=== PATIENT | female | born 1965 | race Caucasian/White ===

== ENCOUNTER 2016-07-01 08:22 | Inpatient (IN) | payer BC ==
--- NOTE | 2016-06-19 11:24 | HPE ---
DATE OF ADMISSION: 07/01/2015 HISTORY OF PRESENT ILLNESS: Ms. Holly is a pleasant 50-year-old, right-handed female who has been seen by Dr. Moise and is going to undergo anterior cervical discectomy and fusion at C5-6. The patient states that she has had chronic headaches for years, and she will get chronic bilateral arm numbness and tingling and at times whole-body numbness and tingling. She had recent carpal tunnel surgery in November 2015 on the right side without any significant change or relief. The patient states that vacuuming aggravates her pain. She tries to stop or change positions for relief. She has not had any physical therapy or injections, she states. ALLERGIES: The patient is allergic to PENICILLIN, LIVE VACCINES, SEAFOOD. PAST MEDICAL HISTORY: Significant for iron deficiency anemia, chronic pain and a skin disorder, Netherton syndrome. CURRENT MEDICATIONS: - Flexeril 10 mg three times a day as needed - hydroxyzine 25 mg daily - Lyrica 75 mg twice a day - iron daily - vitamin D daily PAST SURGICAL HISTORY: She had right carpal tunnel release November 2015. She had a section and tubal ligation in January 1989. REVIEW OF SYSTEMS: She reports fatigue, photophobia, shortness of breath, leg swelling, back pain, headaches, numbness, weakness. PHYSICAL EXAMINATION GENERAL APPEARANCE: No acute distress. Well-developed, well-nourished female. HEENT: Head is normocephalic, atraumatic. Pupils equal, round react to light. EOMs full and conjugate. RESPIRATORY: Symmetrical rise and fall of her chest. Positive bronchovesicular breath sounds. No wheezes. No rales. No rhonchi. CARDIAC: Regular rate and rhythm. No murmurs. No rubs. No gallops. ABDOMEN: Positive bowel sounds. Soft, nontender. No masses. No guarding. MUSCULOSKELETAL/NEUROLOGIC EXAM: Speech is clear and fluent. Smile symmetrical. Tongue is midline. She has good shoulder shrug bilaterally. Hearing is grossly intact bilaterally to finger rub. No pronator drift. She has good strength in bilateral biceps, triceps, deltoid and pharmacist aide strength are 5/5. Bilateral quads, hamstring, gastrocs, anterior tibialis are strong at 5/5. Reflexes upper and lower extremities normoactive symmetrical. No pathologic reflexes. She has good and full range of motion of her head and neck. No Lhermitte's is reproduced. She is alert and oriented times three. Judgment and insight good. Mood and affect appropriate for setting. ASSESSMENT: Cervical spondylosis. PLAN: The patient is going to undergo a C5-6 anterior cervical discectomy and fusion as discussed and outlined with the patient by Dr. Moise.
[~2016-07-01] VITALS: Ht 162.6 cm; Wt 85.0 kg
[~2016-07-01 08:22] MED LIST: AQUA100OI TOP; BIOT10005 PO; CYCL10TA PO; HYDR25T PO; IRON28TA PO; LYRI75CA PO; TRAM50TA2 PO; VITA500046 PO
[2016-07-01] MEDS ORDERED: CLINDAMYCIN 900 MG in APPROPRIATE DILUENT 1 EA IV ONE (08:30)
[2016-07-01] MEDS ORDERED: dexameTHASONE 4 MG/ML 1ML VIAL (J1100) IV ONE (08:30)
[2016-07-01] MEDS ORDERED: THROMBIN SOLN 20,000 UNITS KIT As Ordered ONE ×2 (10:13→13:30)
[2016-07-01] MEDS ORDERED: methylPREDNISolone SUSP 40 MG/ML (DEPO-medrol) VIAL (J1030) As Ordered ONE (10:13)
[2016-07-01] MEDS ORDERED: BACITRACIN PWD 50,000 UNITS VIAL As Ordered ONE (10:14)
[2016-07-01] MEDS: LR 1,000 ML IV SCH ×4 (10:45→16:10)
[2016-07-01] MEDS ORDERED: dexameTHASONE 4 MG/ML 1ML VIAL (J1100) As Ordered ONE (11:46)
[2016-07-01] MEDS ORDERED: ROCURONIUM BROMIDE 50 MG/5 ML VIAL As Ordered ONE (11:46)
[2016-07-01] MEDS ORDERED: PROPOFOL 500 MG/50 ML VIAL As Ordered ONE (11:46)
[2016-07-01] MEDS ORDERED: MIDAZOLAM INJ 2 MG/2 ML VIAL (J2250) As Ordered ONE (11:46)
[2016-07-01] MEDS ORDERED: REMIFENTANIL 1MG 3ML VIAL As Ordered ONE (11:46)
[2016-07-01] MEDS ORDERED: fentaNYL 100 MCG/2 ML INJECTION (J3010) As Ordered ONE (11:46)
[2016-07-01] MEDS ORDERED: METOCLOPRAMIDE INJ 10MG/2ML VIAL (J2765) As Ordered ONE (12:00)
[2016-07-01] MEDS ORDERED: ePHEDrine SULFATE 25 MG/5 ML(5MG/ML) SYRINGE As Ordered ONE ×3 (12:06→13:13)
[2016-07-01] MEDS ORDERED: PHENYLephrine HCL 500 MCG/5 ML (100MCG/ML) SYRINGE (J2370) As Ordered ONE ×3 (12:06→13:13)
--- NOTE | 2016-07-01 12:20 | REP ---
CERVICAL SPINE EIGHT VIEWS: HISTORY: Spondylosis. The cervical spine is visualized from C1 to the C6-7 level in the lateral radiographs. There is no acute fracture. The C4-5 through C6-7 intervertebral discs are decreased in height consistent with disc degeneration. Osteophytes are present on C6. The neural foramina are patent. There are 2 mm of anterior subluxation of C3 on 4 and C4 on 5 with flexion. This is not seen in neutral or extension radiographs. IMPRESSION: Degenerative change as described above. Signed by Martin Wilkes MD 07/01/2016 12:43 P
[2016-07-01] MEDS ORDERED: ONDANSETRON 4MG/2ML VIAL (J2405) As Ordered ONE (12:52)
[2016-07-01] MEDS ORDERED: HYDROmorphone HCL 2 MG/ML 1ML VIAL (J1170) As Ordered ONE (13:48)
[2016-07-01] MEDS ORDERED: THROMBIN SOLN 20,000 UNITS KIT XX ONE (13:58)
[2016-07-01] MEDS ORDERED: methylPREDNISolone SUSP 40 MG/ML (DEPO-medrol) VIAL (J1030) XX ONE (13:58)
[2016-07-01] MEDS ORDERED: BACITRACIN PWD 50,000 UNITS VIAL XX ONE (13:58)
--- NOTE | 2016-07-01 14:10 | REP ---
Image 1, 12: 34 pm on 07/01/16, Intraoperative cross table lateral view of cervical spine, 07/01/16. Findings: Endotracheal and NG tubes are identified. Anterior surgical marker overlies the disc space at C4-5. Inferior aspect of C6, and C7 are omitted from view. Image 2, 1:42 pm on 07/01/16 There has been interval anterior cervical discectomy at C5-C6. There is an anterior fixation plate C5 and C6 with transverse interlocking screws at C5 and C6 as well as interbody bony construct at this level. Anterior superior endplate of C6 is minimally included in view. C6 and C7 otherwise obscured from view. Alignment is within normal limits. Endotracheal and NG tubes are again identified Impression: status post anterior cervical discectomy with anterior fusion at C5-6. Alignment is anatomic in the lateral view. Signed by Marivel Morales MD 07/01/2016 02:02 P
[2016-07-01] MEDS ORDERED: PERCOCET 5MG/325MG TAB As Ordered ONE (15:19)
[2016-07-01 15:30] VITALS: BP 134/87
[2016-07-01] MEDS ORDERED: ONDANSETRON 4MG/2ML VIAL (J2405) IV PRN ×2 (15:30→15:45)
[2016-07-01] MEDS ORDERED: fentaNYL 100 MCG/2 ML INJECTION (J3010) IV PRN (15:30)
[2016-07-01] MEDS ORDERED: MORPHINE 2 MG/ML 1ML SYRINGE IV PRN ×2 (15:30→15:45)
[2016-07-01] MEDS: PERCOCET 5MG/325MG TAB PO PRN ×2 (15:42→16:09)
[2016-07-01] MEDS ORDERED: NORCO, ANEXSIA 5/325MG TABLET (HYDROcodone/ACETAMINOPHEN) PO PRN (15:45)
[2016-07-01] MEDS ORDERED: D5W/0.45% SODIUM CHLORIDE 1,000 ML IV SCH (15:45)
[2016-07-01] MEDS ORDERED: ACETAMINOPHEN TAB 650MG DOSE (2X325MG) PO PRN (15:45)
[2016-07-01 16:00] VITALS: BP 111/59
[2016-07-01 17:00] VITALS: BP 136/77
[2016-07-01] MEDS: KCL 20MEQ IN D5/0.45NS 1000ML 1,000 ML IV SCH (17:39)
[2016-07-01] MEDS: CLINDAMYCIN 300 MG in APPROPRIATE DILUENT 1 EA IV SCH ×2 (17:55→23:45)
[2016-07-01 18:00] VITALS: BP 115/74
[2016-07-01 19:00] VITALS: BP 123/63
[2016-07-01] MEDS ORDERED: hydrOXYzine 25 MG TAB PO SCH (21:00)
[2016-07-01] MEDS: PREGABALIN 75 MG CAP(LYRICA) PO SCH (21:08)
--- NOTE | 2016-07-01 21:08 | RO ---
DATE OF PROCEDURE: 07/01/2016 PREOPERATIVE DIAGNOSES: Cervical spondylosis with myelopathy and radiculopathy. POSTPROCEDURE DIAGNOSES: Cervical spondylosis with myelopathy and radiculopathy. PROCEDURE: Partial corpectomies of C5-C6 with discectomy, arthrodesis using Allograft and internal stabilization using CoreLink plating system. SURGEON: Nickie Moise MD HAND THERMAL CUTTER: None. ANESTHESIA: General. s FINDINGS: Please see the my office notes for detailed preoperative evaluation and discussion in this patient with degenerative changes of the cervical spine. She was seen in the preoperative area with her . There was no change in her clinical examination and continues to have soft myelopathic findings with reversal of brachioradialis reflexes and has mild C6 deficits. Her workup showed pertinent changes, particularly at C5-6 there is a small herniated disc compressing the spinal cord. This along with osteophytic ridge is somewhat more eccentric towards the right. Her last EMG nerve conduction study also showed C5-C6 radiculopathy along with median neuropathy. Stress views showed early subluxation at C3-C4 and C4-C5 during flexion. Family consult was held in the preoperative area and with her and in the past the patient has been aware of all options, scope, expected outcome, sequela, and all risks of the proposed salvage surgery. They understand that no guarantees can be given of any kind and the risk of surgery would include, but not limited to , coma, spinal fluid leakage, meningitis, loss of voice or swallowing, Solitario syndrome, loss of vital bodily functions, failure of surgery, fusion and instrumentation, need for multiple surgeries, mediastinitis, pneumothorax, infection, bleeding, and/or any catastrophic sequela. The patient wished to proceed with surgery. She claimed once again that there is no way she can live with the nagging pain in her neck which would radiate to both shoulders, mostly the right and burning sensation in her arms, and is willing to take any or all risk for any possible benefit. The patient and her once again understood the risks and advantage of the surgery and had all followup instructions. After all matters pertaining to the surgery, anesthesia and followup care had been discussed with her again, she was taken to the operating room after informed consent at her request. DESCRIPTION OF PROCEDURE: Once in the operating room, general endotracheal anesthesia was given by the anesthesia service. The area of surgery was prepped and draped in the usual sterile fashion. Her shoulder was supported with a blanket roll and neck was slightly turned towards the left. A horizontal skin incision was given along one of the neck creases at the cricoid cartilage. Alveolar layer was reached and incised. Cut edges of blood vessels were coagulated with bipolar cautery and PlasmaBlade. Platysma was opened in the direction of fibers. A cleavage was created between the trachea and esophagus and omohyoid muscles medially and the medial border of the sternocleidomastoid are carotid sheath laterally. Prevertebral fascia was reached and opened. Longus colli muscles were from the exposed vertebral column and self-retaining retractors were applied to C5-C6. A marker was placed at C4-C5 for radiological confirmation. Attention was now paid to C4-C5. Annulus was incised with an #11 blade. After rongeuring the anterior osteophytes with high speed air drill, again for more visual access of the interspace. The patient had free fragment which was compressing the spinal cord near the midline and somewhat towards the right and this was removed along with degenerative disc and osteophytes were drilled and removed. Complete decompression of the spinal cord was achieved, with the annulus carried over the medial aspect of the nerve roots. Epidural space was inspected for further disc material and none was found. Limited partial corpectomy was performed to gain more vital decompression and during the process the vertebral bodies were generally distracted with the Randy pins. 6 mm wide tricortical allograft block was placed in the vertebral defect and internal stabilization was caused by using a 14 mm CoreLink plate which was approximated to the vertical columns using self-drilling 12 mm screws. Hemostasis was checked and secured throughout the procedure. Blood loss was negligible and there was nothing in the container per anesthesia service. The wound was closed in anatomical layers. The patient tolerated the procedure well and was transferred to the recovery room in stable condition. Operative findings were discussed with the patient and her in the waiting room. Carbon Copy To: Dr. Mago [place], [place]
[2016-07-01 22:00] VITALS: BP 123/66
[2016-07-02 02:00] VITALS: BP 120/60
[2016-07-02] MEDS: KCL 20MEQ IN D5/0.45NS 1000ML 1,000 ML IV SCH (02:34)
[2016-07-02] MEDS: CLINDAMYCIN 300 MG in APPROPRIATE DILUENT 1 EA IV SCH ×2 (05:16→11:20)
[2016-07-02 06:00] VITALS: BP 117/77
[2016-07-02] MEDS: PREGABALIN 75 MG CAP(LYRICA) PO SCH (09:07)
--- NOTE | 2016-07-02 09:45 | REP ---
CERVICAL SPINE, TWO VIEWS: HISTORY: Spinal fusion. COMPARISON: 07/01/2016. The patient is status post C5-6 anterior spinal fusion. A fixation plate and bone graft material are present. There is no acute fracture or subluxation. The C4-5 and C6-7 intervertebral discs are decreased in height consistent with disc degeneration. Prevertebral soft tissue swelling is present. IMPRESSION: The patient is status post C5-6 anterior spinal fusion. There is anatomic alignment of the cervical spine. Signed by Martin Wilkes MD 07/02/2016 09:51 A
[2016-07-02 10:00] VITALS: BP 122/65
[2016-07-02 14:00] VITALS: BP 146/74
[2016-07-02] MEDS ORDERED: NORC5TAB PO (15:22)
[2016-07-02] MEDS ORDERED: CIPR500T89 PO (15:29)
--- NOTE | 2016-07-02 21:23 | DSES ---
DATE OF ADMISSION: 07/01/2016 DATE OF DISCHARGE: 07/02/2016 FINAL DIAGNOSIS: Cervical spondylosis. PROCEDURE: C5-C6, partial corpectomies, discectomies, fusion, and internal stabilization using CoreLink plating. HOSPITAL COURSE: Please see my office note for a detailed preoperative evaluation and discussion. The patient had cervical spondylosis with evidence of myelopathy and radiculopathy. The patient underwent an uneventful above procedure and reported no preoperative symptoms. Examination shows no evidence of residual radiculopathy or myelopathy. She was discharged at her request on 07/02/2016. The patient had followup instructions.
== END 2016-07-02 16:30 | disposition home or self-care (01) | DRG 321 ==
LOC: M OR 08:22 → M MS5PR 15:30
PROVIDERS: ADMIT Neurological Surgery; ATTEND Neurological Surgery
PROC: 0RB30ZZ Excision of Cervical Vertebral Disc, Open Approach (ICD-10-PCS; 2016-07-01)
PROC: 01N10ZZ Release Cervical Nerve, Open Approach (ICD-10-PCS; 2016-07-01)
PROC: 0RG20A0 Fusion of 2 or more Cervical Vertebral Joints with Interbody Fusion Device, Anterior Approach, Anterior Column, Open Approach (ICD-10-PCS; principal; 2016-07-01 10:05)
DX: M47.12 Other spondylosis with myelopathy, cervical region (principal); M54.12 Radiculopathy, cervical region; Z88.0 Allergy status to penicillin; Z79.899 Other long term (current) drug therapy; Z91.013 Allergy to seafood; Z88.7 Allergy status to serum and vaccine

== ENCOUNTER → 2016-07-21 | Outpatient (CLI) | payer BC ==
[~2016-07-21] MED LIST changes: +CIPR500T89 PO; +NORC5TAB PO
[2016-07-21 11:18] LABS: BASO # 0.1 K/mm3 (0.0-0.2); BASO % 1.1 % (0.0-1.0); EOS # 0.8 K/mm3 (0.0-0.50); EOS % 9.9 % (0.0-3.0); LARGE UNSTAINED CELL # 0.2 K/mm3 (0.0-0.4); LARGE UNSTAINED CELL % 2.2 % (0.0-4.0); LYMPH # 1.8 K/mm3 (1.5-4.5); LYMPH % 19.3 % (24.0-44.0); MEAN CORPUSCULAR VOLUME 87.8 fl (80.0-96.0); MONO # 0.6 K/mm3 (0.0-0.8); MONO % 7.4 % (0.0-5.0); NEUTROPHILS # 4.9 K/mm3 (1.8-7.7); PLATELET COUNT, AUTOMATED 297 k/mm3 (150-450); RED CELL DISTRIBUTION WIDTH 12.9 % (11.5-14.5); WHITE BLOOD COUNT 8.2 K/mm3 (4.0-10.0)
[2016-07-21 11:40] LABS: ERYTHROCYTE SEDIMENTATION RATE 14 mm/hr (0-20)
== END ==
LOC: M LAB 10:44
PROVIDERS: ATTEND Neurological Surgery
DX: M47.22 Other spondylosis with radiculopathy, cervical region (principal)

== ENCOUNTER → 2016-08-09 | Outpatient (CLI) | payer BC, MEDICARE ==
--- NOTE | 2016-08-09 14:08 | REP ---
Clinical: Status post anterior fusion. Technique: AP, lateral, flexion/extension, and open-mouth views. Findings: Alignment is maintained. The patient is status post anterior fusion at the C5-6 level. Prevertebral soft tissues are normal and without subcutaneous emphysema. Impression: Normal alignment. Stable examination. Signed by Kelby Lagunas MD 08/09/2016 02:00 P
== END ==
LOC: M RAD 13:40
PROVIDERS: ATTEND Neurological Surgery
DX: M47.22 Other spondylosis with radiculopathy, cervical region (principal)

== ENCOUNTER → 2016-08-19 | Outpatient (CLI) | payer BC ==
--- NOTE | 2016-08-20 02:07 | ECWPNPC ---
PATIENT NAME: NAVID KIBRY : 1965 GENDER: FEMALE VISIT DATE: 08/19/2016 DISCHARGE DATE: 08/19/16 1200 VISIT LOCKED DATE TIME: PHYSICIAN: STACY THOMASON RESOURCE: STACY THOMASON REASON FOR APPOINTMENT 1. BACK HISTORY OF PRESENT ILLNESS HISTORY OF PRESENT ILLNESS: HERE FOR F/U AND MANAGEMENT OF CHRONIC LOW BACK AND BILATERAL LEG PAIN R>L.HX OF LOWER EXTREMITY NEUROPATHY AND ARTHRITIS.RATING PAIN VAS 1/10.HAD CERVICAL SURGERY ON Jun WITH DR RATLIFF.FOLLOWS WITH DR. GUICHO YOON FOR NEUROPATHY AND IS PRESCRIBED LYRICA.PATIENT STATES SHE HAS HAD 35# WEIGHT GAIN AND FLUID RETENTION IN LOWER EXTREMITIES.CURRENTLY TAKING LYRICA 75MG BID.SHE WILL DISCUSS W DR. YOON.REYNA ENCOURAGED HER TO DISCUSS WEIGHT GAIN WITH PRIMARY CARE TOO I DONT THINK ALL THE WEIGHT GAIN AND FLUID RETENTION IS FROM LYRICA.PATIENT IS ASKING FOR ANOTHER EPIDURAL.HAD ONE IN JANUARY AND WAS DOING WELL UNTIL PAST FEW WEEKS.PAIN IS LOCATED IN CENTRAL LOW BACK AND RADIATES INTO LEGS BILATERALLY.MRI L/S SPINE REVIEWED. PAIN THE PATIENT DESCRIBES THE PAIN... THE PATIENT DESCRIBES THE PAIN... THE PATIENT DESCRIBES THE PAIN... FALL RISK SCREENING: SCREENING :NO FALLS IN THE PAST YEAR CURRENT MEDICATIONS TAKING IRON 28 MG TABLET 1 TABLET ORALLY ONCE A DAY TAKING VITAMIN D-3 1000 UNIT CAPSULE 1 CAPSULE ORALLY ONCE A DAY TAKING HYDROXYZINE HCL 25 MG TABLET 1 TAB ORALLY AT BEDTIME TAKING FLEXERIL 10 MG TABLET 1 TABLET ORALLY THREE TIMES DAILY NEEDED TAKING LYRICA 75 MG CAPSULE 1 CAPSULE ORALLY TWO TIMES A DAY TAKING AQUAPHILIC/CARBAMIDE 10 % OINTMENT EXTERNALLY NEEDED. TAKING HYDROCORTISONE VALERATE 0.2 % CREAM 1 APPLICATION TO AFFECTED AREA EXTERNALLY ONCE A DAY TAKING TRAMADOL HCL 50 MG TABLET 1-2 ORALLY Q8H PRN PAIN MDD3 TAKING VITAMIN C 500 MG TABLET CHEWABLE 1 TABLET ORALLY ONCE A DAY NOT-TAKING BIOTIN MAXIMUM STRENGTH 5000 MCG CAPSULE 1 CAPSULE ORALLY ONCE A DAY, NOTES: 0800 MEDICATION LIST REVIEWED AND RECONCILED WITH THE PATIENT PAST MEDICAL HISTORY NETHERTONS SYNDROME-SKIN PROBLEM ARTHRITIS HEART VALVE LEAKS-ABNORMAL EKG CARPAL TUNNEL SYNDROME ALLERGIES PENICILLIN (FOR ALLERGIES USE ONLY): UNKNOWN SEAFOOD: HIVES LIVE VACCINE: UNKNOWN SURGICAL HISTORY C-SECTIONX1 TUBA RIGHT CARPEL TUNNEL 2016 ERVICAL DISC 2017 SOCIAL HISTORY GENERAL: TOBACCO USE ARE YOU A:NONSMOKER LEARNING BARRIERS / SPECIAL NEEDS ORIENTED TO PLAN OF CARE: PATIENT, PAIN MANAGEMENT PATIENT, ORIENTED TO PLAN OF CARE: PATIENT, PAIN MANAGEMENT PATIENT. NEW PATIENT PAIN DIARY TODAY'S VISITNOTES FROM 0-10, WHAT LEVEL IS YOUR PAIN TODAY?0 PAIN CLINIC PFS, CLERGY, PUBLIC HEALTH REFERRALS PFS REFERRAL NEEDED?NO CLERGY REFERRAL NEEDED?NO PUBLIC HEALTH REFERRAL NEEDED?NO WAS THE PROVIDER NOTIFIED OF ANY PERTINENT INFO?NO PFS REFERRAL NEEDED?NO CLERGY REFERRAL NEEDED?NO PUBLIC HEALTH REFERRAL NEEDED?NO WAS THE PROVIDER NOTIFIED OF ANY PERTINENT INFO?NO HOSPITALIZATION/MAJOR DIAGNOSTIC PROCEDURE [facility]IL[facility]IRTH REVIEW OF SYSTEMS CONSTITUTIONAL: ANY CHANGE IN YOUR MEDICAL CONDITION? YES CERVICAL DISC SURGERY IN JUNE . RECENT ILLNESS DENIES . CHILLS NO . FEVER NO . WEIGHT LOSS DENIES . INFECTION: DO YOU HAVE NEW INFECTIONS? NO . DO YOU HAVE HISTORY OF MRSA? NO . MUSCULOSKELETAL: ANY NEW PATTERNS OF PAIN OR NUMBNESS? YES HIGHER IN THE LEGS TODAY . GASTROENTEROLOGY: ANY NEW CHANGE IN BOWEL CONTROL? NO . GENITOURINARY: ANY NEW CHANGE IN BLADDER CONTROL? NO . IS THERE A CHANCE YOU COULD BE ? NO . HEMATOLOGY/LYMPH: DO YOU TAKE ANY BLOOD THINNERS? (FOR EXAMPLE- COUMADIN, PLAVIX, AGGRENOX, PLATEL, PRADAXA, OR XARELTO) NO . WHEN WAS YOUR LAST DOSE? DATE: TIME: . NEUROLOGY: HAVE YOU FALLEN IN THE PAST 6 MONTHS? NO . ANY NEW EXTREMITY NUMBNESS OR WEAKNESS? NO . CARDIOLOGY: DO YOU HAVE A PACEMAKER OR DEFIBRILLATOR? NO . CHEST PAIN DENIES . SHORTNESS OF BREATH DENIES . RESPIRATORY: HAVE YOU BEEN SICK IN THE PAST WEEK? NO . FEVER NO . FLU LIKE SYMPTOMS? NO . COUGH NO, DENIES . SHORTNESS OF BREATH DENIES . INTEGUMENTARY: DO YOU HAVE ANY RASHES OR OPEN SORES? NO . ALLERGIC/IMMUNO: ARE YOU ALLERGIC TO SHELLFISH OR IV DYE? NO . ANY NEW ALLERGIES? NO . PSYCHIATRIC: DO YOU HAVE THOUGHTS OF HURTING YOURSELF OR SOMEONE ELSE? NO . ARE YOU ABUSED, NEGLECTED, OR IN AN UNSAFE ENVIRONMENT? NO . ENDOCRINOLOGY: ARE YOU DIABETIC? NO . OTHER: DO YOU NEED ANY PRESCRIPTIONS? NO . IF YES, PLEASE LIST: ____ . ANY NEW PROBLEMS WITH YOUR MEDICATIONS? NO . WHEN DID YOU LAST EAT? ____ . WHEN DID YOU LAST DRINK? ____ . WHAT DID YOU LAST DRINK? ____ . NAME OF PERSON DRIVING YOU HOME? ____ . DO YOU HAVE ANY OTHER QUESTIONS OR CONCERNS NO . REVIEWED BY: PROVIDER: STACY COLBERT . VITAL SIGNS WT 197.6 LBS, HT 63 IN, BMI 35.00 INDEX, BP 152/74 MM HG, HR 86 /MIN, RR 16 /MIN, TEMP 95.4 F, OXYGEN SAT % 99%, NA INITIALS SC 11:36, REVIEWED BY: KG. EXAMINATION GENERAL EXAMINATION: LUNGS:LUNG SOUNDS ARE CLEAR. HEART:HEART RATE REGULAR. MUSCULOSKELETAL:*, MUSCLE STRENGTH TESTING 5/5 BILATERAL LOWER EXTREMITIES., PALPATION: POSITIVE FOR PAIN OVER L/S SPINE. POSITIVE FOR PAIN OVER L/S PARASPINALS.INSPECTION:2+ EDEMA BILAT. LOWER EXTREMITIES.. DIAGNOSTIC:MRI L/S SPINE 04-28-15-REVIEWED. ASSESSMENTS LUMBOSACRAL SPONDYLOLYSIS - M43.07 (PRIMARY) NEUROPATHY INVOLVING BOTH LOWER EXTREMITIES - G57.91 LUMBOSACRAL RADICULOPATHY - M54.17 TREATMENT LUMBOSACRAL SPONDYLOLYSIS CAUDAL/LUMBAR EPIDURAL NOTES: OPTION FOR EPIDURAL INJECTIONS WERE DISCUSSED WITH THE PATIENT. FDA CONCERNS AND WARNING WERE REVIEWED INCLUDING THE RISK OF BLEEDING, RISK OF INFECTION, RISK OF INCREASED PAIN OR NEURALGIA, AND RISK OF PARALYSIS. PATIENT'S QUESTIONS WERE ANSWERED AND HE/SHE WISHES TO MOVE FORWARD WITH EPIDURAL INJECTION. PROCEDURE CODES FA211 ESTABILISHED PATIENT FORMERLY [facility] CHARGE DISPOSITION & COMMUNICATION FOLLOW UP 2WK POST (REASON: L4/5-L5/S1 LESI) ELECTRONICALLY SIGNED BY FILEMON SINHA ON 08/19/2016 AT 02:44 PM EST DISCLAIMER : THIS IS A VISIT SUMMARY EXTRACTED FROM THE [employer] CHART. IT IS NOT A COPY OF THE [employer] PROGRESS NOTE. WIL
== END ==
LOC: M PAIN 11:00
PROVIDERS: ATTEND Nurse Practitioner Family
DX: Z09 Encounter for follow-up examination after completed treatment for conditions other than malignant neoplasm (principal); G89.29 Other chronic pain; M43.07 Spondylolysis, lumbosacral region; G57.91 Unspecified mononeuropathy of right lower limb; Q80.8 Other congenital ichthyosis; M19.90 Unspecified osteoarthritis, unspecified site; I35.9 Nonrheumatic aortic valve disorder, unspecified; Z88.0 Allergy status to penicillin; Z91.013 Allergy to seafood; Z88.7 Allergy status to serum and vaccine; Z79.891 Long term (current) use of opiate analgesic; Z79.899 Other long term (current) drug therapy

== ENCOUNTER → 2016-09-16 | Outpatient (CLI) | payer BC ==
[~2016-09-16] MED LIST changes: +ISOVUE-M 300 61% 15ML VIAL (Q9967) As Ordered ONE; +LIDOCAINE 1% SDV INJ 30 ML VIAL As Ordered ONE; +NORC1TAB4 PO; -NORC5TAB PO; +diazePAM 5 MG TAB As Ordered ONE; +methylPREDNISolone SUSP 40 MG/ML (DEPO-medrol) VIAL (J1030) As Ordered ONE; +oxyCODONE 5MG TAB As Ordered ONE
--- NOTE | 2016-09-16 13:04 | REP ---
FLUOROSCOPIC GUIDANCE FOR SPINE INJECTION: 09/16/2016. Clinical history: Low back pain. Single image from C-arm fluoroscopy for lumbar epidural steroid injection by Dr. Connors of the pain clinic is reviewed. That image shows a needle to the right of midline at the C4-5 level. Fluoroscopy time 6-seconds. Signed by Saul Montes De Oca MD 09/16/2016 05:07 P
--- NOTE | 2016-09-19 00:40 | ECWPNPC ---
PATIENT NAME: NAVID KIRBY : 1965 GENDER: FEMALE VISIT DATE: 09/16/2016 DISCHARGE DATE: 09/16/16 1207 VISIT LOCKED DATE TIME: PHYSICIAN: MAKENZIE MAXWELL RESOURCE: MAKENZIE MAXWELL REASON FOR APPOINTMENT 1. L4/5-L5/S1 LESI HISTORY OF PRESENT ILLNESS HISTORY OF PRESENT ILLNESS: PAIN THE PATIENT DESCRIBES THE PAIN... FALL RISK SCREENING: SCREENING :NO FALLS IN THE PAST YEAR CURRENT MEDICATIONS TAKING IRON 28 MG TABLET 1 TABLET ORALLY ONCE A DAY, NOTES: 09/15/16 1030 TAKING VITAMIN D-3 1000 UNIT CAPSULE 1 CAPSULE ORALLY ONCE A DAY, NOTES: 09/15/16 1030 TAKING HYDROXYZINE HCL 25 MG TABLET 1 TAB ORALLY AT BEDTIME, NOTES: 09/15/16 2100 TAKING FLEXERIL 10 MG TABLET 1 TABLET ORALLY THREE TIMES DAILY NEEDED, NOTES: 09/14/16 1400 TAKING AQUAPHILIC/CARBAMIDE 10 % OINTMENT EXTERNALLY NEEDED., NOTES: 09/15/16 12MIDNIGHT ON LEGS AND ARMS TAKING HYDROCORTISONE VALERATE 0.2 % CREAM 1 APPLICATION TO AFFECTED AREA EXTERNALLY ONCE A DAY, NOTES: 09/15/16 12 MIDNIGHT TO FACE TAKING TRAMADOL HCL 50 MG TABLET 1-2 ORALLY Q8H PRN PAIN MDD3, NOTES: 09/16/16 0200 TAKING VITAMIN C 500 MG TABLET CHEWABLE 1 TABLET ORALLY ONCE A DAY, NOTES: 09/15/16 1030 TAKING CYMBALTA 30 MG CAPSULE DELAYED RELEASE PARTICLES 1 CAPSULE ORALLY DAILY, NOTES: 08/2716 1800 NOT-TAKING BIOTIN MAXIMUM STRENGTH 5000 MCG CAPSULE 1 CAPSULE ORALLY ONCE A DAY, NOTES: 0800 DISCONTINUED LYRICA 75 MG CAPSULE 1 CAPSULE ORALLY TWO TIMES A DAY MEDICATION LIST REVIEWED AND RECONCILED WITH THE PATIENT PAST MEDICAL HISTORY NETHERTONS SYNDROME-SKIN PROBLEM ARTHRITIS HEART VALVE LEAKS-ABNORMAL EKG CARPAL TUNNEL SYNDROME ALLERGIES PENICILLIN (FOR ALLERGIES USE ONLY): UNKNOWN SEAFOOD: HIVES: ALLERGY LIVE VACCINE: UNKNOWN K Y JELLY: SKIN IRRITATION AND BURNING: ALLERGY REVIEW OF SYSTEMS CONSTITUTIONAL: ANY CHANGE IN YOUR MEDICAL CONDITION? NO . CHILLS NO . FEVER NO . INFECTION: DO YOU HAVE NEW INFECTIONS? NO . DO YOU HAVE HISTORY OF MRSA? NO . MUSCULOSKELETAL: ANY NEW PATTERNS OF PAIN OR NUMBNESS? NO . GASTROENTEROLOGY: ANY NEW CHANGE IN BOWEL CONTROL? NO . GENITOURINARY: ANY NEW CHANGE IN BLADDER CONTROL? NO . IS THERE A CHANCE YOU COULD BE ? NO . HEMATOLOGY/LYMPH: DO YOU TAKE ANY BLOOD THINNERS? (FOR EXAMPLE- COUMADIN, PLAVIX, AGGRENOX, PLATEL, PRADAXA, OR XARELTO) NO . WHEN WAS YOUR LAST DOSE? DATE: TIME: . NEUROLOGY: HAVE YOU FALLEN IN THE PAST 6 MONTHS? NO . ANY NEW EXTREMITY NUMBNESS OR WEAKNESS? NO . CARDIOLOGY: DO YOU HAVE A PACEMAKER OR DEFIBRILLATOR? NO . RESPIRATORY: HAVE YOU BEEN SICK IN THE PAST WEEK? NO . FEVER NO . FLU LIKE SYMPTOMS? NO . COUGH NO . INTEGUMENTARY: DO YOU HAVE ANY RASHES OR OPEN SORES? NO . ALLERGIC/IMMUNO: ARE YOU ALLERGIC TO SHELLFISH OR IV DYE? YES, SHELLFISH AND SEAFOOD . ANY NEW ALLERGIES? NO . PSYCHIATRIC: DO YOU HAVE THOUGHTS OF HURTING YOURSELF OR SOMEONE ELSE? NO . ARE YOU ABUSED, NEGLECTED, OR IN AN UNSAFE ENVIRONMENT? NO . ENDOCRINOLOGY: ARE YOU DIABETIC? NO . OTHER: DO YOU NEED ANY PRESCRIPTIONS? NO . IF YES, PLEASE LIST: ____ . ANY NEW PROBLEMS WITH YOUR MEDICATIONS? NO . WHEN DID YOU LAST EAT? ___09/15/16 2330 . WHEN DID YOU LAST DRINK? ____09/16/16 0800 . WHAT DID YOU LAST DRINK? ____GATORADE . NAME OF PERSON DRIVING YOU HOME? ____HUSBAND, MAXIMINO . DO YOU HAVE ANY OTHER QUESTIONS OR CONCERNS NO . REVIEWED BY: PROVIDER: . VITAL SIGNS WT 190.0 LBS, HT 63 IN, BMI 33.65 INDEX, BP 151/65 MM HG, HR 72 /MIN, RR 16 /MIN, TEMP 98.0 F, OXYGEN SAT % 100, NA INITIALS TL 1025. ASSESSMENTS INTERVERTEBRAL DISC DISORDERS WITH RADICULOPATHY, LUMBAR REGION - M51.16 (PRIMARY) PROCEDURES PRE PROCEDURE DIAGNOSIS LUMBAR DISC DISORDER WITH RADICULOPATHY POST PROCEDURE DIAGNOSIS LUMBAR DISC DISORDER WITH RADICULOPATHY PROCEDURE LUMBAR EPIDURAL STEROID INJECTION UNDER FLUOROSCOPIC GUIDANCE SURGEON DR. MAKENZIE MAXWELL BOOKY NONE ANESTHESIA LOCAL PRE PROCEDURE NOTE THE PATIENT HAS A HISTORY OF CHRONIC LOW BACK PAIN. I EVALUATE THE PATIENT AND REVIEWED THE CHART. I WENT OVER THE RISKS, ALTERNATIVES, AND BENEFITS ASSOCIATED WITH THIS PROCEDURE. THE PATIENT WOULD LIKE TO PROCEED AND GIVE CONSENT TO PERFORMED THE PROCEDURE. THE PATIENT DENIES UNEXPLAINABLE WEIGHT LOSS, FEVER, CHILLS, OR NEW CHANGES IN URINARY OR BOWEL CONTROL DESCRIPTION OF PROCEDURE THE PATIENT WAS BROUGHT TO THE PROCEDURE ROOM AND PLACED IN THE PRONE POSITION. THE LUMBOSACRAL AREA WAS CLEANED WITH BETADINE SOLUTION AND DRAPED ASEPTICALLY. THE PROCEDURE WAS DONE UNDER STERILE CONDITIONS. I CHECKED LATERALITY AND THE LEVEL WHERE THE PROCEDURE WAS GOING TO BE PERFORMED WITH THE PATIENT AND THE SUPPORTING STAFF AT THE MOMENT OF THE TIME OUT IN THE PROCEDURE ROOM. UNDER FLUOROSCOPIC GUIDANCE, THE TARGET POINT WAS SELECTED AT THE INTERLAMINAR LEVEL OF L4-L5. LIDOCAINE WAS USED TO NUMB THE SKIN AND THE SUBCUTANEOUS TISSUE BELOW IT. EPIDURAL TUOHY NEEDLE, 17-GAUGE, WAS ADVANCED UNDER FLUOROSCOPIC GUIDANCE AND FOLLOWING PATIENT FEEDBACK UNTIL THE EPIDURAL SPACE WAS REACHED, 7 CM DEEP INTO THE SKIN BY THE LOSS OF RESISTANCE TECHNIQUE. A SOLUTION OF 3 ML OF NORMAL SALINE WITH DEPO-MEDROL 60 MG WAS INJECTED SLOWLY FOLLOWING PATIENT FEEDBACK. THERE WAS NO EVIDENCE OF BLOOD, PARESTHESIA OR CEREBROSPINAL FLUID DURING THE PROCEDURE. THE PATIENT WAS SENT TO THE RECOVERY ROOM. THE PATIENT WAS MOVING THE EXTREMITIES AND DOING WELL. THERE WAS NO COMPLICATION DURING THE PROCEDURE. FLUOROSCOPY TIME WAS 6 SECONDS POST PROCEDURE NOTE THE PATIENT WILL BE SEEN IN A FOLLOW UP IN THE NEXT FEW WEEKS. INSTRUCTIONS WERE GIVEN, QUESTIONS WERE ANSWERED, AND THE PATIENT EXPRESSED UNDERSTANDING AND AGREES WITH THE PLAN. I, VANESSA JOLLY, DOCUMENTED THE ABOVE INFORMATION ACTING A SCRIBE FOR DR. MAXWELL. I, DR. MAXWELL, HAVE REVIEWED THE ABOVE DOCUMENT, SCRIBED BY VANESSA JOLLY, AND I VERIFY THAT IT IS ACCURATE DIAGNOSTIC IMAGING [facility] FLUORO GUIDE SPINE INJECTION (PAIN)[id number] PROCEDURE CODES 71224 LUMBAR/SACRAL W/ IMAGING 6045F RADXPS IN END [id number] PXD DISPOSITION & COMMUNICATION FOLLOW UP 3 WEEKS ELECTRONICALLY SIGNED BY MAKENZIE MAXWELL MD ON 09/18/2016 AT 01:45 PM EDT DISCLAIMER : THIS IS A VISIT SUMMARY EXTRACTED FROM THE [employer] CHART. IT IS NOT A COPY OF THE [employer] PROGRESS NOTE. MTDD
== END ==
LOC: M PAIN 10:20
PROVIDERS: ATTEND Anesthesiology
DX: G89.29 Other chronic pain (principal); M51.16 Intervertebral disc disorders with radiculopathy, lumbar region; M54.5 Low back pain; Z79.891 Long term (current) use of opiate analgesic; Z79.899 Other long term (current) drug therapy; Z88.0 Allergy status to penicillin; Z88.8 Allergy status to other drugs, medicaments and biological substances; Z91.013 Allergy to seafood; Z91.048 Other nonmedicinal substance allergy status
CPT/HCPCS: 62323; J1030; Q9967

== ENCOUNTER → 2016-10-13 | Outpatient (CLI) | payer BC ==
[~2016-10-13] MED LIST changes: -ISOVUE-M 300 61% 15ML VIAL (Q9967) As Ordered ONE; -LIDOCAINE 1% SDV INJ 30 ML VIAL As Ordered ONE; -diazePAM 5 MG TAB As Ordered ONE; -methylPREDNISolone SUSP 40 MG/ML (DEPO-medrol) VIAL (J1030) As Ordered ONE; -oxyCODONE 5MG TAB As Ordered ONE
--- NOTE | 2016-10-14 02:42 | ECWPNPC ---
PATIENT NAME: NAVID KIRBY : 1965 GENDER: FEMALE VISIT DATE: 10/13/2016 DISCHARGE DATE: 10/13/16 1133 VISIT LOCKED DATE TIME: PHYSICIAN: STACY THOMASON RESOURCE: STACY THOMASON REASON FOR APPOINTMENT 1. POST PROCEDURE HISTORY OF PRESENT ILLNESS HISTORY OF PRESENT ILLNESS: HERE FOR POST PROCEDURE F/U.HAD L4/5-L5/S1 LESI ON 09-16-16.REPORTS IMPROVEMENT IN LEG SYMPTOMS.REPORTING REOLUTON OF LOW BACK PAIN POST PROCEDURE THAT CONTINUES TODAY.RATING PAIN VAS 5/10.CURRENTLY FOLLOWING WITH AND DR. MACIAS.HAD RECENT MRI L/S SPINE 09-26-16 ORDERED BY .WILL BE HAVING NCS LOWER EXTREMITIES TODAY ORDERED BY REYNA.CURRENTLY USING TRAMADOL WE PRESCRIBE AND IS USING IT INFREQUENTLY MAINLY AT NIGHT FOR LEG PAIN.FINDS IT HELPFUL DENIES SIDE EFFECTS. FALL RISK SCREENING: SCREENING :NO FALLS IN THE PAST YEAR CURRENT MEDICATIONS TAKING IRON 28 MG TABLET 1 TABLET ORALLY ONCE A DAY TAKING VITAMIN D-3 1000 UNIT CAPSULE 1 CAPSULE ORALLY ONCE A DAY TAKING HYDROXYZINE HCL 25 MG TABLET 1 TAB ORALLY AT BEDTIME TAKING FLEXERIL 10 MG TABLET 1 TABLET ORALLY THREE TIMES DAILY NEEDED TAKING AQUAPHILIC/CARBAMIDE 10 % OINTMENT EXTERNALLY NEEDED. TAKING HYDROCORTISONE VALERATE 0.2 % CREAM 1 APPLICATION TO AFFECTED AREA EXTERNALLY EVERY OTHER DAY TAKING TRAMADOL HCL 50 MG TABLET 1-2 ORALLY Q8H PRN PAIN MDD3 TAKING VITAMIN C 500 MG TABLET CHEWABLE 1 TABLET ORALLY ONCE A DAY TAKING CYMBALTA 60 MG CAPSULE DELAYED RELEASE PARTICLES 1 CAPSULE ORALLY DAILY NOT-TAKING BIOTIN MAXIMUM STRENGTH 5000 MCG CAPSULE 1 CAPSULE ORALLY ONCE A DAY, NOTES: 0800 MEDICATION LIST REVIEWED AND RECONCILED WITH THE PATIENT PAST MEDICAL HISTORY NETHERTONS SYNDROME-SKIN PROBLEM ARTHRITIS HEART VALVE LEAKS-ABNORMAL EKG CARPAL TUNNEL SYNDROME ALLERGIES PENICILLIN (FOR ALLERGIES USE ONLY): UNKNOWN SEAFOOD: HIVES: ALLERGY LIVE VACCINE: UNKNOWN K Y JELLY: SKIN IRRITATION AND BURNING: ALLERGY SOCIAL HISTORY GENERAL: PAIN CLINIC PFS, CLERGY, PUBLIC HEALTH REFERRALS CLERGY REFERRAL NEEDED?NO WAS THE PROVIDER NOTIFIED OF ANY PERTINENT INFO?NO PFS REFERRAL NEEDED?NO PUBLIC HEALTH REFERRAL NEEDED?NO PATIENT: ____. REVIEW OF SYSTEMS CONSTITUTIONAL: ANY CHANGE IN YOUR MEDICAL CONDITION? NO . CHILLS NO . FEVER NO . INFECTION: DO YOU HAVE NEW INFECTIONS? NO . DO YOU HAVE HISTORY OF MRSA? NO . MUSCULOSKELETAL: ANY NEW PATTERNS OF PAIN OR NUMBNESS? NO . GASTROENTEROLOGY: ANY NEW CHANGE IN BOWEL CONTROL? NO . GENITOURINARY: ANY NEW CHANGE IN BLADDER CONTROL? NO . IS THERE A CHANCE YOU COULD BE ? NO . HEMATOLOGY/LYMPH: DO YOU TAKE ANY BLOOD THINNERS? (FOR EXAMPLE- COUMADIN, PLAVIX, AGGRENOX, PLATEL, PRADAXA, OR XARELTO) NO . WHEN WAS YOUR LAST DOSE? DATE: TIME: . NEUROLOGY: HAVE YOU FALLEN IN THE PAST 6 MONTHS? NO . ANY NEW EXTREMITY NUMBNESS OR WEAKNESS? NO . CARDIOLOGY: DO YOU HAVE A PACEMAKER OR DEFIBRILLATOR? NO . RESPIRATORY: HAVE YOU BEEN SICK IN THE PAST WEEK? NO . FEVER NO . FLU LIKE SYMPTOMS? NO . COUGH NO . INTEGUMENTARY: DO YOU HAVE ANY RASHES OR OPEN SORES? NO . ALLERGIC/IMMUNO: ARE YOU ALLERGIC TO SHELLFISH OR IV DYE? YES, SHELLFISH . ANY NEW ALLERGIES? NO . PSYCHIATRIC: DO YOU HAVE THOUGHTS OF HURTING YOURSELF OR SOMEONE ELSE? NO . ARE YOU ABUSED, NEGLECTED, OR IN AN UNSAFE ENVIRONMENT? NO . ENDOCRINOLOGY: ARE YOU DIABETIC? NO . OTHER: DO YOU NEED ANY PRESCRIPTIONS? NO . IF YES, PLEASE LIST: ____ . ANY NEW PROBLEMS WITH YOUR MEDICATIONS? NO . WHEN DID YOU LAST EAT? ____ . WHEN DID YOU LAST DRINK? ____ . WHAT DID YOU LAST DRINK? ____ . NAME OF PERSON DRIVING YOU HOME? ____ . DO YOU HAVE ANY OTHER QUESTIONS OR CONCERNS INJECTION DIDN'T HELP PAIN IN LEGS FOR VERY BUT BACK IS BETTER . REVIEWED BY: PROVIDER: STACY COLBERT . VITAL SIGNS WT 193.2 LBS, HT 63 IN, BMI 34.22 INDEX, BP 144/67 MM HG, HR 74 /MIN, RR 16 /MIN, TEMP 98.2 F, OXYGEN SAT % 99%, NA INITIALS SC 11:02, REVIEWED BY: NAT. EXAMINATION GENERAL EXAMINATION: LUNGS:LUNG SOUNDS ARE CLEAR. HEART:HEART RATE REGULAR. MUSCULOSKELETAL:*, MUSCLE STRENGTH TESTING 5/5 BILATERAL LOWER EXTREMITIES., PALPATION: POSITIVE FOR PAIN OVER L/S SPINE. POSITIVE FOR PAIN OVER L/S PARASPINALS.INSPECTION:2+ EDEMA BILAT. LOWER EXTREMITIES.. DIAGNOSTIC:MRI L/S SPINE 04-28-15-REVIEWED. ASSESSMENTS LUMBOSACRAL SPONDYLOLYSIS - M43.07 (PRIMARY) NEUROPATHY INVOLVING BOTH LOWER EXTREMITIES - G57.91 LUMBOSACRAL RADICULOPATHY - M54.17 TREATMENT LUMBOSACRAL SPONDYLOLYSIS CONTINUE TRAMADOL HCL TABLET, 50 MG, 1-2, ORALLY, Q8H PRN PAIN MDD3, 30 DAY(S), 45, REFILLS 2 NOTES: ISTOP REGISTRY REVIEWED AND DEMNOSTRATES COMPLLIANCE. PROCEDURE CODES FA211 ESTABILISHED PATIENT [facility] CHARGE DISPOSITION & COMMUNICATION FOLLOW UP 2 MONTHS ELECTRONICALLY SIGNED BY FILEMON SINHA ON 10/13/2016 AT 01:39 PM EDT DISCLAIMER : THIS IS A VISIT SUMMARY EXTRACTED FROM THE [employer] CHART. IT IS NOT A COPY OF THE [employer] PROGRESS NOTE. WIL
== END ==
LOC: M PAIN 10:40
PROVIDERS: ATTEND Nurse Practitioner Family
DX: M43.07 Spondylolysis, lumbosacral region (principal); M54.17 Radiculopathy, lumbosacral region; L98.9 Disorder of the skin and subcutaneous tissue, unspecified; M19.90 Unspecified osteoarthritis, unspecified site; Z88.0 Allergy status to penicillin; Z91.013 Allergy to seafood; Z88.7 Allergy status to serum and vaccine; Z91.09 Other allergy status, other than to drugs and biological substances; Z79.891 Long term (current) use of opiate analgesic; Z79.899 Other long term (current) drug therapy

== ENCOUNTER → 2016-12-15 | Outpatient (CLI) | payer BC ==
[~2016-12-15] MED LIST changes: -BIOT10005 PO; +BIOT10008 PO; +CIPR-249 PO; -CIPR500T89 PO; +HYDR-3363 PO; -HYDR25T PO
--- NOTE | 2016-12-17 02:26 | ECWPNPC ---
PATIENT NAME: NAVID KIRBY : 1965 GENDER: FEMALE VISIT DATE: 12/15/2016 DISCHARGE DATE: 12/15/16 1113 VISIT LOCKED DATE TIME: PHYSICIAN: STACY THOMASON RESOURCE: STACY THOMASON REASON FOR APPOINTMENT 1. FOLLOWUP HISTORY OF PRESENT ILLNESS HISTORY OF PRESENT ILLNESS: HERE FOR F/U AND MANAGEMENT OF CHRONIC LOW BACK PAIN AND BILATERAL LEG PAIN.CONSIDERING SURGERY WITH DR. RATLIFF ON LOW BACK.RATING PAIN VAS 5/10.DESCRIBES PAIN CONSTANT ACHING.PAIN IS AGGREVATED BY BENDING .RELIEVED SOMEWHAT AT REST.USING TRAMADOL 50MG PRN BUT FINDING IT INEFFECTIVE.DISCUSSED MEDICATION AND TREATMENT OPTIONS. PAIN THE PATIENT DESCRIBES THE PAIN... FALL RISK SCREENING: SCREENING :NO FALLS IN THE PAST YEAR CURRENT MEDICATIONS TAKING IRON 28 MG TABLET 1 TABLET ORALLY ONCE A DAY TAKING VITAMIN D-3 1000 UNIT CAPSULE 1 CAPSULE ORALLY ONCE A DAY TAKING HYDROXYZINE HCL 25 MG TABLET 1 TAB ORALLY AT BEDTIME TAKING FLEXERIL 10 MG TABLET 1 TABLET ORALLY THREE TIMES DAILY NEEDED TAKING AQUAPHILIC/CARBAMIDE 10 % OINTMENT EXTERNALLY NEEDED. TAKING HYDROCORTISONE VALERATE 0.2 % CREAM 1 APPLICATION TO AFFECTED AREA EXTERNALLY EVERY OTHER DAY TAKING TRAMADOL HCL 50 MG TABLET 1-2 ORALLY Q8H PRN PAIN MDD3 NOT-TAKING VITAMIN C 500 MG TABLET CHEWABLE 1 TABLET ORALLY ONCE A DAY NOT-TAKING CYMBALTA 60 MG CAPSULE DELAYED RELEASE PARTICLES 1 CAPSULE ORALLY DAILY NOT-TAKING BIOTIN MAXIMUM STRENGTH 5000 MCG CAPSULE 1 CAPSULE ORALLY ONCE A DAY, NOTES: 0800 MEDICATION LIST REVIEWED AND RECONCILED WITH THE PATIENT PAST MEDICAL HISTORY NETHERTONS SYNDROME-SKIN PROBLEM ARTHRITIS HEART VALVE LEAKS-ABNORMAL EKG CARPAL TUNNEL SYNDROME ALLERGIES PENICILLIN (FOR ALLERGIES USE ONLY): UNKNOWN SEAFOOD: HIVES: ALLERGY LIVE VACCINE: UNKNOWN K Y JELLY: SKIN IRRITATION AND BURNING: ALLERGY SURGICAL HISTORY R CARPAL TUNNEL RELEASE 2015 R CERVICAL DISKECTOMY 06/2016 C SECTION 1988 TUBALIGATION 1988 HOSPITALIZATION/MAJOR DIAGNOSTIC PROCEDURE CHILDBIRTH REVIEW OF SYSTEMS REVIEWED BY: PROVIDER: STACY COLBERT . CONSTITUTIONAL: ANY CHANGE IN YOUR MEDICAL CONDITION? NO . CHILLS NO . FEVER NO . INFECTION: DO YOU HAVE NEW INFECTIONS? NO . DO YOU HAVE HISTORY OF MRSA? NO . MUSCULOSKELETAL: ANY NEW PATTERNS OF PAIN OR NUMBNESS? YES, PT STATES PAIN PATTERN IS NOW FROM HIPS DOWN LEGS. PREVIOUSLY FROM KNEES DOWN LEGS. . GASTROENTEROLOGY: ANY NEW CHANGE IN BOWEL CONTROL? NO . GENITOURINARY: ANY NEW CHANGE IN BLADDER CONTROL? NO . IS THERE A CHANCE YOU COULD BE ? NO . HEMATOLOGY/LYMPH: DO YOU TAKE ANY BLOOD THINNERS? (FOR EXAMPLE- COUMADIN, PLAVIX, AGGRENOX, PLATEL, PRADAXA, OR XARELTO) NO . WHEN WAS YOUR LAST DOSE? DATE: TIME: . NEUROLOGY: HAVE YOU FALLEN IN THE PAST 6 MONTHS? NO . ANY NEW EXTREMITY NUMBNESS OR WEAKNESS? NO . CARDIOLOGY: DO YOU HAVE A PACEMAKER OR DEFIBRILLATOR? NO . RESPIRATORY: HAVE YOU BEEN SICK IN THE PAST WEEK? NO . FEVER NO . FLU LIKE SYMPTOMS? NO . COUGH NO . INTEGUMENTARY: DO YOU HAVE ANY RASHES OR OPEN SORES? NO . ALLERGIC/IMMUNO: ARE YOU ALLERGIC TO SHELLFISH OR IV DYE? YES, SHELLFISH . ANY NEW ALLERGIES? NO . PSYCHIATRIC: DO YOU HAVE THOUGHTS OF HURTING YOURSELF OR SOMEONE ELSE? NO . ARE YOU ABUSED, NEGLECTED, OR IN AN UNSAFE ENVIRONMENT? NO . ENDOCRINOLOGY: ARE YOU DIABETIC? NO . OTHER: DO YOU NEED ANY PRESCRIPTIONS? NO . IF YES, PLEASE LIST: ____ . ANY NEW PROBLEMS WITH YOUR MEDICATIONS? NO . WHEN DID YOU LAST EAT? ____ . WHEN DID YOU LAST DRINK? ____ . WHAT DID YOU LAST DRINK? ____ . NAME OF PERSON DRIVING YOU HOME? ____ . DO YOU HAVE ANY OTHER QUESTIONS OR CONCERNS NO . VITAL SIGNS WT 193.4 LBS, HT 63 IN, BMI 34.26 INDEX, BP 138/73 MM HG, HR 75 /MIN, RR 16 /MIN, TEMP 96.5 F, OXYGEN SAT % 99%, SAFE IN ENV? (Y/N) Y, NA INITIALS TL 1036, REVIEWED BY: EM. EXAMINATION GENERAL EXAMINATION: LUNGS:LUNG SOUNDS ARE CLEAR. HEART:HEART RATE REGULAR. MUSCULOSKELETAL:*, MUSCLE STRENGTH TESTING 5/5 BILATERAL LOWER EXTREMITIES., PALPATION: NEGATIVE FOR PAIN OVER L/S SPINE. NEGATIVE FOR PAIN OVER L/S PARASPINALS.INSPECTION:2+ EDEMA BILAT. LOWER EXTREMITIES.. DIAGNOSTIC:MRI L/S SPINE 04-28-15-REVIEWED. ASSESSMENTS LUMBOSACRAL SPONDYLOLYSIS - M43.07 (PRIMARY) NEUROPATHY INVOLVING BOTH LOWER EXTREMITIES - G57.91 LUMBOSACRAL RADICULOPATHY - M54.17 TREATMENT LUMBOSACRAL SPONDYLOLYSIS REFILL TRAMADOL HCL TABLET, 50 MG, 1, ORALLY, Q8H PRN PAIN MDD3, 30 DAY(S), 90, REFILLS 2 PROCEDURE CODES FA211 ESTABILISHED PATIENT [facility] CHARGE DISPOSITION & COMMUNICATION FOLLOW UP 6 WEEKS ELECTRONICALLY SIGNED BY FILEMON SINHA ON 12/15/2016 AT 05:07 PM EDT DISCLAIMER : THIS IS A VISIT SUMMARY EXTRACTED FROM THE [employer] CHART. IT IS NOT A COPY OF THE [employer] PROGRESS NOTE. YUDELKAD
== END ==
LOC: M PAIN 10:20
PROVIDERS: ATTEND Nurse Practitioner Family
DX: G89.29 Other chronic pain (principal); M47.26 Other spondylosis with radiculopathy, lumbar region; G57.91 Unspecified mononeuropathy of right lower limb; M19.90 Unspecified osteoarthritis, unspecified site; Z79.891 Long term (current) use of opiate analgesic; Z79.899 Other long term (current) drug therapy; Z88.0 Allergy status to penicillin; Z91.013 Allergy to seafood; Z88.8 Allergy status to other drugs, medicaments and biological substances; Z88.7 Allergy status to serum and vaccine

== ENCOUNTER → 2017-01-01 | Outpatient (CLI) | payer BC ==
--- NOTE | 2017-01-01 23:19 | ECWPNPC ---
PATIENT NAME: NAVID KIRBY : 1965 GENDER: FEMALE VISIT DATE: 01/01/2017 DISCHARGE DATE: 01/01/17 1031 VISIT LOCKED DATE TIME: PHYSICIAN: STACY THOMASON RESOURCE: STACY THOMASON REASON FOR APPOINTMENT 1. INCREASING PAIN HISTORY OF PRESENT ILLNESS HISTORY OF PRESENT ILLNESS: HERE ON AN URGENT BASIS FOR UNCONTROLLED LOW BACK PAIN AND BILATERAL LEG PAIN.TAKING TRAMADOL 50MG TID AND THIS ISNT HELPING.AWAKENING AT NIGHT DUE TO SEVERE LOW BACK PAIN AND BILAT. LEG PAIN.WAS SEEN BY RIOS POZO RECENTLY WHO WANTS HER TO TRY ANOTHER LESI.STATES SHE HAS A 6MOS F/U WITH THEM. RATING PAIN VAS 8/10.DESCRIBES PAIN CONSTANT ACHING.PAIN IS AGGREVATED BY BENDING .RELIEVED SOMEWHAT AT REST.STATES GABAPENTIN,LYRICA,AND CYMBALTA WERE INEFFECTIVE AND CAUSED WEIGHT GAIN. PAIN THE PATIENT DESCRIBES THE PAIN... THE PATIENT DESCRIBES THE PAIN... FALL RISK SCREENING: SCREENING :NO FALLS IN THE PAST YEAR CURRENT MEDICATIONS TAKING IRON 28 MG TABLET 1 TABLET ORALLY ONCE A DAY TAKING VITAMIN D-3 1000 UNIT CAPSULE 1 CAPSULE ORALLY ONCE A DAY TAKING HYDROXYZINE HCL 25 MG TABLET 1 TAB ORALLY AT BEDTIME TAKING FLEXERIL 10 MG TABLET 1 TABLET ORALLY THREE TIMES DAILY NEEDED TAKING AQUAPHILIC/CARBAMIDE 10 % OINTMENT EXTERNALLY NEEDED. TAKING HYDROCORTISONE VALERATE 0.2 % CREAM 1 APPLICATION TO AFFECTED AREA EXTERNALLY EVERY OTHER DAY TAKING TRAMADOL HCL 50 MG TABLET 1 ORALLY Q8H PAIN MDD3 TAKING REQUIP 0.5 MG TABLET 1 TABLET 1 TO 3 HOURS BEFORE BEDTIME ORALLY ONCE A DAY NOT-TAKING VITAMIN C 500 MG TABLET CHEWABLE 1 TABLET ORALLY ONCE A DAY NOT-TAKING CYMBALTA 60 MG CAPSULE DELAYED RELEASE PARTICLES 1 CAPSULE ORALLY DAILY NOT-TAKING BIOTIN MAXIMUM STRENGTH 5000 MCG CAPSULE 1 CAPSULE ORALLY ONCE A DAY, NOTES: 0800 MEDICATION LIST REVIEWED AND RECONCILED WITH THE PATIENT PAST MEDICAL HISTORY NETHERTONS SYNDROME-SKIN PROBLEM ARTHRITIS HEART VALVE LEAKS-ABNORMAL EKG CARPAL TUNNEL SYNDROME ALLERGIES PENICILLIN (FOR ALLERGIES USE ONLY): UNKNOWN SEAFOOD: HIVES: ALLERGY LIVE VACCINE: UNKNOWN K Y JELLY: SKIN IRRITATION AND BURNING: ALLERGY SURGICAL HISTORY R CARPAL TUNNEL RELEASE 2015 R CERVICAL DISKECTOMY 06/2016 C SECTION 1988 TUBALIGATION 1988 HOSPITALIZATION/MAJOR DIAGNOSTIC PROCEDURE CHILDBIRTH REVIEW OF SYSTEMS REVIEWED BY: PROVIDER: STACY COLBERT . CONSTITUTIONAL: ANY CHANGE IN YOUR MEDICAL CONDITION? NO . CHILLS NO . FEVER NO . INFECTION: DO YOU HAVE NEW INFECTIONS? NO . DO YOU HAVE HISTORY OF MRSA? NO . MUSCULOSKELETAL: ANY NEW PATTERNS OF PAIN OR NUMBNESS? YES, PAIN IS WORSE, LIMITING SLEEP . GASTROENTEROLOGY: ANY NEW CHANGE IN BOWEL CONTROL? NO . GENITOURINARY: ANY NEW CHANGE IN BLADDER CONTROL? NO . IS THERE A CHANCE YOU COULD BE ? NO . HEMATOLOGY/LYMPH: DO YOU TAKE ANY BLOOD THINNERS? (FOR EXAMPLE- COUMADIN, PLAVIX, AGGRENOX, PLATEL, PRADAXA, OR XARELTO) NO . WHEN WAS YOUR LAST DOSE? DATE: TIME: . NEUROLOGY: HAVE YOU FALLEN IN THE PAST 6 MONTHS? NO . ANY NEW EXTREMITY NUMBNESS OR WEAKNESS? NO . CARDIOLOGY: DO YOU HAVE A PACEMAKER OR DEFIBRILLATOR? NO . RESPIRATORY: HAVE YOU BEEN SICK IN THE PAST WEEK? NO . FEVER NO . FLU LIKE SYMPTOMS? NO . COUGH NO . INTEGUMENTARY: DO YOU HAVE ANY RASHES OR OPEN SORES? NO . ALLERGIC/IMMUNO: ARE YOU ALLERGIC TO SHELLFISH OR IV DYE? YES . ANY NEW ALLERGIES? NO . PSYCHIATRIC: DO YOU HAVE THOUGHTS OF HURTING YOURSELF OR SOMEONE ELSE? NO . ARE YOU ABUSED, NEGLECTED, OR IN AN UNSAFE ENVIRONMENT? NO . ENDOCRINOLOGY: ARE YOU DIABETIC? NO . OTHER: DO YOU NEED ANY PRESCRIPTIONS? NO . IF YES, PLEASE LIST: ____ . ANY NEW PROBLEMS WITH YOUR MEDICATIONS? NO . WHEN DID YOU LAST EAT? ____ . WHEN DID YOU LAST DRINK? ____ . WHAT DID YOU LAST DRINK? ____ . NAME OF PERSON DRIVING YOU HOME? ____ . DO YOU HAVE ANY OTHER QUESTIONS OR CONCERNS NO . VITAL SIGNS WT 193.8 LBS, HT 63 IN, BMI 34.33 INDEX, BP 139/77 MM HG, HR 68 /MIN, RR 16 /MIN, TEMP 97.7 F, OXYGEN SAT % 98%, SAFE IN ENV? (Y/N) Y, NA INITIALS [place] 09:49, REVIEWED BY: TERRY. EXAMINATION GENERAL EXAMINATION: LUNGS:LUNG SOUNDS ARE CLEAR. HEART:HEART RATE REGULAR. MUSCULOSKELETAL:*, MUSCLE STRENGTH TESTING 5/5 BILATERAL LOWER EXTREMITIES., PALPATION: POSITIVE FOR PAIN OVER L/S SPINE. POSITIVE FOR PAIN OVER L/S PARASPINALS.. DIAGNOSTIC:MRI L/S SPINE 04-28-15-REVIEWED. ASSESSMENTS LUMBOSACRAL SPONDYLOLYSIS - M43.07 (PRIMARY) NEUROPATHY INVOLVING BOTH LOWER EXTREMITIES - G57.91 LUMBOSACRAL RADICULOPATHY - M54.17 TREATMENT LUMBOSACRAL SPONDYLOLYSIS STOP TRAMADOL HCL TABLET, 50 MG, 1, ORALLY, Q8H PAIN MDD3 START PERCOCET TABLET, 5-325 MG, 1 TABLET NEEDED, ORALLY, Q8H PRN MDD3, 30 DAY(S), 30, REFILLS 0 NOTES: L4/5 INTRALAMINAL LESI. PROCEDURE CODES FA211 ESTABILISHED PATIENT [facility] CHARGE DISPOSITION & COMMUNICATION FOLLOW UP 2WK POST (REASON: L4/5 INTRALAMINAL LESI) ELECTRONICALLY SIGNED BY FILEOMN SINHA ON 01/01/2017 AT 11:04 AM EDT DISCLAIMER : THIS IS A VISIT SUMMARY EXTRACTED FROM THE [employer] CHART. IT IS NOT A COPY OF THE [employer] PROGRESS NOTE. YUDELKAD
== END ==
LOC: M PAIN 09:20
PROVIDERS: ATTEND Nurse Practitioner Family
DX: M43.07 Spondylolysis, lumbosacral region (principal); M54.17 Radiculopathy, lumbosacral region; Z79.891 Long term (current) use of opiate analgesic; Z79.899 Other long term (current) drug therapy; Z88.0 Allergy status to penicillin; Z88.8 Allergy status to other drugs, medicaments and biological substances; Z91.013 Allergy to seafood

== ENCOUNTER → 2017-01-27 | Outpatient (CLI) | payer BC ==
[~2017-01-27] MED LIST changes: +ISOVUE-M 300 61% 15ML VIAL (Q9967) As Ordered ONE; +LIDOCAINE 1% SDV INJ 30 ML VIAL As Ordered ONE; +diazePAM 5 MG TAB As Ordered ONE; +methylPREDNISolone SUSP 40 MG/ML (DEPO-medrol) VIAL (J1030) As Ordered ONE; +oxyCODONE 5MG TAB As Ordered ONE
--- NOTE | 2017-01-27 14:51 | REP ---
FLUOROSCOPIC GUIDANCE FOR SPINE INJECTION: 01/27/2017 COMPARISON: 09/16/2016 CLINICAL HISTORY: Back pain for lumbar epidural steroid injection. FINDINGS: Two images from C-arm fluoroscopy provided to Dr. Mata of the pain clinic show needle adjacent to the right side of the L5-S1 disc level with epidural contrast adjacent to it. The second image shows the needle removed. Appears to be umbilical jewelry projecting through the L5 level, which was not present on the previous study. FLUOROSCOPY TIME: 11 seconds. Signed by Saul Montes De Oca MD 01/27/2017 05:44 P
--- NOTE | 2017-02-10 01:21 | ECWPNPC ---
PATIENT NAME: NAVID KIRBY : 1965 GENDER: FEMALE VISIT DATE: 01/27/2017 DISCHARGE DATE: 01/27/17 1113 VISIT LOCKED DATE TIME: PHYSICIAN: MAKENZIE MAXWELL RESOURCE: MAKENZIE MAXWELL REASON FOR APPOINTMENT 1. INTERLAMINAL LE, L4-5 HISTORY OF PRESENT ILLNESS HISTORY OF PRESENT ILLNESS: PAIN THE PATIENT DESCRIBES THE PAIN... FALL RISK SCREENING: SCREENING :NO FALLS IN THE PAST YEAR CURRENT MEDICATIONS TAKING IRON 28 MG TABLET 1 TABLET ORALLY ONCE A DAY, NOTES: 01/25/17 TAKING HYDROXYZINE HCL 25 MG TABLET 1 TAB ORALLY AT BEDTIME, NOTES: 01/26/17 2200 TAKING FLEXERIL 10 MG TABLET 1 TABLET ORALLY THREE TIMES DAILY NEEDED, NOTES: 2-3 DAYS TAKING AQUAPHILIC/CARBAMIDE 10 % OINTMENT EXTERNALLY NEEDED., NOTES: 01/25/17 TAKING HYDROCORTISONE VALERATE 0.2 % CREAM 1 APPLICATION TO AFFECTED AREA EXTERNALLY EVERY OTHER DAY, NOTES: 01/25/17 TAKING REQUIP 0.5 MG TABLET 1 TABLET 1 TO 3 HOURS BEFORE BEDTIME ORALLY ONCE A DAY, NOTES: 01/26/17 2300 NOT-TAKING VITAMIN D-3 1000 UNIT CAPSULE 1 CAPSULE ORALLY ONCE A DAY NOT-TAKING PERCOCET 5-325 MG TABLET 1 TABLET NEEDED ORALLY Q8H PRN MDD3 NOT-TAKING VITAMIN C 500 MG TABLET CHEWABLE 1 TABLET ORALLY ONCE A DAY NOT-TAKING CYMBALTA 60 MG CAPSULE DELAYED RELEASE PARTICLES 1 CAPSULE ORALLY DAILY NOT-TAKING BIOTIN MAXIMUM STRENGTH 5000 MCG CAPSULE 1 CAPSULE ORALLY ONCE A DAY, NOTES: 0800 MEDICATION LIST REVIEWED AND RECONCILED WITH THE PATIENT PAST MEDICAL HISTORY NETHERTONS SYNDROME-SKIN PROBLEM ARTHRITIS HEART VALVE LEAKS-ABNORMAL EKG CARPAL TUNNEL SYNDROME ALLERGIES PENICILLIN (FOR ALLERGIES USE ONLY): UNKNOWN SEAFOOD: HIVES: ALLERGY LIVE VACCINE: UNKNOWN K Y JELLY: SKIN IRRITATION AND BURNING: ALLERGY SURGICAL HISTORY R CARPAL TUNNEL RELEASE 2015 R CERVICAL DISKECTOMY 06/2016 C SECTION 1988 TUBALIGATION 1988 SOCIAL HISTORY GENERAL: TOBACCO USE ARE YOU A:NONSMOKER PAIN CLINIC PFS, CLERGY, PUBLIC HEALTH REFERRALS PFS REFERRAL NEEDED?NO CLERGY REFERRAL NEEDED?NO PUBLIC HEALTH REFERRAL NEEDED?NO WAS THE PROVIDER NOTIFIED OF ANY PERTINENT INFO?NO HAS THE PATIENT BEEN EDUCATED REGARDING HIS/HER PLAN OF CARE?YES HAS THE PATIENT BEEN EDUCATED REGARDING PAIN, THE RISK FOR PAIN, THE IMPORTANCE OF EFFECTIVE PAIN MANAGEMENT, AND THE PAIN ASSESSMENT PROCESS?YES PATIENT: ____. HOSPITALIZATION/MAJOR DIAGNOSTIC PROCEDURE CHILDBIRTH REVIEW OF SYSTEMS REVIEWED BY: PROVIDER: . CONSTITUTIONAL: ANY CHANGE IN YOUR MEDICAL CONDITION? NO . CHILLS NO . FEVER NO . INFECTION: DO YOU HAVE NEW INFECTIONS? NO . DO YOU HAVE HISTORY OF MRSA? NO . MUSCULOSKELETAL: ANY NEW PATTERNS OF PAIN OR NUMBNESS? NO . GASTROENTEROLOGY: ANY NEW CHANGE IN BOWEL CONTROL? NO . GENITOURINARY: ANY NEW CHANGE IN BLADDER CONTROL? NO . IS THERE A CHANCE YOU COULD BE ? NO . HEMATOLOGY/LYMPH: DO YOU TAKE ANY BLOOD THINNERS? (FOR EXAMPLE- COUMADIN, PLAVIX, AGGRENOX, PLATEL, PRADAXA, OR XARELTO) NO . WHEN WAS YOUR LAST DOSE? DATE: TIME: . NEUROLOGY: HAVE YOU FALLEN IN THE PAST 6 MONTHS? NO . ANY NEW EXTREMITY NUMBNESS OR WEAKNESS? NO . CARDIOLOGY: DO YOU HAVE A PACEMAKER OR DEFIBRILLATOR? NO . RESPIRATORY: HAVE YOU BEEN SICK IN THE PAST WEEK? NO . FEVER NO . FLU LIKE SYMPTOMS? NO . COUGH NO . INTEGUMENTARY: DO YOU HAVE ANY RASHES OR OPEN SORES? NO . ALLERGIC/IMMUNO: ARE YOU ALLERGIC TO SHELLFISH OR IV DYE? YES . ANY NEW ALLERGIES? NO . PSYCHIATRIC: DO YOU HAVE THOUGHTS OF HURTING YOURSELF OR SOMEONE ELSE? NO . ARE YOU ABUSED, NEGLECTED, OR IN AN UNSAFE ENVIRONMENT? NO . ENDOCRINOLOGY: ARE YOU DIABETIC? NO . OTHER: DO YOU NEED ANY PRESCRIPTIONS? NO . IF YES, PLEASE LIST: ____ . ANY NEW PROBLEMS WITH YOUR MEDICATIONS? NO . WHEN DID YOU LAST EAT? 1999 . WHEN DID YOU LAST DRINK? 629 . WHAT DID YOU LAST DRINK? APPLE JUICE . NAME OF PERSON DRIVING YOU HOME? MAXIMINO . DO YOU HAVE ANY OTHER QUESTIONS OR CONCERNS NO . VITAL SIGNS WT 190 LBS, HT 63 IN, BMI 33.65 INDEX, BP 143/77 MM HG, HR 76 /MIN, RR 16 /MIN, TEMP 97.0 F, OXYGEN SAT % 99%, NA INITIALS SC 09:18, REVIEWED BY: LS. ASSESSMENTS INTERVERTEBRAL DISC DISORDERS WITH RADICULOPATHY, LUMBAR REGION - M51.16 (PRIMARY) PROCEDURES PRE PROCEDURE DIAGNOSIS LUMBAR DISC DISORDER WITH RADICULOPATHY POST PROCEDURE DIAGNOSIS LUMBAR DISC DISORDER WITH RADICULOPATHY PROCEDURE LUMBAR EPIDURAL STEROID INJECTION UNDER FLUOROSCOPIC GUIDANCE SURGEON DR. 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 I EVALUATE THE PATIENT AND REVIEWED THE CHART. I WENT OVER THE RISKS, ALTERNATIVES, AND BENEFITS ASSOCIATED WITH THIS PROCEDURE. THE PATIENT WOULD LIKE TO PROCEED AND GIVE CONSENT TO PERFORMED THE PROCEDURE. THE PATIENT DENIES UNEXPLAINABLE WEIGHT LOSS, FEVER, CHILLS, OR NEW CHANGES IN URINARY OR BOWEL CONTROL. DESCRIPTION OF PROCEDURE THE PATIENT WAS BROUGHT TO THE PROCEDURE ROOM AND PLACED IN THE PRONE POSITION. THE LUMBOSACRAL AREA WAS CLEANED WITH BETADINE SOLUTION AND DRAPED ASEPTICALLY. THE PROCEDURE WAS DONE UNDER STERILE CONDITIONS. I CHECKED LATERALITY AND THE LEVEL WHERE THE PROCEDURE WAS GOING TO BE PERFORMED WITH THE PATIENT AND THE SUPPORTING STAFF AT THE MOMENT OF THE TIME OUT IN THE PROCEDURE ROOM. UNDER FLUOROSCOPIC GUIDANCE, THE TARGET POINT WAS SELECTED AT THE INTERLAMINAR LEVEL OF L4-L5. LIDOCAINE WAS USED TO NUMB THE SKIN AND THE SUBCUTANEOUS TISSUE BELOW IT. EPIDURAL TUOHY NEEDLE, 17-GAUGE, WAS ADVANCED UNDER FLUOROSCOPIC GUIDANCE AND FOLLOWING PATIENT FEEDBACK UNTIL THE EPIDURAL SPACE WAS REACHED, 7 CM DEEP INTO THE SKIN BY THE LOSS OF RESISTANCE TECHNIQUE. ISOVUE M DYE 30%, 0.25 ML, WAS INJECTED SHOWING ADEQUATE SPREAD OF THE DYE. THEN, A SOLUTION OF 3 ML OF NORMAL SALINE WITH DEPO-MEDROL 60 MG WAS INJECTED SLOWLY FOLLOWING PATIENT FEEDBACK. THERE WAS NO EVIDENCE OF BLOOD, PARESTHESIA OR CEREBROSPINAL FLUID DURING THE PROCEDURE. THE PATIENT WAS SENT TO THE RECOVERY ROOM. THE PATIENT WAS MOVING THE EXTREMITIES AND DOING WELL. THERE WAS NO COMPLICATION DURING THE PROCEDURE. FLUOROSCOPY TIME WAS 11 SECONDS. POST PROCEDURE NOTE THE PATIENT WILL BE SEEN IN A FOLLOW UP IN THE NEXT FEW WEEKS. INSTRUCTIONS WERE GIVEN, QUESTIONS WERE ANSWERED, AND THE PATIENT EXPRESSED UNDERSTANDING AND AGREES WITH THE PLAN. I, VANESSA JOLLY, DOCUMENTED THE ABOVE INFORMATION ACTING A SCRIBE FOR DR. MAXWELL. I HAVE REVIEWED THE ABOVE DOCUMENT, WRITTEN BY VANESSA SYKESIBMireya AND I VERIFY THAT IT IS [facility]UR[facility] DIAGNOSTIC IMAGING [facility] FLUORO GUIDE SPINE INJECTION (PAIN)[id number] PROCEDURE CODES 62660 LUMBAR/SACRAL W/ IMAGING 6045F RADXPS IN END [id number] PXD DISPOSITION & COMMUNICATION FOLLOW UP 3 WEEKS ELECTRONICALLY SIGNED BY MAKENZIE MAXWELL MD ON 02/09/2017 AT 12:34 PM EDT DISCLAIMER : THIS IS A VISIT SUMMARY EXTRACTED FROM THE [employer] CHART. IT IS NOT A COPY OF THE [employer] PROGRESS NOTE. WIL
== END ==
LOC: M PAIN 09:00
PROVIDERS: ATTEND Anesthesiology
DX: G89.29 Other chronic pain (principal); M51.16 Intervertebral disc disorders with radiculopathy, lumbar region; M54.5 Low back pain; Z79.899 Other long term (current) drug therapy; Z88.0 Allergy status to penicillin; Z91.013 Allergy to seafood; Z88.7 Allergy status to serum and vaccine; Z88.8 Allergy status to other drugs, medicaments and biological substances
CPT/HCPCS: 62323; J1030; Q9967

== ENCOUNTER → 2017-03-16 | Outpatient (CLI) | payer BC ==
[~2017-03-16] MED LIST changes: -ISOVUE-M 300 61% 15ML VIAL (Q9967) As Ordered ONE; -LIDOCAINE 1% SDV INJ 30 ML VIAL As Ordered ONE; -diazePAM 5 MG TAB As Ordered ONE; -methylPREDNISolone SUSP 40 MG/ML (DEPO-medrol) VIAL (J1030) As Ordered ONE; -oxyCODONE 5MG TAB As Ordered ONE
--- NOTE | 2017-04-05 23:54 | ECWPNPC ---
PATIENT NAME: NAVID KIRBY : 1965 GENDER: FEMALE VISIT DATE: 03/16/2017 DISCHARGE DATE: 03/16/17 1527 VISIT LOCKED DATE TIME: PHYSICIAN: STACY THOMASON RESOURCE: STACY THOMASON REASON FOR APPOINTMENT 1. BACK HISTORY OF PRESENT ILLNESS HISTORY OF PRESENT ILLNESS: HERE FOR POST PROEDURE F/U.HAD COURTNEYI ON 01-27-17.REPORTING SIGNIFICANT DECREASE IN LOW BACK PAIN THAT CONTINUES TODAY.REPORTS SIGNIFICANT REDUCTION IN LEG PAIN AND NUMBNESS X 3 WEEKS POST PROCEDURE.REPORTS THAT PAIN IN LEGS HAS RETURNED.REPORTING POOR SLEEP DUE TO PAIN IN LEGS.RATING PAIN VAS 3/10.HAS TRIALED LYRICA AND GABAPENTIN SEVERAL YEARS AGO BUT THEY DIDNT WORK.DISCUSSED MEDICATION AND TREATMENT OPTIONS. PAIN THE PATIENT DESCRIBES THE PAIN... FALL RISK SCREENING: SCREENING :NO FALLS IN THE PAST YEAR CURRENT MEDICATIONS TAKING IRON 28 MG TABLET 1 TABLET ORALLY ONCE A DAY TAKING HYDROXYZINE HCL 25 MG TABLET 2 TAB ORALLY AT BEDTIME, NOTES: 01/26/17 2200 TAKING FLEXERIL 10 MG TABLET 1 TABLET ORALLY TID PRN, NOTES: 2-3 DAYS TAKING AQUAPHILIC/CARBAMIDE 10 % OINTMENT EXTERNALLY NEEDED. TAKING HYDROCORTISONE VALERATE 0.2 % CREAM 1 APPLICATION TO AFFECTED AREA EXTERNALLY EVERY OTHER DAY TAKING REQUIP 2 MG TABLET 1 TABLET 1 TO 3 HOURS BEFORE BEDTIME ORALLY ONCE A DAY, NOTES: 01/26/17 2300 TAKING BIOTIN MAXIMUM STRENGTH 5000 MCG CAPSULE 1 CAPSULE ORALLY ONCE A DAY, NOTES: 0800 NOT-TAKING VITAMIN D-3 1000 UNIT CAPSULE 1 CAPSULE ORALLY ONCE A DAY NOT-TAKING PERCOCET 5-325 MG TABLET 1 TABLET NEEDED ORALLY Q8H PRN MDD3 NOT-TAKING VITAMIN C 500 MG TABLET CHEWABLE 1 TABLET ORALLY ONCE A DAY NOT-TAKING CYMBALTA 60 MG CAPSULE DELAYED RELEASE PARTICLES 1 CAPSULE ORALLY DAILY MEDICATION LIST REVIEWED AND RECONCILED WITH THE PATIENT PAST MEDICAL HISTORY NETHERTONS SYNDROME-SKIN PROBLEM ARTHRITIS HEART VALVE LEAKS-ABNORMAL EKG CARPAL TUNNEL SYNDROME ALLERGIES PENICILLIN (FOR ALLERGIES USE ONLY): UNKNOWN SEAFOOD: HIVES: ALLERGY LIVE VACCINE: UNKNOWN K Y JELLY: SKIN IRRITATION AND BURNING: ALLERGY REVIEW OF SYSTEMS REVIEWED BY: 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 CONSTITUTIONAL: ANY CHANGE IN YOUR MEDICAL CONDITION? NO . CHILLS NO . FEVER NO . INFECTION: DO YOU HAVE NEW INFECTIONS? NO . DO YOU HAVE HISTORY OF MRSA? NO . MUSCULOSKELETAL: ANY NEW PATTERNS OF PAIN OR NUMBNESS? NO . GASTROENTEROLOGY: ANY NEW CHANGE IN BOWEL CONTROL? NO . GENITOURINARY: ANY NEW CHANGE IN BLADDER CONTROL? NO . IS THERE A CHANCE YOU COULD BE ? NO . HEMATOLOGY/LYMPH: DO YOU TAKE ANY BLOOD THINNERS? (FOR EXAMPLE- COUMADIN, PLAVIX, AGGRENOX, PLATEL, PRADAXA, OR XARELTO) NO . WHEN WAS YOUR LAST DOSE? DATE: TIME: . NEUROLOGY: HAVE YOU FALLEN IN THE PAST 6 MONTHS? NO . ANY NEW EXTREMITY NUMBNESS OR WEAKNESS? NO . CARDIOLOGY: DO YOU HAVE A PACEMAKER OR DEFIBRILLATOR? NO . RESPIRATORY: HAVE YOU BEEN SICK IN THE PAST WEEK? NO . FEVER NO . FLU LIKE SYMPTOMS? NO . COUGH NO . INTEGUMENTARY: DO YOU HAVE ANY RASHES OR OPEN SORES? NO . ALLERGIC/IMMUNO: ARE YOU ALLERGIC TO SHELLFISH OR IV DYE? YES SHELLFISH . ANY NEW ALLERGIES? NO . PSYCHIATRIC: DO YOU HAVE THOUGHTS OF HURTING YOURSELF OR SOMEONE ELSE? NO . ARE YOU ABUSED, NEGLECTED, OR IN AN UNSAFE ENVIRONMENT? NO . ENDOCRINOLOGY: ARE YOU DIABETIC? NO . OTHER: DO YOU NEED ANY PRESCRIPTIONS? NO . IF YES, PLEASE LIST: ____ . ANY NEW PROBLEMS WITH YOUR MEDICATIONS? NO . WHEN DID YOU LAST EAT? ____ . WHEN DID YOU LAST DRINK? ____ . WHAT DID YOU LAST DRINK? ____ . NAME OF PERSON DRIVING YOU HOME? ____ . DO YOU HAVE ANY OTHER QUESTIONS OR CONCERNS NO . VITAL SIGNS WT 194 LBS, HT 63 IN, BMI 34.36 INDEX, BP 171/77 MM HG, HR 67 /MIN, RR 18 /MIN, TEMP 97.6 F, OXYGEN SAT % 100%, NA INITIALS SC 14:40. EXAMINATION GENERAL EXAMINATION: LUNGS:LUNG SOUNDS ARE CLEAR. HEART:HEART RATE REGULAR. MUSCULOSKELETAL:*, MUSCLE STRENGTH TESTING 5/5 BILATERAL LOWER EXTREMITIES., PALPATION: NEGATIVE FOR PAIN OVER L/S SPINE. NEGATIVE FOR PAIN OVER L/S PARASPINALS.. DIAGNOSTIC:MRI L/S SPINE 04-28-15-REVIEWED. ASSESSMENTS LUMBOSACRAL SPONDYLOLYSIS - M43.07 (PRIMARY) NEUROPATHY INVOLVING BOTH LOWER EXTREMITIES - G57.91 LUMBOSACRAL RADICULOPATHY - M54.17 TREATMENT LUMBOSACRAL SPONDYLOLYSIS NOTES: CONTINUE MEDICATION TRIALS WITH NEUROLOGY. PROCEDURE CODES FA211 ESTABILISHED PATIENT [facility] CHARGE DISPOSITION & COMMUNICATION FOLLOW UP 2 MONTHS ELECTRONICALLY SIGNED BY FILEMON SINHA ON 04/05/2017 AT 08:41 PM EDT DISCLAIMER : THIS IS A VISIT SUMMARY EXTRACTED FROM THE [email or web address] CHART. IT IS NOT A COPY OF THE [email or web address] PROGRESS NOTE. WIL
== END ==
LOC: M PAIN 14:30
PROVIDERS: ATTEND Nurse Practitioner Family
DX: M43.07 Spondylolysis, lumbosacral region (principal); G57.91 Unspecified mononeuropathy of right lower limb; M54.17 Radiculopathy, lumbosacral region; Z79.899 Other long term (current) drug therapy; Z80.0 Family history of malignant neoplasm of digestive organs; Z88.7 Allergy status to serum and vaccine; Z91.013 Allergy to seafood; Z88.8 Allergy status to other drugs, medicaments and biological substances

== ENCOUNTER → 2017-05-18 | Outpatient (CLI) | payer BC ==
--- NOTE | 2017-05-22 01:21 | ECWPNPC ---
PATIENT NAME: NAVID KIRBY : 1965 GENDER: FEMALE VISIT DATE: 05/18/2017 DISCHARGE DATE: 05/18/17 1216 VISIT LOCKED DATE TIME: PHYSICIAN: STACY THOMASON RESOURCE: STACY THOMASON REASON FOR APPOINTMENT 1. BACK+ HISTORY OF PRESENT ILLNESS HISTORY OF PRESENT ILLNESS: HERE FOR POST PROEDURE F/U.HAD LESI ON 01-27-17.REPORTING SIGNIFICANT DECREASE IN LOW BACK PAIN THAT CONTINUES TODAY.REPORTING POOR SLEEP DUE TO PAIN IN LEGS.RATING PAIN VAS 5/10.HAS TRIALED LYRICA AND GABAPENTIN SEVERAL YEARS AGO BUT THEY DIDNT WORK.DISCUSSED MEDICATION AND TREATMENT OPTIONS. PAIN THE PATIENT DESCRIBES THE PAIN... THE PATIENT DESCRIBES THE PAIN... FALL RISK SCREENING: SCREENING :NO FALLS IN THE PAST YEAR CURRENT MEDICATIONS TAKING IRON 28 MG TABLET 1 TABLET ORALLY ONCE A DAY TAKING HYDROXYZINE HCL 25 MG TABLET 2 TAB ORALLY AT BEDTIME TAKING FLEXERIL 10 MG TABLET 1 TABLET ORALLY TID PRN TAKING AQUAPHILIC/CARBAMIDE 10 % OINTMENT EXTERNALLY NEEDED. TAKING HYDROCORTISONE VALERATE 0.2 % CREAM 1 APPLICATION TO AFFECTED AREA EXTERNALLY EVERY OTHER DAY TAKING REQUIP 2 MG TABLET 1 TABLET 1 TO 3 HOURS BEFORE BEDTIME ORALLY ONCE A DAY TAKING BIOTIN MAXIMUM STRENGTH 5000 MCG CAPSULE 1 CAPSULE ORALLY ONCE A DAY NOT-TAKING VITAMIN D-3 1000 UNIT CAPSULE 1 CAPSULE ORALLY ONCE A DAY NOT-TAKING PERCOCET 5-325 MG TABLET 1 TABLET NEEDED ORALLY Q8H PRN MDD3 NOT-TAKING VITAMIN C 500 MG TABLET CHEWABLE 1 TABLET ORALLY ONCE A DAY NOT-TAKING CYMBALTA 60 MG CAPSULE DELAYED RELEASE PARTICLES 1 CAPSULE ORALLY DAILY MEDICATION LIST REVIEWED AND RECONCILED WITH THE PATIENT PAST MEDICAL HISTORY NETHERTONS SYNDROME-SKIN PROBLEM ARTHRITIS HEART VALVE LEAKS-ABNORMAL EKG CARPAL TUNNEL SYNDROME ALLERGIES PENICILLIN (FOR ALLERGIES USE ONLY): UNKNOWN SEAFOOD: HIVES: ALLERGY LIVE VACCINE: UNKNOWN K Y JELLY: SKIN IRRITATION AND BURNING: ALLERGY REVIEW OF SYSTEMS REVIEWED BY: PROVIDER: STACY COLBERT . CONSTITUTIONAL: ANY CHANGE IN YOUR MEDICAL CONDITION? NO . CHILLS NO . FEVER NO . INFECTION: DO YOU HAVE NEW INFECTIONS? NO . DO YOU HAVE HISTORY OF MRSA? NO . MUSCULOSKELETAL: ANY NEW PATTERNS OF PAIN OR NUMBNESS? NO . GASTROENTEROLOGY: ANY NEW CHANGE IN BOWEL CONTROL? NO . GENITOURINARY: ANY NEW CHANGE IN BLADDER CONTROL? NO . IS THERE A CHANCE YOU COULD BE ? NO . HEMATOLOGY/LYMPH: DO YOU TAKE ANY BLOOD THINNERS? (FOR EXAMPLE- COUMADIN, PLAVIX, AGGRENOX, PLATEL, PRADAXA, OR XARELTO) NO . WHEN WAS YOUR LAST DOSE? DATE: TIME: . NEUROLOGY: HAVE YOU FALLEN IN THE PAST 6 MONTHS? NO . ANY NEW EXTREMITY NUMBNESS OR WEAKNESS? NO . CARDIOLOGY: DO YOU HAVE A PACEMAKER OR DEFIBRILLATOR? NO . RESPIRATORY: HAVE YOU BEEN SICK IN THE PAST WEEK? NO . FEVER NO . FLU LIKE SYMPTOMS? NO . COUGH NO . INTEGUMENTARY: DO YOU HAVE ANY RASHES OR OPEN SORES? NO . ALLERGIC/IMMUNO: ARE YOU ALLERGIC TO SHELLFISH OR IV DYE? YES SHELLFISH . ANY NEW ALLERGIES? NO . PSYCHIATRIC: DO YOU HAVE THOUGHTS OF HURTING YOURSELF OR SOMEONE ELSE? NO . ARE YOU ABUSED, NEGLECTED, OR IN AN UNSAFE ENVIRONMENT? NO . ENDOCRINOLOGY: ARE YOU DIABETIC? NO . OTHER: DO YOU NEED ANY PRESCRIPTIONS? YES . IF YES, PLEASE LIST: TRAMADOL . ANY NEW PROBLEMS WITH YOUR MEDICATIONS? NO . WHEN DID YOU LAST EAT? ____ . WHEN DID YOU LAST DRINK? ____ . WHAT DID YOU LAST DRINK? ____ . NAME OF PERSON DRIVING YOU HOME? ____ . DO YOU HAVE ANY OTHER QUESTIONS OR CONCERNS BACK IS FEELING GOOD BUT IS HAVING PAIN IN LEGS. SHE IS SCHEDULED FOR EMG TODAY AT DR. RODRIGUEZ . VITAL SIGNS WT 185.0 LBS, HT 63 IN, BMI 32.77 INDEX, BP 156/83 MM HG, HR 86 /MIN, RR 16 /MIN, TEMP 97.2 F, OXYGEN SAT % 100%, SAFE IN ENV? (Y/N) Y, NA INITIALS TL 1150, REVIEWED BY: AD. EXAMINATION GENERAL EXAMINATION: LUNGS:LUNG SOUNDS ARE CLEAR. HEART:HEART RATE REGULAR. MUSCULOSKELETAL:*, MUSCLE STRENGTH TESTING 5/5 BILATERAL LOWER EXTREMITIES., PALPATION: NEGATIVE FOR PAIN OVER L/S SPINE. NEGATIVE FOR PAIN OVER L/S PARASPINALS.. DIAGNOSTIC:MRI L/S SPINE 04-28-15-REVIEWED. 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 PROCEDURE CODES FA211 ESTABILISHED PATIENT [facility] CHARGE DISPOSITION & COMMUNICATION FOLLOW UP 2 MONTHS ELECTRONICALLY SIGNED BY FILEMON SINHA ON 05/18/2017 AT 01:43 PM EST DISCLAIMER : THIS IS A VISIT SUMMARY EXTRACTED FROM THE [employer] CHART. IT IS NOT A COPY OF THE [employer] PROGRESS NOTE. [id number]
== END ==
LOC: M PAIN 11:00
PROVIDERS: ATTEND Nurse Practitioner Family
DX: G89.29 Other chronic pain (principal); M43.07 Spondylolysis, lumbosacral region; M54.17 Radiculopathy, lumbosacral region; L98.9 Disorder of the skin and subcutaneous tissue, unspecified; M19.90 Unspecified osteoarthritis, unspecified site; Z88.0 Allergy status to penicillin; Z79.899 Other long term (current) drug therapy; Z91.013 Allergy to seafood; Z88.7 Allergy status to serum and vaccine; Z88.8 Allergy status to other drugs, medicaments and biological substances

== ENCOUNTER → 2017-07-17 | Outpatient (CLI) | payer BC | LOC: M PAIN 11:00 | DX: M43.07 Spondylolysis, lumbosacral region (principal); M54.17 Radiculopathy, lumbosacral region; Q80.9 Congenital ichthyosis, unspecified; M19.90 Unspecified osteoarthritis, unspecified site; Z88.0 Allergy status to penicillin; Z88.7 Allergy status to serum and vaccine; Z88.8 Allergy status to other drugs, medicaments and biological substances; Z91.09 Other allergy status, other than to drugs and biological substances; Z91.013 Allergy to seafood; Z79.899 Other long term (current) drug therapy; Z86.79 Personal history of other diseases of the circulatory system | CPT/HCPCS: G0463 ==

== ENCOUNTER → 2017-08-10 | Outpatient (CLI) | payer BC ==
[~2017-08-10] MED LIST changes: -AQUA100OI TOP; -BIOT10008 PO; -CIPR-249 PO; -CYCL10TA PO; -HYDR-3363 PO; -IRON28TA PO; +ISOVUE-M 300 61% 15ML VIAL (Q9967) As Ordered; +LIDOCAINE 1% SDV INJ 30 ML VIAL As Ordered; -LYRI75CA PO; -NORC1TAB4 PO; -TRAM50TA2 PO; -VITA500046 PO; +diazePAM 5 MG TAB As Ordered; +methylPREDNISolone SUSP 40 MG/ML (DEPO-medrol) VIAL (J1030) As Ordered; +oxyCODONE 5MG TAB As Ordered
== END ==
LOC: M PAIN 10:30
DX: G89.29 Other chronic pain (principal); M51.16 Intervertebral disc disorders with radiculopathy, lumbar region; Q80.9 Congenital ichthyosis, unspecified; M19.90 Unspecified osteoarthritis, unspecified site; Z79.891 Long term (current) use of opiate analgesic; Z79.899 Other long term (current) drug therapy; Z88.0 Allergy status to penicillin; Z88.7 Allergy status to serum and vaccine; Z88.8 Allergy status to other drugs, medicaments and biological substances; Z91.048 Other nonmedicinal substance allergy status; Z91.013 Allergy to seafood
CPT/HCPCS: J1030

== ENCOUNTER → 2017-08-22 | Outpatient (CLI) | payer BC ==
[2017-08-22 14:26] LABS: BASO % 0.3 % (0.0-1.0); EOS % 14.8 % (0.0-3.0); HEMATOCRIT 42.7 % (36.0-47.0); HEMOGLOBIN 14.2 g/dl (12.0-16.0); IMMATURE GRANULOCYTE % 0.3 % (0-3.0); LYMPH # 1.6 10^3/uL (1.5-4.5); LYMPH % 24.1 % (24.0-44.0); MEAN CORPUSCULAR HEMOGLOBIN 28.9 pg (27.0-33.0); MEAN CORPUSCULAR HGB CONC 33.3 g/dl (32.0-36.5); MEAN CORPUSCULAR VOLUME 86.8 fl (80.0-96.0); MONO # 0.7 10^3/uL (0.0-0.8); MONO % 10.6 % (0.0-5.0); NEUTROPHILS # 3.3 10^3/uL (1.8-7.7); NEUTROPHILS % 49.9 % (36.0-66.0); PLATELET COUNT, AUTOMATED 278 10^3/uL (150-450); RED BLOOD COUNT 4.92 10^6/uL (4.00-5.40); RED CELL DISTRIBUTION WIDTH 12.1 % (11.5-14.5); WHITE BLOOD COUNT 6.7 10^3/uL (4.0-10.0)
[2017-08-22 14:40] LABS: INR 0.97
[2017-08-22 14:41] LABS: PARTIAL THROMBOPLASTIN TIME 28.2 SECONDS (26.8-37.9)
[2017-08-22 14:51] LABS: ALBUMIN 4.3 GM/DL (3.2-5.2); ALBUMIN/GLOBULIN RATIO 1.16 (1.00-1.93); ALKALINE PHOSPHATASE < 10 U/L (45-117); ALT/SGPT 20 U/L (12-78); ANION GAP 4 MEQ/L (8-16); AST/SGOT 10 U/L (7-37); BILIRUBIN,TOTAL 0.4 MG/DL (0.2-1.0); BLOOD UREA NITROGEN 19 MG/DL (7-18); CALCIUM LEVEL 9.2 MG/DL (8.5-10.1); CARBON DIOXIDE LEVEL 31 MEQ/L (21-32); CHLORIDE LEVEL 104 MEQ/L (98-107); CREATININE FOR GFR 0.77 MG/DL (0.55-1.30); GLOMERULAR FILTRATION RATE > 60.0 (>51); GLUCOSE, FASTING 70 MG/DL (70-100); POTASSIUM SERUM 4.3 MEQ/L (3.5-5.1); SODIUM LEVEL 139 MEQ/L (136-145)
[2017-08-22 15:02] LABS: COLLAGEN EPINEPHRINE 161 SECONDS (74-162)
== END ==
LOC: M LAB 13:45
DX: Z01.818 Encounter for other preprocedural examination (principal)
CPT/HCPCS: 71046

== ENCOUNTER → 2017-08-24 | Outpatient (CLI) | payer BC | LOC: M PAIN 11:15 | DX: M43.07 Spondylolysis, lumbosacral region (principal); M54.17 Radiculopathy, lumbosacral region; Z86.69 Personal history of other diseases of the nervous system and sense organs; Z86.79 Personal history of other diseases of the circulatory system; Z79.891 Long term (current) use of opiate analgesic; Z79.899 Other long term (current) drug therapy; Z88.0 Allergy status to penicillin; Z91.013 Allergy to seafood; Z88.8 Allergy status to other drugs, medicaments and biological substances | CPT/HCPCS: G0463 ==

== ENCOUNTER 2017-09-02 05:45 | Inpatient (IN) | payer BC, MEDICARE ==
[2017-09-02] MEDS ORDERED: LIDOCAINE 1% MDV 20ML VIAL SQ (06:00)
[2017-09-02] MEDS: LR 1,000 ML IV ×2 (06:43→12:30)
[2017-09-02] MEDS ORDERED: PROPOFOL 200 MG/20 ML VIAL As Ordered (07:12)
[2017-09-02] MEDS ORDERED: MIDAZOLAM INJ 2 MG/2 ML VIAL (J2250) As Ordered (07:12)
[2017-09-02] MEDS ORDERED: fentaNYL 250 MCG/5 ML INJECTION (J3010) As Ordered (07:12)
[2017-09-02] MEDS ORDERED: ROCURONIUM BROMIDE 50 MG/5 ML VIAL As Ordered (07:12)
[2017-09-02] MEDS ORDERED: LIDOCAINE 2% INJ 100 MG/5 ML SDV (FOR ANES.) As Ordered (07:12)
[2017-09-02] MEDS: CLINDAMYCIN 900 MG in APPROPRIATE DILUENT 1 EA IV ×2 (07:42→20:55)
[2017-09-02] MEDS: THROMBIN SOLN 20,000 UNITS KIT As Ordered (09:03)
[2017-09-02] MEDS: BACITRACIN PWD 50,000 UNITS VIAL As Ordered ×2 (09:03→09:56)
[2017-09-02] MEDS ORDERED: GLYCOPYRROLATE INJ 0.2 MG/ML 2 ML VIAL As Ordered (09:53)
[2017-09-02] MEDS ORDERED: NEOSTIGMINE 10 MG/10 ML VIAL (J2710) As Ordered (09:53)
[2017-09-02] MEDS ORDERED: METOCLOPRAMIDE INJ 10MG/2ML VIAL (J2765) As Ordered (09:54)
[2017-09-02] MEDS ORDERED: ONDANSETRON 4MG/2ML VIAL (J2405) As Ordered (09:54)
[2017-09-02] MEDS ORDERED: KETOROLAC 60 MG/2 ML VIAL (J1885) As Ordered (09:54)
[2017-09-02] MEDS ORDERED: dexameTHASONE 4 MG/ML 1ML VIAL (J1100) As Ordered ×2 (09:54)
[2017-09-02] MEDS: methylPREDNISolone SUSP 40 MG/ML (DEPO-medrol) VIAL (J1030) As Ordered (09:57)
[2017-09-02] MEDS ORDERED: HYDROmorphone HCL 2 MG/ML 1ML VIAL (J1170) As Ordered (09:59)
[2017-09-02] MEDS ORDERED: fentaNYL 100 MCG/2 ML INJECTION (J3010) As Ordered (11:37)
[2017-09-02] MEDS ORDERED: ACETAMINOPHEN TAB 650MG DOSE (2X325MG) PO (12:30)
[2017-09-02] MEDS ORDERED: ONDANSETRON 4MG/2ML VIAL (J2405) IV (12:30)
[2017-09-02] MEDS ORDERED: MORPHINE 4 MG/ML 1ML VIAL (J2270) IV (12:30)
[2017-09-02] MEDS ORDERED: HYDROmorphone HCL 1 MG/ML SYRINGE (J1170) IV (12:30)
[2017-09-02] MEDS: PERCOCET 5MG/325MG TAB PO ×2 (12:56→13:22)
[2017-09-02] MEDS: ONDANSETRON 4MG/2ML VIAL (J2405) IV (12:56)
[2017-09-02] MEDS: fentaNYL 100 MCG/2 ML INJECTION (J3010) IV ×4 (12:57→13:27)
[2017-09-02] MEDS: NORCO, ANEXSIA 5/325MG TABLET (HYDROcodone/ACETAMINOPHEN) PO ×2 (14:20→20:56)
[2017-09-02] MEDS: KCL 20MEQ IN D5/0.45NS 1000ML 1,000 ML IV ×2 (14:24→20:50)
[2017-09-02] MEDS: hydrOXYzine 50 MG TAB PO (20:55)
[2017-09-02] MEDS: rOPINIRole 1MG TAB PO (20:56)
[2017-09-03] MEDS: KCL 20MEQ IN D5/0.45NS 1000ML 1,000 ML IV (04:48)
[2017-09-03] MEDS: rOPINIRole 1MG TAB PO (10:15)
[2017-09-03] MEDS: NORCO, ANEXSIA 5/325MG TABLET (HYDROcodone/ACETAMINOPHEN) PO ×2 (10:16→14:24)
[2017-09-03] MEDS: CLINDAMYCIN 900 MG in APPROPRIATE DILUENT 1 EA IV (10:47)
[2017-09-07 12:04] LABS: BEDSIDE GLUCOSE 167 MG/DL (70-105)
[2017-09-07 12:05] LABS: BEDSIDE GLUCOSE 107 MG/DL (70-105)
== END 2017-09-03 17:55 | disposition home or self-care (01) | DRG 304 ==
LOC: M OR 05:45 → M MS5PR 13:40
PROVIDERS: Neurological Surgery
PROC: 0SG10AJ Fusion of 2 or more Lumbar Vertebral Joints with Interbody Fusion Device, Posterior Approach, Anterior Column, Open Approach (ICD-10-PCS; principal; 2017-09-02 07:30)
PROC: 01NB0ZZ Release Lumbar Nerve, Open Approach (ICD-10-PCS; 2017-09-02 07:30)
PROC: 0SB20ZZ Excision of Lumbar Vertebral Disc, Open Approach (ICD-10-PCS; 2017-09-02 07:30)
PROC: 018B0ZZ Division of Lumbar Nerve, Open Approach (ICD-10-PCS; 2017-09-02 07:30)
DX: M47.26 Other spondylosis with radiculopathy, lumbar region (principal); M48.062 Spinal stenosis, lumbar region with neurogenic claudication; Q80.8 Other congenital ichthyosis

== ENCOUNTER → 2017-10-26 | Outpatient (CLI) | payer BC | LOC: M PAIN 11:15 | DX: M43.07 Spondylolysis, lumbosacral region (principal); G57.91 Unspecified mononeuropathy of right lower limb; G89.29 Other chronic pain; M19.90 Unspecified osteoarthritis, unspecified site; I34.9 Nonrheumatic mitral valve disorder, unspecified; Q80.9 Congenital ichthyosis, unspecified; Z88.0 Allergy status to penicillin; Z88.7 Allergy status to serum and vaccine; Z79.891 Long term (current) use of opiate analgesic; Z79.899 Other long term (current) drug therapy; Z91.013 Allergy to seafood; Z91.048 Other nonmedicinal substance allergy status | CPT/HCPCS: G0463 ==

== ENCOUNTER → 2017-11-07 | Outpatient (CLI) | payer BC, MEDICARE | LOC: M LAB 14:05 | DX: Z01.818 Encounter for other preprocedural examination (principal); M51.36 Other intervertebral disc degeneration, lumbar region; M43.16 Spondylolisthesis, lumbar region | CPT/HCPCS: 72100 ==

== ENCOUNTER → 2017-12-03 | Outpatient (CLI) | payer BC | LOC: M PAIN 11:30 | DX: M43.07 Spondylolysis, lumbosacral region (principal); G57.91 Unspecified mononeuropathy of right lower limb; G89.29 Other chronic pain; M19.90 Unspecified osteoarthritis, unspecified site; I34.9 Nonrheumatic mitral valve disorder, unspecified; Q80.9 Congenital ichthyosis, unspecified; Z79.899 Other long term (current) drug therapy; Z88.0 Allergy status to penicillin; Z88.7 Allergy status to serum and vaccine; Z88.8 Allergy status to other drugs, medicaments and biological substances; Z91.013 Allergy to seafood; Z91.048 Other nonmedicinal substance allergy status | CPT/HCPCS: G0463 ==

== ENCOUNTER → 2018-01-18 | Outpatient (CLI) | payer BC | LOC: M PAIN 11:15 | DX: M43.07 Spondylolysis, lumbosacral region (principal); G89.29 Other chronic pain; G57.91 Unspecified mononeuropathy of right lower limb; M19.90 Unspecified osteoarthritis, unspecified site; Q80.9 Congenital ichthyosis, unspecified; Z79.899 Other long term (current) drug therapy; Z88.0 Allergy status to penicillin; Z88.7 Allergy status to serum and vaccine; Z88.8 Allergy status to other drugs, medicaments and biological substances; Z91.013 Allergy to seafood; Z91.09 Other allergy status, other than to drugs and biological substances | CPT/HCPCS: G0463 ==

== ENCOUNTER → 2018-03-22 | Outpatient (CLI) | payer BC | LOC: M PAIN 10:15 | DX: M43.07 Spondylolysis, lumbosacral region (principal); G89.29 Other chronic pain; G57.91 Unspecified mononeuropathy of right lower limb; Q80.9 Congenital ichthyosis, unspecified; M19.90 Unspecified osteoarthritis, unspecified site; Z79.899 Other long term (current) drug therapy; Z88.0 Allergy status to penicillin; Z88.7 Allergy status to serum and vaccine; Z88.8 Allergy status to other drugs, medicaments and biological substances; Z91.013 Allergy to seafood | CPT/HCPCS: G0463 ==

== ENCOUNTER → 2018-06-28 | Outpatient (CLI) | payer BC ==
[~2018-06-28] MED LIST changes: +AQUA100OI TOP; +BIOT10008 PO; +CIPR-249 PO; +CIPR-250 PO; +CYCL10TA PO; +HYDR-3363 PO; +IRON28TA PO; -ISOVUE-M 300 61% 15ML VIAL (Q9967) As Ordered; -LIDOCAINE 1% SDV INJ 30 ML VIAL As Ordered; +LYRI75CA PO; +NORC1TAB4 PO; +REQU1TAB16 PO; +REQU2TAB3 PO; +TRAM50TA2 PO; +TYLE325T5 PO; +VITA500046 PO; -diazePAM 5 MG TAB As Ordered; -methylPREDNISolone SUSP 40 MG/ML (DEPO-medrol) VIAL (J1030) As Ordered; -oxyCODONE 5MG TAB As Ordered
--- NOTE | 2018-07-19 01:53 | ECWPNPC ---
PATIENT NAME: NAVID KIRBY : 1965 GENDER: FEMALE VISIT DATE: 06/28/2018 DISCHARGE DATE: 06/28/18 1152 VISIT LOCKED DATE TIME: PHYSICIAN: STACY THOMASON RESOURCE: STACY THOMASON REASON FOR APPOINTMENT 1. BACK HISTORY OF PRESENT ILLNESS HISTORY OF PRESENT ILLNESS: HERE FOR F/U OF CHRONIC LOW BACK PAIN AND BILATERAL LEG NEUROPATHY.CURRENTLY TAKING AMITRIPTYLINE 25MG 1/2 TAB AT BEDTIME THAT IS HELPFUL WITHOUT SIDE EFFECTS.RATING PAIN VAS 4/10. PAIN THE PATIENT DESCRIBES THE PAIN... FALL RISK SCREENING: SCREENING :NO FALLS IN THE PAST YEAR CURRENT MEDICATIONS TAKING HYDROXYZINE HCL 25 MG TABLET 2 TAB ORALLY AT BEDTIME TAKING AQUAPHILIC/CARBAMIDE 10 % OINTMENT EXTERNALLY NEEDED. TAKING HYDROCORTISONE VALERATE 0.2 % CREAM 1 APPLICATION TO AFFECTED AREA EXTERNALLY EVERY OTHER DAY TAKING REQUIP 2 MG TABLET 1 TABLET 1 TO 3 HOURS BEFORE BEDTIME ORALLY ONCE A DAY TAKING REQUIP 1 MG TABLET 1 TABLET Q AM ORALLY ONCE A DAY TAKING AMITRIPTYLINE HCL 25 MG TABLET 1/2 TABLET ORALLY ONCE A DAY TAKING CELEBREX 200 MG CAPSULE 1 TAB ORALLY DAILY TAKING PRILOSEC OTC 20 MG TABLET DELAYED RELEASE 1 CAP ORALLY DAILY TAKING MAY USE CBD OIL ORALLY QOD NOT-TAKING TRAMADOL HCL 50 MG TABLET 1 TABLET NEEDED ORALLY DAILY NEDDED MDD1 NOT-TAKING FLEXERIL 10 MG TABLET 1 TABLET ORALLY TID PRN NOT-TAKING VITAMIN D-3 1000 UNIT CAPSULE 1 CAPSULE ORALLY ONCE A DAY MEDICATION LIST REVIEWED AND RECONCILED WITH THE PATIENT PAST MEDICAL HISTORY NETHERTONS SYNDROME-SKIN PROBLEM ARTHRITIS HEART VALVE LEAKS-ABNORMAL EKG CARPAL TUNNEL SYNDROME LOW BACK PAIN LUMBAR VERTEBRAE FX NOTED ON XRAY 02/2018 ALLERGIES PENICILLIN (FOR ALLERGIES USE ONLY): UNKNOWN SEAFOOD: HIVES: ALLERGY LIVE VACCINE: UNKNOWN K Y JELLY: SKIN IRRITATION AND BURNING: ALLERGY LANOLIN: HIVES: ALLERGY SURGICAL HISTORY R CARPAL TUNNEL RELEASE 2016 R CERVICAL DISKECTOMY 06/2016 C SECTION 1988 TUBALIGATION 1988 L4-L5 FUSION 08/2017 SOCIAL HISTORY GENERAL: TOBACCO USE ARE YOU A:NONSMOKER ALCOHOL SCREENING DID YOU HAVE A DRINK CONTAINING ALCOHOL IN THE PAST YEAR?NO POINTS0 INTERPRETATIONNEGATIVE RECREATIONAL DRUG USE DRUG USE?NO CAFFEINE CAFFEINE USE?YES 6 CUPS COFFEE/DAY SYNAGOGUE [id number] LATTER DAY LANGUAGE LANGUAGES SPOKEN:MONTSERRATIAN EDUCATION LEVEL OF EDUCATION:HIGH SCHOOL DOMESTIC VIOLENCE DO YOU FEEL SAFE IN YOUR ENVIRONMENT?YES DIET: REGULAR. PAIN CLINIC PFS, CLERGY, PUBLIC HEALTH REFERRALS PFS REFERRAL NEEDED?NO CLERGY REFERRAL NEEDED?NO PUBLIC HEALTH REFERRAL NEEDED?NO WAS THE PROVIDER NOTIFIED OF ANY PERTINENT INFO?NO HAS THE PATIENT BEEN EDUCATED REGARDING HIS/HER PLAN OF CARE?YES HAS THE PATIENT BEEN EDUCATED REGARDING PAIN, THE RISK FOR PAIN, THE IMPORTANCE OF EFFECTIVE PAIN MANAGEMENT, AND THE PAIN ASSESSMENT PROCESS?YES ADVANCE DIRECTIVE ADVANCE DIRECTIVE DISCUSSED WITH PATIENT:YES DECLINED HOSPITALIZATION/MAJOR DIAGNOSTIC PROCEDURE CHILDBIRTH REVIEW OF SYSTEMS REVIEWED BY: PROVIDER: STACY COLBERT . CONSTITUTIONAL: ANY CHANGE IN YOUR MEDICAL CONDITION? NO . CHILLS NO . FEVER NO . INFECTION: DO YOU HAVE NEW INFECTIONS? NO . DO YOU HAVE HISTORY OF MRSA? NO . MUSCULOSKELETAL: ANY NEW PATTERNS OF PAIN OR NUMBNESS? NO . GASTROENTEROLOGY: ANY NEW CHANGE IN BOWEL CONTROL? NO . GENITOURINARY: ANY NEW CHANGE IN BLADDER CONTROL? NO . IS THERE A CHANCE YOU COULD BE ? NO . HEMATOLOGY/LYMPH: DO YOU TAKE ANY BLOOD THINNERS? (FOR EXAMPLE- COUMADIN, PLAVIX, AGGRENOX, PLATEL, PRADAXA, OR XARELTO) NO . WHEN WAS YOUR LAST DOSE? DATE: TIME: . NEUROLOGY: HAVE YOU FALLEN IN THE PAST 6 MONTHS? NO . ANY NEW EXTREMITY NUMBNESS OR WEAKNESS? NO . CARDIOLOGY: DO YOU HAVE A PACEMAKER OR DEFIBRILLATOR? NO . RESPIRATORY: HAVE YOU BEEN SICK IN THE PAST WEEK? NO . FEVER NO . FLU LIKE SYMPTOMS? NO . COUGH NO . INTEGUMENTARY: DO YOU HAVE ANY RASHES OR OPEN SORES? NO . ALLERGIC/IMMUNO: ARE YOU ALLERGIC TO SHELLFISH OR IV DYE? NO . ANY NEW ALLERGIES? NO . PSYCHIATRIC: DO YOU HAVE THOUGHTS OF HURTING YOURSELF OR SOMEONE ELSE? NO . ARE YOU ABUSED, NEGLECTED, OR IN AN UNSAFE ENVIRONMENT? NO . ENDOCRINOLOGY: ARE YOU DIABETIC? NO . OTHER: DO YOU NEED ANY PRESCRIPTIONS? NO . IF YES, PLEASE LIST: ____ . ANY NEW PROBLEMS WITH YOUR MEDICATIONS? NO . WHEN DID YOU LAST EAT? ____ . WHEN DID YOU LAST DRINK? ____ . WHAT DID YOU LAST DRINK? ____ . NAME OF PERSON DRIVING YOU HOME? ____ . DO YOU HAVE ANY OTHER QUESTIONS OR CONCERNS NO . VITAL SIGNS WT 187.0 LBS, HT 63 IN, BMI 33.12 INDEX, BP 148/78 MM HG, HR 78 /MIN, RR 16 /MIN, TEMP 97.7 F, OXYGEN SAT % 98%, NA INITIALS AW 1122, REVIEWED BY: EM. EXAMINATION GENERAL EXAMINATION: LUNGS:LUNG SOUNDS ARE CLEAR. HEART:HEART RATE REGULAR. MUSCULOSKELETAL:*, MUSCLE STRENGTH TESTING 5/5 BILATERAL LOWER EXTREMITIES.WELL HEALED INCISION L/S AXIS. DIAGNOSTIC:MRI L/S SPINE 04-28-15-REVIEWED. 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 IT IS NOT A COPY OF THE [employer] PROGRESS NOTE. WIL
== END ==
LOC: M PAIN 11:00
PROVIDERS: ATTEND Nurse Practitioner Family
DX: M43.07 Spondylolysis, lumbosacral region (principal); G89.29 Other chronic pain; G57.91 Unspecified mononeuropathy of right lower limb; Q80.9 Congenital ichthyosis, unspecified; M19.90 Unspecified osteoarthritis, unspecified site; Z79.899 Other long term (current) drug therapy; Z88.0 Allergy status to penicillin; Z88.7 Allergy status to serum and vaccine; Z88.8 Allergy status to other drugs, medicaments and biological substances; Z91.09 Other allergy status, other than to drugs and biological substances; Z91.013 Allergy to seafood; Z86.79 Personal history of other diseases of the circulatory system

== ENCOUNTER → 2018-09-27 | Outpatient (CLI) | payer BC ==
[~2018-09-27] MED LIST changes: -NORC1TAB4 PO; +NORC1TAB7 PO
== END ==
LOC: M PAIN 11:00
PROVIDERS: ATTEND Nurse Practitioner Family
DX: M43.07 Spondylolysis, lumbosacral region (principal); G89.29 Other chronic pain; G57.91 Unspecified mononeuropathy of right lower limb; M19.90 Unspecified osteoarthritis, unspecified site; Z88.0 Allergy status to penicillin; Z88.7 Allergy status to serum and vaccine; Z91.013 Allergy to seafood; Z91.09 Other allergy status, other than to drugs and biological substances; Z79.899 Other long term (current) drug therapy

== ENCOUNTER → 2018-12-27 | Outpatient (CLI) | payer BC ==
--- NOTE | 2019-01-08 00:53 | ECWPNPC ---
PATIENT NAME: NAVID KIRBY : 1965 GENDER: FEMALE VISIT DATE: 12/27/2018 DISCHARGE DATE: 12/27/18 1201 VISIT LOCKED DATE TIME: PHYSICIAN: STACY THOMASON RESOURCE: STACY THOMASON REASON FOR APPOINTMENT 1. 3 MONTHS HISTORY OF PRESENT ILLNESS HISTORY OF PRESENT ILLNESS: HERE FOR F/U OF CHRONIC LBP AND LOWER EXTREMITY NEUROPATHY.RATING PAIN VAS 6/10.DESCRIBES PAIN CONTINUOUS AND ACHING.PAIN HAS ESCALATED OVER THE PAST FEW MONTHS.REVIEWED MRI AND DISCUSSED TREATMENT OPTIONS.HAS RESPONDED WELL TO LESI IN PAST. PAIN THE PATIENT DESCRIBES THE PAIN... FALL RISK SCREENING: SCREENING :NO FALLS REPORTED IN THE LAST YEAR CURRENT MEDICATIONS TAKING HYDROXYZINE HCL 25 MG TABLET 2 TAB ORALLY AT BEDTIME TAKING AQUAPHILIC/CARBAMIDE 10 % OINTMENT EXTERNALLY NEEDED. TAKING HYDROCORTISONE VALERATE 0.2 % CREAM 1 APPLICATION TO AFFECTED AREA EXTERNALLY EVERY OTHER DAY TAKING REQUIP 2 MG TABLET 1 TABLET Q AM ORALLY TID TAKING AMITRIPTYLINE HCL 10 MG TABLET 1 TAB ORALLY ONCE A DAY TAKING LEVOTHYROXINE SODIUM 25 MCG TABLET 1 TABLET ON AN EMPTY STOMACH IN THE MORNING ORALLY ONCE A DAY NOT-TAKING MAY USE CBD OIL ORALLY NEEDED NOT-TAKING TRAMADOL HCL 50 MG TABLET 1 TABLET NEEDED ORALLY Q8H PRN FOR SEVERE PAIN MDD3 #45 TAB SHOULD LAST 30 DAYS NOT-TAKING REQUIP 2 MG TABLET 1 TABLET 1 TO 3 HOURS BEFORE BEDTIME ORALLY ONCE A DAY NOT-TAKING CELEBREX 200 MG CAPSULE 1 TAB ORALLY DAILY NOT-TAKING PRILOSEC OTC 20 MG TABLET DELAYED RELEASE 1 CAP ORALLY DAILY NOT-TAKING FLEXERIL 10 MG TABLET 1 TABLET ORALLY TID PRN NOT-TAKING VITAMIN D-3 1000 UNIT CAPSULE 1 CAPSULE ORALLY ONCE A DAY MEDICATION LIST REVIEWED AND RECONCILED WITH THE PATIENT PAST MEDICAL HISTORY NETHERTONS SYNDROME-SKIN PROBLEM ARTHRITIS HEART VALVE LEAKS-ABNORMAL EKG CARPAL TUNNEL SYNDROME LOW BACK PAIN LUMBAR VERTEBRAE FX NOTED ON XRAY 02/2018 ALLERGIES PENICILLIN (FOR ALLERGIES USE ONLY): UNKNOWN SEAFOOD: HIVES - ALLERGY LIVE VACCINE: UNKNOWN K Y JELLY: SKIN IRRITATION AND BURNING - ALLERGY LANOLIN: HIVES - ALLERGY SURGICAL HISTORY R CARPAL TUNNEL RELEASE 2015 R CERVICAL DISKECTOMY 06/2016 C SECTION 1988 TUBALIGATION 1988 L4-L5 FUSION 08/2017 FAMILY HISTORY FATHER: ALIVE MOTHER: 63 YRS 3 BROTHER(S) , 1 SISTER(S) - HEALTHY. 1 SON(S) , 1 DAUGHTER(S) - HEALTHY. SOCIAL HISTORY GENERAL: TOBACCO USE ARE YOU A:NONSMOKER PAIN CLINIC PFS, CLERGY, PUBLIC HEALTH REFERRALS PFS REFERRAL NEEDED?NO CLERGY REFERRAL NEEDED?NO PUBLIC HEALTH REFERRAL NEEDED?NO WAS THE PROVIDER NOTIFIED OF ANY PERTINENT INFO?NO HAS THE PATIENT BEEN EDUCATED REGARDING HIS/HER PLAN OF CARE?YES HAS THE PATIENT BEEN EDUCATED REGARDING PAIN, THE RISK FOR PAIN, THE IMPORTANCE OF EFFECTIVE PAIN MANAGEMENT, AND THE PAIN ASSESSMENT PROCESS?YES LATEX QUESTIONNAIRE LATEX ALLERGY : HAVE YOU EVER DEVELOPED ANY TYPE OF REACTION AFTER HANDLING LATEX PRODUCTS SUCH RUBBER GLOVES, CONDOMS, DIAPHRAGMS, BALLOONS, SOCKS, OR UNDERWEAR?NO LATEX ALLERGY : HAVE YOU EVER DEVELOPED ANY TYPE OF REACTION DURING OR AFTER DENTAL APPOINTMENT, VAGINAL/RECTAL EXAMINATION, SURGICAL PROCEDURE, OR ANY OTHER EXPOSURE?NO LATEX RISK : HAVE YOU EVER HAD ANY DIFFICULTY BREATHING OR HIVES AFTER EATING OR HANDLING ANY FRUITS, OR VEGETABLES; SUCH KIWI, BANANAS, STONE FRUITS, OR CHESTNUTSNO LATEX RISK : DO YOU HAVE A PREVIOUS PERSONAL HISTORY OF MORE THAN NINE SURGERIES, SPINA BIFIDA, OR REPEATED CATHERIZATIONS? NO LATEX RISK : ARE YOU FREQUENTLY EXPOSED TO LATEX PRODUCTS IN YOUR OCCUPATION?NO DATE ASKED : 09/27/2018 CAFFEINE CAFFEINE USE?YES 6 CUPS COFFEE/DAY ADVANCE DIRECTIVE ADVANCE DIRECTIVE DISCUSSED WITH PATIENT:YES DECLINED EDUCATION LEVEL OF EDUCATION:HIGH SCHOOL DIET: REGULAR. GNOSTICISM [id number] CONGREGATION LANGUAGE LANGUAGES SPOKEN:HEBREW DOMESTIC VIOLENCE DO YOU FEEL SAFE IN YOUR ENVIRONMENT?YES ALCOHOL SCREENING DID YOU HAVE A DRINK CONTAINING ALCOHOL IN THE PAST YEAR?NO POINTS0 INTERPRETATIONNEGATIVE RECREATIONAL DRUG USE DRUG USE?NO HOSPITALIZATION/MAJOR DIAGNOSTIC PROCEDURE CHILDBIRTH REVIEW OF SYSTEMS REVIEWED BY: PROVIDER: STACY COLBERT . CONSTITUTIONAL: ANY CHANGE IN YOUR MEDICAL CONDITION? NO . CHILLS NO . FEVER NO . INFECTION: DO YOU HAVE NEW INFECTIONS? NO . DO YOU HAVE HISTORY OF MRSA? NO . MUSCULOSKELETAL: ANY NEW PATTERNS OF PAIN OR NUMBNESS? YES, TINGLING BILAT LEGS WORSENING WITH SHOOTING PAIN, AND LBP W PROLONGED SITTING . GASTROENTEROLOGY: ANY NEW CHANGE IN BOWEL CONTROL? NO . GENITOURINARY: ANY NEW CHANGE IN BLADDER CONTROL? NO . IS THERE A CHANCE YOU COULD BE ? NO . HEMATOLOGY/LYMPH: DO YOU TAKE ANY BLOOD THINNERS? (FOR EXAMPLE- COUMADIN, PLAVIX, AGGRENOX, PLATEL, PRADAXA, OR XARELTO) NO . WHEN WAS YOUR LAST DOSE? DATE: TIME: . NEUROLOGY: HAVE YOU FALLEN IN THE PAST 12 MONTHS? NO . ANY NEW EXTREMITY NUMBNESS OR WEAKNESS? YES, BILAT LEG TINGLING AND SHOOTING PAIN . CARDIOLOGY: DO YOU HAVE A PACEMAKER OR DEFIBRILLATOR? NO . RESPIRATORY: HAVE YOU BEEN SICK IN THE PAST WEEK? NO . FEVER NO . FLU LIKE SYMPTOMS? NO . COUGH NO . INTEGUMENTARY: DO YOU HAVE ANY RASHES OR OPEN SORES? NO . ALLERGIC/IMMUNO: ARE YOU ALLERGIC TO IV DYE? NO . ANY NEW ALLERGIES? NO . PSYCHIATRIC: DO YOU HAVE THOUGHTS OF HURTING YOURSELF OR SOMEONE ELSE? NO . ARE YOU ABUSED, NEGLECTED, OR IN AN UNSAFE ENVIRONMENT? NO . ENDOCRINOLOGY: ARE YOU DIABETIC? NO . OTHER: DO YOU NEED ANY PRESCRIPTIONS? NO . IF YES, PLEASE LIST: ____ . ANY NEW PROBLEMS WITH YOUR MEDICATIONS? YES, PT FEELS TRAMADOL IS NOT WORKING ,STILL TAKING LAST OF RX, NO NEED TO REFILL . WHEN DID YOU LAST EAT? ____ . WHEN DID YOU LAST DRINK? ____ . WHAT DID YOU LAST DRINK? ____ . NAME OF PERSON DRIVING YOU HOME? ____ . DO YOU HAVE ANY OTHER QUESTIONS OR CONCERNS YES, WOULD LIKE TO DISCUSS AN INJECTION . VITAL SIGNS WT 186.2 LBS, HT 63 IN, BMI 32.98 INDEX, BP 133/84 MM HG, HR 69 /MIN, RR 18 /MIN, TEMP 97.4 F, OXYGEN SAT % 97%, SAFE IN ENV? (Y/N) YES, NA INITIALS MS 10:59, REVIEWED BY: TERRY. EXAMINATION GENERAL EXAMINATION: GENERAL AWAKE,ALERT ,PLEAASANT . PSYCH AFFECT NORMAL . LUNGS: LUNG PONCE ARE CLEAR TO AUSCULTATION BILATERALLY. GOOD MOVEMENT OF AIR . HEART: S1, S2 IN A REGULAR RATE AND RHYTHM. NO SIGNIFICANT MURMURS, RUBS OR GALLOPS NOTED . MUSCULOSKELETAL:MST 5/5 BILAT. LOWER EXTREMITIES. LUMBAR SACRAL SPINE PALPATION: + FOR PAIN OVER L/S SPINE. + FOR PAIN OVER L/S PARASPINALS. NEUROLOGIC EXAM: NORMAL SENSATION LIGHT TOUCH BILAT. LOWER EXTREMITIES. DIAGNOSTIC TESTS REVIEWED MRI L/S SPINE-04/28/16. ASSESSMENTS LUMBOSACRAL SPONDYLOLYSIS - M43.07 (PRIMARY) NEUROPATHY INVOLVING BOTH LOWER EXTREMITIES - G57.91 TREATMENT LUMBOSACRAL SPONDYLOLYSIS STOP TRAMADOL HCL TABLET, 50 MG, 1 TABLET NEEDED, ORALLY, Q8H PRN FOR SEVERE PAIN MDD3 #45 TAB SHOULD LAST 30 DAYS STOP AMITRIPTYLINE HCL TABLET, 10 MG, 1 TAB, ORALLY, ONCE A DAY NOTES: L4/5 LESI-VS CAUDAL. PREVENTIVE MEDICINE PAIN CLINIC TEACHING: PROCEDURE TEACHING PATIENT DECLINED LUMBAR EPIDURAL HANDOUT. PROCEDURE CODES FA211 ESTABILISHED PATIENT FORMERLY [facility] CHARGE DISPOSITION & COMMUNICATION FOLLOW UP POST (REASON: L4/5 LESI VS CAUDAL) ELECTRONICALLY SIGNED BY FILEMON WELLS ON 01/07/2019 AT 12:55 PM EDT DISCLAIMER : THIS IS A VISIT SUMMARY EXTRACTED FROM THE [employer] CHART. IT IS NOT A COPY OF THE [employer] PROGRESS NOTE. WIL
== END ==
LOC: M PAIN 10:45
PROVIDERS: ATTEND Nurse Practitioner Family
DX: M43.07 Spondylolysis, lumbosacral region (principal); G57.91 Unspecified mononeuropathy of right lower limb; M54.5 Low back pain; Z98.1 Arthrodesis status; L98.9 Disorder of the skin and subcutaneous tissue, unspecified; M19.90 Unspecified osteoarthritis, unspecified site; Z79.899 Other long term (current) drug therapy; Z88.0 Allergy status to penicillin; Z88.7 Allergy status to serum and vaccine; Z91.013 Allergy to seafood; Z91.048 Other nonmedicinal substance allergy status

== ENCOUNTER → 2019-02-10 | Outpatient (CLI) | payer BC ==
[~2019-02-10] MED LIST changes: +ISOVUE-M 200 41% 20ML VIAL (Q9966) As Ordered ONE; +LIDOCAINE 1% SDV INJ 30 ML VIAL As Ordered ONE; +diazePAM 5 MG TAB As Ordered ONE; +methylPREDNISolone SUSP 40 MG/ML (DEPO-medrol) VIAL (J1030) As Ordered ONE; +oxyCODONE 5MG TAB As Ordered ONE
--- NOTE | 2019-02-10 15:31 | REP ---
Partial lumbar spine series: There is . History: Injection procedure for pain. Nine seconds of fluoroscopy time is reported. Findings: A sequence of three fluoroscopically obtained last image hold procedural spot radiographs of the lumbar spine document needle position and contrast injection associated with injection procedure. Electronically Signed by Patrick Fierro MD 02/10/2019 03:22 P
--- NOTE | 2019-02-18 00:01 | ECWPNPC ---
PATIENT NAME: NAVID KIRBY : 1965 GENDER: FEMALE VISIT DATE: 02/10/2019 DISCHARGE DATE: 02/10/19 1349 VISIT LOCKED DATE TIME: PHYSICIAN: MAKENZIE MAXWELL MD RESOURCE: MAKENZIE MAXWELL MD REASON FOR APPOINTMENT 1. LESI HISTORY OF PRESENT ILLNESS HISTORY OF PRESENT ILLNESS: PAIN THE PATIENT DESCRIBES THE PAIN... FALL RISK SCREENING: SCREENING :NO FALLS REPORTED IN THE LAST YEAR CURRENT MEDICATIONS TAKING HYDROXYZINE HCL 25 MG TABLET 2 TAB ORALLY AT BEDTIME TAKING AQUAPHILIC/CARBAMIDE 10 % OINTMENT EXTERNALLY NEEDED. TAKING HYDROCORTISONE VALERATE 0.2 % CREAM 1 APPLICATION TO AFFECTED AREA EXTERNALLY EVERY OTHER DAY TAKING REQUIP 2 MG TABLET 1 TABLET Q AM ORALLY TID TAKING LEVOTHYROXINE SODIUM 50 MCG TABLET 1 TABLET ON AN EMPTY STOMACH IN THE MORNING ORALLY ONCE A DAY TAKING AMITRIPTYLINE HCL 10 MG TABLET 1 TABLET AT BEDTIME ORALLY ONCE A DAY TAKING ALBUTEROL 90 MCG/ACT AEROSOL SOLUTION DIRECTED INHALATION NOT-TAKING MAY USE CBD OIL ORALLY NEEDED NOT-TAKING REQUIP 2 MG TABLET 1 TABLET 1 TO 3 HOURS BEFORE BEDTIME ORALLY ONCE A DAY NOT-TAKING CELEBREX 200 MG CAPSULE 1 TAB ORALLY DAILY NOT-TAKING PRILOSEC OTC 20 MG TABLET DELAYED RELEASE 1 CAP ORALLY DAILY NOT-TAKING FLEXERIL 10 MG TABLET 1 TABLET ORALLY TID PRN NOT-TAKING VITAMIN D-3 1000 UNIT CAPSULE 1 CAPSULE ORALLY ONCE A DAY MEDICATION LIST REVIEWED AND RECONCILED WITH THE PATIENT PAST MEDICAL HISTORY NETHERTONS SYNDROME-SKIN PROBLEM ARTHRITIS HEART VALVE LEAKS-ABNORMAL EKG CARPAL TUNNEL SYNDROME LOW BACK PAIN LUMBAR VERTEBRAE FX NOTED ON XRAY 02/2018 ALLERGIES PENICILLIN (FOR ALLERGIES USE ONLY): UNKNOWN SEAFOOD: HIVES - ALLERGY LIVE VACCINE: UNKNOWN K Y JELLY: SKIN IRRITATION AND BURNING - ALLERGY LANOLIN: HIVES - ALLERGY SURGICAL HISTORY R CARPAL TUNNEL RELEASE 2016 R CERVICAL DISKECTOMY 06/2016 C SECTION 1988 TUBALIGATION 1988 L4-L5 FUSION 08/2017 FAMILY HISTORY FATHER: ALIVE MOTHER: 63 YRS 3 BROTHER(S) , 1 SISTER(S) - HEALTHY. 1 SON(S) , 1 DAUGHTER(S) - HEALTHY. SOCIAL HISTORY GENERAL: TOBACCO USE ARE YOU A:NONSMOKER PAIN CLINIC PFS, CLERGY, PUBLIC HEALTH REFERRALS PFS REFERRAL NEEDED?NO CLERGY REFERRAL NEEDED?NO PUBLIC HEALTH REFERRAL NEEDED?NO WAS THE PROVIDER NOTIFIED OF ANY PERTINENT INFO?NO HAS THE PATIENT BEEN EDUCATED REGARDING HIS/HER PLAN OF CARE?YES HAS THE PATIENT BEEN EDUCATED REGARDING PAIN, THE RISK FOR PAIN, THE IMPORTANCE OF EFFECTIVE PAIN MANAGEMENT, AND THE PAIN ASSESSMENT PROCESS?YES LATEX QUESTIONNAIRE LATEX ALLERGY : HAVE YOU EVER DEVELOPED ANY TYPE OF REACTION AFTER HANDLING LATEX PRODUCTS SUCH RUBBER GLOVES, CONDOMS, DIAPHRAGMS, BALLOONS, SOCKS, OR UNDERWEAR?NO LATEX ALLERGY : HAVE YOU EVER DEVELOPED ANY TYPE OF REACTION DURING OR AFTER DENTAL APPOINTMENT, VAGINAL/RECTAL EXAMINATION, SURGICAL PROCEDURE, OR ANY OTHER EXPOSURE?NO LATEX RISK : HAVE YOU EVER HAD ANY DIFFICULTY BREATHING OR HIVES AFTER EATING OR HANDLING ANY FRUITS, OR VEGETABLES; SUCH KIWI, BANANAS, STONE FRUITS, OR CHESTNUTSNO LATEX RISK : DO YOU HAVE A PREVIOUS PERSONAL HISTORY OF MORE THAN NINE SURGERIES, SPINA BIFIDA, OR REPEATED CATHERIZATIONS? NO LATEX RISK : ARE YOU FREQUENTLY EXPOSED TO LATEX PRODUCTS IN YOUR OCCUPATION?NO DATE ASKED : 09/27/2018 CAFFEINE CAFFEINE USE?YES 6 CUPS COFFEE/DAY ADVANCE DIRECTIVE ADVANCE DIRECTIVE DISCUSSED WITH PATIENT:YES DECLINED EDUCATION LEVEL OF EDUCATION:HIGH SCHOOL DIET: REGULAR. [employer] [id number] CONGREGATION LANGUAGE LANGUAGES SPOKEN:PARAGUAYAN DOMESTIC VIOLENCE DO YOU FEEL SAFE IN YOUR ENVIRONMENT?YES ALCOHOL SCREENING DID YOU HAVE A DRINK CONTAINING ALCOHOL IN THE PAST YEAR?NO POINTS0 INTERPRETATIONNEGATIVE RECREATIONAL DRUG USE DRUG USE?NO HOSPITALIZATION/MAJOR DIAGNOSTIC PROCEDURE CHILDBIRTH REVIEW OF SYSTEMS REVIEWED BY: PROVIDER: . CONSTITUTIONAL: ANY CHANGE IN YOUR MEDICAL CONDITION? NO . CHILLS NO . FEVER NO . INFECTION: DO YOU HAVE NEW INFECTIONS? NO . DO YOU HAVE HISTORY OF MRSA? NO . MUSCULOSKELETAL: ANY NEW PATTERNS OF PAIN OR NUMBNESS? NO . GASTROENTEROLOGY: ANY NEW CHANGE IN BOWEL CONTROL? NO . GENITOURINARY: ANY NEW CHANGE IN BLADDER CONTROL? NO . IS THERE A CHANCE YOU COULD BE ? NO . HEMATOLOGY/LYMPH: DO YOU TAKE ANY BLOOD THINNERS? (FOR EXAMPLE- COUMADIN, PLAVIX, AGGRENOX, PLATEL, PRADAXA, OR XARELTO) NO . WHEN WAS YOUR LAST DOSE? DATE: TIME: . NEUROLOGY: HAVE YOU FALLEN IN THE PAST 12 MONTHS? NO . ANY NEW EXTREMITY NUMBNESS OR WEAKNESS? NO . CARDIOLOGY: DO YOU HAVE A PACEMAKER OR DEFIBRILLATOR? NO . RESPIRATORY: HAVE YOU BEEN SICK IN THE PAST WEEK? NO . FEVER NO . FLU LIKE SYMPTOMS? NO . COUGH NO . INTEGUMENTARY: DO YOU HAVE ANY RASHES OR OPEN SORES? NO . ALLERGIC/IMMUNO: ARE YOU ALLERGIC TO IV DYE? NO . ANY NEW ALLERGIES? NO . PSYCHIATRIC: DO YOU HAVE THOUGHTS OF HURTING YOURSELF OR SOMEONE ELSE? NO . ARE YOU ABUSED, NEGLECTED, OR IN AN UNSAFE ENVIRONMENT? NO . ENDOCRINOLOGY: ARE YOU DIABETIC? NO . OTHER: DO YOU NEED ANY PRESCRIPTIONS? NO . IF YES, PLEASE LIST: ____ . ANY NEW PROBLEMS WITH YOUR MEDICATIONS? NO . WHEN DID YOU LAST EAT? 02/09/19 2330 . WHEN DID YOU LAST DRINK? 02/10/19 0910 . WHAT DID YOU LAST DRINK? WATER . NAME OF PERSON DRIVING YOU HOME? MAXIMINO . DO YOU HAVE ANY OTHER QUESTIONS OR CONCERNS NO . VITAL SIGNS WT 184.0 LBS, HT 63 IN, BMI 32.59 INDEX, BP 122/76 MM HG, HR 77 /MIN, RR 18 /MIN, TEMP 98.1 F, OXYGEN SAT % 100%, NA INITIALS AW 1123, REVIEWED BY: EM. ASSESSMENTS SPINAL STENOSIS OF LUMBAR REGION, UNSPECIFIED WHETHER NEUROGENIC CLAUDICATION PRESENT - M48.061 (PRIMARY) INTERVERTEBRAL DISC DISORDER WITH RADICULOPATHY OF LUMBOSACRAL REGION - M51.17 PROCEDURES PRE PROCEDURE DIAGNOSIS LUMBOSACRAL SPINAL STENOSIS POST PROCEDURE DIAGNOSIS LUMBOSACRAL SPINAL STENOSIS PROCEDURE LUMBAR EPIDURAL STEROID INJECTION UNDER FLUOROSCOPIC GUIDANCE SURGEON DR. 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 I EVALUATED THE PATIENT AND REVIEWED THE CHART. I WENT OVER THE RISKS, ALTERNATIVES, AND BENEFITS ASSOCIATED WITH THIS PROCEDURE. THE PATIENT WOULD LIKE TO PROCEED AND GIVE CONSENT TO PERFORMED THE PROCEDURE. THE PATIENT DENIES UNEXPLAINABLE WEIGHT LOSS, FEVER, CHILLS, OR NEW CHANGES IN URINARY OR BOWEL CONTROL. DESCRIPTION OF PROCEDURE THE PATIENT WAS BROUGHT TO THE PROCEDURE ROOM AND PLACED IN THE PRONE POSITION. THE LUMBOSACRAL AREA WAS CLEANED WITH BETADINE SOLUTION AND DRAPED ASEPTICALLY. THE PROCEDURE WAS DONE UNDER STERILE CONDITIONS. I CHECKED LATERALITY AND THE LEVEL WHERE THE PROCEDURE WAS GOING TO BE PERFORMED WITH THE PATIENT AND THE SUPPORTING STAFF AT THE MOMENT OF THE TIME OUT IN THE PROCEDURE ROOM. UNDER FLUOROSCOPIC GUIDANCE, THE TARGET POINT WAS SELECTED AT THE INTERLAMINAR LEVEL OF L5-S1. LIDOCAINE WAS USED TO NUMB THE SKIN AND THE SUBCUTANEOUS TISSUE BELOW IT. EPIDURAL TUOHY NEEDLE, 17-GAUGE, WAS ADVANCED UNDER FLUOROSCOPIC GUIDANCE AND FOLLOWING PATIENT FEEDBACK UNTIL THE EPIDURAL SPACE WAS REACHED, 7 CM DEEP INTO THE SKIN BY THE LOSS OF RESISTANCE TECHNIQUE. ISOVUE M-200 CONTRAST WAS INJECTED SHOWING ADEQUATE SPREAD OF THE DYE. THEN, A SOLUTION OF 3 ML OF NORMAL SALINE WITH DEPO-MEDROL 60 MG WAS INJECTED SLOWLY FOLLOWING PATIENT FEEDBACK. THERE WAS NO EVIDENCE OF BLOOD, PARESTHESIA OR CEREBROSPINAL FLUID DURING THE PROCEDURE. THE PATIENT WAS SENT TO THE RECOVERY ROOM. THE PATIENT WAS MOVING THE EXTREMITIES AND DOING WELL. THERE WAS NO COMPLICATION DURING THE PROCEDURE. FLUOROSCOPY TIME WAS 9 SECONDS. POST PROCEDURE NOTE THE PATIENT WILL BE SEEN IN A FOLLOW UP IN THE NEXT FEW WEEKS. INSTRUCTIONS WERE GIVEN, QUESTIONS WERE ANSWERED, AND THE PATIENT EXPRESSED UNDERSTANDING AND AGREES WITH THE PLAN. I, MAGDALENO KEENE, DOCUMENTED THE ABOVE INFORMATION ACTING A SCRIBE FOR DR. MAXWELL. I HAVE REVIEWED THE ABOVE DOCUMENT, WRITTEN BY MAGDALENO TSANG AND I VERIFY THAT IT IS ACCURATE. DIAGNOSTIC IMAGING [facility] FLUORO GUIDE SPINE INJECTION (PAIN)[id number] PROCEDURE CODES 43570 LUMBAR/SACRAL W/ IMAGING 6045F RADXPS IN END [id number] PXD DISPOSITION & COMMUNICATION FOLLOW UP 2 WEEKS ELECTRONICALLY SIGNED BY MAKENZIE MAXWELL MD, MD ON 02/17/2019 AT 12:14 PM EDT DISCLAIMER : THIS IS A VISIT SUMMARY EXTRACTED FROM THE [employer] CHART. IT IS NOT A COPY OF THE [employer] PROGRESS NOTE. MTDD
== END ==
LOC: M PAIN 11:15
PROVIDERS: ATTEND Anesthesiology
DX: M48.061 Spinal stenosis, lumbar region without neurogenic claudication (principal); M51.17 Intervertebral disc disorders with radiculopathy, lumbosacral region; Z79.899 Other long term (current) drug therapy; Z88.0 Allergy status to penicillin; Z88.7 Allergy status to serum and vaccine; Z91.048 Other nonmedicinal substance allergy status; Z91.013 Allergy to seafood
CPT/HCPCS: 62323; J1030; Q9966

== ENCOUNTER → 2019-03-04 | Outpatient (CLI) | payer BC ==
[~2019-03-04] MED LIST changes: -ISOVUE-M 200 41% 20ML VIAL (Q9966) As Ordered ONE; -LIDOCAINE 1% SDV INJ 30 ML VIAL As Ordered ONE; -diazePAM 5 MG TAB As Ordered ONE; -methylPREDNISolone SUSP 40 MG/ML (DEPO-medrol) VIAL (J1030) As Ordered ONE; -oxyCODONE 5MG TAB As Ordered ONE
--- NOTE | 2019-03-19 02:00 | ECWPNPC ---
PATIENT NAME: NAVID KIRBY : 1965 GENDER: FEMALE VISIT DATE: 03/04/2019 DISCHARGE DATE: 03/04/19 1222 VISIT LOCKED DATE TIME: PHYSICIAN: STACY THOMASON RESOURCE: STACY THOMASON REASON FOR APPOINTMENT 1. POST PROC HISTORY OF PRESENT ILLNESS HISTORY OF PRESENT ILLNESS: HERE FOR POST PROCEDURE F/U.HAD LESI ON 02/10/19.RATING LBP 0/10. PAIN THE PATIENT DESCRIBES THE PAIN... FALL RISK SCREENING: SCREENING :NO FALLS REPORTED IN THE LAST YEAR CURRENT MEDICATIONS TAKING HYDROXYZINE HCL 25 MG TABLET 2 TAB ORALLY AT BEDTIME TAKING AQUAPHILIC/CARBAMIDE 10 % OINTMENT EXTERNALLY NEEDED. TAKING HYDROCORTISONE VALERATE 0.2 % CREAM 1 APPLICATION TO AFFECTED AREA EXTERNALLY EVERY OTHER DAY TAKING REQUIP 2 MG TABLET 1 TABLET ORALLY TID TAKING LEVOTHYROXINE SODIUM 50 MCG TABLET 1 TABLET ON AN EMPTY STOMACH IN THE MORNING ORALLY ONCE A DAY TAKING AMITRIPTYLINE HCL 10 MG TABLET 1 TABLET AT BEDTIME ORALLY ONCE A DAY TAKING ALBUTEROL 90 MCG/ACT AEROSOL SOLUTION DIRECTED INHALATION NOT-TAKING MAY USE CBD OIL ORALLY NEEDED NOT-TAKING REQUIP 2 MG TABLET 1 TABLET 1 TO 3 HOURS BEFORE BEDTIME ORALLY ONCE A DAY NOT-TAKING CELEBREX 200 MG CAPSULE 1 TAB ORALLY DAILY NOT-TAKING PRILOSEC OTC 20 MG TABLET DELAYED RELEASE 1 CAP ORALLY DAILY NOT-TAKING FLEXERIL 10 MG TABLET 1 TABLET ORALLY TID PRN NOT-TAKING VITAMIN D-3 1000 UNIT CAPSULE 1 CAPSULE ORALLY ONCE A DAY MEDICATION LIST REVIEWED AND RECONCILED WITH THE PATIENT PAST MEDICAL HISTORY NETHERTONS SYNDROME-SKIN PROBLEM ARTHRITIS HEART VALVE LEAKS-ABNORMAL EKG CARPAL TUNNEL SYNDROME LOW BACK PAIN LUMBAR VERTEBRAE FX NOTED ON XRAY 02/2018 ALLERGIES PENICILLIN (FOR ALLERGIES USE ONLY): UNKNOWN SEAFOOD: HIVES - ALLERGY LIVE VACCINE: UNKNOWN K Y JELLY: SKIN IRRITATION AND BURNING - ALLERGY LANOLIN: HIVES - ALLERGY SURGICAL HISTORY R CARPAL TUNNEL RELEASE 2015 R CERVICAL DISKECTOMY 06/2016 C SECTION 1988 TUBALIGATION 1988 L4-L5 FUSION 08/2017 FAMILY HISTORY FATHER: ALIVE MOTHER: 63 YRS 3 BROTHER(S) , 1 SISTER(S) - HEALTHY. 1 SON(S) , 1 DAUGHTER(S) - HEALTHY. SOCIAL HISTORY GENERAL: TOBACCO USE ARE YOU A:FORMER SMOKER HOW LONG HAS IT BEEN SINCE YOU LAST SMOKED?1-5 YEARS PAIN CLINIC PFS, CLERGY, PUBLIC HEALTH REFERRALS PFS REFERRAL NEEDED?NO CLERGY REFERRAL NEEDED?NO PUBLIC HEALTH REFERRAL NEEDED?NO WAS THE PROVIDER NOTIFIED OF ANY PERTINENT INFO?NO HAS THE PATIENT BEEN EDUCATED REGARDING HIS/HER PLAN OF CARE?YES HAS THE PATIENT BEEN EDUCATED REGARDING PAIN, THE RISK FOR PAIN, THE IMPORTANCE OF EFFECTIVE PAIN MANAGEMENT, AND THE PAIN ASSESSMENT PROCESS?YES LATEX QUESTIONNAIRE LATEX ALLERGY : HAVE YOU EVER DEVELOPED ANY TYPE OF REACTION AFTER HANDLING LATEX PRODUCTS SUCH RUBBER GLOVES, CONDOMS, DIAPHRAGMS, BALLOONS, SOCKS, OR UNDERWEAR?NO LATEX ALLERGY : HAVE YOU EVER DEVELOPED ANY TYPE OF REACTION DURING OR AFTER DENTAL APPOINTMENT, VAGINAL/RECTAL EXAMINATION, SURGICAL PROCEDURE, OR ANY OTHER EXPOSURE?NO DATE ASKED : 09/27/2018 LATEX RISK : HAVE YOU EVER HAD ANY DIFFICULTY BREATHING OR HIVES AFTER EATING OR HANDLING ANY FRUITS, OR VEGETABLES; SUCH KIWI, BANANAS, STONE FRUITS, OR CHESTNUTSNO LATEX RISK : DO YOU HAVE A PREVIOUS PERSONAL HISTORY OF MORE THAN NINE SURGERIES, SPINA BIFIDA, OR REPEATED CATHERIZATIONS? NO LATEX RISK : ARE YOU FREQUENTLY EXPOSED TO LATEX PRODUCTS IN YOUR OCCUPATION?NO CAFFEINE CAFFEINE USE?YES 6 CUPS COFFEE/DAY ADVANCE DIRECTIVE ADVANCE DIRECTIVE DISCUSSED WITH PATIENT:YES PT HAS NO ADVANCED DIRECTIVES, PT REPORTS SHE HAS THE PAPERWORK EDUCATION LEVEL OF EDUCATION:HIGH SCHOOL DIET: REGULAR. ZOROASTRIANISM TAYCCING21 MORAVIAN LANGUAGE LANGUAGES SPOKEN:[place] DOMESTIC VIOLENCE DO YOU FEEL SAFE IN YOUR ENVIRONMENT?YES ALCOHOL SCREENING DID YOU HAVE A DRINK CONTAINING ALCOHOL IN THE PAST YEAR?NO POINTS0 INTERPRETATIONNEGATIVE RECREATIONAL DRUG USE DRUG USE?NO 03/04/19 REVIEWED WITH PATIENT 1145 LAS. HOSPITALIZATION/MAJOR DIAGNOSTIC PROCEDURE CHILDBIRTH REVIEW OF SYSTEMS REVIEWED BY: PROVIDER: STACY COLBERT . CONSTITUTIONAL: ANY CHANGE IN YOUR MEDICAL CONDITION? NO . CHILLS NO . FEVER NO . INFECTION: DO YOU HAVE NEW INFECTIONS? NO . DO YOU HAVE HISTORY OF MRSA? NO . MUSCULOSKELETAL: ANY NEW PATTERNS OF PAIN OR NUMBNESS? NO . GASTROENTEROLOGY: ANY NEW CHANGE IN BOWEL CONTROL? NO . GENITOURINARY: ANY NEW CHANGE IN BLADDER CONTROL? NO . IS THERE A CHANCE YOU COULD BE ? NO . HEMATOLOGY/LYMPH: DO YOU TAKE ANY BLOOD THINNERS? (FOR EXAMPLE- COUMADIN, PLAVIX, AGGRENOX, PLATEL, PRADAXA, OR XARELTO) NO . WHEN WAS YOUR LAST DOSE? DATE: TIME: . NEUROLOGY: HAVE YOU FALLEN IN THE PAST 12 MONTHS? NO . ANY NEW EXTREMITY NUMBNESS OR WEAKNESS? NO . CARDIOLOGY: DO YOU HAVE A PACEMAKER OR DEFIBRILLATOR? NO . RESPIRATORY: HAVE YOU BEEN SICK IN THE PAST WEEK? NO . FEVER NO . FLU LIKE SYMPTOMS? NO . COUGH NO . INTEGUMENTARY: DO YOU HAVE ANY RASHES OR OPEN SORES? NO . ALLERGIC/IMMUNO: ARE YOU ALLERGIC TO IV DYE? NO . ANY NEW ALLERGIES? NO . PSYCHIATRIC: DO YOU HAVE THOUGHTS OF HURTING YOURSELF OR SOMEONE ELSE? NO . ARE YOU ABUSED, NEGLECTED, OR IN AN UNSAFE ENVIRONMENT? NO . ENDOCRINOLOGY: ARE YOU DIABETIC? NO . OTHER: DO YOU NEED ANY PRESCRIPTIONS? NO . IF YES, PLEASE LIST: ____ . ANY NEW PROBLEMS WITH YOUR MEDICATIONS? YES PT REPORTS NIGHT SWEATS, HAD BLOOD WORK DONE FOR THYROID MEDICINE/ THROUGH HER PRIMARY . WHEN DID YOU LAST EAT? ____ . WHEN DID YOU LAST DRINK? ____ . WHAT DID YOU LAST DRINK? ____ . NAME OF PERSON DRIVING YOU HOME? ____ . DO YOU HAVE ANY OTHER QUESTIONS OR CONCERNS NO . VITAL SIGNS WT 186.8 LBS, HT 63 IN, BMI 33.09 INDEX, BP 137/66 MM HG, HR 79 /MIN, RR 18 /MIN, TEMP 97.2 F, OXYGEN SAT % 96%, SAFE IN ENV? (Y/N) YES, NA INITIALS SC 11:31, REVIEWED BY: TYE. EXAMINATION GENERAL EXAMINATION: GENERALAWAKE,ALERT ,PLEAASANT . PSYCHAFFECT NORMAL . LUNGS:LUNG PONCE ARE CLEAR TO AUSCULTATION BILATERALLY. GOOD MOVEMENT OF AIR . HEART:S1, S2 IN A REGULAR RATE AND RHYTHM. NO SIGNIFICANT MURMURS, RUBS OR GALLOPS NOTED . ASSESSMENTS SPINAL STENOSIS OF LUMBAR REGION, UNSPECIFIED WHETHER NEUROGENIC CLAUDICATION PRESENT - M48.061 (PRIMARY) INTERVERTEBRAL DISC DISORDER WITH RADICULOPATHY OF LUMBOSACRAL REGION - M51.17 TREATMENT SPINAL STENOSIS OF LUMBAR REGION, UNSPECIFIED WHETHER NEUROGENIC CLAUDICATION PRESENT REFILL AMITRIPTYLINE HCL TABLET, 10 MG, 1 TABLET AT BEDTIME, ORALLY, ONCE A DAY, 30 DAYS, 30, REFILLS 5 PROCEDURE CODES FA211 ESTABILISHED PATIENT [facility] CHARGE DISPOSITION & COMMUNICATION FOLLOW UP 2 MONTHS ELECTRONICALLY SIGNED BY FILEMON WELLS ON 03/18/2019 AT 02:09 PM EDT DISCLAIMER : THIS IS A VISIT SUMMARY EXTRACTED FROM THE [employer] CHART. IT IS NOT A COPY OF THE [employer] PROGRESS NOTE. WIL
== END ==
LOC: M PAIN 10:45
PROVIDERS: ATTEND Nurse Practitioner Family
DX: M48.061 Spinal stenosis, lumbar region without neurogenic claudication (principal); M51.17 Intervertebral disc disorders with radiculopathy, lumbosacral region; M19.90 Unspecified osteoarthritis, unspecified site; Z87.891 Personal history of nicotine dependence; Z88.0 Allergy status to penicillin; Z88.7 Allergy status to serum and vaccine; Z88.8 Allergy status to other drugs, medicaments and biological substances; Z91.013 Allergy to seafood; Z79.899 Other long term (current) drug therapy

== ENCOUNTER → 2019-05-04 | Outpatient (CLI) | payer BC ==
--- NOTE | 2019-05-24 07:32 | ECWPNPC ---
PATIENT NAME: NAVID KIRBY : 1965 GENDER: FEMALE VISIT DATE: 05/04/2019 DISCHARGE DATE: 05/04/19 1215 VISIT LOCKED DATE TIME: PHYSICIAN: STACY THOMASON RESOURCE: STACY THOMASON REASON FOR APPOINTMENT 1. BACK PAIN HISTORY OF PRESENT ILLNESS HISTORY OF PRESENT ILLNESS: HERE FOR F/U OF CHRONIC LBP WITH RADIATION DOWN POSTERIOR LEGS BILATERALLY.RATING PAIN VAS 3/10.CHIEF COMPLAINT IS NEUROPATHY AND SYMPTOMS OF FIBROMYALGIA.DISCUSSED MEDICATION OPTIONS. PAIN THE PATIENT DESCRIBES THE PAIN... FALL RISK SCREENING: SCREENING :NO FALLS REPORTED IN THE LAST YEAR CURRENT MEDICATIONS TAKING HYDROXYZINE HCL 25 MG TABLET 2 TAB ORALLY AT BEDTIME TAKING AQUAPHILIC/CARBAMIDE 10 % OINTMENT EXTERNALLY NEEDED. TAKING HYDROCORTISONE VALERATE 0.2 % CREAM 1 APPLICATION TO AFFECTED AREA EXTERNALLY EVERY OTHER DAY TAKING REQUIP 2 MG TABLET 1 TABLET ORALLY TID TAKING ALBUTEROL 90 MCG/ACT AEROSOL SOLUTION DIRECTED INHALATION TAKING AMITRIPTYLINE HCL 10 MG TABLET 1 TABLET AT BEDTIME ORALLY ONCE A DAY NOT-TAKING LEVOTHYROXINE SODIUM 50 MCG TABLET 1 TABLET ON AN EMPTY STOMACH IN THE MORNING ORALLY ONCE A DAY NOT-TAKING MAY USE CBD OIL ORALLY NEEDED NOT-TAKING REQUIP 2 MG TABLET 1 TABLET 1 TO 3 HOURS BEFORE BEDTIME ORALLY ONCE A DAY NOT-TAKING CELEBREX 200 MG CAPSULE 1 TAB ORALLY DAILY NOT-TAKING PRILOSEC OTC 20 MG TABLET DELAYED RELEASE 1 CAP ORALLY DAILY NOT-TAKING FLEXERIL 10 MG TABLET 1 TABLET ORALLY TID PRN NOT-TAKING VITAMIN D-3 1000 UNIT CAPSULE 1 CAPSULE ORALLY ONCE A DAY MEDICATION LIST REVIEWED AND RECONCILED WITH THE PATIENT PAST MEDICAL HISTORY NETHERTONS SYNDROME-SKIN PROBLEM ARTHRITIS HEART VALVE LEAKS-ABNORMAL EKG CARPAL TUNNEL SYNDROME LOW BACK PAIN LUMBAR VERTEBRAE FX NOTED ON XRAY 02/2018 ALLERGIES PENICILLIN (FOR ALLERGIES USE ONLY): UNKNOWN SEAFOOD: HIVES - ALLERGY LIVE VACCINE: UNKNOWN K Y JELLY: SKIN IRRITATION AND BURNING - ALLERGY LANOLIN: HIVES - ALLERGY SURGICAL HISTORY R CARPAL TUNNEL RELEASE 2015 R CERVICAL DISKECTOMY 06/2016 C SECTION 1988 TUBALIGATION 1988 L4-L5 FUSION 08/2017 FAMILY HISTORY FATHER: ALIVE MOTHER: 63 YRS 3 BROTHER(S) , 1 SISTER(S) - HEALTHY. 1 SON(S) , 1 DAUGHTER(S) - HEALTHY. SOCIAL HISTORY GENERAL: TOBACCO USE ARE YOU A:FORMER SMOKER HOW LONG HAS IT BEEN SINCE YOU LAST SMOKED?1-5 YEARS PAIN CLINIC PFS, CLERGY, PUBLIC HEALTH REFERRALS PFS REFERRAL NEEDED?NO CLERGY REFERRAL NEEDED?NO PUBLIC HEALTH REFERRAL NEEDED?NO WAS THE PROVIDER NOTIFIED OF ANY PERTINENT INFO?NO HAS THE PATIENT BEEN EDUCATED REGARDING HIS/HER PLAN OF CARE?YES HAS THE PATIENT BEEN EDUCATED REGARDING PAIN, THE RISK FOR PAIN, THE IMPORTANCE OF EFFECTIVE PAIN MANAGEMENT, AND THE PAIN ASSESSMENT PROCESS?YES LATEX QUESTIONNAIRE LATEX ALLERGY : HAVE YOU EVER DEVELOPED ANY TYPE OF REACTION AFTER HANDLING LATEX PRODUCTS SUCH RUBBER GLOVES, CONDOMS, DIAPHRAGMS, BALLOONS, SOCKS, OR UNDERWEAR?NO LATEX ALLERGY : HAVE YOU EVER DEVELOPED ANY TYPE OF REACTION DURING OR AFTER DENTAL APPOINTMENT, VAGINAL/RECTAL EXAMINATION, SURGICAL PROCEDURE, OR ANY OTHER EXPOSURE?NO DATE ASKED : 09/27/2018 LATEX RISK : HAVE YOU EVER HAD ANY DIFFICULTY BREATHING OR HIVES AFTER EATING OR HANDLING ANY FRUITS, OR VEGETABLES; SUCH KIWI, BANANAS, STONE FRUITS, OR CHESTNUTSNO LATEX RISK : DO YOU HAVE A PREVIOUS PERSONAL HISTORY OF MORE THAN NINE SURGERIES, SPINA BIFIDA, OR REPEATED CATHERIZATIONS? NO LATEX RISK : ARE YOU FREQUENTLY EXPOSED TO LATEX PRODUCTS IN YOUR OCCUPATION?NO CAFFEINE CAFFEINE USE?YES 6 CUPS COFFEE/DAY ADVANCE DIRECTIVE ADVANCE DIRECTIVE DISCUSSED WITH PATIENT:YES PT HAS NO ADVANCED DIRECTIVES, PT REPORTS SHE HAS THE PAPERWORK EDUCATION LEVEL OF EDUCATION:HIGH SCHOOL DIET: REGULAR. RELIGIOUS [id number] MANDAEN LANGUAGE LANGUAGES SPOKEN:CITIZEN OF [place] DOMESTIC VIOLENCE DO YOU FEEL SAFE IN YOUR ENVIRONMENT?YES ALCOHOL SCREENING DID YOU HAVE A DRINK CONTAINING ALCOHOL IN THE PAST YEAR?NO POINTS0 INTERPRETATIONNEGATIVE RECREATIONAL DRUG USE DRUG USE?NO 03/04/19 REVIEWED WITH PATIENT 1145 LAS. HOSPITALIZATION/MAJOR DIAGNOSTIC PROCEDURE CHILDBIRTH REVIEW OF SYSTEMS REVIEWED BY: PROVIDER: STACY COLBERT . CONSTITUTIONAL: ANY CHANGE IN YOUR MEDICAL CONDITION? NO . CHILLS NO . FEVER NO . INFECTION: DO YOU HAVE NEW INFECTIONS? NO . DO YOU HAVE HISTORY OF MRSA? NO . MUSCULOSKELETAL: ANY NEW PATTERNS OF PAIN OR NUMBNESS? NO . GASTROENTEROLOGY: ANY NEW CHANGE IN BOWEL CONTROL? NO . GENITOURINARY: ANY NEW CHANGE IN BLADDER CONTROL? NO . IS THERE A CHANCE YOU COULD BE ? NO . HEMATOLOGY/LYMPH: DO YOU TAKE ANY BLOOD THINNERS? (FOR EXAMPLE- COUMADIN, PLAVIX, AGGRENOX, PLATEL, PRADAXA, OR XARELTO) NO . WHEN WAS YOUR LAST DOSE? DATE: TIME: . NEUROLOGY: HAVE YOU FALLEN IN THE PAST 12 MONTHS? NO . ANY NEW EXTREMITY NUMBNESS OR WEAKNESS? NO . CARDIOLOGY: DO YOU HAVE A PACEMAKER OR DEFIBRILLATOR? NO . RESPIRATORY: HAVE YOU BEEN SICK IN THE PAST WEEK? NO . FEVER NO . FLU LIKE SYMPTOMS? NO . COUGH NO . INTEGUMENTARY: DO YOU HAVE ANY RASHES OR OPEN SORES? NO . ALLERGIC/IMMUNO: ARE YOU ALLERGIC TO IV DYE? NO . ANY NEW ALLERGIES? NO . PSYCHIATRIC: DO YOU HAVE THOUGHTS OF HURTING YOURSELF OR SOMEONE ELSE? NO . ARE YOU ABUSED, NEGLECTED, OR IN AN UNSAFE ENVIRONMENT? NO . ENDOCRINOLOGY: ARE YOU DIABETIC? NO . OTHER: DO YOU NEED ANY PRESCRIPTIONS? NO . IF YES, PLEASE LIST: ____ . ANY NEW PROBLEMS WITH YOUR MEDICATIONS? NO . WHEN DID YOU LAST EAT? ____ . WHEN DID YOU LAST DRINK? ____ . WHAT DID YOU LAST DRINK? ____ . NAME OF PERSON DRIVING YOU HOME? ____ . DO YOU HAVE ANY OTHER QUESTIONS OR CONCERNS FLU VACCINE RECEIVED 03/30/19 . VITAL SIGNS WT 187.6 LBS, HT 63 IN, BMI 33.23 INDEX, BP 133/75 MM HG, HR 76 /MIN, RR 18 /MIN, TEMP 97.0 F, OXYGEN SAT % 100%, NA INITIALS AW 1140, REVIEWED BY: EM. EXAMINATION GENERAL EXAMINATION: GENERALAWAKE,ALERT ,PLEAASANT . PSYCHAFFECT NORMAL . LUNGS:LUNG PONCE ARE CLEAR TO AUSCULTATION BILATERALLY. GOOD MOVEMENT OF AIR . HEART:S1, S2 IN A REGULAR RATE AND RHYTHM. NO SIGNIFICANT MURMURS, RUBS OR GALLOPS NOTED . 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 IT IS NOT A COPY OF THE [employer] PROGRESS NOTE. WIL
== END ==
LOC: M PAIN 11:15
PROVIDERS: ATTEND Nurse Practitioner Family
DX: G57.91 Unspecified mononeuropathy of right lower limb (principal); M43.07 Spondylolysis, lumbosacral region; G89.29 Other chronic pain; Z87.891 Personal history of nicotine dependence; Z88.0 Allergy status to penicillin; Z88.7 Allergy status to serum and vaccine; Z88.8 Allergy status to other drugs, medicaments and biological substances; Z91.013 Allergy to seafood; Z79.899 Other long term (current) drug therapy

== ENCOUNTER → 2019-08-30 | Outpatient (CLI) | payer BC ==
--- NOTE | 2019-09-14 05:08 | ECWPNPC ---
PATIENT NAME: NAVID KIRBY : 1965 GENDER: FEMALE VISIT DATE: 08/30/2019 DISCHARGE DATE: 08/30/19 1239 VISIT LOCKED DATE TIME: PHYSICIAN: STACY THOMASON RESOURCE: STACY THOMASON REASON FOR APPOINTMENT 1. 4 MONTHS HISTORY OF PRESENT ILLNESS HISTORY OF PRESENT ILLNESS: HERE FOR F/U OF CHRONIC LBP WITH RADIATION DOWN POSTERIOR LEGS BILATERALLY.RATING PAIN VAS 3/10.CHIEF COMPLAINT IS NEUROPATHY AND SYMPTOMS OF FIBROMYALGIA.DISCUSSED MEDICATION OPTIONS. PAIN THE PATIENT DESCRIBES THE PAINDURING THE LAST MONTH SEVERITY - PAIN SCORE OF5/10 LOCATIONSLOWER BACK QUALITYSTABBING, SHOOTING DURATIONCONTINUOUS, AWAKENS FROM SLEEEP FALL RISK SCREENING: SCREENING :NO FALLS REPORTED IN THE LAST YEAR CURRENT MEDICATIONS TAKING HYDROXYZINE HCL 25 MG TABLET 2 TAB ORALLY AT BEDTIME TAKING AQUAPHILIC/CARBAMIDE 10 % OINTMENT EXTERNALLY NEEDED. TAKING HYDROCORTISONE VALERATE 0.2 % CREAM 1 APPLICATION TO AFFECTED AREA EXTERNALLY EVERY OTHER DAY TAKING REQUIP 2 MG TABLET 1 TABLET ORALLY TID TAKING ALBUTEROL 90 MCG/ACT AEROSOL SOLUTION DIRECTED INHALATION TAKING AMITRIPTYLINE HCL 10 MG TABLET 1 TABLET AT BEDTIME ORALLY ONCE A DAY TAKING CYMBALTA 30 MG CAPSULE DELAYED RELEASE PARTICLES 1 CAPSULE ORALLY ONCE A DAY TAKING VITAMIN B12 500 MCG TABLET 1 TABLET ORALLY ONCE A DAY TAKING CHOLECALCIFEROL 1.25 MG (00155 UT) CAPSULE 1 CAPSULE ORALLY TAKING MAGNESIUM 400 MG CAPSULE DIRECTED ORALLY AT DINNER TIME NOT-TAKING LEVOTHYROXINE SODIUM 50 MCG TABLET 1 TABLET ON AN EMPTY STOMACH IN THE MORNING ORALLY ONCE A DAY NOT-TAKING MAY USE CBD OIL ORALLY NEEDED NOT-TAKING REQUIP 2 MG TABLET 1 TABLET 1 TO 3 HOURS BEFORE BEDTIME ORALLY ONCE A DAY NOT-TAKING CELEBREX 200 MG CAPSULE 1 TAB ORALLY DAILY NOT-TAKING PRILOSEC OTC 20 MG TABLET DELAYED RELEASE 1 CAP ORALLY DAILY NOT-TAKING FLEXERIL 10 MG TABLET 1 TABLET ORALLY TID PRN NOT-TAKING VITAMIN D-3 1000 UNIT CAPSULE 1 CAPSULE ORALLY ONCE A DAY MEDICATION LIST REVIEWED AND RECONCILED WITH THE PATIENT PAST MEDICAL HISTORY NETHERTONS SYNDROME-SKIN PROBLEM ARTHRITIS HEART VALVE LEAKS-ABNORMAL EKG CARPAL TUNNEL SYNDROME LOW BACK PAIN LUMBAR VERTEBRAE FX NOTED ON XRAY 02/2018 ALLERGIES PENICILLIN (FOR ALLERGIES USE ONLY): UNKNOWN SEAFOOD: HIVES - ALLERGY LIVE VACCINE: UNKNOWN K Y JELLY: SKIN IRRITATION AND BURNING - ALLERGY LANOLIN: HIVES - ALLERGY SURGICAL HISTORY R CARPAL TUNNEL RELEASE 2016 R CERVICAL DISKECTOMY 06/2016 C SECTION 1988 TUBALIGATION 1988 L4-L5 FUSION 08/2017 FAMILY HISTORY FATHER: ALIVE MOTHER: 63 YRS 3 BROTHER(S) , 1 SISTER(S) - HEALTHY. 1 SON(S) , 1 DAUGHTER(S) - HEALTHY. SOCIAL HISTORY GENERAL: TOBACCO USE ARE YOU A:FORMER SMOKER HOW LONG HAS IT BEEN SINCE YOU LAST SMOKED?1-5 YEARS PAIN CLINIC PFS, CLERGY, PUBLIC HEALTH REFERRALS PFS REFERRAL NEEDED?NO CLERGY REFERRAL NEEDED?NO PUBLIC HEALTH REFERRAL NEEDED?NO WAS THE PROVIDER NOTIFIED OF ANY PERTINENT INFO?NO HAS THE PATIENT BEEN EDUCATED REGARDING HIS/HER PLAN OF CARE?YES HAS THE PATIENT BEEN EDUCATED REGARDING PAIN, THE RISK FOR PAIN, THE IMPORTANCE OF EFFECTIVE PAIN MANAGEMENT, AND THE PAIN ASSESSMENT PROCESS?YES LATEX QUESTIONNAIRE LATEX ALLERGY : HAVE YOU EVER DEVELOPED ANY TYPE OF REACTION AFTER HANDLING LATEX PRODUCTS SUCH RUBBER GLOVES, CONDOMS, DIAPHRAGMS, BALLOONS, SOCKS, OR UNDERWEAR?NO LATEX ALLERGY : HAVE YOU EVER DEVELOPED ANY TYPE OF REACTION DURING OR AFTER DENTAL APPOINTMENT, VAGINAL/RECTAL EXAMINATION, SURGICAL PROCEDURE, OR ANY OTHER EXPOSURE?NO DATE ASKED : 09/27/2018 LATEX RISK : HAVE YOU EVER HAD ANY DIFFICULTY BREATHING OR HIVES AFTER EATING OR HANDLING ANY FRUITS, OR VEGETABLES; SUCH KIWI, BANANAS, STONE FRUITS, OR CHESTNUTSNO LATEX RISK : DO YOU HAVE A PREVIOUS PERSONAL HISTORY OF MORE THAN NINE SURGERIES, SPINA BIFIDA, OR REPEATED CATHERIZATIONS? NO LATEX RISK : ARE YOU FREQUENTLY EXPOSED TO LATEX PRODUCTS IN YOUR OCCUPATION?NO CAFFEINE CAFFEINE USE?YES 6 CUPS COFFEE/DAY ADVANCE DIRECTIVE ADVANCE DIRECTIVE DISCUSSED WITH PATIENT:YES PT HAS NO ADVANCED DIRECTIVES, PT REPORTS SHE HAS THE PAPERWORK 08/30/19 EDUCATION LEVEL OF EDUCATION:HIGH SCHOOL DIET: REGULAR. BAHAI [id number] QUAKER LANGUAGE LANGUAGES SPOKEN:CITIZEN OF [place] AND [place] DOMESTIC VIOLENCE DO YOU FEEL SAFE IN YOUR ENVIRONMENT?YES ALCOHOL SCREENING DID YOU HAVE A DRINK CONTAINING ALCOHOL IN THE PAST YEAR?NO POINTS0 INTERPRETATIONNEGATIVE RECREATIONAL DRUG USE DRUG USE?NO 03/04/19 REVIEWED WITH PATIENT 1145 LAS. HOSPITALIZATION/MAJOR DIAGNOSTIC PROCEDURE [facility]IL[facility] REVIEW OF SYSTEMS REVIEWED BY: PROVIDER: STACY COLBERT . CONSTITUTIONAL: ANY CHANGE IN YOUR MEDICAL CONDITION? NO . CHILLS NO . FEVER NO . INFECTION: DO YOU HAVE NEW INFECTIONS? NO . DO YOU HAVE HISTORY OF MRSA? NO . MUSCULOSKELETAL: ANY NEW PATTERNS OF PAIN OR NUMBNESS? NO . GASTROENTEROLOGY: ANY NEW CHANGE IN BOWEL CONTROL? NO . GENITOURINARY: ANY NEW CHANGE IN BLADDER CONTROL? NO . IS THERE A CHANCE YOU COULD BE ? NO . HEMATOLOGY/LYMPH: DO YOU TAKE ANY BLOOD THINNERS? (FOR EXAMPLE- COUMADIN, PLAVIX, AGGRENOX, PLATEL, PRADAXA, OR XARELTO) NO . WHEN WAS YOUR LAST DOSE? DATE: TIME: . NEUROLOGY: HAVE YOU FALLEN IN THE PAST 12 MONTHS? NO . ANY NEW EXTREMITY NUMBNESS OR WEAKNESS? NO . CARDIOLOGY: DO YOU HAVE A PACEMAKER OR DEFIBRILLATOR? NO . RESPIRATORY: HAVE YOU BEEN SICK IN THE PAST WEEK? NO . FEVER NO . FLU LIKE SYMPTOMS? NO . COUGH NO . INTEGUMENTARY: DO YOU HAVE ANY RASHES OR OPEN SORES? NO . ALLERGIC/IMMUNO: ARE YOU ALLERGIC TO IV DYE? NO . ANY NEW ALLERGIES? NO . PSYCHIATRIC: DO YOU HAVE THOUGHTS OF HURTING YOURSELF OR SOMEONE ELSE? NO . ARE YOU ABUSED, NEGLECTED, OR IN AN UNSAFE ENVIRONMENT? NO . ENDOCRINOLOGY: ARE YOU DIABETIC? NO . OTHER: DO YOU NEED ANY PRESCRIPTIONS? NO . IF YES, PLEASE LIST: ____ . ANY NEW PROBLEMS WITH YOUR MEDICATIONS? NO . WHEN DID YOU LAST EAT? ____ . WHEN DID YOU LAST DRINK? ____ . WHAT DID YOU LAST DRINK? ____ . NAME OF PERSON DRIVING YOU HOME? ____ . DO YOU HAVE ANY OTHER QUESTIONS OR CONCERNS YES, SOURAVALVINRUBY NOT WORKING AT ALL . VITAL SIGNS WT 185.0 LBS, HT 63 IN, BMI 32.77 INDEX, BP 138/80 MM HG, HR 72 /MIN, RR 16 /MIN, TEMP 98.5 F, OXYGEN SAT % 96%, NA INITIALS TL 1159, REVIEWED BY: MILTON TAN LPN. EXAMINATION GENERAL EXAMINATION: GENERAL AWAKE,ALERT ,PLEAASANT . PSYCH AFFECT NORMAL . LUNGS: LUNG PONCE ARE CLEAR TO AUSCULTATION BILATERALLY. GOOD MOVEMENT OF AIR . HEART: S1, S2 IN A REGULAR RATE AND RHYTHM. NO SIGNIFICANT MURMURS, RUBS OR GALLOPS NOTED . MUSCULOSKELETAL:MST 5/5 BILAT. LOWER EXTREMITIES. LUMBAR: PALPATION: + FOR PAIN OVER L/S SPINE. + FOR PAIN OVER L/S PARASPINALS. NEUROLOGIC EXAM: NORMAL SENSATION LIGHT TOUCH BILAT. LOWER EXTREMITIES. DIAGNOSTIC TESTS REVIEWED MRI L/S SPINE-04/28/16. ASSESSMENTS SPINAL STENOSIS OF LUMBAR REGION, UNSPECIFIED WHETHER NEUROGENIC CLAUDICATION PRESENT - M48.061 (PRIMARY) INTERVERTEBRAL DISC DISORDER WITH RADICULOPATHY OF LUMBOSACRAL REGION - M51.17 TREATMENT SPINAL STENOSIS OF LUMBAR REGION, UNSPECIFIED WHETHER NEUROGENIC CLAUDICATION PRESENT CONTINUE AMITRIPTYLINE HCL TABLET, 10 MG, 1 TABLET AT BEDTIME, ORALLY, ONCE A DAY STOP CYMBALTA CAPSULE DELAYED RELEASE PARTICLES, 30 MG, 1 CAPSULE, ORALLY, ONCE A DAY NOTES: L5/S1 LESI. PROCEDURE CODES FA211 ESTABILISHED PATIENT [facility] FACILITY CHARGE DISPOSITION & COMMUNICATION FOLLOW UP POST (REASON: L5/S1 LESI) ELECTRONICALLY SIGNED BY FILEMON WELLS ON 09/13/2019 AT 04:13 PM EDT DISCLAIMER : THIS IS A VISIT SUMMARY EXTRACTED FROM THE [employer] CHART. IT IS NOT A COPY OF THE [employer] PROGRESS NOTE. WIL
== END ==
LOC: M PAIN 11:30
PROVIDERS: ATTEND Nurse Practitioner Family
DX: M48.061 Spinal stenosis, lumbar region without neurogenic claudication (principal); M51.17 Intervertebral disc disorders with radiculopathy, lumbosacral region; G89.29 Other chronic pain; Z87.891 Personal history of nicotine dependence; Z88.0 Allergy status to penicillin; Z88.7 Allergy status to serum and vaccine; Z91.013 Allergy to seafood; Z91.09 Other allergy status, other than to drugs and biological substances; Z79.899 Other long term (current) drug therapy

== ENCOUNTER → 2019-09-27 | Outpatient (CLI) | payer BC ==
[~2019-09-27] MED LIST changes: +CYCL-707 PO; -CYCL10TA PO
--- NOTE | 2019-10-09 23:55 | ECWPNPC ---
PATIENT NAME: NAVID KIRBY : 1965 GENDER: FEMALE VISIT DATE: 09/27/2019 DISCHARGE DATE: 09/27/19 1253 VISIT LOCKED DATE TIME: PHYSICIAN: MAKENZIE MAXWELL MD RESOURCE: MAKENZIE MAXWELL MD REASON FOR APPOINTMENT 1. LOWER BACK PAIN HISTORY OF PRESENT ILLNESS HISTORY OF PRESENT ILLNESS: PAIN THE PATIENT DESCRIBES THE PAIN... PERMISSION FROM THE PATIENT WAS RECEIVED TO DO TELEPHONE OFFICE VISIT. 53-YEAR-OLD FEMALE PATIENT WITH A SEVERAL YEAR HISTORY OF CHRONIC LOW BACK AND LEG PAIN. THE PATIENT DESCRIBES THE PAIN SEVERE, ACHING, THROBBING SHOOTING AND CONSTANT WITH A PAIN SCORE OF 4-10/10 DEPENDING ON PHYSICAL ACTIVITY. THE PATIENT WAS ORIGINALLY SCHEDULED TO DO AN L5-S1 LUMBAR EPIDURAL STEROID INJECTION; HOWEVER, DUE TO THE COVID-19 PRECAUTIONS, THE INJECTION HAS BEEN TEMPORARILY POSTPONED. THE PATIENT STATES THAT THE PAIN IS MOSTLY IN THE LOWER BACK AND RADIATES TO THE LEGS WITH TINGLING DOWN THE LEGS. THE PATIENT STATES SHE WAS USING AMITRIPTYLINE TO SLEEP, BUT WAS NOT RECEIVING ANY BENEFIT FROM IT. THE PATIENT LAST HAD A LUMBAR EPIDURAL STEROID INJECTION FEBRUARY 10, 2019, AND THE PATIENT STATES THAT SHE RECEIVED ABOUT 5 MONTHS OF BENEFIT FROM THAT INJECTION. PATIENT DENIES UNEXPLAINABLE WEIGHT LOSS, FEVER, CHILLS, NEW CHANGES ON HER URINARY OR BOWEL CONTROL. FALL RISK SCREENING: SCREENING :NO FALLS REPORTED IN THE LAST YEAR CURRENT MEDICATIONS TAKING HYDROXYZINE HCL 25 MG TABLET 2 TAB ORALLY AT BEDTIME TAKING AQUAPHILIC/CARBAMIDE 10 % OINTMENT EXTERNALLY NEEDED. TAKING HYDROCORTISONE VALERATE 0.2 % CREAM 1 APPLICATION TO AFFECTED AREA EXTERNALLY EVERY OTHER DAY TAKING REQUIP 2 MG TABLET 1 TABLET ORALLY TID TAKING ALBUTEROL 90 MCG/ACT AEROSOL SOLUTION DIRECTED INHALATION TAKING VITAMIN B12 500 MCG TABLET 1 TABLET ORALLY ONCE A DAY TAKING CHOLECALCIFEROL 1.25 MG (97144 UT) CAPSULE 1 CAPSULE ORALLY TAKING AMITRIPTYLINE HCL 10 MG TABLET 1 TABLET AT BEDTIME ORALLY ONCE A DAY TAKING CARBIDOPA-LEVODOPA 25-100 MG TABLET 1/2 TABLET ORALLY TID NOT-TAKING MAGNESIUM 400 MG CAPSULE DIRECTED ORALLY AT DINNER TIME NOT-TAKING LEVOTHYROXINE SODIUM 50 MCG TABLET 1 TABLET ON AN EMPTY STOMACH IN THE MORNING ORALLY ONCE A DAY NOT-TAKING MAY USE CBD OIL ORALLY NEEDED NOT-TAKING REQUIP 2 MG TABLET 1 TABLET 1 TO 3 HOURS BEFORE BEDTIME ORALLY ONCE A DAY NOT-TAKING CELEBREX 200 MG CAPSULE 1 TAB ORALLY DAILY NOT-TAKING PRILOSEC OTC 20 MG TABLET DELAYED RELEASE 1 CAP ORALLY DAILY NOT-TAKING FLEXERIL 10 MG TABLET 1 TABLET ORALLY TID PRN NOT-TAKING VITAMIN D-3 1000 UNIT CAPSULE 1 CAPSULE ORALLY ONCE A DAY MEDICATION LIST REVIEWED AND RECONCILED WITH THE PATIENT PAST MEDICAL HISTORY NETHERTONS SYNDROME-SKIN PROBLEM ARTHRITIS HEART VALVE LEAKS-ABNORMAL EKG CARPAL TUNNEL SYNDROME LOW BACK PAIN LUMBAR VERTEBRAE FX NOTED ON XRAY 02/2018 ALLERGIES PENICILLIN (FOR ALLERGIES USE ONLY): UNKNOWN SEAFOOD: HIVES - ALLERGY LIVE VACCINE: UNKNOWN K Y JELLY: SKIN IRRITATION AND BURNING - ALLERGY LANOLIN: HIVES - ALLERGY SURGICAL HISTORY R CARPAL TUNNEL RELEASE 2015 R CERVICAL DISKECTOMY 06/2016 C SECTION 1988 TUBALIGATION 1988 L4-L5 FUSION 08/2017 FAMILY HISTORY FATHER: ALIVE MOTHER: 63 YRS 3 BROTHER(S) , 1 SISTER(S) - HEALTHY. 1 SON(S) , 1 DAUGHTER(S) - HEALTHY. SOCIAL HISTORY GENERAL: TOBACCO USE ARE YOU A:FORMER SMOKER HOW LONG HAS IT BEEN SINCE YOU LAST SMOKED?5-10 YEARS LATEX QUESTIONNAIRE LATEX ALLERGY : HAVE YOU EVER DEVELOPED ANY TYPE OF REACTION AFTER HANDLING LATEX PRODUCTS SUCH RUBBER GLOVES, CONDOMS, DIAPHRAGMS, BALLOONS, SOCKS, OR UNDERWEAR?NO LATEX ALLERGY : HAVE YOU EVER DEVELOPED ANY TYPE OF REACTION DURING OR AFTER DENTAL APPOINTMENT, VAGINAL/RECTAL EXAMINATION, SURGICAL PROCEDURE, OR ANY OTHER EXPOSURE?NO LATEX RISK : HAVE YOU EVER HAD ANY DIFFICULTY BREATHING OR HIVES AFTER EATING OR HANDLING ANY FRUITS, OR VEGETABLES; SUCH KIWI, BANANAS, STONE FRUITS, OR CHESTNUTSNO LATEX RISK : DO YOU HAVE A PREVIOUS PERSONAL HISTORY OF MORE THAN NINE SURGERIES, SPINA BIFIDA, OR REPEATED CATHERIZATIONS? NO LATEX RISK : ARE YOU FREQUENTLY EXPOSED TO LATEX PRODUCTS IN YOUR OCCUPATION?NO DATE ASKED : 09/27/2019 ALCOHOL SCREENING DID YOU HAVE A DRINK CONTAINING ALCOHOL IN THE PAST YEAR?NO POINTS0 INTERPRETATIONNEGATIVE RECREATIONAL DRUG USE DRUG USE?NO CAFFEINE CAFFEINE USE?YES 6 CUPS COFFEE/DAY ISLAM [id number] CATHOLIC LANGUAGE LANGUAGES SPOKEN:LAO EDUCATION LEVEL OF EDUCATION:HIGH SCHOOL DOMESTIC VIOLENCE DO YOU FEEL SAFE IN YOUR ENVIRONMENT?YES DIET: REGULAR. NEW PATIENT PAIN DIARY TODAY'S VISITNOTES PATIENT DESCRIBES PAIN :HAVE IT ALL THE TIME, THROBBING, SHOOTING FROM 0-10, WHAT LEVEL IS YOUR PAIN TODAY?9 PRECIPITATING FACTORS LAYING DOWN ALLEVIATING FACTORS MEDICATIONS IMPACT ON FUNCTION SOMETIMES, WALKING CAN BE DIFFICULT PAIN CLINIC PFS, CLERGY, PUBLIC HEALTH REFERRALS PFS REFERRAL NEEDED?NO CLERGY REFERRAL NEEDED?NO PUBLIC HEALTH REFERRAL NEEDED?NO WAS THE PROVIDER NOTIFIED OF ANY PERTINENT INFO?NO HAS THE PATIENT BEEN EDUCATED REGARDING HIS/HER PLAN OF CARE?YES HAS THE PATIENT BEEN EDUCATED REGARDING PAIN, THE RISK FOR PAIN, THE IMPORTANCE OF EFFECTIVE PAIN MANAGEMENT, AND THE PAIN ASSESSMENT PROCESS?YES ADVANCE DIRECTIVE ADVANCE DIRECTIVE DISCUSSED WITH PATIENT:YES PT HAS NO ADVANCED DIRECTIVES, PT REPORTS SHE HAS THE PAPERWORK 03/04/19 REVIEWED WITH PATIENT 1145 LAS. HOSPITALIZATION/MAJOR DIAGNOSTIC PROCEDURE [facility]IL[facility]IRTH REVIEW OF SYSTEMS REVIEWED BY: PROVIDER: MAKENZIE MAXWELL MD . CONSTITUTIONAL: ANY CHANGE IN YOUR MEDICAL CONDITION? NO . CHILLS NO . FEVER NO . INFECTION: DO YOU HAVE NEW INFECTIONS? NO . DO YOU HAVE HISTORY OF MRSA? NO . MUSCULOSKELETAL: ANY NEW PATTERNS OF PAIN OR NUMBNESS? NO . GASTROENTEROLOGY: ANY NEW CHANGE IN BOWEL CONTROL? NO . GENITOURINARY: ANY NEW CHANGE IN BLADDER CONTROL? NO . IS THERE A CHANCE YOU COULD BE ? NO . HEMATOLOGY/LYMPH: DO YOU TAKE ANY BLOOD THINNERS? (FOR EXAMPLE- COUMADIN, PLAVIX, AGGRENOX, PLATEL, PRADAXA, OR XARELTO) NO . WHEN WAS YOUR LAST DOSE? DATE: TIME: . NEUROLOGY: HAVE YOU FALLEN IN THE PAST 12 MONTHS? NO . ANY NEW EXTREMITY NUMBNESS OR WEAKNESS? NO . CARDIOLOGY: DO YOU HAVE A PACEMAKER OR DEFIBRILLATOR? NO . RESPIRATORY: HAVE YOU BEEN SICK IN THE PAST WEEK? NO . FEVER NO . FLU LIKE SYMPTOMS? NO . COUGH NO . INTEGUMENTARY: DO YOU HAVE ANY RASHES OR OPEN SORES? NO . ALLERGIC/IMMUNO: ARE YOU ALLERGIC TO IV DYE? NO . ANY NEW ALLERGIES? NO . PSYCHIATRIC: DO YOU HAVE THOUGHTS OF HURTING YOURSELF OR SOMEONE ELSE? NO . ARE YOU ABUSED, NEGLECTED, OR IN AN UNSAFE ENVIRONMENT? NO . ENDOCRINOLOGY: ARE YOU DIABETIC? NO . OTHER: DO YOU NEED ANY PRESCRIPTIONS? YES- AMITRIPTYLINE . IF YES, PLEASE LIST: ____ . ANY NEW PROBLEMS WITH YOUR MEDICATIONS? NO . WHEN DID YOU LAST EAT? ____ . WHEN DID YOU LAST DRINK? ____ . WHAT DID YOU LAST DRINK? ____ . NAME OF PERSON DRIVING YOU HOME? ____ . DO YOU HAVE ANY OTHER QUESTIONS OR CONCERNS NO- PATIENT STATES SHE IS HAVING THE SAME OAIN SHE HAS HAD IN LOWER BACK DOWN BILATERAL LOWER EXTREMITIES DOWN INTO FEET. PT STATES PAIN IS NOT NEW. ALSO STATES SHE IS HAVING PAIN IN BILATERAL PALMS OF HANDS DUE TO CARPAL TUNNEL. NLJ . EXAMINATION GENERAL EXAMINATION: TELEPHONE VISIT. THE PATIENT SEEMS ALERT, ORIENTED TIMES 3 AND COOPERATIVE. MRI OF LUMBAR SPINE DATED 09/26/2016 SHOWS BULGING DISC AT L4-L5, L5-S1. THERE ARE SOME FACET ARTHROPATHY CHANGES AND SOME FORAMINAL NARROWING. ASSESSMENTS INTERVERTEBRAL DISC DISORDERS WITH RADICULOPATHY, LUMBAR REGION - M51.16 (PRIMARY) TREATMENT INTERVERTEBRAL DISC DISORDERS WITH RADICULOPATHY, LUMBAR REGION CLINICAL NOTES: WE DISCUSSED SEVERAL ISSUES WITH MS. KIRBY'S PAIN MANAGEMENT CASE. DUE TO THE COVID-19 PRECAUTIONS, WE ARE TEMPORARILY POSTPONING NON-URGENT INJECTIONS. WE AGREED WITH PROCEEDING WITH AGGRESSIVE PAIN MANAGEMENT USING MEDICATION IN THE INTERM, INCLUDING THE USE OF NARCOTICS. I REVIEWED THE ISTOP, REFERENCE NUMBER [id number]. THE PATIENT IS AWARE OF THE RISKS ASSOCIATED WITH NARCOTIC USE, INCLUDING ADDICTION, AND IS AGREEMENT WITH RECEIVING A URINE TOXICOLOGY AND REVIEWING AN UPDATED NARCOTIC AGREEMENT. THE PATIENT IS AWARE THAT SHE MAY NOT RECEIVE NARCOTICS FROM ANYONE ELSE. THE PATIENT IS AWARE THAT SHE IS UNABLE TO DRIVE WHILE ON NARCOTICS. THE PATIENT WILL BE STARTED ON HYDROCODONE 1 TABLET A DAY P.R.N. PAIN FOR 7 DAYS. I WILL ALSO START THE PATIENT ON TIZANIDINE 2 MG FOR SPASMS AND PAIN AT NIGHT, THE PATIENT STATES SHE CANNOT SLEEP DUE TO THE PAIN. THE PATIENT IS AWARE TO TAKE 1 TABLET AND IF AFTER 4 HOURS OF TAKING THE FIRST TABLET, SHE IS STILL UNABLE TO SLEEP, SHE IS ABLE TO TAKE A SECOND TABLET NEEDED. FOR DAYTIME RELIEF, I WILL START THE PATIENT ON CYMBALTA 30 MG 1 TIME A DAY TO INCREASE TO 2 TIMES A DAY AFTER 4 DAYS. THE PATIENT IS AWARE TO ONLY TAKE THE MEDICATION WITH FOOD. THE PATIENT IS AWARE THAT THE COMBINATION OF THESE MEDICATIONS MAY CAUSE DIZZINESS AND TO BE CAREFUL WHEN STANDING AND WALKING. THE PATIENT WILL FOLLOWUP WITH ME IN 1 WEEK TO DISCUSS THESE MEDICATIONS VIA TELEMEDICINE. THE PATIENT STATES THAT SHE HAD A MORE RECENT MRI DONE AT THE END OF 2018, [place], ALONG WITH A NERVE CONDUCTION STUDY. I WILL TRY TO FIND THESE REPORTS. THE PATIENT WILL LET THE NURSE'S KNOW NEXT WEEK WHEN THEY CALL HER. THE PATIENT UNDERSTANDS AND IS IN AGREEMENT WITH THE TREATMENT PLAN. THE TOTAL TIME FOR THE TELEPHONE VISIT WAS 40 MINUTES. I, KATHRYN DOMINIQUE , DOCUMENTED THE ABOVE INFORMATION ACTING A SCRIBE FOR DR. MAXWELL. I HAVE REVIEWED THE ABOVE DOCUMENT, WRITTEN BY SHARAN ANGELO, AND I VERIFY THAT IT IS ACCURATE. OTHERS START DULOXETINE HCL CAPSULE DELAYED RELEASE PARTICLES, 30 MG, 1 CAPSULE, ORALLY FOR PAIN, BID MDD2, 30 DAY(S), 60, REFILLS 0 START TIZANIDINE HCL TABLET, 2 MG, 1 TABLET NEEDED, ORALLY FOR SPASMS AND PAIN, BEFORE BEDTIME MAY REAPT IN 4HRS MDD2, 7 DAY(S), 14, REFILLS 0 START HYDROCODONE-ACETAMINOPHEN TABLET, 5-325 MG, 1 TABLET NEEDED, ORALLY, DAILY FOR PAIN. MDD1, 7 DAYS, 7, REFILLS 0 NOTES: TELEPHONE VISIT COMPLETED WITH PATIENT 09/27/2019 1308 NLJVITAL SIGNS NOT COMPLETED DUE TO TELEPHONE VISIT WITH PATIENT 09/27/2019 1308 NLJ . DISPOSITION & COMMUNICATION FOLLOW UP 1 WEEK (REASON: F/UP DR Vinson NEXT WEEK-TELEMEDICINE) ELECTRONICALLY SIGNED BY MAKENZIE MAXWELL MD, MD ON 10/09/2019 AT 04:23 PM EDT DISCLAIMER : THIS IS A VISIT SUMMARY EXTRACTED FROM THE [employer] CHART. IT IS NOT A COPY OF THE [employer] PROGRESS NOTE. WIL
== END ==
LOC: M PAIN 11:15
PROVIDERS: ATTEND Anesthesiology
DX: M51.16 Intervertebral disc disorders with radiculopathy, lumbar region (principal); G89.29 Other chronic pain; Z87.891 Personal history of nicotine dependence; Z88.0 Allergy status to penicillin; Z88.7 Allergy status to serum and vaccine; Z91.013 Allergy to seafood; Z91.09 Other allergy status, other than to drugs and biological substances; Z79.899 Other long term (current) drug therapy

== ENCOUNTER → 2019-10-06 | Outpatient (CLI) | payer BC ==
--- NOTE | 2019-10-12 01:46 | ECWPNPC ---
PATIENT NAME: NAVID KIRBY : 1965 GENDER: FEMALE VISIT DATE: 10/06/2019 DISCHARGE DATE: 10/06/19 1507 VISIT LOCKED DATE TIME: PHYSICIAN: MAKENZIE MAXWELL MD RESOURCE: MAKENZIE MAXWELL MD REASON FOR APPOINTMENT 1. [phone] HISTORY OF PRESENT ILLNESS HISTORY OF PRESENT ILLNESS: PAIN THE PATIENT DESCRIBES THE PAIN... PERMISSION FROM PATIENT WAS RECEIVED TO DO TELEMEDICINE VISIT USING ZOOM APPLICATION. 53 YEAR OLD FEMALE PATIENT WITH A HISTORY OF CHRONIC LOW BACK AND LEG PAIN. THE PATIENT STATES HER PAIN BEGINS IN HER LOW BACK AND RADIATES DOWN BOTH BUTTOCKS AND LEGS. THE PATIENT IS USING TIZANIDINE 2 MG, HYDROCODONE 5-325 MG, AND DULOXETINE 30 MG. THE PATIENT SAYS THE ONE TABLET OF TIZANIDINE IS HELPING HER MUSCLES RELAX AT NIGHT AND HYDROCODONE HELPS HER PAIN GOES AWAY. THE PATIENT SAYS SHE IS STILL EXPERIENCING PAIN AND NUMBNESS DURING THE DAY THAT IS CAUSING DIFFICULTIES FOR HER TO WALK AND SLEEP. THE PATIENT DENIES UNEXPLAINED WEIGHT LOSS, FEVER, CHILLS, NEW CHANGES IN HER URINARY OR BOWEL CONTROL. FALL RISK SCREENING: SCREENING :NO FALLS REPORTED IN THE LAST YEAR CURRENT MEDICATIONS TAKING HYDROXYZINE HCL 25 MG TABLET 2 TAB ORALLY AT BEDTIME, NOTES: 10/04 2AM TAKING AQUAPHILIC/CARBAMIDE 10 % OINTMENT EXTERNALLY NEEDED., NOTES: 2 DAYS AGO TAKING HYDROCORTISONE VALERATE 0.2 % CREAM 1 APPLICATION TO AFFECTED AREA EXTERNALLY EVERY OTHER DAY, NOTES: 2 DAYS AGO TAKING REQUIP 2 MG TABLET 1 TABLET ORALLY TID, NOTES: 10/05 1030AM TAKING ALBUTEROL 90 MCG/ACT AEROSOL SOLUTION DIRECTED INHALATION , NOTES: MONTHS AGO TAKING VITAMIN B12 500 MCG TABLET 1 TABLET ORALLY ONCE A DAY, NOTES: 10/05 1030 TAKING CHOLECALCIFEROL 1.25 MG (75550 UT) CAPSULE 1 CAPSULE ORALLY , NOTES: 10/02 TAKING CARBIDOPA-LEVODOPA 25-100 MG TABLET 1/2 TABLET ORALLY TID, NOTES: 10/05 103 TAKING DULOXETINE HCL 30 MG CAPSULE DELAYED RELEASE PARTICLES 1 CAPSULE ORALLY FOR PAIN BID MDD2, NOTES: 10/05 103 TAKING TIZANIDINE HCL 2 MG TABLET 1 TABLET NEEDED ORALLY FOR SPASMS AND PAIN BEFORE BEDTIME MAY REAPT IN 4HRS MDD2, NOTES: 10/05 3AM TAKING HYDROCODONE-ACETAMINOPHEN 5-325 MG TABLET 1 TABLET NEEDED ORALLY DAILY FOR PAIN. MDD1, NOTES: 10/04 12NOON NOT-TAKING AMITRIPTYLINE HCL 10 MG TABLET 1 TABLET AT BEDTIME ORALLY ONCE A DAY, NOTES: NO LONGER TAKING - NOW TAKING TIZANIDINE NOT-TAKING MAGNESIUM 400 MG CAPSULE DIRECTED ORALLY AT DINNER TIME NOT-TAKING LEVOTHYROXINE SODIUM 50 MCG TABLET 1 TABLET ON AN EMPTY STOMACH IN THE MORNING ORALLY ONCE A DAY NOT-TAKING MAY USE CBD OIL ORALLY NEEDED NOT-TAKING REQUIP 2 MG TABLET 1 TABLET 1 TO 3 HOURS BEFORE BEDTIME ORALLY ONCE A DAY NOT-TAKING CELEBREX 200 MG CAPSULE 1 TAB ORALLY DAILY NOT-TAKING PRILOSEC OTC 20 MG TABLET DELAYED RELEASE 1 CAP ORALLY DAILY NOT-TAKING FLEXERIL 10 MG TABLET 1 TABLET ORALLY TID PRN NOT-TAKING VITAMIN D-3 1000 UNIT CAPSULE 1 CAPSULE ORALLY ONCE A DAY MEDICATION LIST REVIEWED AND RECONCILED WITH THE PATIENT PAST MEDICAL HISTORY NETHERTONS SYNDROME-SKIN PROBLEM ARTHRITIS HEART VALVE LEAKS-ABNORMAL EKG CARPAL TUNNEL SYNDROME LOW BACK PAIN LUMBAR VERTEBRAE FX NOTED ON XRAY 02/2018 ALLERGIES PENICILLIN (FOR ALLERGIES USE ONLY): UNKNOWN SEAFOOD: HIVES - ALLERGY LIVE VACCINE - FLU, MMR, SHINGLES: UNKNOWN K Y JELLY: SKIN IRRITATION AND BURNING - ALLERGY LANOLIN: HIVES - ALLERGY SURGICAL HISTORY R CARPAL TUNNEL RELEASE 2015 R CERVICAL DISKECTOMY 06/2016 C SECTION 1988 TUBALIGATION 1988 L4-L5 FUSION 08/2017 FAMILY HISTORY FATHER: ALIVE 74 YRS, DIAGNOSED WITH DIABETES MOTHER: 63 YRS 3 BROTHER(S) , 1 SISTER(S) - HEALTHY. 1 SON(S) , 1 DAUGHTER(S) - HEALTHY. FAMILY HX - HEART FAILURE. SOCIAL HISTORY GENERAL: TOBACCO USE ARE YOU A:FORMER SMOKER HOW LONG HAS IT BEEN SINCE YOU LAST SMOKED?5-10 YEARS LATEX QUESTIONNAIRE LATEX ALLERGY : HAVE YOU EVER DEVELOPED ANY TYPE OF REACTION AFTER HANDLING LATEX PRODUCTS SUCH RUBBER GLOVES, CONDOMS, DIAPHRAGMS, BALLOONS, SOCKS, OR UNDERWEAR?NO LATEX ALLERGY : HAVE YOU EVER DEVELOPED ANY TYPE OF REACTION DURING OR AFTER DENTAL APPOINTMENT, VAGINAL/RECTAL EXAMINATION, SURGICAL PROCEDURE, OR ANY OTHER EXPOSURE?NO LATEX RISK : HAVE YOU EVER HAD ANY DIFFICULTY BREATHING OR HIVES AFTER EATING OR HANDLING ANY FRUITS, OR VEGETABLES; SUCH KIWI, BANANAS, STONE FRUITS, OR CHESTNUTSNO LATEX RISK : DO YOU HAVE A PREVIOUS PERSONAL HISTORY OF MORE THAN NINE SURGERIES, SPINA BIFIDA, OR REPEATED CATHERIZATIONS? NO LATEX RISK : ARE YOU FREQUENTLY EXPOSED TO LATEX PRODUCTS IN YOUR OCCUPATION?NO DATE ASKED : 10/06/2019 ALCOHOL SCREENING DID YOU HAVE A DRINK CONTAINING ALCOHOL IN THE PAST YEAR?NO POINTS0 INTERPRETATIONNEGATIVE RECREATIONAL DRUG USE DRUG USE?NO CAFFEINE CAFFEINE USE?YES 6 CUPS COFFEE/DAY ORTHODOX [id number] [employer] LANGUAGE LANGUAGES SPOKEN:ETHIOPIAN EDUCATION LEVEL OF EDUCATION:HIGH SCHOOL DOMESTIC VIOLENCE DO YOU FEEL SAFE IN YOUR ENVIRONMENT?YES OCCUPATION: UNEMPLOYED. DIET: REGULAR. EXERCISE: WALKS. NEW PATIENT PAIN DIARY TODAY'S VISITNOTES 10/06/2019 PATIENT DESCRIBES PAIN :ACHING, HAVE IT ALL THE TIME, SHARP, STABBING, THROBBING, SHOOTING FROM 0-10, WHAT LEVEL IS YOUR PAIN TODAY?8 PRECIPITATING FACTORS LAYING DOWN ALLEVIATING FACTORS MEDICATIONS IMPACT ON FUNCTION SOMETIMES, WALKING CAN BE DIFFICULT IS THERE A CHANCE YOU COULD BE ?NO HAVE YOU BEEN SICK IN THE LAST WEEK (COLD, COUGH, FEVER, FLU, ETC)NO DO YOU TAKE ANY BLOOD THINNERS?NO DO YOU HAVE ANY RASHES OR OPEN SORES?NO ANY CHANGE IN BOWEL OR BLADDER CONTROL?NO ARE YOU ALLERGIC TO SHELLFISH OR IV DYE?NO ARE YOU DIABETIC?NO DO YOU HAVE A PACEMAKER OR DEFIBRILLATOR?YES ANY NEW PROBLEMS WITH MEDICINES OR NEW ALLERGIESNO ANY NEW PATTERNS OF PAIN OR NUMBNESS?NO ANY CHANGE IN YOUR MEDICAL CONDITION?NO HAVE YOU FALLEN IN THE LAST 6 MONTHS?NO DO YOU USE ANY TYPE OF TOBACCO (SMOKE, SMOKELESS, CHEW, ETC.)NO ARE YOU ABUSED, NEGLECTED, OR IN AN UNSAFE ENVIRONMENT?NO DO YOU HAVE THOUGHTS OF HURTING YOURSELF OR SOMEONE ELSE?NO DO YOU NEED ANY PRESCRIPTIONS?NO DO YOU HAVE ANY OTHER QUESTIONS OR CONCERNS?NO INTENSITY SCALE REVIEWEDNUMBER PAIN CLINIC PFS, CLERGY, PUBLIC HEALTH REFERRALS PFS REFERRAL NEEDED?NO CLERGY REFERRAL NEEDED?NO PUBLIC HEALTH REFERRAL NEEDED?NO WAS THE PROVIDER NOTIFIED OF ANY PERTINENT INFO?YES HAS THE PATIENT BEEN EDUCATED REGARDING HIS/HER PLAN OF CARE?YES HAS THE PATIENT BEEN EDUCATED REGARDING PAIN, THE RISK FOR PAIN, THE IMPORTANCE OF EFFECTIVE PAIN MANAGEMENT, AND THE PAIN ASSESSMENT PROCESS?YES ADVANCE DIRECTIVE ADVANCE DIRECTIVE DISCUSSED WITH PATIENT:YES PT HAS NO ADVANCED DIRECTIVES, PT REPORTS SHE HAS THE PAPERWORK, PT STATES THAT SHE IS NOT INTERESTED IN COMPLETING AT THIS TIME 10/06/2019 PT COMPLETED PHONE VISIT, CONSENTED FOR PHONE/VIRTUAL VISIT. DS. HOSPITALIZATION/MAJOR DIAGNOSTIC PROCEDURE CHILDBIRTH REVIEW OF SYSTEMS REVIEWED BY: PROVIDER: MAKENZIE MAXWELL MD . CONSTITUTIONAL: ANY CHANGE IN YOUR MEDICAL CONDITION? NO . CHILLS NO . FEVER NO . INFECTION: DO YOU HAVE NEW INFECTIONS? NO . DO YOU HAVE HISTORY OF MRSA? NO . MUSCULOSKELETAL: ANY NEW PATTERNS OF PAIN OR NUMBNESS? NO . GASTROENTEROLOGY: ANY NEW CHANGE IN BOWEL CONTROL? NO . GENITOURINARY: ANY NEW CHANGE IN BLADDER CONTROL? NO . IS THERE A CHANCE YOU COULD BE ? NO . HEMATOLOGY/LYMPH: DO YOU TAKE ANY BLOOD THINNERS? (FOR EXAMPLE- COUMADIN, PLAVIX, AGGRENOX, PLATEL, PRADAXA, OR XARELTO) NO . WHEN WAS YOUR LAST DOSE? DATE: TIME: . NEUROLOGY: HAVE YOU FALLEN IN THE PAST 12 MONTHS? NO . ANY NEW EXTREMITY NUMBNESS OR WEAKNESS? NO . CARDIOLOGY: DO YOU HAVE A PACEMAKER OR DEFIBRILLATOR? NO . RESPIRATORY: HAVE YOU BEEN SICK IN THE PAST WEEK? NO . FEVER NO . FLU LIKE SYMPTOMS? NO . COUGH NO . INTEGUMENTARY: DO YOU HAVE ANY RASHES OR OPEN SORES? NO . ALLERGIC/IMMUNO: ARE YOU ALLERGIC TO IV DYE? NO . ANY NEW ALLERGIES? NO . PSYCHIATRIC: DO YOU HAVE THOUGHTS OF HURTING YOURSELF OR SOMEONE ELSE? NO . ARE YOU ABUSED, NEGLECTED, OR IN AN UNSAFE ENVIRONMENT? NO . ENDOCRINOLOGY: ARE YOU DIABETIC? NO . OTHER: DO YOU NEED ANY PRESCRIPTIONS? NO . IF YES, PLEASE LIST: ____ . ANY NEW PROBLEMS WITH YOUR MEDICATIONS? NO . WHEN DID YOU LAST EAT? ____ . WHEN DID YOU LAST DRINK? ____ . WHAT DID YOU LAST DRINK? ____ . NAME OF PERSON DRIVING YOU HOME? ____ . DO YOU HAVE ANY OTHER QUESTIONS OR CONCERNS PT CONSENTS TO CONDUCT PAIN MANAGEMENT VISIT VIA PHONE AND ZOOM. 10/06/2019 DSVITAL SIGNS NOT OBTAINED DUE TO VIRTUAL VISIT. DS . EXAMINATION GENERAL EXAMINATION: TELEMEDICINE USING ZOOM APPLICATION. PATIENT IS ALERT O X 3 AND COOPERATIVE. PATIENT SHOWED WHERE HER PAIN IS LOCATED IN HER BACK AND DOWN BOTH LEGS. ANTALGIC WALK. MRI OF THE LUMBAR SPINE DONE ON 09/26/2016 SHOWS BULGING DISC AND FUSION. ASSESSMENTS INTERVERTEBRAL DISC DISORDERS WITH RADICULOPATHY, LUMBAR REGION - M51.16 (PRIMARY) LUMBAR POST-LAMINECTOMY SYNDROME - M96.1 TREATMENT INTERVERTEBRAL DISC DISORDERS WITH RADICULOPATHY, LUMBAR REGION CLINICAL NOTES: WE DISCUSSED SEVERAL ISSUES WITH MS. KIRBY'S PAIN MANAGEMENT CASE. I WILL REQUEST FOR A COPY OF THE PATIENT'S MRI THAT WAS DONE LAST MARCH OR APRIL FROM [facility]. THE PATIENT WILL CONTINUE WITH HER CURRENT MEDICATION REGIMEN THAT IS HELPING WITH GOOD PAIN RELIEF FOR HER. I DISCUSSED THE RISKS ASSOCIATED WITH THE USE OF OPIOIDS INCLUDING THE POSSIBLE DEVELOPMENT OF ADDICTION OR TOLERANCE AND THE PATIENT VERBALIZED UNDERSTANDING. THE PATIENT REPORTS THE USE OF THE PRESCRIBED MEDICATION IS ONLY FOR PAIN CONTROL AND THAT NO MISUSE OF THE MEDICATION WILL OCCUR. THE PATIENT DENIES THE USE OF ANY ILLEGAL SUBSTANCES INCLUDING MARIHUANA. THE PATIENT REPORTS UNDERSTANDING. ISTOP # [id number] WAS REVIEWED. THE PATIENT WILL FOLLOW UP WITH ME IN 3 WEEKS VIA TELEMEDICINE VISIT. MY PLAN FOR THE NEXT VISIT IS TO CONSIDER INCREASING DULOXETINE. THE TOTAL TIME FOR TODAY'S TELEMEDICINE VISIT WAS 24 MINUTES MORE THAN HALF OF THE TIME WAS SPENT REVIEWING THE MEDICATIONS, ANSWERING QUESTIONS AND DISCUSSING ALTERNATIVE WITH THE PATIENT. INSTRUCTIONS WERE GIVEN, QUESTIONS WERE ANSWERED, PATIENT REPORTS UNDERSTANDING AND AGREES WITH THE PLAN. I, ARTIE READ, DOCUMENTED THE ABOVE INFORMATION ACTING A SCRIBE FOR DR. MAXWELL. I HAVE REVIEWED THE ABOVE DOCUMENT, WRITTEN BY ARTIE TSANG AND I VERIFY THAT IT IS ACCURATE. . OTHERS CONTINUE DULOXETINE HCL CAPSULE DELAYED RELEASE PARTICLES, 30 MG, 1 CAPSULE, ORALLY FOR PAIN, BID MDD2, NOTES: 10/05 1030 CONTINUE TIZANIDINE HCL TABLET, 2 MG, 1 TABLET NEEDED, ORALLY FOR SPASMS AND PAIN, BEFORE BEDTIME MAY REAPT IN 4HRS MDD2, 30 DAYS, 60, REFILLS 1, NOTES: 10/05 3AM CONTINUE HYDROCODONE-ACETAMINOPHEN TABLET, 5-325 MG, 1 TABLET NEEDED, ORALLY, DAILY FOR PAIN. MDD1, 30 DAYS, 28, REFILLS 0, NOTES: 10/04 12NOON DISPOSITION & COMMUNICATION FOLLOW UP 3 WEEKS (REASON: F/UP W/ DR Vinson 3 WEEKS) ELECTRONICALLY SIGNED BY MAKENZIE MAXWELL MD, MD ON 10/11/2019 AT 04:10 PM EDT DISCLAIMER : THIS IS A VISIT SUMMARY EXTRACTED FROM THE [employer] CHART. IT IS NOT A COPY OF THE [employer] PROGRESS NOTE. WIL
== END ==
LOC: M PAIN 14:45
PROVIDERS: ATTEND Anesthesiology
DX: M51.16 Intervertebral disc disorders with radiculopathy, lumbar region (principal); M96.1 Postlaminectomy syndrome, not elsewhere classified; Z87.891 Personal history of nicotine dependence; Z88.0 Allergy status to penicillin; Z88.7 Allergy status to serum and vaccine; Z91.013 Allergy to seafood; Z91.09 Other allergy status, other than to drugs and biological substances; Z79.899 Other long term (current) drug therapy

== ENCOUNTER → 2019-10-27 | Outpatient (CLI) | payer BC ==
--- NOTE | 2019-11-05 03:58 | ECWPNPC ---
PATIENT NAME: NAVID KIRBY : 1965 GENDER: FEMALE VISIT DATE: 10/27/2019 DISCHARGE DATE: 10/27/19 1611 VISIT LOCKED DATE TIME: PHYSICIAN: MAKENZIE MAXWELL MD RESOURCE: MAKENZIE MAXWELL MD REASON FOR APPOINTMENT 1. F/UP W/ DR Vinson 3 WEEKS HISTORY OF PRESENT ILLNESS HISTORY OF PRESENT ILLNESS: PAIN THE PATIENT DESCRIBES THE PAIN... PERMISSION FROM PATIENT WAS RECEIVED TO DO TELEMEDICINE VISIT USING ZOOM APPLICATION. 53 YEAR OLD FEMALE PATIENT WITH A HISTORY OF CHRONIC LOW BACK AND LEG PAIN. THE PATIENT DESCRIBES HER PAIN ACHING, HAVE IT ALL THE TIME, SHARP, STABBING, THROBBING, SORE, SHOOTING, OTHER NUMB WITH A PAIN SCORE OF 6-9/10 DEPENDING ON PHYSICAL ACTIVITY. THE PATIENT IS STARTED USING DULOXETINE HCL 30 MG, TIZANIDINE HCL 2 MG , AND HYDROCODONE-ACETAMINOPHEN 5-325 MG, WHICH SHE FEELS IS NOT HELPING MUCH WITH HER PAIN. THE PATIENT SAYS SHE WOULD LIKE TO PROCEED WITH ANOTHER LUMBAR EPIDURAL INJECTION THAT HAS HELPED WITH HER PAIN IN THE PAST. THE PATIENT DENIES UNEXPLAINED WEIGHT LOSS, FEVER, CHILLS, NEW CHANGES IN HER URINARY OR BOWEL CONTROL. FALL RISK SCREENING: SCREENING :NO FALLS REPORTED IN THE LAST YEAR CURRENT MEDICATIONS TAKING HYDROXYZINE HCL 25 MG TABLET 2 TAB ORALLY AT BEDTIME TAKING AQUAPHILIC/CARBAMIDE 10 % OINTMENT EXTERNALLY NEEDED. TAKING HYDROCORTISONE VALERATE 0.2 % CREAM 1 APPLICATION TO AFFECTED AREA EXTERNALLY EVERY OTHER DAY TAKING REQUIP 2 MG TABLET 1 TABLET ORALLY TID TAKING ALBUTEROL 90 MCG/ACT AEROSOL SOLUTION DIRECTED INHALATION TAKING VITAMIN B12 500 MCG TABLET 1 TABLET ORALLY ONCE A DAY TAKING CARBIDOPA-LEVODOPA 25-100 MG TABLET 1/2 TABLET ORALLY TID TAKING DULOXETINE HCL 30 MG CAPSULE DELAYED RELEASE PARTICLES 1 CAPSULE ORALLY FOR PAIN BID MDD2 TAKING TIZANIDINE HCL 2 MG TABLET 1 TABLET NEEDED ORALLY FOR SPASMS AND PAIN BEFORE BEDTIME MAY REAPT IN 4HRS MDD2 TAKING CHOLECALCIFEROL 1.25 MG (46604 UT) CAPSULE 1 CAPSULE ORALLY WEEKLY TAKING HYDROCODONE-ACETAMINOPHEN 5-325 MG TABLET 1 TABLET NEEDED ORALLY DAILY FOR PAIN. MDD1 NOT-TAKING AMITRIPTYLINE HCL 10 MG TABLET 1 TABLET AT BEDTIME ORALLY ONCE A DAY, NOTES: NO LONGER TAKING - NOW TAKING TIZANIDINE NOT-TAKING MAGNESIUM 400 MG CAPSULE DIRECTED ORALLY AT DINNER TIME NOT-TAKING LEVOTHYROXINE SODIUM 50 MCG TABLET 1 TABLET ON AN EMPTY STOMACH IN THE MORNING ORALLY ONCE A DAY NOT-TAKING MAY USE CBD OIL ORALLY NEEDED NOT-TAKING REQUIP 2 MG TABLET 1 TABLET 1 TO 3 HOURS BEFORE BEDTIME ORALLY ONCE A DAY NOT-TAKING CELEBREX 200 MG CAPSULE 1 TAB ORALLY DAILY NOT-TAKING PRILOSEC OTC 20 MG TABLET DELAYED RELEASE 1 CAP ORALLY DAILY NOT-TAKING FLEXERIL 10 MG TABLET 1 TABLET ORALLY TID PRN NOT-TAKING VITAMIN D-3 1000 UNIT CAPSULE 1 CAPSULE ORALLY ONCE A DAY MEDICATION LIST REVIEWED AND RECONCILED WITH THE PATIENT PAST MEDICAL HISTORY NETHERTONS SYNDROME-SKIN PROBLEM ARTHRITIS HEART VALVE LEAKS-ABNORMAL EKG CARPAL TUNNEL SYNDROME LOW BACK PAIN LUMBAR VERTEBRAE FX NOTED ON XRAY 02/2018 HIROSHIMA ALLERGIES PENICILLIN (FOR ALLERGIES USE ONLY): UNKNOWN SEAFOOD: HIVES - ALLERGY LIVE VACCINE - FLU, MMR, SHINGLES: UNKNOWN K Y JELLY: SKIN IRRITATION AND BURNING - ALLERGY LANOLIN: HIVES - ALLERGY SURGICAL HISTORY R CARPAL TUNNEL RELEASE 2015 R CERVICAL DISKECTOMY 06/2016 C SECTION 1988 TUBALIGATION 1988 L4-L5 FUSION 08/2017 FAMILY HISTORY FATHER: ALIVE 74 YRS, DIAGNOSED WITH DIABETES MOTHER: 63 YRS 3 BROTHER(S) , 1 SISTER(S) - HEALTHY. 1 SON(S) , 1 DAUGHTER(S) - HEALTHY. FAMILY HX - HEART FAILURE. SOCIAL HISTORY GENERAL: TOBACCO USE ARE YOU A:FORMER SMOKER HOW LONG HAS IT BEEN SINCE YOU LAST SMOKED?5-10 YEARS LATEX QUESTIONNAIRE LATEX ALLERGY : HAVE YOU EVER DEVELOPED ANY TYPE OF REACTION AFTER HANDLING LATEX PRODUCTS SUCH RUBBER GLOVES, CONDOMS, DIAPHRAGMS, BALLOONS, SOCKS, OR UNDERWEAR?NO LATEX ALLERGY : HAVE YOU EVER DEVELOPED ANY TYPE OF REACTION DURING OR AFTER DENTAL APPOINTMENT, VAGINAL/RECTAL EXAMINATION, SURGICAL PROCEDURE, OR ANY OTHER EXPOSURE?NO LATEX RISK : HAVE YOU EVER HAD ANY DIFFICULTY BREATHING OR HIVES AFTER EATING OR HANDLING ANY FRUITS, OR VEGETABLES; SUCH KIWI, BANANAS, STONE FRUITS, OR CHESTNUTSNO LATEX RISK : DO YOU HAVE A PREVIOUS PERSONAL HISTORY OF MORE THAN NINE SURGERIES, SPINA BIFIDA, OR REPEATED CATHERIZATIONS? NO LATEX RISK : ARE YOU FREQUENTLY EXPOSED TO LATEX PRODUCTS IN YOUR OCCUPATION?NO DATE ASKED : 10/27/2019 ALCOHOL SCREENING DID YOU HAVE A DRINK CONTAINING ALCOHOL IN THE PAST YEAR?NO POINTS0 INTERPRETATIONNEGATIVE RECREATIONAL DRUG USE DRUG USE?NO CAFFEINE CAFFEINE USE?YES 6 CUPS COFFEE/DAY TA[employer]IST [id number] [employer] LANGUAGE LANGUAGES SPOKEN:OCCITAN EDUCATION LEVEL OF EDUCATION:HIGH SCHOOL LEARNING BARRIERS / SPECIAL NEEDS BARRIERS TO LEARNING?NO HEARING IMPAIRED?NO VISION IMPAIRED?YES :CORRECTIVE LENSES COGNITIVELY IMPAIRED?NO READINESS TO LEARN?YES LEARNING PREFERENCES?NO LEARNING CAPABILITIES PRESENT?YES EMOTIONAL BARRIERS?NO SPECIAL DEVICES?YES :CANE, WALKER USES ONE OR THE OTHER AT HOME NEEDED POWER SYSTEM OPERATOR NEEDED?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 DIET: REGULAR. EXERCISE: WALKS. NEW PATIENT PAIN DIARY TODAY'S VISITNOTES 10/27/2019 PATIENT DESCRIBES PAIN :ACHING, HAVE IT ALL THE TIME, SHARP, STABBING, THROBBING, SORE, SHOOTING, OTHER NUMB FROM 0-10, WHAT LEVEL IS YOUR PAIN TODAY?5 PRECIPITATING FACTORS LAYING DOWN, SITTING TOO LONG ALLEVIATING FACTORS MEDICATIONS, OCCASSIONALLY HEAT BUT NOT VERY OFTEN IMPACT ON FUNCTION SOMETIMES, WALKING CAN BE DIFFICULT. ALSO LIMITS HER ON WHAT SHE IS ABLE TO DO PAIN CLINIC PFS, CLERGY, PUBLIC HEALTH REFERRALS PFS REFERRAL NEEDED?NO CLERGY REFERRAL NEEDED?NO PUBLIC HEALTH REFERRAL NEEDED?NO HAS THE PATIENT BEEN EDUCATED REGARDING HIS/HER PLAN OF CARE?YES HAS THE PATIENT BEEN EDUCATED REGARDING PAIN, THE RISK FOR PAIN, THE IMPORTANCE OF EFFECTIVE PAIN MANAGEMENT, AND THE PAIN ASSESSMENT PROCESS?YES ADVANCE DIRECTIVE ADVANCE DIRECTIVE DISCUSSED WITH PATIENT:YES 10/27/2019 PT DOES NOT HAVE ANY ADVANCED DIRECTIVES.SHE STATES ALREADY HAS THE PAPER WORK ON HCP AND IS GOING TO BRING IT INTO THE PAIN CENTER WHEN SHE IS HERE AGAIN TO HAVE US HELP HER COMPLETE THE FORM HOSPITALIZATION/MAJOR DIAGNOSTIC PROCEDURE CHILDBIRTH NECK AND BACK SURGERIES REVIEW OF SYSTEMS REVIEWED BY: PROVIDER: MAKENZIE MAXWELL MD . CONSTITUTIONAL: ANY CHANGE IN YOUR MEDICAL CONDITION? IN APR WAS DIAGNOSED WITH HIROSHIMA . CHILLS NO . FEVER NO . INFECTION: DO YOU HAVE NEW INFECTIONS? NO . DO YOU HAVE HISTORY OF MRSA? NO . MUSCULOSKELETAL: ANY NEW PATTERNS OF PAIN OR NUMBNESS? NO . GASTROENTEROLOGY: ANY NEW CHANGE IN BOWEL CONTROL? NO . GENITOURINARY: ANY NEW CHANGE IN BLADDER CONTROL? NO . IS THERE A CHANCE YOU COULD BE ? NO . HEMATOLOGY/LYMPH: DO YOU TAKE ANY BLOOD THINNERS? (FOR EXAMPLE- COUMADIN, PLAVIX, AGGRENOX, PLATEL, PRADAXA, OR XARELTO) NO . WHEN WAS YOUR LAST DOSE? DATE: TIME: . NEUROLOGY: HAVE YOU FALLEN IN THE PAST 12 MONTHS? NO . ANY NEW EXTREMITY NUMBNESS OR WEAKNESS? YES, NUMBNESS IN HER FEET ARE WORSE OVER THE PAST 2 WEEKS . CARDIOLOGY: DO YOU HAVE A PACEMAKER OR DEFIBRILLATOR? NO . RESPIRATORY: HAVE YOU BEEN SICK IN THE PAST WEEK? NO . FEVER NO . FLU LIKE SYMPTOMS? NO . COUGH NO . INTEGUMENTARY: DO YOU HAVE ANY RASHES OR OPEN SORES? NO . ALLERGIC/IMMUNO: ARE YOU ALLERGIC TO IV DYE? NO . ANY NEW ALLERGIES? NO . PSYCHIATRIC: DO YOU HAVE THOUGHTS OF HURTING YOURSELF OR SOMEONE ELSE? NO . ARE YOU ABUSED, NEGLECTED, OR IN AN UNSAFE ENVIRONMENT? NO . ENDOCRINOLOGY: ARE YOU DIABETIC? NO . OTHER: DO YOU NEED ANY PRESCRIPTIONS? NO . IF YES, PLEASE LIST: ____ . ANY NEW PROBLEMS WITH YOUR MEDICATIONS? NO . WHEN DID YOU LAST EAT? ____ . WHEN DID YOU LAST DRINK? ____ . WHAT DID YOU LAST DRINK? ____ . NAME OF PERSON DRIVING YOU HOME? ____ . DO YOU HAVE ANY OTHER QUESTIONS OR CONCERNS DOESN'T FEEL THE CYMBALTA OR TIZANIDINE ARE HELPING. WOULD LIKE TO DISCUSS GETTING AN INJECTION . EXAMINATION GENERAL EXAMINATION: TELEMEDICINE USING ZOOM APPLICATION. PATIENT IS ALERT O X [address] SCAN OF THE LUMBAR SPINE DONE ON 03/11/2018 SHOWS CENTRAL CANAL STENOSIS AT L4-L5. MRI OF THE LUMBAR SPINE DONE ON 09/26/2016 SHOWS BULGING DISCS AT L4-L5 AND L5-S1 LEVELS. 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 KIRBY'S PAIN MANAGEMENT CASE. I PREVIOUSLY PERFORMED A LUMBAR EPIDURAL AT L5-S1 LEVEL DUE TO A PAST OPERATION DONE AT L4-L5 LEVEL, THAT HAS HELPED WITH HER PAIN. DUE TO THE CURRENT LUMBAR RADICULOPATHY, I WOULD LIKE TO MOVE FORWARD WITH ANOTHER L5-S1 LUMBAR EPIDURAL STEROID INJECTION AT THIS TIME. WE DISCUSSED THE BENEFITS, RISKS, AND ALTERNATIVES OF THE INJECTION AND THE PATIENT WOULD LIKE TO PROCEED. I AM LOOKING FOR LONG LASTING PAIN RELIEF FROM THIS INJECTION FOR THE PATIENT. WE DISCUSSED THE CONCERNS OF STEROIDS POTENTIALLY CAUSING IMMUNOSUPPRESSION SHORT-TERM AND FURTHER COMPLICATIONS IF THEY COME IN CONTACT WITH COVID-19, SUCH WORSE SYMPTOMS OR . THE PATIENT UNDERSTANDS, WOULD LIKE TO PROCEED WITH THE PROCEDURE, AND AGREES HE/SHE WILL BE CAREFUL BY SELF ISOLATING FOR A WEEK OR MORE. I DISCUSSED WITH THE PATIENT ABOUT REPLACING KENALOG WITH DEXAMETHASONE, WHICH IS A LESS POTENT STEROID, TO LESSEN THE RISK OF IMMUNOSUPPRESSION. THE PATIENT AGREED ON HAVING BEING TESTED FOR COVID-19 BEFORE THE PROCEDURE. THE PATIENT WILL SLOWLY STOP USING HER MEDICATION, STARTING WITH DULOXETINE, THEN TIZANIDINE, AND LASTLY HYDROCODONE-ACETAMINOPHEN 5-325 MG. THE PATIENT WAS ADVISED TO WAIT THREE TO FOUR DAYS BETWEEN EACH MEDICATION STOPPAGE AND TO RESTART THE MEDICATION IF SHE NOTICES THAT THEY WERE WORKING FOR HER. THE PATIENT WILL FOLLOW UP IN SEVERAL WEEKS AFTER HER INJECTION. INSTRUCTIONS WERE GIVEN, QUESTIONS WERE ANSWERED, PATIENT REPORTS UNDERSTANDING AND AGREES WITH THE PLAN. I, ARTIE READ, DOCUMENTED THE ABOVE INFORMATION ACTING A SCRIBE FOR DR. MAXWELL. I HAVE REVIEWED THE ABOVE DOCUMENT, WRITTEN BY ARTIE TSANG AND I VERIFY THAT IT IS ACCURATE. . OTHERS NOTES: DUE TO VIRTUAL VISIT UNABLE TO DO V/S. DISPOSITION & COMMUNICATION FOLLOW UP 1 WEEK (REASON: L5-S1 LESI;PLEASE CHECK IF August IS STILL GOOD. TY) ELECTRONICALLY SIGNED BY MAKENZIE MAXWELL MD, MD ON 11/04/2019 AT 10:18 AM EDT DISCLAIMER : THIS IS A VISIT SUMMARY EXTRACTED FROM THE [employer] CHART. IT IS NOT A COPY OF THE [employer] PROGRESS NOTE. MTDD
== END ==
LOC: M PAIN 14:00 → M TMPAIN 14:00
PROVIDERS: ATTEND Anesthesiology
DX: M48.062 Spinal stenosis, lumbar region with neurogenic claudication (principal); M51.16 Intervertebral disc disorders with radiculopathy, lumbar region; M96.1 Postlaminectomy syndrome, not elsewhere classified; Z79.899 Other long term (current) drug therapy; Z88.0 Allergy status to penicillin; Z88.7 Allergy status to serum and vaccine; Z91.013 Allergy to seafood; Z91.048 Other nonmedicinal substance allergy status; Z87.891 Personal history of nicotine dependence

== ENCOUNTER → 2019-11-13 | Outpatient (CLI) | payer BC | LOC: M LABSMTC 11:01 | PROVIDERS: ATTEND Anesthesiology | DX: Z11.59 Encounter for screening for other viral diseases (principal) ==

== ENCOUNTER → 2019-11-16 | Outpatient (CLI) | payer BC ==
[~2019-11-16] MED LIST changes: +ISOVUE-M 300 61% 15ML VIAL As Ordered ONE; +LIDOCAINE 1% SDV 30ML VIAL As Ordered ONE; +dexameTHASONE 10MG/1ML VIAL PRES.FREE (J1100 PER 1MG) As Ordered ONE; +diazePAM 5 MG TAB As Ordered ONE; +oxyCODONE 5MG TAB As Ordered ONE
--- NOTE | 2019-11-16 12:06 | REP ---
C-ARM VIEWS LOWER LUMBAR SPINE: CLINICAL HISTORY: Pain. Four C-arm views of the lower lumbar spine performed during lumbar epidural injection by Dr. Connors. A needle is seen in the region of the lumbosacral spine in the region of the lumbosacral junction. 13 seconds of fluoroscopy time utilized. Electronically Signed by Uriah Moran MD 11/16/2019 12:22 P
--- NOTE | 2019-11-19 02:02 | ECWPNPC ---
PATIENT NAME: NAVID KIRBY : 1965 GENDER: FEMALE VISIT DATE: 11/16/2019 DISCHARGE DATE: 11/16/19 1143 VISIT LOCKED DATE TIME: PHYSICIAN: MAKENZIE MAXWELL MD RESOURCE: MAKENZIE MAXWELL MD REASON FOR APPOINTMENT 1. L5/S1 ASA ROGEL PHONE CALL COMPLETED HISTORY OF PRESENT ILLNESS PAIN CENTER INTAKE QUESTIONS: DO YOU HAVE A HISTORY OF MRSA? :NO DO YOU TAKE A BLOOD THINNERS? :NO DO YOU HAVE ANY BLEEDING DISORDERS? :NO ANY NEW NUMBNESS OR WEAKNESS IN YOUR LEGS OR ARMS? :NO ANY PACEMAKER,DEFIBRILLATOR, OR DORSAL COLUMN STIMULATOR? :NO DO YOU HAVE ANY RASHES OR OPEN SORES? :NO ARE YOU ALLERGIC TO IV DYE? :NO PT REPORTS AN ALLERGY TO SEAFOOD, BUT DENIES ANY TROUBLE WITH BETADINE OR IV DYE ARE YOU DIABETIC? :NO ANY NEW PROBLEMS WITH YOUR MEDICATIONS? :NO HAVE YOU RECEIVED A VACCINE IN THE PAST 30 DAYS? :NO DO YOU PLAN TO RECEIVE A VACCINE IN THE NEXT 21 DAYS? :NO ANY HISTORY OF SEIZURES? :NO ANY HISTORY OF CARDIAC ISSUES OR EVENTS? :YES LEAKY VALVE DO YOU HAVE SLEEP APNEA? :YES DO YOU WEAR A CPAP?NO COULDN'T TOLERATE ANY RECENT HEAD INJURY? :NO DO YOU HAVE ANY NEW INFECTIONS? :NO WHEN DID YOU LAST EAT? : - WHEN DID YOU LAST DRINK? : - WHAT DID YOU LAST DRINK? : - NAME OF PERSON DRIVING YOU HOME? : - DO YOU HAVE ANY OTHER QUESTIONS OR CONCERNS? : - WHEN DID YOU LAST EAT? 11/14 10P WHEN DID YOU LAST DRINK? 11/15 8AM__ WHAT DID YOU LAST DRINK?WATER__ NAME OF PERSON DRIVING YOU HOME__HUSBAND____ DO YOU HAVE ANY OTHER QUESTIONS OR CONCERNS? . GENERAL: -. FALL RISK SCREENING: SCREENING :NO FALLS REPORTED IN THE LAST YEAR PAIN SCREENING: PATIENT HAS A COMPLAINT OF ACUTE OR CHRONIC PAIN :YES LOCATION OF PAIN:LOW BACK, LEG(S) INTENSITY OF PAIN (SCALE OF 1 TO 10):9 VARIES THROUGHOUT DAY WHAT DOES YOUR PAIN FEEL LIKE:BURNING, CONTINOUS, THROBBING, SHOOTING PAIN IS INREASED BY:PROLONGED STANDING, OTHERS LAYING DOWN PAIN IS DECREASED BY:USE OF PAIN MEDICATIONS HAS HAD GOOD RELIEF AFTER INJECTIONS PAIN HAS INTERFERED WITH THE FOLLOWING:WALKING ABILITY, HOUSEWORK, SLEEP PLAN/GOALS/TREATMENT/INTERVENTION/FOLLOW UP:SEE PLAN NURSING NOTE: -. CURRENT MEDICATIONS TAKING HYDROXYZINE HCL 25 MG TABLET 2 TAB ORALLY AT BEDTIME, NOTES: 11/14 2299 TAKING AQUAPHILIC/CARBAMIDE 10 % OINTMENT EXTERNALLY NEEDED., NOTES: 11/14 2299 ON LEGS TAKING HYDROCORTISONE VALERATE 0.2 % CREAM 1 APPLICATION TO AFFECTED AREA EXTERNALLY EVERY OTHER DAY, NOTES: NONE RECENT TAKING REQUIP 2 MG TABLET 1 TABLET ORALLY TID, NOTES: 11/16 799 TAKING ALBUTEROL 90 MCG/ACT AEROSOL SOLUTION DIRECTED INHALATION , NOTES: 11/12 TAKING VITAMIN B12 500 MCG TABLET 1 TABLET ORALLY ONCE A DAY, NOTES: 11/14 899 TAKING CARBIDOPA-LEVODOPA 25-100 MG TABLET 1/2 TABLET ORALLY TID, NOTES: 11/16 799 TAKING CHOLECALCIFEROL 1.25 MG (21103 UT) CAPSULE 1 CAPSULE ORALLY WEEKLY, NOTES: 11/11 TAKING AMITRIPTYLINE HCL 10 MG TABLET 1 TABLET AT BEDTIME ORALLY ONCE A DAY, NOTES: 11/14 2299 NOT-TAKING DULOXETINE HCL 30 MG CAPSULE DELAYED RELEASE PARTICLES 1 CAPSULE ORALLY FOR PAIN BID MDD2 NOT-TAKING TIZANIDINE HCL 2 MG TABLET 1 TABLET NEEDED ORALLY FOR SPASMS AND PAIN BEFORE BEDTIME MAY REAPT IN 4HRS MDD2 NOT-TAKING HYDROCODONE-ACETAMINOPHEN 5-325 MG TABLET 1 TABLET NEEDED ORALLY DAILY FOR PAIN. MDD1 NOT-TAKING MAGNESIUM 400 MG CAPSULE DIRECTED ORALLY AT DINNER TIME NOT-TAKING LEVOTHYROXINE SODIUM 50 MCG TABLET 1 TABLET ON AN EMPTY STOMACH IN THE MORNING ORALLY ONCE A DAY NOT-TAKING MAY USE CBD OIL ORALLY NEEDED NOT-TAKING REQUIP 2 MG TABLET 1 TABLET 1 TO 3 HOURS BEFORE BEDTIME ORALLY ONCE A DAY NOT-TAKING CELEBREX 200 MG CAPSULE 1 TAB ORALLY DAILY NOT-TAKING PRILOSEC OTC 20 MG TABLET DELAYED RELEASE 1 CAP ORALLY DAILY NOT-TAKING FLEXERIL 10 MG TABLET 1 TABLET ORALLY TID PRN NOT-TAKING VITAMIN D-3 1000 UNIT CAPSULE 1 CAPSULE ORALLY ONCE A DAY MEDICATION LIST REVIEWED AND RECONCILED WITH THE PATIENT PAST MEDICAL HISTORY NETHERTONS SYNDROME-SKIN PROBLEM ARTHRITIS HEART VALVE LEAKS-ABNORMAL EKG CARPAL TUNNEL SYNDROME LOW BACK PAIN LUMBAR VERTEBRAE FX NOTED ON XRAY 02/2018 HIROSHIMA ALLERGIES PENICILLIN (FOR ALLERGIES USE ONLY): UNKNOWN SEAFOOD: HIVES - ALLERGY LIVE VACCINE - FLU, MMR, SHINGLES: UNKNOWN K Y JELLY: SKIN IRRITATION AND BURNING - ALLERGY LANOLIN: HIVES - ALLERGY SURGICAL HISTORY R CARPAL TUNNEL RELEASE 2015 R CERVICAL DISKECTOMY 06/2016 C SECTION 1988 TUBALIGATION 1988 L4-L5 FUSION 08/2017 FAMILY HISTORY FATHER: ALIVE 74 YRS, DIAGNOSED WITH DIABETES MOTHER: 63 YRS 3 BROTHER(S) , 1 SISTER(S) - HEALTHY. 1 SON(S) , 1 DAUGHTER(S) - HEALTHY. FAMILY HX - HEART FAILURE. SOCIAL HISTORY GENERAL: TOBACCO USE ARE YOU A:FORMER SMOKER HOW LONG HAS IT BEEN SINCE YOU LAST SMOKED?5-10 YEARS LATEX QUESTIONNAIRE LATEX ALLERGY : HAVE YOU EVER DEVELOPED ANY TYPE OF REACTION AFTER HANDLING LATEX PRODUCTS SUCH RUBBER GLOVES, CONDOMS, DIAPHRAGMS, BALLOONS, SOCKS, OR UNDERWEAR?NO LATEX ALLERGY : HAVE YOU EVER DEVELOPED ANY TYPE OF REACTION DURING OR AFTER DENTAL APPOINTMENT, VAGINAL/RECTAL EXAMINATION, SURGICAL PROCEDURE, OR ANY OTHER EXPOSURE?NO DATE ASKED : 10/27/2019 LATEX RISK : HAVE YOU EVER HAD ANY DIFFICULTY BREATHING OR HIVES AFTER EATING OR HANDLING ANY FRUITS, OR VEGETABLES; SUCH KIWI, BANANAS, STONE FRUITS, OR CHESTNUTSNO LATEX RISK : DO YOU HAVE A PREVIOUS PERSONAL HISTORY OF MORE THAN NINE SURGERIES, SPINA BIFIDA, OR REPEATED CATHERIZATIONS? NO LATEX RISK : ARE YOU FREQUENTLY EXPOSED TO LATEX PRODUCTS IN YOUR OCCUPATION?NO ALCOHOL SCREENING DID YOU HAVE A DRINK CONTAINING ALCOHOL IN THE PAST YEAR?NO POINTS0 INTERPRETATIONNEGATIVE RECREATIONAL DRUG USE DRUG USE?NO CAFFEINE CAFFEINE USE?YES 6 CUPS COFFEE/DAY RELIGIOUS [id number] YARSANI LANGUAGE LANGUAGES SPOKEN:TRINIDADIAN EDUCATION LEVEL OF EDUCATION:HIGH SCHOOL LEARNING BARRIERS / SPECIAL NEEDS BARRIERS TO LEARNING?NO HEARING IMPAIRED?NO VISION IMPAIRED?YES COGNITIVELY IMPAIRED?NO :CORRECTIVE LENSES READINESS TO LEARN?YES LEARNING PREFERENCES?NO LEARNING CAPABILITIES PRESENT?YES EMOTIONAL BARRIERS?NO SPECIAL DEVICES?YES :CANE, WALKER USES ONE OR THE OTHER AT HOME NEEDED CONFIDENTIAL INVESTIGATOR NEEDED?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 DIET: REGULAR. EXERCISE: WALKS. NEW PATIENT PAIN DIARY TODAY'S VISITNOTES 10/27/2019 PATIENT DESCRIBES PAIN :ACHING, HAVE IT ALL THE TIME, SHARP, STABBING, THROBBING, SORE, SHOOTING, OTHER NUMB FROM 0-10, WHAT LEVEL IS YOUR PAIN TODAY?5 PRECIPITATING FACTORS LAYING DOWN, SITTING TOO LONG ALLEVIATING FACTORS MEDICATIONS, OCCASSIONALLY HEAT BUT NOT VERY OFTEN IMPACT ON FUNCTION SOMETIMES, WALKING CAN BE DIFFICULT. ALSO LIMITS HER ON WHAT SHE IS ABLE TO DO PAIN CLINIC PFS, CLERGY, PUBLIC HEALTH REFERRALS PFS REFERRAL NEEDED?NO CLERGY REFERRAL NEEDED?NO PUBLIC HEALTH REFERRAL NEEDED?NO HAS THE PATIENT BEEN EDUCATED REGARDING HIS/HER PLAN OF CARE?YES HAS THE PATIENT BEEN EDUCATED REGARDING PAIN, THE RISK FOR PAIN, THE IMPORTANCE OF EFFECTIVE PAIN MANAGEMENT, AND THE PAIN ASSESSMENT PROCESS?YES ADVANCE DIRECTIVE ADVANCE DIRECTIVE DISCUSSED WITH PATIENT:YES 10/27/2019 PT DOES NOT HAVE ANY ADVANCED DIRECTIVES.SHE STATES ALREADY HAS THE PAPER WORK ON HCP AND IS GOING TO BRING IT INTO THE PAIN CENTER WHEN SHE IS HERE AGAIN TO HAVE US HELP HER COMPLETE THE FORM HOSPITALIZATION/MAJOR DIAGNOSTIC PROCEDURE CHILDBIRTH NECK AND BACK SURGERIES VITAL SIGNS WT 189.4 LBS, HT 63 IN, BMI 33.55 INDEX, BP 150/79 MM HG, HR 70 /MIN, RR 16 /MIN, TEMP 98.5 F, OXYGEN SAT % 100%, SAFE IN ENV? (Y/N) Y, NA INITIALS TL 1022, REVIEWED BY: MUKESH. EXAMINATION GENERAL EXAMINATION: THE PATIENT IS ALERT, ORIENTED TIMES THREE AND COOPERATIVE. HEART SHOWS REGULAR RHYTHM, NO MURMURS AND NO GALLOPS. LUNGS ARE CLEAR TO AUSCULTATION. ASSESSMENTS LUMBAR POST-LAMINECTOMY SYNDROME - M96.1 (PRIMARY) PROCEDURES PAIN NURSING RECORD : HR STRONG AND REG., BREATH SOUNDS CLEAR BILAT. AD PROCEDURE IN ROOM 1055, PHYSICIAN IN ROOM 1110, START 1114, FINISH 1121, PHYSICIAN OUT OF ROOM 1125, OUT OF ROOM 1130, STEROID DEXAMETHASONE 10MG, O2 RA, ECG NORMAL SINUS, PATIENT SHIELDED YES, SAFETY STRAP YES, PREP BETADINE, IV INFUSED N/A, DRESSING TEGADERM MAXWELL : POST PAIN 07/01, SITE LOW BACK, IV N/A, DRESSING DRY AND INTACT YES, GAIT STEADY BP: 1105 140/74 1115 144/74 PULSE: 1105 61 1115 62 RESP: 1105 18 1115 18 O2: 1105 RA 1115 RA SAT: 1105 100% 1115 100% LOC: 1. ALERT, ORIENTED RESP: 1.REGULAR, NO DYSPNEA COLOR: 1.PINK SKIN: 1. WARM,DRY POSITION: 1. PRONE VITALS: PT AMBULATED TO PROCEDURE ROOM AND POSITIONED SELF ON TABLE WITH MIN 1 ASSIST, GAIT STEADY, PT TOLERATED POSITIONING AND AMBULATION WELL. DS PT TRANSFERRED TO STRETCHER POST PROCEDURE, TAKEN TO RECOVERY ROOM, PT ABLE TO STAND INDEPENDENTLY, GAIT STEADY. PT TOLERATED PROCEDURE WELL.DS DISCHARGE: POST PAIN 07/01, DRESSING SITE DRESSING DRY AND INTACT, IV N/A, GAIT STEADY, TEACHING COMPLETED, PATIENT ACKNOWLEDGES UNDERSTANDING YES, PATIENT DISCHARGED AT 1140 PRE PROCEDURE DIAGNOSIS LUMBAR POST LAMINECTOMY PAIN SYNDROME POST PROCEDURE DIAGNOSIS LUMBAR POST LAMINECTOMY PAIN SYNDROME PROCEDURE LUMBAR EPIDURAL STEROID INJECTION UNDER FLUOROSCOPIC GUIDANCE SURGEON DR. MAKENZIE MAXWELL SLIP COVER OPERATOR NONE ANESTHESIA LOCAL PRE PROCEDURE NOTE THE PATIENT HAS A HISTORY OF CHRONIC LOW BACK PAIN. I EVALUATED THE PATIENT AND REVIEWED THE CHART. I WENT OVER THE RISKS, ALTERNATIVES, AND BENEFITS ASSOCIATED WITH THIS PROCEDURE. I DISCUSSED THAT THE USE OF STEROIDS MAY CONTRIBUTE TO IMMUNOSUPPRESSION OF THE PATIENT'S BODY AGAINST INFECTIONS SUCH THE [place] VIRUS, COVID-19. THE PATIENT IS AWARE OF THE POTENTIAL COMPLICATIONS ASSOCIATED WITH AN INFECTION OF THIS VIRUS INCLUDING . THE PATIENT WOULD LIKE TO PROCEED AND GIVE CONSENT TO PERFORMED THE PROCEDURE. THE PATIENT DENIES UNEXPLAINABLE WEIGHT LOSS, FEVER, CHILLS, OR NEW CHANGES IN URINARY OR BOWEL CONTROL. THE PATIENT IS COVID-19 NEGATIVE DESCRIPTION OF PROCEDURE THE PATIENT WAS BROUGHT TO THE PROCEDURE ROOM AND PLACED IN THE PRONE POSITION. THE LUMBOSACRAL AREA WAS CLEANED WITH BETADINE SOLUTION AND DRAPED ASEPTICALLY. THE PROCEDURE WAS DONE UNDER STERILE CONDITIONS. I CHECKED LATERALITY AND THE LEVEL WHERE THE PROCEDURE WAS GOING TO BE PERFORMED WITH THE PATIENT AND THE SUPPORTING STAFF AT THE MOMENT OF THE TIME OUT IN THE PROCEDURE ROOM. UNDER FLUOROSCOPIC GUIDANCE, THE TARGET POINT WAS SELECTED AT THE INTERLAMINAR LEVEL OF L5-S1. LIDOCAINE WAS USED TO NUMB THE SKIN AND THE SUBCUTANEOUS TISSUE BELOW IT. EPIDURAL TUOHY NEEDLE, 17-GAUGE, WAS ADVANCED UNDER FLUOROSCOPIC GUIDANCE AND FOLLOWING PATIENT FEEDBACK UNTIL THE EPIDURAL SPACE WAS REACHED 7 CM DEEP INTO THE SKIN BY THE LOSS OF RESISTANCE TECHNIQUE. ISOVUE M DYE 30%, 0.25 ML, WAS INJECTED SHOWING ADEQUATE SPREAD OF THE DYE. THEN, A SOLUTION OF 3 ML OF NORMAL SALINE WITH DEXAMETHASONE 10 MG WAS INJECTED SLOWLY FOLLOWING PATIENT FEEDBACK. THERE WAS NO EVIDENCE OF BLOOD, PARESTHESIA OR CEREBROSPINAL FLUID DURING THE PROCEDURE. THE PATIENT WAS SENT TO THE RECOVERY ROOM. THE PATIENT WAS MOVING THE EXTREMITIES AND DOING WELL. THERE WAS NO COMPLICATION DURING THE PROCEDURE. FLUOROSCOPY TIME WAS 13 SECONDS POST PROCEDURE NOTE THE PATIENT WILL BE SEEN IN A FOLLOW UP IN THE NEXT FEW WEEKS. I AM LOOKING FOR LONG LASTING RELIEF FOR THE PATIENT WITH THIS INTERVENTION. INSTRUCTIONS WERE GIVEN, QUESTIONS WERE ANSWERED, AND THE PATIENT EXPRESSED UNDERSTANDING AND AGREES WITH THE PLAN. THE PATIENT IS AWARE TO STAY HOME FOR THE NEXT WEEK, IF POSSIBLE, DUE TO COVID-19. I, KATHRYN DOMINIQUE, DOCUMENTED THE ABOVE INFORMATION ACTING A SCRIBE FOR DR. MAXWELL. I HAVE REVIEWED THE ABOVE DOCUMENT, WRITTEN BY KATHRYN DOMINIQUE, SKID ROAD WORKER, AND I VERIFY THAT IT IS [facility] DIAGNOSTIC IMAGING [facility] FLUORO GUIDE SPINE INJECTION (PAIN)[id number] PROCEDURE CODES 00184 LUMBAR/SACRAL W/ IMAGING DISPOSITION & COMMUNICATION FOLLOW UP F/UP WITH EC TEACHER (REASON: POST LESI L5-S1) ELECTRONICALLY SIGNED BY MAKENZIE MAXWELL MD, MD ON 11/18/2019 AT 11:06 AM EDT DISCLAIMER : THIS IS A VISIT SUMMARY EXTRACTED FROM THE [employer] CHART. IT IS NOT A COPY OF THE [employer] PROGRESS NOTE. WIL
== END ==
LOC: M PAIN 10:15
PROVIDERS: ATTEND Anesthesiology
DX: M96.1 Postlaminectomy syndrome, not elsewhere classified (principal)
CPT/HCPCS: 62323; J1100; Q9967

== ENCOUNTER → 2019-11-28 | Outpatient (CLI) | payer BC ==
[~2019-11-28] MED LIST changes: -ISOVUE-M 300 61% 15ML VIAL As Ordered ONE; -LIDOCAINE 1% SDV 30ML VIAL As Ordered ONE; -dexameTHASONE 10MG/1ML VIAL PRES.FREE (J1100 PER 1MG) As Ordered ONE; -diazePAM 5 MG TAB As Ordered ONE; -oxyCODONE 5MG TAB As Ordered ONE
--- NOTE | 2019-12-02 13:16 | ECWPNPC ---
PATIENT NAME: NAVID KIRBY : 1965 GENDER: FEMALE VISIT DATE: 11/28/2019 DISCHARGE DATE: 11/28/19 1349 VISIT LOCKED DATE TIME: PHYSICIAN: STACY THOMASON RESOURCE: STACY THOMASON REASON FOR APPOINTMENT 1. POST LESI HISTORY OF PRESENT ILLNESS GENERAL: PATIENT IS AGREEABLE TO TELEMED VISIT VIA ZOOM. THIS IS A POST PROCEDURE FOLLOW-UP. HAD LUMBAR EPIDURAL STEROID INJECTION L5/S1 ON 11/16/2019. REPORTING MARKED REDUCTION IN LOW BACK PAIN. PATIENT WENT FROM A 03/01 TO A 07/01 POST PROCEDURE. STATES HER NEUROPATHY IN HER LOWER EXTREMITIES SEEMS TO BE GETTING WORSE. FOLLOWS WITH [facility] AND WILL BE SEEING THEM NEXT WEEK. -. FALL RISK SCREENING: SCREENING :NO FALLS REPORTED IN THE LAST YEAR PAIN SCREENING: PATIENT HAS A COMPLAINT OF ACUTE OR CHRONIC PAIN :YES 11/28/19 INTENSITY OF PAIN (SCALE OF 1 TO 10):9 PAIN IS INCREASED BY: LAYING DOWN, WALKING, SITTING PAIN IS DECREASED BY: INJECTIONS NURSING NOTE: -. PAIN CENTER INTAKE QUESTIONS: DO YOU HAVE A HISTORY OF MRSA? :NO DO YOU TAKE A BLOOD THINNERS? :NO DO YOU HAVE ANY BLEEDING DISORDERS? :NO ANY NEW NUMBNESS OR WEAKNESS IN YOUR LEGS OR ARMS? :YES BILAT LEG NUMBNESS ANY PACEMAKER,DEFIBRILLATOR, OR DORSAL COLUMN STIMULATOR? :NO DO YOU HAVE ANY RASHES OR OPEN SORES? :NO ARE YOU ALLERGIC TO IV DYE? :NO ARE YOU DIABETIC? :NO ANY NEW PROBLEMS WITH YOUR MEDICATIONS? :NO HAVE YOU RECEIVED A VACCINE IN THE PAST 30 DAYS? :NO DO YOU PLAN TO RECEIVE A VACCINE IN THE NEXT 21 DAYS? :NO DO YOU NEED ANY PRESCRIPTION? :NO DO YOU TAKE ANY IMMUNOSUPPRESSIVE MEDICATIONS? :NO CURRENT MEDICATIONS TAKING HYDROXYZINE HCL 25 MG TABLET 2 TAB ORALLY AT BEDTIME TAKING AQUAPHILIC/CARBAMIDE 10 % OINTMENT EXTERNALLY NEEDED. TAKING HYDROCORTISONE VALERATE 0.2 % CREAM 1 APPLICATION TO AFFECTED AREA EXTERNALLY EVERY OTHER DAY TAKING REQUIP 2 MG TABLET 1 TABLET ORALLY TID TAKING ALBUTEROL 90 MCG/ACT AEROSOL SOLUTION DIRECTED INHALATION TAKING VITAMIN B12 500 MCG TABLET 1 TABLET ORALLY ONCE A DAY TAKING CARBIDOPA-LEVODOPA 25-100 MG TABLET 1/2 TABLET ORALLY TID TAKING CHOLECALCIFEROL 1.25 MG (10413 UT) CAPSULE 1 CAPSULE ORALLY WEEKLY TAKING AMITRIPTYLINE HCL 10 MG TABLET 1 TABLET AT BEDTIME ORALLY ONCE A DAY NOT-TAKING DULOXETINE HCL 30 MG CAPSULE DELAYED RELEASE PARTICLES 1 CAPSULE ORALLY FOR PAIN BID MDD2 NOT-TAKING TIZANIDINE HCL 2 MG TABLET 1 TABLET NEEDED ORALLY FOR SPASMS AND PAIN BEFORE BEDTIME MAY REAPT IN 4HRS MDD2 NOT-TAKING HYDROCODONE-ACETAMINOPHEN 5-325 MG TABLET 1 TABLET NEEDED ORALLY DAILY FOR PAIN. MDD1 NOT-TAKING MAGNESIUM 400 MG CAPSULE DIRECTED ORALLY AT DINNER TIME NOT-TAKING LEVOTHYROXINE SODIUM 50 MCG TABLET 1 TABLET ON AN EMPTY STOMACH IN THE MORNING ORALLY ONCE A DAY NOT-TAKING MAY USE CBD OIL ORALLY NEEDED NOT-TAKING REQUIP 2 MG TABLET 1 TABLET 1 TO 3 HOURS BEFORE BEDTIME ORALLY ONCE A DAY NOT-TAKING CELEBREX 200 MG CAPSULE 1 TAB ORALLY DAILY NOT-TAKING PRILOSEC OTC 20 MG TABLET DELAYED RELEASE 1 CAP ORALLY DAILY NOT-TAKING FLEXERIL 10 MG TABLET 1 TABLET ORALLY TID PRN NOT-TAKING VITAMIN D-3 1000 UNIT CAPSULE 1 CAPSULE ORALLY ONCE A DAY MEDICATION LIST REVIEWED AND RECONCILED WITH THE PATIENT PAST MEDICAL HISTORY NETHERTONS SYNDROME-SKIN PROBLEM ARTHRITIS HEART VALVE LEAKS-ABNORMAL EKG CARPAL TUNNEL SYNDROME LOW BACK PAIN LUMBAR VERTEBRAE FX NOTED ON XRAY 02/2018 HIROSHIMA ALLERGIES PENICILLIN (FOR ALLERGIES USE ONLY): UNKNOWN SEAFOOD: HIVES - ALLERGY LIVE VACCINE - FLU, MMR, SHINGLES: UNKNOWN K Y JELLY: SKIN IRRITATION AND BURNING - ALLERGY LANOLIN: HIVES - ALLERGY SURGICAL HISTORY R CARPAL TUNNEL RELEASE 2015 R CERVICAL DISKECTOMY 06/2016 C SECTION 1988 TUBALIGATION 1988 L4-L5 FUSION 08/2017 FAMILY HISTORY FATHER: ALIVE 74 YRS, DIAGNOSED WITH DIABETES MOTHER: 63 YRS 3 BROTHER(S) , 1 SISTER(S) - HEALTHY. 1 SON(S) , 1 DAUGHTER(S) - HEALTHY. FAMILY HX - HEART FAILURE. SOCIAL HISTORY GENERAL: TOBACCO USE ARE YOU A:FORMER SMOKER HOW LONG HAS IT BEEN SINCE YOU LAST SMOKED?5-10 YEARS LATEX QUESTIONNAIRE LATEX ALLERGY : HAVE YOU EVER DEVELOPED ANY TYPE OF REACTION AFTER HANDLING LATEX PRODUCTS SUCH RUBBER GLOVES, CONDOMS, DIAPHRAGMS, BALLOONS, SOCKS, OR UNDERWEAR?NO LATEX ALLERGY : HAVE YOU EVER DEVELOPED ANY TYPE OF REACTION DURING OR AFTER DENTAL APPOINTMENT, VAGINAL/RECTAL EXAMINATION, SURGICAL PROCEDURE, OR ANY OTHER EXPOSURE?NO DATE ASKED : 10/27/2019 LATEX RISK : HAVE YOU EVER HAD ANY DIFFICULTY BREATHING OR HIVES AFTER EATING OR HANDLING ANY FRUITS, OR VEGETABLES; SUCH KIWI, BANANAS, STONE FRUITS, OR CHESTNUTSNO LATEX RISK : DO YOU HAVE A PREVIOUS PERSONAL HISTORY OF MORE THAN NINE SURGERIES, SPINA BIFIDA, OR REPEATED CATHERIZATIONS? NO LATEX RISK : ARE YOU FREQUENTLY EXPOSED TO LATEX PRODUCTS IN YOUR OCCUPATION?NO ALCOHOL SCREENING DID YOU HAVE A DRINK CONTAINING ALCOHOL IN THE PAST YEAR?NO POINTS0 INTERPRETATIONNEGATIVE RECREATIONAL DRUG USE DRUG USE?NO CAFFEINE CAFFEINE USE?YES 6 CUPS COFFEE/DAY RESTORATIONIST [id number] MORAVIAN LANGUAGE LANGUAGES SPOKEN:MACEDONIAN EDUCATION LEVEL OF EDUCATION:HIGH SCHOOL LEARNING BARRIERS / SPECIAL NEEDS BARRIERS TO LEARNING?NO HEARING IMPAIRED?NO VISION IMPAIRED?YES COGNITIVELY IMPAIRED?NO :CORRECTIVE LENSES READINESS TO LEARN?YES LEARNING PREFERENCES?NO LEARNING CAPABILITIES PRESENT?YES EMOTIONAL BARRIERS?NO SPECIAL DEVICES?YES :CANE, WALKER USES ONE OR THE OTHER AT HOME NEEDED TELEPHONE COLLECTOR NEEDED?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 DIET: REGULAR. EXERCISE: WALKS. NEW PATIENT PAIN DIARY TODAY'S VISITNOTES 10/27/2019 PATIENT DESCRIBES PAIN :ACHING, HAVE IT ALL THE TIME, SHARP, STABBING, THROBBING, SORE, SHOOTING, OTHER NUMB FROM 0-10, WHAT LEVEL IS YOUR PAIN TODAY?5 PRECIPITATING FACTORS LAYING DOWN, SITTING TOO LONG ALLEVIATING FACTORS MEDICATIONS, OCCASSIONALLY HEAT BUT NOT VERY OFTEN IMPACT ON FUNCTION SOMETIMES, WALKING CAN BE DIFFICULT. ALSO LIMITS HER ON WHAT SHE IS ABLE TO DO PAIN CLINIC PFS, CLERGY, PUBLIC HEALTH REFERRALS PFS REFERRAL NEEDED?NO CLERGY REFERRAL NEEDED?NO PUBLIC HEALTH REFERRAL NEEDED?NO HAS THE PATIENT BEEN EDUCATED REGARDING HIS/HER PLAN OF CARE?YES HAS THE PATIENT BEEN EDUCATED REGARDING PAIN, THE RISK FOR PAIN, THE IMPORTANCE OF EFFECTIVE PAIN MANAGEMENT, AND THE PAIN ASSESSMENT PROCESS?YES ADVANCE DIRECTIVE ADVANCE DIRECTIVE DISCUSSED WITH PATIENT:YES PT DOES NOT HAVE ANY ADVANCED DIRECTIVES.SHE STATES ALREADY HAS THE PAPER WORK ON HCP AND IS GOING TO BRING IT INTO THE PAIN CENTER WHEN SHE IS HERE AGAIN TO HAVE US HELP HER COMPLETE THE FORM HOSPITALIZATION/MAJOR DIAGNOSTIC PROCEDURE CHILDBIRTH NECK AND BACK SURGERIES REVIEW OF SYSTEMS CONSTITUTIONAL: ANY RECENT FEVER OR ILLNESS NO . CHILLS NO . GASTROENTEROLOGY: BOWEL INCONTINENCE NO . ANY NEW CHANGE IN BOWEL CONTROL? NO . ABDOMINAL PAIN NO . CONSTIPATION NO . GENITOURINARY: ANY NEW CHANGE IN BLADDER CONTROL? NO . IS THERE A CHANCE YOU COULD BE ? NO . URINARY INCONTINENCE NO . CARDIOLOGY: CHEST PRESSURE NO . CHEST PAIN NO . RESPIRATORY: COUGH NO . SHORTNESS OF BREATH NO . 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 CONTINUE FOLLOW-UP FOR NEUROPATHY WITH [facility]. CONTINUE HOME STRETCHING EXERCISES. FOLLOW-UP IN CLINIC IN 2 MONTHS. TOTAL TIME SPENT DURING TELEMED VISIT WAS APPROXIMATELY 12 MINUTES. DISPOSITION & COMMUNICATION FOLLOW UP 2 MONTHS IN CLINIC (REASON: LOW BACK PAIN) ELECTRONICALLY SIGNED BY FILEMON WELLS ON 11/29/2019 AT 03:23 PM EDT DISCLAIMER : THIS IS A VISIT SUMMARY EXTRACTED FROM THE [employer] CHART. IT IS NOT A COPY OF THE [employer] PROGRESS NOTE. WIL
== END ==
LOC: M PAIN 13:00 → M TMPAIN 13:00
PROVIDERS: ATTEND Nurse Practitioner Family
DX: M48.062 Spinal stenosis, lumbar region with neurogenic claudication (principal); M51.16 Intervertebral disc disorders with radiculopathy, lumbar region; M96.1 Postlaminectomy syndrome, not elsewhere classified; Z79.899 Other long term (current) drug therapy; Z88.0 Allergy status to penicillin; Z91.013 Allergy to seafood

== ENCOUNTER → 2020-03-27 | Outpatient (CLI) | payer BC ==
--- NOTE | 2020-03-30 13:08 | ECWPNPC ---
PATIENT NAME: NAVID KIRBY : 1965 GENDER: FEMALE VISIT DATE: 03/27/2020 DISCHARGE DATE: 03/27/20 1228 VISIT LOCKED DATE TIME: PHYSICIAN: STACY THOMASON RESOURCE: STACY THOMASON REASON FOR APPOINTMENT 1. LOW BACK -2 MONTH FU HISTORY OF PRESENT ILLNESS PAIN CENTER INTAKE QUESTIONS: HERE FOR FOLLOW-UP OF CHRONIC LOW BACK PAIN. PATIENT IS REPORTING SIGNIFICANT INCREASE OF LOWER EXTREMITY WEAKNESS AND UNSTEADY GAIT. REPORTING SOME FALLS. HAVING INCREASE IN LOW BACK PAIN. HAS RESPONDED WELL TO EPIDURAL STEROID INJECTIONS IN THE PAST. I'M CONCERNED ABOUT HER NEUROLOGICAL STATUS. I'VE ASKED FOR HER TO GET A CLEARANCE THROUGH NEUROLOGY OR PRIMARY CARE IN REGARDS TO THIS NEW ONSET OF UNSTEADY GAIT PRIOR TO CONSIDERING INJECTION THERAPY. GENERAL: -. FALL RISK SCREENING: SCREENING :ONE FALL WITHOUT INJURY IN THE PAST YEAR HAD A FALL THIS PAST THURSDAY "SNEAKER CAUGHT ON RUG" FELL BACKWARDS DID NOT GO TO URGENT CARE PAIN SCREENING: PATIENT HAS A COMPLAINT OF ACUTE OR CHRONIC PAIN :YES LOCATION OF PAIN:HAND(S), LEG(S), FEET INTENSITY OF PAIN (SCALE OF 1 TO 10):5 WHAT DOES YOUR PAIN FEEL LIKE:CONTINOUS, SHOOTING PAIN IS INCREASED BY:OTHERS "ALWAYS" NURSING NOTE: -. CURRENT MEDICATIONS TAKING HYDROXYZINE HCL 25 MG TABLET 2 TAB ORALLY AT BEDTIME TAKING AQUAPHILIC/CARBAMIDE 10 % OINTMENT EXTERNALLY NEEDED. TAKING HYDROCORTISONE VALERATE 0.2 % CREAM 1 APPLICATION TO AFFECTED AREA EXTERNALLY EVERY OTHER DAY TAKING REQUIP 2 MG TABLET 1 TABLET ORALLY TID TAKING ALBUTEROL 90 MCG/ACT AEROSOL SOLUTION DIRECTED INHALATION TAKING VITAMIN B12 500 MCG TABLET 1 TABLET ORALLY ONCE A DAY TAKING CHOLECALCIFEROL 1.25 MG (29475 UT) CAPSULE 1 CAPSULE ORALLY WEEKLY TAKING AMITRIPTYLINE HCL 10 MG TABLET 1 TABLET AT BEDTIME ORALLY ONCE A DAY NOT-TAKING CARBIDOPA-LEVODOPA 25-100 MG TABLET 1/2 TABLET ORALLY TID NOT-TAKING DULOXETINE HCL 30 MG CAPSULE DELAYED RELEASE PARTICLES 1 CAPSULE ORALLY FOR PAIN BID MDD2 NOT-TAKING TIZANIDINE HCL 2 MG TABLET 1 TABLET NEEDED ORALLY FOR SPASMS AND PAIN BEFORE BEDTIME MAY REAPT IN 4HRS MDD2 NOT-TAKING HYDROCODONE-ACETAMINOPHEN 5-325 MG TABLET 1 TABLET NEEDED ORALLY DAILY FOR PAIN. MDD1 NOT-TAKING MAGNESIUM 400 MG CAPSULE DIRECTED ORALLY AT DINNER TIME NOT-TAKING LEVOTHYROXINE SODIUM 50 MCG TABLET 1 TABLET ON AN EMPTY STOMACH IN THE MORNING ORALLY ONCE A DAY NOT-TAKING MAY USE CBD OIL ORALLY NEEDED NOT-TAKING REQUIP 2 MG TABLET 1 TABLET 1 TO 3 HOURS BEFORE BEDTIME ORALLY ONCE A DAY NOT-TAKING CELEBREX 200 MG CAPSULE 1 TAB ORALLY DAILY NOT-TAKING PRILOSEC OTC 20 MG TABLET DELAYED RELEASE 1 CAP ORALLY DAILY NOT-TAKING FLEXERIL 10 MG TABLET 1 TABLET ORALLY TID PRN NOT-TAKING VITAMIN D-3 1000 UNIT CAPSULE 1 CAPSULE ORALLY ONCE A DAY MEDICATION LIST REVIEWED AND RECONCILED WITH THE PATIENT PAST MEDICAL HISTORY NETHERTONS SYNDROME-SKIN PROBLEM ARTHRITIS HEART VALVE LEAKS-ABNORMAL EKG CARPAL TUNNEL SYNDROME LOW BACK PAIN LUMBAR VERTEBRAE FX NOTED ON XRAY 02/2018 HIROSHIMA ALLERGIES PENICILLIN (FOR ALLERGIES USE ONLY): UNKNOWN SEAFOOD: HIVES - ALLERGY LIVE VACCINE - FLU, MMR, SHINGLES: UNKNOWN K Y JELLY: SKIN IRRITATION AND BURNING - ALLERGY LANOLIN: HIVES - ALLERGY SURGICAL HISTORY R CARPAL TUNNEL RELEASE 2015 R CERVICAL DISKECTOMY 06/2016 C SECTION 1988 TUBALIGATION 1988 L4-L5 FUSION 08/2017 FAMILY HISTORY FATHER: ALIVE 74 YRS, DIAGNOSED WITH DIABETES MOTHER: 63 YRS 3 BROTHER(S) , 1 SISTER(S) - HEALTHY. 1 SON(S) , 1 DAUGHTER(S) - HEALTHY. FAMILY HX - HEART FAILURE. SOCIAL HISTORY GENERAL: TOBACCO USE ARE YOU A:FORMER SMOKER HOW LONG HAS IT BEEN SINCE YOU LAST SMOKED?5-10 YEARS LATEX QUESTIONNAIRE LATEX ALLERGY : HAVE YOU EVER DEVELOPED ANY TYPE OF REACTION AFTER HANDLING LATEX PRODUCTS SUCH RUBBER GLOVES, CONDOMS, DIAPHRAGMS, BALLOONS, SOCKS, OR UNDERWEAR?NO LATEX ALLERGY : HAVE YOU EVER DEVELOPED ANY TYPE OF REACTION DURING OR AFTER DENTAL APPOINTMENT, VAGINAL/RECTAL EXAMINATION, SURGICAL PROCEDURE, OR ANY OTHER EXPOSURE?NO DATE ASKED : 10/27/2019 LATEX RISK : HAVE YOU EVER HAD ANY DIFFICULTY BREATHING OR HIVES AFTER EATING OR HANDLING ANY FRUITS, OR VEGETABLES; SUCH KIWI, BANANAS, STONE FRUITS, OR CHESTNUTSNO LATEX RISK : DO YOU HAVE A PREVIOUS PERSONAL HISTORY OF MORE THAN NINE SURGERIES, SPINA BIFIDA, OR REPEATED CATHERIZATIONS? NO LATEX RISK : ARE YOU FREQUENTLY EXPOSED TO LATEX PRODUCTS IN YOUR OCCUPATION?NO ALCOHOL SCREENING DID YOU HAVE A DRINK CONTAINING ALCOHOL IN THE PAST YEAR?NO POINTS0 INTERPRETATIONNEGATIVE RECREATIONAL DRUG USE DRUG USE?NO CAFFEINE CAFFEINE USE?YES 6 CUPS COFFEE/DAY RELIGIOUS [id number] [employer]I LANGUAGE LANGUAGES SPOKEN:BANGLADESHI EDUCATION LEVEL OF EDUCATION:HIGH SCHOOL LEARNING BARRIERS / SPECIAL NEEDS BARRIERS TO LEARNING?NO HEARING IMPAIRED?NO VISION IMPAIRED?YES COGNITIVELY IMPAIRED?NO :CORRECTIVE LENSES READINESS TO LEARN?YES LEARNING PREFERENCES?NO LEARNING CAPABILITIES PRESENT?YES EMOTIONAL BARRIERS?NO SPECIAL DEVICES?YES :CANE, WALKER USES ONE OR THE OTHER AT HOME 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 DIET: REGULAR. EXERCISE: WALKS. NEW PATIENT PAIN DIARY TODAY'S VISITNOTES 10/27/2019 PATIENT DESCRIBES PAIN :ACHING, HAVE IT ALL THE TIME, SHARP, STABBING, THROBBING, SORE, SHOOTING, OTHER NUMB FROM 0-10, WHAT LEVEL IS YOUR PAIN TODAY?5 PRECIPITATING FACTORS LAYING DOWN, SITTING TOO LONG ALLEVIATING FACTORS MEDICATIONS, OCCASSIONALLY HEAT BUT NOT VERY OFTEN IMPACT ON FUNCTION SOMETIMES, WALKING CAN BE DIFFICULT. ALSO LIMITS HER ON WHAT SHE IS ABLE TO DO PAIN CLINIC PFS, CLERGY, PUBLIC HEALTH REFERRALS PFS REFERRAL NEEDED?NO CLERGY REFERRAL NEEDED?NO PUBLIC HEALTH REFERRAL NEEDED?NO HAS THE PATIENT BEEN EDUCATED REGARDING HIS/HER PLAN OF CARE?YES HAS THE PATIENT BEEN EDUCATED REGARDING PAIN, THE RISK FOR PAIN, THE IMPORTANCE OF EFFECTIVE PAIN MANAGEMENT, AND THE PAIN ASSESSMENT PROCESS?YES ADVANCE DIRECTIVE ADVANCE DIRECTIVE DISCUSSED WITH PATIENT:YES PT DOES NOT HAVE ANY ADVANCED DIRECTIVES.SHE STATES ALREADY HAS THE PAPER WORK ON HCP AND IS GOING TO BRING IT INTO THE PAIN CENTER WHEN SHE IS HERE AGAIN TO HAVE US HELP HER COMPLETE THE FORM HOSPITALIZATION/MAJOR DIAGNOSTIC PROCEDURE CHILDBIRTH NECK AND BACK SURGERIES REVIEW OF SYSTEMS CONSTITUTIONAL: ANY RECENT FEVER NO . CHILLS NO . GASTROENTEROLOGY: BOWEL INCONTINENCE NO . ANY NEW CHANGE IN BOWEL CONTROL? NO . HISTORY OF UNUSUAL ABDOMINAL PAIN OR CRAMPING NOT MENTIONED NO . CONSTIPATION NO . GENITOURINARY: ANY NEW CHANGE IN BLADDER CONTROL? NO . IS THERE A CHANCE YOU COULD BE ? NO . URINARY INCONTINENCE NO . CARDIOLOGY: NEW CHEST PRESSURE NO . HISTORY OF CHEST PAIN,IRREGULAR HEART BEAT NOT MENTIONED NO . RESPIRATORY: COUGH NO . SHORTNESS OF BREATH NO . REPORTING UNSTEADY GAIT. VITAL SIGNS WT 193.0 LBS, HT 63 IN, BMI 34.18 INDEX, BP 151/72 MM HG, HR 99 /MIN, RR 18 /MIN, TEMP 97.0 F, OXYGEN SAT % 100%, NA INITIALS AW 1147. EXAMINATION GENERAL EXAMINATION: GENERALAWAKE,ALERT ,PLEASANT . PSYCHAFFECT NORMAL . LUNGS:LUNG PONCE ARE CLEAR TO AUSCULTATION BILATERALLY. GOOD MOVEMENT OF AIR . HEART:S1, S2 IN A REGULAR RATE AND RHYTHM. NO SIGNIFICANT MURMURS, RUBS OR GALLOPS NOTED . 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 OUR RECORDS INDICATE SHE IS ON 10 MG STRENGTH AT NIGHTTIME. SHE STATES SHE IS TAKING 25 MG AT NIGHTTIME. SHE IS WONDERING IF THIS MEDICINE COULD CAUSE MOUTH DRYNESS. SHE WILL INVESTIGATE WITH PHARMACY IN REGARDS TO DOSAGE AND GET BACK TO [place]. PROCEDURE CODES FA211 ESTABILISHED PATIENT [facility] CHARGE DISPOSITION & COMMUNICATION FOLLOW UP 6 WEEKS (REASON: F/U UNSTEADY GAIT X1WK) ELECTRONICALLY SIGNED BY FILEMON WELLS ON 03/30/2020 AT 01:07 PM EDT DISCLAIMER : THIS IS A VISIT SUMMARY EXTRACTED FROM THE [employer] CHART. IT IS NOT A COPY OF THE [employer] PROGRESS NOTE. WIL
== END ==
LOC: M PAIN 11:30
PROVIDERS: ATTEND Nurse Practitioner Family
DX: M48.062 Spinal stenosis, lumbar region with neurogenic claudication (principal); G89.29 Other chronic pain; Z87.891 Personal history of nicotine dependence; Z88.0 Allergy status to penicillin; Z88.7 Allergy status to serum and vaccine; Z91.013 Allergy to seafood; Z91.09 Other allergy status, other than to drugs and biological substances; Z79.899 Other long term (current) drug therapy

== ENCOUNTER → 2020-05-14 | Outpatient (CLI) | payer BC ==
--- NOTE | 2020-05-15 06:01 | ECWPNPC ---
PATIENT NAME: NAVID KIRBY : 1965 GENDER: FEMALE VISIT DATE: 05/14/2020 DISCHARGE DATE: 05/14/20 1230 VISIT LOCKED DATE TIME: PHYSICIAN: STACY THOMASON RESOURCE: STACY THOMASON REASON FOR APPOINTMENT 1. F/U UNSTEADY GAIT X1WK HISTORY OF PRESENT ILLNESS GENERAL: HERE FOR FOLLOW-UP OF CHRONIC LOW BACK PAIN. ALSO HAS RIGHT LEG RADICULAR SYMPTOMS OF NUMBNESS. HAS RESPONDED WELL TO LUMBAR EPIDURAL STEROID INJECTIONS IN THE PAST. REVIEWED MRI OF THE LS-SPINE AND DISCUSS TREATMENT PLAN. -. FALL RISK SCREENING: SCREENING :ONE FALL WITH INJURY IN THE PAST YEAR PAIN SCREENING: PATIENT HAS A COMPLAINT OF ACUTE OR CHRONIC PAIN :YES LOCATION OF PAIN:LOW BACK, LEG(S) INTENSITY OF PAIN (SCALE OF 1 TO 10):5 WHAT DOES YOUR PAIN FEEL LIKE: TINGLING DURATION:CONTINOUS, CONSTANT PAIN IS INCREASED BY:OTHERS SITTING PAIN IS DECREASED BY:OTHERS NOTHING TREATMENT/MEDICATIONS USED TO MANAGE PAIN:OTC PAIN RELIEVERS LEVEL OF RELIEF FROM PAIN TREATMENTS IN THE PAST:0% PAIN HAS INTERFERED WITH THE FOLLOWING:BATHING/DRESSING, WALKING ABILITY, HOUSEWORK, SLEEP, TRANSPORTATION, TOILETING NURSING NOTE: -. PAIN CENTER INTAKE QUESTIONS: DO YOU HAVE A HISTORY OF MRSA? :NO DO YOU TAKE A BLOOD THINNERS? :NO DO YOU HAVE ANY BLEEDING DISORDERS? :NO ANY NEW NUMBNESS OR WEAKNESS IN YOUR LEGS OR ARMS? :NO ANY PACEMAKER,DEFIBRILLATOR, OR DORSAL COLUMN STIMULATOR? :NO DO YOU HAVE ANY RASHES OR OPEN SORES? :NO ARE YOU ALLERGIC TO IV DYE? :NO ARE YOU DIABETIC? :NO ANY NEW PROBLEMS WITH YOUR MEDICATIONS? :NO HAVE YOU RECEIVED A VACCINE IN THE PAST 30 DAYS? :YES IF SO WHAT VACCINE AND WHEN? FLU VACCINE 03/2020 DO YOU PLAN TO RECEIVE A VACCINE IN THE NEXT 21 DAYS? :NO DO YOU NEED ANY PRESCRIPTION? :NO DO YOU TAKE ANY IMMUNOSUPPRESSIVE MEDICATIONS? :NO IS THERE A CHANCE YOU COULD BE ? :NO ARE YOU BREAST FEEDING? :NO CURRENT MEDICATIONS TAKING HYDROXYZINE HCL 25 MG TABLET 2 TAB ORALLY AT BEDTIME TAKING AQUAPHILIC/CARBAMIDE 10 % OINTMENT EXTERNALLY NEEDED. TAKING HYDROCORTISONE VALERATE 0.2 % CREAM 1 APPLICATION TO AFFECTED AREA EXTERNALLY EVERY OTHER DAY TAKING REQUIP 2 MG TABLET 1 TABLET ORALLY TID TAKING ALBUTEROL 90 MCG/ACT AEROSOL SOLUTION DIRECTED INHALATION TAKING VITAMIN B12 500 MCG TABLET 1 TABLET ORALLY ONCE A DAY TAKING CHOLECALCIFEROL 1.25 MG (43383 UT) CAPSULE 1 CAPSULE ORALLY WEEKLY TAKING AMITRIPTYLINE HCL 25 MG TABLET 1 TABLET AT BEDTIME ORALLY ONCE A DAY TAKING TIZANIDINE HCL 2 MG TABLET 1 TABLET NEEDED ORALLY FOR SPASMS AND PAIN BEFORE BEDTIME MAY REAPT IN 4HRS MDD2 NOT-TAKING CARBIDOPA-LEVODOPA 25-100 MG TABLET 1/2 TABLET ORALLY TID NOT-TAKING DULOXETINE HCL 30 MG CAPSULE DELAYED RELEASE PARTICLES 1 CAPSULE ORALLY FOR PAIN BID MDD2 NOT-TAKING HYDROCODONE-ACETAMINOPHEN 5-325 MG TABLET 1 TABLET NEEDED ORALLY DAILY FOR PAIN. MDD1 NOT-TAKING MAGNESIUM 400 MG CAPSULE DIRECTED ORALLY AT DINNER TIME NOT-TAKING LEVOTHYROXINE SODIUM 50 MCG TABLET 1 TABLET ON AN EMPTY STOMACH IN THE MORNING ORALLY ONCE A DAY NOT-TAKING MAY USE CBD OIL ORALLY NEEDED NOT-TAKING REQUIP 2 MG TABLET 1 TABLET 1 TO 3 HOURS BEFORE BEDTIME ORALLY ONCE A DAY NOT-TAKING CELEBREX 200 MG CAPSULE 1 TAB ORALLY DAILY NOT-TAKING PRILOSEC OTC 20 MG TABLET DELAYED RELEASE 1 CAP ORALLY DAILY NOT-TAKING FLEXERIL 10 MG TABLET 1 TABLET ORALLY TID PRN NOT-TAKING VITAMIN D-3 1000 UNIT CAPSULE 1 CAPSULE ORALLY ONCE A DAY MEDICATION LIST REVIEWED AND RECONCILED WITH THE PATIENT PAST MEDICAL HISTORY NETHERTONS SYNDROME-SKIN PROBLEM ARTHRITIS HEART VALVE LEAKS-ABNORMAL EKG CARPAL TUNNEL SYNDROME LOW BACK PAIN LUMBAR VERTEBRAE FX NOTED ON XRAY 02/2018 HIROSHIMA ALLERGIES PENICILLIN (FOR ALLERGIES USE ONLY): UNKNOWN SEAFOOD: HIVES - ALLERGY LIVE VACCINE - FLU, MMR, SHINGLES: UNKNOWN K Y JELLY: SKIN IRRITATION AND BURNING - ALLERGY LANOLIN: HIVES - ALLERGY SURGICAL HISTORY R CARPAL TUNNEL RELEASE 2015 R CERVICAL DISKECTOMY 06/2016 C SECTION 1988 TUBALIGATION 1988 L4-L5 FUSION 08/2017 FAMILY HISTORY FATHER: ALIVE 74 YRS, DIAGNOSED WITH DIABETES MOTHER: 63 YRS 3 BROTHER(S) , 1 SISTER(S) - HEALTHY. 1 SON(S) , 1 DAUGHTER(S) - HEALTHY. FAMILY HX - HEART FAILURE. SOCIAL HISTORY GENERAL: TOBACCO USE ARE YOU A:FORMER SMOKER HOW LONG HAS IT BEEN SINCE YOU LAST SMOKED?5-10 YEARS LATEX QUESTIONNAIRE LATEX ALLERGY : HAVE YOU EVER DEVELOPED ANY TYPE OF REACTION AFTER HANDLING LATEX PRODUCTS SUCH RUBBER GLOVES, CONDOMS, DIAPHRAGMS, BALLOONS, SOCKS, OR UNDERWEAR?NO LATEX ALLERGY : HAVE YOU EVER DEVELOPED ANY TYPE OF REACTION DURING OR AFTER DENTAL APPOINTMENT, VAGINAL/RECTAL EXAMINATION, SURGICAL PROCEDURE, OR ANY OTHER EXPOSURE?NO DATE ASKED : 10/27/2019 LATEX RISK : HAVE YOU EVER HAD ANY DIFFICULTY BREATHING OR HIVES AFTER EATING OR HANDLING ANY FRUITS, OR VEGETABLES; SUCH KIWI, BANANAS, STONE FRUITS, OR CHESTNUTSNO LATEX RISK : DO YOU HAVE A PREVIOUS PERSONAL HISTORY OF MORE THAN NINE SURGERIES, SPINA BIFIDA, OR REPEATED CATHERIZATIONS? NO LATEX RISK : ARE YOU FREQUENTLY EXPOSED TO LATEX PRODUCTS IN YOUR OCCUPATION?NO ALCOHOL SCREENING DID YOU HAVE A DRINK CONTAINING ALCOHOL IN THE PAST YEAR?NO POINTS0 INTERPRETATIONNEGATIVE RECREATIONAL DRUG USE DRUG USE?NO CAFFEINE CAFFEINE USE?YES 6 CUPS COFFEE/DAY CONGREGATIONAL [id number] LATTER-DAY LANGUAGE LANGUAGES SPOKEN:BHUTANESE EDUCATION LEVEL OF EDUCATION:HIGH SCHOOL LEARNING BARRIERS / SPECIAL NEEDS BARRIERS TO LEARNING?NO HEARING IMPAIRED?NO VISION IMPAIRED?YES COGNITIVELY IMPAIRED?NO :CORRECTIVE LENSES READINESS TO LEARN?YES LEARNING PREFERENCES?NO LEARNING CAPABILITIES PRESENT?YES EMOTIONAL BARRIERS?NO SPECIAL DEVICES?YES :CANE, WALKER USES ONE OR THE OTHER AT HOME 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 DIET: REGULAR. EXERCISE: WALKS. TODAY'S VISITNOTES 10/27/2019 PATIENT DESCRIBES PAIN :ACHING, HAVE IT ALL THE TIME, SHARP, STABBING, THROBBING, SORE, SHOOTING, OTHER NUMB FROM 0-10, WHAT LEVEL IS YOUR PAIN TODAY?5 PRECIPITATING FACTORS LAYING DOWN, SITTING TOO LONG ALLEVIATING FACTORS MEDICATIONS, OCCASSIONALLY HEAT BUT NOT VERY OFTEN IMPACT ON FUNCTION SOMETIMES, WALKING CAN BE DIFFICULT. ALSO LIMITS HER ON WHAT SHE IS ABLE TO DO PAIN CLINIC PFS, CLERGY, PUBLIC HEALTH REFERRALS PFS REFERRAL NEEDED?NO CLERGY REFERRAL NEEDED?NO PUBLIC HEALTH REFERRAL NEEDED?NO HAS THE PATIENT BEEN EDUCATED REGARDING HIS/HER PLAN OF CARE?YES HAS THE PATIENT BEEN EDUCATED REGARDING PAIN, THE RISK FOR PAIN, THE IMPORTANCE OF EFFECTIVE PAIN MANAGEMENT, AND THE PAIN ASSESSMENT PROCESS?YES ADVANCE DIRECTIVE ADVANCE DIRECTIVE DISCUSSED WITH PATIENT:YES PT DOES NOT HAVE ANY ADVANCED DIRECTIVES.SHE STATES ALREADY HAS THE PAPER WORK ON HCP AND IS GOING TO BRING IT INTO THE PAIN CENTER WHEN SHE IS HERE AGAIN TO HAVE US HELP HER COMPLETE THE FORM HOSPITALIZATION/MAJOR DIAGNOSTIC PROCEDURE CHILDBIRTH NECK AND BACK SURGERIES VITAL SIGNS WT 196 LBS, HT 63 IN, BMI 34.72 INDEX, BP 161/69 MM HG, HR 67 /MIN, RR 18 /MIN, TEMP 96.9 F, OXYGEN SAT % 100%, SAFE IN ENV? (Y/N) Y, NA INITIALS OR 12:10, REVIEWED BY: EM. EXAMINATION GENERAL EXAMINATION: GENERAL AWAKE,ALERT ,PLEAASANT . PSYCH AFFECT NORMAL . LUNGS: LUNG PONCE ARE CLEAR TO AUSCULTATION BILATERALLY. GOOD MOVEMENT OF AIR . HEART: S1, S2 IN A REGULAR RATE AND RHYTHM. NO SIGNIFICANT MURMURS, RUBS OR GALLOPS NOTED . MUSCULOSKELETAL:MST 5/5 BILAT. LOWER EXTREMITIES. LUMBAR: PALPATION: + FOR PAIN OVER L/S SPINE. + FOR PAIN OVER L/S PARASPINALS. NEUROLOGIC EXAM: NORMAL SENSATION LIGHT TOUCH BILAT. LOWER EXTREMITIES. DIAGNOSTIC TESTS REVIEWEDCT L/S SPINE 2018. ASSESSMENTS INTERVERTEBRAL DISC DISORDERS WITH RADICULOPATHY, LUMBAR REGION - M51.16 (PRIMARY) TREATMENT INTERVERTEBRAL DISC DISORDERS WITH RADICULOPATHY, LUMBAR REGION NOTES: L4/5 LESI. PROCEDURE CODES FA211 ESTABILISHED PATIENT [facility] FACILITY CHARGE DISPOSITION & COMMUNICATION FOLLOW UP POST PROC (REASON: L4/5 LESI) ELECTRONICALLY SIGNED BY FILEMON WELLS ON 05/14/2020 AT 01:18 PM EST DISCLAIMER : THIS IS A VISIT SUMMARY EXTRACTED FROM THE [employer] CHART. IT IS NOT A COPY OF THE [employer] PROGRESS NOTE. WIL
== END ==
LOC: M PAIN 11:30
PROVIDERS: ATTEND Nurse Practitioner Family
DX: M51.16 Intervertebral disc disorders with radiculopathy, lumbar region (principal); G89.29 Other chronic pain; Z87.891 Personal history of nicotine dependence; Z88.0 Allergy status to penicillin; Z88.7 Allergy status to serum and vaccine; Z91.013 Allergy to seafood; Z91.09 Other allergy status, other than to drugs and biological substances; Z79.899 Other long term (current) drug therapy

== ENCOUNTER → 2020-05-25 | Outpatient (CLI) | payer BC | LOC: M LABSMTC 11:49 | PROVIDERS: ATTEND Anesthesiology | DX: Z20.828 Contact with and (suspected) exposure to other viral communicable diseases (principal) ==

== ENCOUNTER → 2020-05-30 | Outpatient (CLI) | payer BC ==
[~2020-05-30] MED LIST changes: +ISOVUE-M 300 61% 15ML VIAL As Ordered ONE; +LIDOCAINE 1% SDV 30ML VIAL As Ordered ONE; +diazePAM 5MG TABLET As Ordered ONE; +methylPREDNISolone SUSP 40MG/ML 1ML VIAL (DEPO MEDROL) As Ordered ONE; +oxyCODONE 5MG TAB As Ordered ONE
--- NOTE | 2020-05-30 15:58 | REP ---
INDICATION: LUMBAR EPIDURAL STEROID INJECTION. COMPARISON: None. TECHNIQUE: Three views. 8.0 seconds of fluoroscopy time is reported. FINDINGS: A sequence of 3 last image hold fluoroscopically obtained spot radiograph(s) of the lumbar spine document(s) needle position(s) and contrast injection associated with injection procedure. IMPRESSION: Procedural imaging. <Electronically signed by Santiago Fierro > 05/30/20 0476
--- NOTE | 2020-06-02 00:24 | ECWPNPC ---
PATIENT NAME: NAVID KIRBY : 1965 GENDER: FEMALE VISIT DATE: 05/30/2020 DISCHARGE DATE: 05/30/20 1604 VISIT LOCKED DATE TIME: PHYSICIAN: MAKENZIE MAXWELL MD RESOURCE: MAKENZIE MAXWELL MD REASON FOR APPOINTMENT 1. LUMBAR EPIDURAL STEROID INJECTION HISTORY OF PRESENT ILLNESS GENERAL: -. FALL RISK SCREENING: SCREENING :ONE FALL WITHOUT INJURY IN THE PAST YEAR PAIN SCREENING: PATIENT HAS A COMPLAINT OF ACUTE OR CHRONIC PAIN :YES LOCATION OF PAIN:LOW BACK, LEG(S) INTENSITY OF PAIN (SCALE OF 1 TO 10):5 WHAT DOES YOUR PAIN FEEL LIKE:CONTINOUS, THROBBING, SORE DURATION:CONTINOUS, CONSTANT PAIN IS INCREASED BY:ACTIVITIES, PROLONGED STANDING LYING DOWN TOO LONG PAIN IS DECREASED BY:USE OF PAIN MEDICATIONS NURSING NOTE: -. PAIN CENTER INTAKE QUESTIONS: DO YOU HAVE A HISTORY OF MRSA? :NO DO YOU TAKE A BLOOD THINNERS? :NO DO YOU HAVE ANY BLEEDING DISORDERS? :NO ANY NEW NUMBNESS OR WEAKNESS IN YOUR LEGS OR ARMS? :NO ANY PACEMAKER,DEFIBRILLATOR, OR DORSAL COLUMN STIMULATOR? :NO DO YOU HAVE ANY RASHES OR OPEN SORES? :YES HISTORY OF ECZEMA/PSORIASIS ARE YOU ALLERGIC TO IV DYE? :NO ARE YOU DIABETIC? :NO ANY NEW PROBLEMS WITH YOUR MEDICATIONS? :NO HAVE YOU RECEIVED A VACCINE IN THE PAST 30 DAYS? :NO DO YOU PLAN TO RECEIVE A VACCINE IN THE NEXT 21 DAYS? :NO DO YOU TAKE ANY IMMUNOSUPPRESSIVE MEDICATIONS? :NO ANY HISTORY OF SEIZURES? :NO ANY HISTORY OF CARDIAC ISSUES OR EVENTS? :YES PATIENT STATES HISTORY OF "LEAKY VALVE" DO YOU HAVE SLEEP APNEA? :YES DO YOU WEAR A CPAP?NO ANY RECENT HEAD INJURY? :NO DO YOU HAVE ANY NEW INFECTIONS? :NO IS THERE A CHANCE YOU COULD BE ? :NO ARE YOU BREAST FEEDING? :NO WHEN DID YOU LAST EAT? : 05/29 1900 WHEN DID YOU LAST DRINK? : 05/30 1130 WHAT DID YOU LAST DRINK? : WATER NAME OF PERSON DRIVING YOU HOME? : SPOUSE-MAXIMINO DO YOU HAVE ANY OTHER QUESTIONS OR CONCERNS? : NONE CURRENT MEDICATIONS TAKING HYDROXYZINE HCL 25 MG TABLET 2 TAB ORALLY AT BEDTIME, NOTES: 05/30 100 TAKING HYDROCORTISONE VALERATE 0.2 % CREAM 1 APPLICATION TO AFFECTED AREA EXTERNALLY EVERY OTHER DAY, NOTES: NONE RECENT TAKING REQUIP 2 MG TABLET 1 TABLET ORALLY TID, NOTES: 05/30 130 TAKING ALBUTEROL 90 MCG/ACT AEROSOL SOLUTION DIRECTED INHALATION , NOTES: NONE RECENT TAKING VITAMIN B12 500 MCG TABLET 1 TABLET ORALLY ONCE A DAY, NOTES: 05/30 800 TAKING CHOLECALCIFEROL 1.25 MG (22794 UT) CAPSULE 1 CAPSULE ORALLY WEEKLY, NOTES: 05/26 TAKING AMITRIPTYLINE HCL 25 MG TABLET 1 TABLET AT BEDTIME ORALLY ONCE A DAY, NOTES: 05/30 130 TAKING TIZANIDINE HCL 2 MG TABLET 1 TABLET NEEDED ORALLY FOR SPASMS AND PAIN BEFORE BEDTIME MAY REAPT IN 4HRS MDD2, NOTES: 05/30 100 TAKING XEMATOP BASE - CREAM DIRECTED EXTERNALLY WITH CAMPHOR, NOTES: 05/30 TAKING MULTIVITAMIN - TABLET 1 TABLET ORALLY ONCE A DAY, NOTES: 05/27 NOT-TAKING AQUAPHILIC/CARBAMIDE 10 % OINTMENT EXTERNALLY NEEDED. NOT-TAKING CARBIDOPA-LEVODOPA 25-100 MG TABLET 1/2 TABLET ORALLY TID NOT-TAKING DULOXETINE HCL 30 MG CAPSULE DELAYED RELEASE PARTICLES 1 CAPSULE ORALLY FOR PAIN BID MDD2 NOT-TAKING HYDROCODONE-ACETAMINOPHEN 5-325 MG TABLET 1 TABLET NEEDED ORALLY DAILY FOR PAIN. MDD1 NOT-TAKING MAGNESIUM 400 MG CAPSULE DIRECTED ORALLY AT DINNER TIME NOT-TAKING LEVOTHYROXINE SODIUM 50 MCG TABLET 1 TABLET ON AN EMPTY STOMACH IN THE MORNING ORALLY ONCE A DAY NOT-TAKING MAY USE CBD OIL ORALLY NEEDED NOT-TAKING REQUIP 2 MG TABLET 1 TABLET 1 TO 3 HOURS BEFORE BEDTIME ORALLY ONCE A DAY NOT-TAKING CELEBREX 200 MG CAPSULE 1 TAB ORALLY DAILY NOT-TAKING PRILOSEC OTC 20 MG TABLET DELAYED RELEASE 1 CAP ORALLY DAILY NOT-TAKING FLEXERIL 10 MG TABLET 1 TABLET ORALLY TID PRN NOT-TAKING VITAMIN D-3 1000 UNIT CAPSULE 1 CAPSULE ORALLY ONCE A DAY MEDICATION LIST REVIEWED AND RECONCILED WITH THE PATIENT PAST MEDICAL HISTORY NETHERTONS SYNDROME-SKIN PROBLEM ARTHRITIS HEART VALVE LEAKS-ABNORMAL EKG CARPAL TUNNEL SYNDROME LOW BACK PAIN LUMBAR VERTEBRAE FX NOTED ON XRAY 02/2018 HIROSHIMA ALLERGIES PENICILLIN (FOR ALLERGIES USE ONLY): UNKNOWN SEAFOOD: HIVES - ALLERGY LIVE VACCINE - FLU, MMR, SHINGLES: UNKNOWN K Y JELLY: SKIN IRRITATION AND BURNING - ALLERGY LANOLIN: HIVES - ALLERGY SURGICAL HISTORY R CARPAL TUNNEL RELEASE 2015 R CERVICAL DISKECTOMY 06/2016 C SECTION 1988 TUBALIGATION 1988 L4-L5 FUSION 08/2017 FAMILY HISTORY FATHER: ALIVE 74 YRS, DIAGNOSED WITH DIABETES MOTHER: 63 YRS 3 BROTHER(S) , 1 SISTER(S) - HEALTHY. 1 SON(S) , 1 DAUGHTER(S) - HEALTHY. FAMILY HX - HEART FAILURE. SOCIAL HISTORY GENERAL: TOBACCO USE ARE YOU A:FORMER SMOKER HOW LONG HAS IT BEEN SINCE YOU LAST SMOKED?5-10 YEARS LATEX QUESTIONNAIRE LATEX ALLERGY : HAVE YOU EVER DEVELOPED ANY TYPE OF REACTION AFTER HANDLING LATEX PRODUCTS SUCH RUBBER GLOVES, CONDOMS, DIAPHRAGMS, BALLOONS, SOCKS, OR UNDERWEAR?NO LATEX ALLERGY : HAVE YOU EVER DEVELOPED ANY TYPE OF REACTION DURING OR AFTER DENTAL APPOINTMENT, VAGINAL/RECTAL EXAMINATION, SURGICAL PROCEDURE, OR ANY OTHER EXPOSURE?NO LATEX RISK : HAVE YOU EVER HAD ANY DIFFICULTY BREATHING OR HIVES AFTER EATING OR HANDLING ANY FRUITS, OR VEGETABLES; SUCH KIWI, BANANAS, STONE FRUITS, OR CHESTNUTSNO LATEX RISK : DO YOU HAVE A PREVIOUS PERSONAL HISTORY OF MORE THAN NINE SURGERIES, SPINA BIFIDA, OR REPEATED CATHERIZATIONS? NO LATEX RISK : ARE YOU FREQUENTLY EXPOSED TO LATEX PRODUCTS IN YOUR OCCUPATION?NO DATE ASKED : 05/29/2020 ALCOHOL SCREENING DID YOU HAVE A DRINK CONTAINING ALCOHOL IN THE PAST YEAR?NO POINTS0 INTERPRETATIONNEGATIVE RECREATIONAL DRUG USE DRUG USE?NO CAFFEINE CAFFEINE USE?YES 6 CUPS COFFEE/DAY BUDDHIST [id number] [employer]ANG[employer]AGE LANGUAGES SPOKEN:KENYAN EDUCATION LEVEL OF EDUCATION:HIGH SCHOOL LEARNING BARRIERS / SPECIAL NEEDS BARRIERS TO LEARNING?NO HEARING IMPAIRED?NO VISION IMPAIRED?YES :CORRECTIVE LENSES COGNITIVELY IMPAIRED?NO READINESS TO LEARN?YES LEARNING PREFERENCES?NO LEARNING CAPABILITIES PRESENT?YES EMOTIONAL BARRIERS?NO SPECIAL DEVICES?NO CHARGING PLUG PLACER NEEDED?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 DIET: REGULAR. EXERCISE: WALKS. TODAY'S VISITNOTES 10/27/2019 PATIENT DESCRIBES PAIN :ACHING, HAVE IT ALL THE TIME, SHARP, STABBING, THROBBING, SORE, SHOOTING, OTHER NUMB FROM 0-10, WHAT LEVEL IS YOUR PAIN TODAY?5 PRECIPITATING FACTORS LAYING DOWN, SITTING TOO LONG ALLEVIATING FACTORS MEDICATIONS, OCCASSIONALLY HEAT BUT NOT VERY OFTEN IMPACT ON FUNCTION SOMETIMES, WALKING CAN BE DIFFICULT. ALSO LIMITS HER ON WHAT SHE IS ABLE TO DO PAIN CLINIC PFS, CLERGY, PUBLIC HEALTH REFERRALS PFS REFERRAL NEEDED?NO CLERGY REFERRAL NEEDED?NO PUBLIC HEALTH REFERRAL NEEDED?NO HAS THE PATIENT BEEN EDUCATED REGARDING HIS/HER PLAN OF CARE?YES HAS THE PATIENT BEEN EDUCATED REGARDING PAIN, THE RISK FOR PAIN, THE IMPORTANCE OF EFFECTIVE PAIN MANAGEMENT, AND THE PAIN ASSESSMENT PROCESS?YES ADVANCE DIRECTIVE ADVANCE DIRECTIVE DISCUSSED WITH PATIENT:YES 05/30/2020 PT DOES NOT HAVE ANY ADVANCED DIRECTIVES.SHE STATES ALREADY HAS THE PAPER WORK ON HCP AND IS GOING TO BRING IT INTO THE PAIN CENTER WHEN SHE IS HERE AGAIN TO HAVE US HELP HER COMPLETE THE FORM PAT REVIEWED WITH PATIENT 05/29. HOSPITALIZATION/MAJOR DIAGNOSTIC PROCEDURE CHILDBIRTH NECK AND BACK SURGERIES VITAL SIGNS WT 190.8 LBS, HT 63 IN, BMI 33.80 INDEX, BP 153/83 MM HG, HR 98 /MIN, RR 18 /MIN, TEMP 97.5 F, OXYGEN SAT % 100%, SAFE IN ENV? (Y/N) Y, NA INITIALS SC 14:16, REVIEWED BY: Dank RECIO RN 1425. EXAMINATION GENERAL EXAMINATION: THE PATIENT IS ALERT, ORIENTED TIMES THREE AND COOPERATIVE. HEART SHOWS REGULAR RHYTHM, NO MURMURS AND NO GALLOPS. LUNGS ARE CLEAR TO AUSCULTATION. ASSESSMENTS INTERVERTEBRAL DISC DISORDER WITH RADICULOPATHY OF LUMBOSACRAL REGION - M51.17 (PRIMARY) TREATMENT INTERVERTEBRAL DISC DISORDER WITH RADICULOPATHY OF LUMBOSACRAL REGION [facility] FLUORO GUIDE SPINE INJECTION (PAIN)[id number] MEDICATION: VALIUM TAB 10MG ORALLY (DIAZEPAM)LAUREN RECIO 05/30/2020 2:34:04 PM > LOT # [id number] EXP 12/2020 AJAY FRANCO 05/30/2020 2:35:56 PM > VERIFIED. LAUREN RECIO 05/30/2020 2:43:42 PM > ADMINISTERED MEDICATION: OXYCODONE HCL TAB 10MG ORALLYDELAUREN ALFARO 05/30/2020 2:34:54 PM > LOT # [id number] EXP. 07/2021 AJAY FRANCO 05/30/2020 2:36:10 PM > VERIFIED. LAUREN RECIO 05/30/2020 2:43:59 PM > ADMINISTERED PROCEDURES PAIN NURSING RECORD PRE-PROCEDURE IV SITE N/A, PRE-PROCEDURE ORAL MEDICATIONS SEE MEDICATION ORDERS PROCEDURE IN ROOM 1510, PHYSICIAN IN ROOM 1522, START 1527, FINISH 1532, PHYSICIAN OUT OF ROOM 1536, OUT OF ROOM 1543, STEROID DEPOMEDROL, O2 RA, ECG NORMAL SINUS, PATIENT SHIELDED YES, SAFETY STRAP YES, PREP BETADINE BY Douglas KIDD RN, IV INFUSED N/A, DRESSING TEGADERM BY DR. MAXWELL LOC: [place] 05/30/2020 2:46:03 PM > 1. ALERT, ORIENTED [facility] 05/30/2020 3:49:44 PM > 1. ALERT, ORIENTED RESP: [place] 05/30/2020 2:46:06 PM > 1. REGULAR, NO DYSPNEA [facility] 05/30/2020 3:49:49 PM > 1. REGULAR, NO DYSPNEA COLOR: [place] 05/30/2020 2:46:09 PM > 1. PINK [facility] 05/30/2020 3:49:53 PM > 1. PINK SKIN: [facility] 05/30/2020 2:46:12 PM > 1. WARM, DRY [facility] 05/30/2020 3:50:01 PM > 1. WARM, DRY POSITION: [facility] 05/30/2020 3:11:08 PM > 1. PRONE [facility] 05/30/2020 3:50:08 PM > 4. OTHER-SITTING VITALS: [facility] 05/30/2020 3:15:20 PM > 172/78,74,18,100% [facility] 05/30/2020 3:27:44 PM > 138/63, 82,16,100% [facility] 05/30/2020 3:41:01 PM > 156/92,84,16,99% [facility] 05/30/2020 3:56:12 PM > 155/88,86,16,100% DISCHARGE: POST PAIN 0, DRESSING SITE DRY AND INTACT, IV N/A, GAIT STEADY, TEACHING COMPLETED, PATIENT ACKNOWLEDGES UNDERSTANDING YES, PATIENT DISCHARGED AT 1602 PRE PROCEDURE DIAGNOSIS LUMBOSACRAL DISC DISORDER WITH RADICULOPATHY POST PROCEDURE DIAGNOSIS LUMBOSACRAL DISC DISORDER WITH RADICULOPATHY PROCEDURE LUMBAR EPIDURAL STEROID INJECTION UNDER FLUOROSCOPIC GUIDANCE SURGEON DR. MAKENZIE MAXWELL RADIAL ROUTER OPERATOR NONE ANESTHESIA LOCAL PRE PROCEDURE NOTE THE PATIENT HAS A HISTORY OF CHRONIC LOW BACK PAIN. I EVALUATED THE PATIENT AND REVIEWED THE CHART. I WENT OVER THE RISKS, ALTERNATIVES, AND BENEFITS ASSOCIATED WITH THIS PROCEDURE. I DISCUSSED THAT THE USE OF STEROIDS MAY CONTRIBUTE TO IMMUNOSUPPRESSION OF THE PATIENT'S BODY AGAINST INFECTIONS SUCH COVID-19. THE PATIENT IS AWARE OF THE POTENTIAL COMPLICATIONS ASSOCIATED WITH THIS VIRUS, INCLUDING, BUT NOT LIMITED TO, . THE PATIENT WOULD LIKE TO PROCEED AND GIVE CONSENT TO PERFORMED THE PROCEDURE. THE PATIENT DENIES UNEXPLAINABLE WEIGHT LOSS, FEVER, CHILLS, OR NEW CHANGES IN URINARY OR BOWEL CONTROL. THE PATIENT IS COVID-19 NEGATIVE DESCRIPTION OF PROCEDURE THE PATIENT WAS BROUGHT TO THE PROCEDURE ROOM AND PLACED IN THE PRONE POSITION. THE LUMBOSACRAL AREA WAS CLEANED WITH BETADINE SOLUTION AND DRAPED ASEPTICALLY. THE PROCEDURE WAS DONE UNDER STERILE CONDITIONS. A TIMEOUT WAS PERFORMED WHERE LATERALITY AND THE SITE OF THE PROCEDURE WERE CHECKED AND CONFIRMED WITH EVERYONE IN THE ROOM. UNDER FLUOROSCOPIC GUIDANCE, THE TARGET POINT WAS SELECTED AT THE INTERLAMINAR LEVEL OF L5-S1. I CONFIRMED AGAIN WITH EVERYONE IN THE ROOM THE LATERALITY OF THE TARGET 1525. LIDOCAINE WAS USED TO NUMB THE SKIN AND THE SUBCUTANEOUS TISSUE BELOW IT. EPIDURAL TUOHY NEEDLE, 17-GAUGE, WAS ADVANCED UNDER FLUOROSCOPIC GUIDANCE AND FOLLOWING PATIENT FEEDBACK UNTIL THE EPIDURAL SPACE WAS REACHED 8 CM DEEP INTO THE SKIN BY THE LOSS OF RESISTANCE TECHNIQUE. ISOVUE-M DYE 30%, 0.25 ML, WAS INJECTED SHOWING ADEQUATE SPREAD OF THE DYE. THEN, A SOLUTION OF 3 ML OF NORMAL SALINE WITH DEPO-MEDROL 80 MG WAS INJECTED SLOWLY FOLLOWING PATIENT FEEDBACK. THE MEDICATIONS WERE VERIFIED WITH THE NURSE. THERE WAS NO EVIDENCE OF BLOOD, PARESTHESIA OR CEREBROSPINAL FLUID DURING THE PROCEDURE. THE PATIENT WAS SENT TO THE RECOVERY ROOM. THE PATIENT WAS MOVING THE EXTREMITIES AND DOING WELL. THERE WERE NO COMPLICATIONS DURING THE PROCEDURE. ESTIMATED BLOOD LOSS WAS LESS THAN 5 ML. FLUOROSCOPY TIME WAS 7 SECONDS POST PROCEDURE NOTE THE PATIENT WILL BE SEEN IN A FOLLOW UP IN THE NEXT FEW WEEKS. I AM LOOKING FOR LONG LASTING RELIEF FOR THE PATIENT WITH THIS INTERVENTION. INSTRUCTIONS WERE GIVEN, QUESTIONS WERE ANSWERED, AND THE PATIENT EXPRESSED UNDERSTANDING AND AGREES WITH THE PLAN. I, KATHRYN DOMINIQUE, DOCUMENTED THE ABOVE INFORMATION ACTING A SCRIBE FOR DR. MAXWELL. I HAVE REVIEWED THE ABOVE DOCUMENT, WRITTEN BY KATHRYN DOMINIQUE, PROGRAM MANAGEMENT PROFESSIONAL, AND I VERIFY THAT IT IS ACCURATE PROCEDURE CODES 87178 LUMBAR/SACRAL W/ IMAGING DISPOSITION & COMMUNICATION FOLLOW UP FOLLOW UP WITH LOGGING CONTRACTOR (REASON: POST LUMBAR EPIDURAL STEROID INJECTION) ELECTRONICALLY SIGNED BY MAKENZIE MAXWELL MD, MD ON 06/01/2020 AT 12:52 PM EST DISCLAIMER : THIS IS A VISIT SUMMARY EXTRACTED FROM THE [employer] CHART. IT IS NOT A COPY OF THE [employer] PROGRESS NOTE. [id number]
== END ==
LOC: M PAIN 14:00
PROVIDERS: ATTEND Anesthesiology
DX: M51.17 Intervertebral disc disorders with radiculopathy, lumbosacral region (principal); G47.30 Sleep apnea, unspecified; Z87.891 Personal history of nicotine dependence; Z88.0 Allergy status to penicillin; Z88.7 Allergy status to serum and vaccine; Z88.8 Allergy status to other drugs, medicaments and biological substances; Z91.013 Allergy to seafood; Z79.899 Other long term (current) drug therapy
CPT/HCPCS: 62323; J1030; Q9967

== ENCOUNTER → 2020-06-12 | Outpatient (CLI) | payer BC ==
[~2020-06-12] MED LIST changes: -ISOVUE-M 300 61% 15ML VIAL As Ordered ONE; -LIDOCAINE 1% SDV 30ML VIAL As Ordered ONE; -diazePAM 5MG TABLET As Ordered ONE; -methylPREDNISolone SUSP 40MG/ML 1ML VIAL (DEPO MEDROL) As Ordered ONE; -oxyCODONE 5MG TAB As Ordered ONE
--- NOTE | 2020-06-21 02:30 | ECWPNPC ---
PATIENT NAME: NAVID KIRBY : 1965 GENDER: FEMALE VISIT DATE: 06/12/2020 DISCHARGE DATE: 06/12/20 1424 VISIT LOCKED DATE TIME: PHYSICIAN: STACY THOMASON RESOURCE: STACY THOMASON REASON FOR APPOINTMENT 1. POST LUMBAR EPIDURAL STEROID INJECTION L4-L5 HISTORY OF PRESENT ILLNESS GENERAL: HERE FOR F/U POST PROCEDURE.REPORTING IMPROVEMENT IN LOW BACK PAIN AND SOME IMPROVEMENT IN LEG PAIN POST PROCEDURE. COMPLAING OF RIGHT HIP PAIN. -. FALL RISK SCREENING: SCREENING :ONE FALL WITHOUT INJURY IN THE PAST YEAR PAIN SCREENING: PATIENT HAS A COMPLAINT OF ACUTE OR CHRONIC PAIN :YES LOCATION OF PAIN:BACK INTENSITY OF PAIN (SCALE OF 1 TO 10):1 WHAT DOES YOUR PAIN FEEL LIKE:ACHING NURSING NOTE: -. PAIN CENTER INTAKE QUESTIONS: DO YOU HAVE A HISTORY OF MRSA? :NO DO YOU TAKE A BLOOD THINNERS? :NO DO YOU HAVE ANY BLEEDING DISORDERS? :NO ANY NEW NUMBNESS OR WEAKNESS IN YOUR LEGS OR ARMS? :NO ANY PACEMAKER,DEFIBRILLATOR, OR DORSAL COLUMN STIMULATOR? :NO DO YOU HAVE ANY RASHES OR OPEN SORES? :NO ARE YOU ALLERGIC TO IV DYE? :NO ARE YOU DIABETIC? :NO ANY NEW PROBLEMS WITH YOUR MEDICATIONS? :NO HAVE YOU RECEIVED A VACCINE IN THE PAST 30 DAYS? :NO DO YOU PLAN TO RECEIVE A VACCINE IN THE NEXT 21 DAYS? :NO DO YOU NEED ANY PRESCRIPTION? :NO DO YOU TAKE ANY IMMUNOSUPPRESSIVE MEDICATIONS? :NO IS THERE A CHANCE YOU COULD BE ? :NO ARE YOU BREAST FEEDING? :NO CURRENT MEDICATIONS TAKING HYDROXYZINE HCL 25 MG TABLET 2 TAB ORALLY AT BEDTIME, NOTES: 05/30 100 TAKING HYDROCORTISONE VALERATE 0.2 % CREAM 1 APPLICATION TO AFFECTED AREA EXTERNALLY EVERY OTHER DAY, NOTES: NONE RECENT TAKING REQUIP 2 MG TABLET 1 TABLET ORALLY TID, NOTES: 05/30 130 TAKING ALBUTEROL 90 MCG/ACT AEROSOL SOLUTION DIRECTED INHALATION , NOTES: NONE RECENT TAKING VITAMIN B12 500 MCG TABLET 1 TABLET ORALLY ONCE A DAY, NOTES: 05/30 800 TAKING CHOLECALCIFEROL 1.25 MG ([id number] UT) CAPSULE 1 CAPSULE ORALLY WEEKLY, NOTES: 05/26 TAKING AMITRIPTYLINE HCL 25 MG TABLET 1 TABLET AT BEDTIME ORALLY ONCE A DAY, NOTES: 05/30 130 TAKING TIZANIDINE HCL 2 MG TABLET 1 TABLET NEEDED ORALLY FOR SPASMS AND PAIN BEFORE BEDTIME MAY REAPT IN 4HRS MDD2, NOTES: 05/30 0100 TAKING XEMATOP BASE - CREAM DIRECTED EXTERNALLY WITH MELIDAR, NOTES: 05/30 0000 TAKING MULTIVITAMIN - TABLET 1 TABLET ORALLY ONCE A DAY, NOTES: 05/27 NOT-TAKING AQUAPHILIC/CARBAMIDE 10 % OINTMENT EXTERNALLY NEEDED. NOT-TAKING CARBIDOPA-LEVODOPA 25-100 MG TABLET 1/2 TABLET ORALLY TID NOT-TAKING DULOXETINE HCL 30 MG CAPSULE DELAYED RELEASE PARTICLES 1 CAPSULE ORALLY FOR PAIN BID MDD2 NOT-TAKING HYDROCODONE-ACETAMINOPHEN 5-325 MG TABLET 1 TABLET NEEDED ORALLY DAILY FOR PAIN. MDD1 NOT-TAKING MAGNESIUM 400 MG CAPSULE DIRECTED ORALLY AT DINNER TIME NOT-TAKING LEVOTHYROXINE SODIUM 50 MCG TABLET 1 TABLET ON AN EMPTY STOMACH IN THE MORNING ORALLY ONCE A DAY NOT-TAKING MAY USE CBD OIL ORALLY NEEDED NOT-TAKING REQUIP 2 MG TABLET 1 TABLET 1 TO 3 HOURS BEFORE BEDTIME ORALLY ONCE A DAY NOT-TAKING CELEBREX 200 MG CAPSULE 1 TAB ORALLY DAILY NOT-TAKING PRILOSEC OTC 20 MG TABLET DELAYED RELEASE 1 CAP ORALLY DAILY NOT-TAKING FLEXERIL 10 MG TABLET 1 TABLET ORALLY TID PRN NOT-TAKING VITAMIN D-3 1000 UNIT CAPSULE 1 CAPSULE ORALLY ONCE A DAY MEDICATION LIST REVIEWED AND RECONCILED WITH THE PATIENT PAST MEDICAL HISTORY NETHERTONS SYNDROME-SKIN PROBLEM ARTHRITIS HEART VALVE LEAKS-ABNORMAL EKG CARPAL TUNNEL SYNDROME LOW BACK PAIN LUMBAR VERTEBRAE FX NOTED ON XRAY 02/2018 HIROSHIMA ALLERGIES PENICILLIN (FOR ALLERGIES USE ONLY): UNKNOWN SEAFOOD: HIVES - ALLERGY LIVE VACCINE - FLU, MMR, SHINGLES: UNKNOWN K Y JELLY: SKIN IRRITATION AND BURNING - ALLERGY LANOLIN: HIVES - ALLERGY SURGICAL HISTORY R CARPAL TUNNEL RELEASE 2016 R CERVICAL DISKECTOMY 06/2016 C SECTION 1988 TUBALIGATION 1988 L4-L5 FUSION 08/2017 FAMILY HISTORY FATHER: ALIVE 74 YRS, DIAGNOSED WITH DIABETES MOTHER: 63 YRS 3 BROTHER(S) , 1 SISTER(S) - HEALTHY. 1 SON(S) , 1 DAUGHTER(S) - HEALTHY. FAMILY HX - HEART FAILURE. HOSPITALIZATION/MAJOR DIAGNOSTIC PROCEDURE CHILDBIRTH NECK AND BACK SURGERIES REVIEW OF SYSTEMS CONSTITUTIONAL: ANY RECENT FEVER NO . CHILLS NO . WEIGHT CHANGE OF UNKNOWN REASONS NO . GASTROENTEROLOGY: NEW UNEXPLAINABLE CHANGES IN BOWEL CONTROL NO . CONSTIPATION NO . GENITOURINARY: ANY NEW CHANGE IN BLADDER CONTROL? NO . NEUROLOGY: NEW ONSET DIZZINESS OR NEUROLOGICAL CHANGES NOT MENTIONED NO . NEW NUMBNESS OR PAIN PATTERNS NOT MENTIONED AND PERTINENT TO TODAY'S VISIT NO . CARDIOLOGY: NEW CHEST PRESSURE NO . NEW CHEST PAIN NO . RESPIRATORY: UNEXPLAINABLE COUGH NO . NEW SHORTNESS OF BREATH NO . VITAL SIGNS WT 190.8 LBS, HT 63 IN, BMI 33.80 INDEX, BP 162/72 MM HG, HR 74 /MIN, RR 18 /MIN, TEMP 96.7 F, OXYGEN SAT % 100%, NA INITIALS SC 13:56. EXAMINATION GENERAL EXAMINATION: GENERALAWAKE,ALERT ,PLEASANT . PSYCHAFFECT NORMAL . LUNGS:LUNG PONCE ARE CLEAR TO AUSCULTATION BILATERALLY. GOOD MOVEMENT OF AIR . HEART:S1, S2 IN A REGULAR RATE AND RHYTHM. NO SIGNIFICANT MURMURS, RUBS OR GALLOPS NOTED . ASSESSMENTS OTHER CHRONIC PAIN - G89.29 (PRIMARY) LUMBOSACRAL RADICULOPATHY - M54.17 TREATMENT OTHER CHRONIC PAIN PAIN PROCEDURE LOGDATE OF [id number]:LUMBAR EPIDURAL WITH STEROID INJECTIONAMOUNT OF PRE [id number] VALIUM 10 OXYCODONERESULT:IMPROVEMENT IN PAIN CONTINUES TODAY PROCEDURE CODES FA211 ESTABILISHED PATIENT [facility] FACILITY CHARGE DISPOSITION & COMMUNICATION FOLLOW UP 3 MONTHS (REASON: MED MGNT) ELECTRONICALLY SIGNED BY FILEMON WELLS ON 06/20/2020 AT 09:34 AM EST DISCLAIMER : THIS IS A VISIT SUMMARY EXTRACTED FROM THE [employer] CHART. IT IS NOT A COPY OF THE [employer] PROGRESS NOTE. WIL
== END ==
LOC: M PAIN 13:45
PROVIDERS: ATTEND Nurse Practitioner Family
DX: M54.17 Radiculopathy, lumbosacral region (principal); G89.29 Other chronic pain; Z88.0 Allergy status to penicillin; Z88.7 Allergy status to serum and vaccine; Z88.8 Allergy status to other drugs, medicaments and biological substances; Z91.013 Allergy to seafood; Z91.09 Other allergy status, other than to drugs and biological substances; Z79.899 Other long term (current) drug therapy

== ENCOUNTER → 2020-09-07 | Outpatient (CLI) | payer BC ==
--- NOTE | 2020-09-13 02:40 | ECWPNPC ---
PATIENT NAME: NAVID KIRBY : 1965 GENDER: FEMALE VISIT DATE: 09/07/2020 DISCHARGE DATE: 09/07/20 1207 VISIT LOCKED DATE TIME: PHYSICIAN: STACY THOMASON RESOURCE: STACY THOMASON REASON FOR APPOINTMENT 1. MED MGNT/BACK HISTORY OF PRESENT ILLNESS DEPRESSION SCREENING: PHQ-2 (2015 EDITION) LITTLE INTEREST OR PLEASURE IN DOING THINGS?NOT AT ALL FEELING DOWN, DEPRESSED, OR HOPELESS?NOT AT ALL TOTAL SCORE0 GENERAL: HERE FOR FOLLOW-UP OF CHRONIC LOW BACK PAIN WITH BILATERAL LOWER EXTREMITY RADICULAR SYMPTOMS. PAIN HAS BEGUN TO RETURN TO BASELINE. RESPONDS WELL TO LUMBAR EPIDURAL STEROID INJECTIONS. DISCUSSED MEDICATION AND TREATMENT PLAN. REVIEWED MRI OF THE LUMBOSACRAL SPINE.-. FALL RISK SCREENING: SCREENING : NO FALLS REPORTED IN THE LAST YEAR. PAIN SCREENING: PATIENT HAS A COMPLAINT OF ACUTE OR CHRONIC PAIN :YES LOCATION OF PAIN:LOW BACK, LEG(S) BOTH LEGS INTENSITY OF PAIN (SCALE OF 1 TO 10):6 WHAT DOES YOUR PAIN FEEL LIKE:STABBING, THROBBING DURATION:CONTINOUS, CONSTANT, ALL DAY PAIN IS INCREASED BY:ACTIVITIES PAIN IS DECREASED BY:OTHERS " NOTHING " NURSING NOTE: -. PAIN CENTER INTAKE QUESTIONS: DO YOU HAVE A HISTORY OF MRSA? :NO DO YOU TAKE A BLOOD THINNERS? :NO DO YOU HAVE ANY BLEEDING DISORDERS? :NO ANY NEW NUMBNESS OR WEAKNESS IN YOUR LEGS OR ARMS? :NO ANY PACEMAKER,DEFIBRILLATOR, OR DORSAL COLUMN STIMULATOR? :NO DO YOU HAVE ANY RASHES OR OPEN SORES? :NO ARE YOU ALLERGIC TO IV DYE? :NO ARE YOU DIABETIC? :NO ANY NEW PROBLEMS WITH YOUR MEDICATIONS? :NO HAVE YOU RECEIVED A VACCINE IN THE PAST 30 DAYS? :YES IF SO WHAT VACCINE AND WHEN? 1ST COVID 08/16/2020 DO YOU PLAN TO RECEIVE A VACCINE IN THE NEXT 21 DAYS? :YES IF SO WHAT VACCINE AND WHEN? 2ND COVID 09/13/2020 DO YOU NEED ANY PRESCRIPTION? :NO DO YOU TAKE ANY IMMUNOSUPPRESSIVE MEDICATIONS? :NO IS THERE A CHANCE YOU COULD BE ? :NO ARE YOU BREAST FEEDING? :NO CURRENT MEDICATIONS TAKING HYDROXYZINE HCL 25 MG TABLET 2 TAB ORALLY AT BEDTIME TAKING HYDROCORTISONE VALERATE 0.2 % CREAM 1 APPLICATION TO AFFECTED AREA EXTERNALLY EVERY OTHER DAY TAKING REQUIP 2 MG TABLET 1 TABLET ORALLY TID TAKING ALBUTEROL 90 MCG/ACT AEROSOL SOLUTION DIRECTED INHALATION TAKING VITAMIN B12 500 MCG TABLET 1 TABLET ORALLY ONCE A DAY TAKING CHOLECALCIFEROL 1.25 MG (55941 UT) CAPSULE 1 CAPSULE ORALLY WEEKLY TAKING AMITRIPTYLINE HCL 25 MG TABLET 1 TABLET AT BEDTIME ORALLY ONCE A DAY TAKING TIZANIDINE HCL 2 MG TABLET 1 TABLET NEEDED ORALLY FOR SPASMS AND PAIN BEFORE BEDTIME MAY REAPT IN 4HRS MDD2 TAKING XEMATOP BASE - CREAM DIRECTED EXTERNALLY WITH CAMPHOR TAKING MULTIVITAMIN - TABLET 1 TABLET ORALLY ONCE A DAY TAKING VITAMIN D 125 MCG (5000 UT) CAPSULE DIRECTED ORALLY NOT-TAKING AQUAPHILIC/CARBAMIDE 10 % OINTMENT EXTERNALLY NEEDED. NOT-TAKING CARBIDOPA-LEVODOPA 25-100 MG TABLET 1/2 TABLET ORALLY TID NOT-TAKING DULOXETINE HCL 30 MG CAPSULE DELAYED RELEASE PARTICLES 1 CAPSULE ORALLY FOR PAIN BID MDD2 NOT-TAKING HYDROCODONE-ACETAMINOPHEN 5-325 MG TABLET 1 TABLET NEEDED ORALLY DAILY FOR PAIN. MDD1 NOT-TAKING MAGNESIUM 400 MG CAPSULE DIRECTED ORALLY AT DINNER TIME NOT-TAKING LEVOTHYROXINE SODIUM 50 MCG TABLET 1 TABLET ON AN EMPTY STOMACH IN THE MORNING ORALLY ONCE A DAY NOT-TAKING MAY USE CBD OIL ORALLY NEEDED NOT-TAKING REQUIP 2 MG TABLET 1 TABLET 1 TO 3 HOURS BEFORE BEDTIME ORALLY ONCE A DAY NOT-TAKING CELEBREX 200 MG CAPSULE 1 TAB ORALLY DAILY NOT-TAKING PRILOSEC OTC 20 MG TABLET DELAYED RELEASE 1 CAP ORALLY DAILY NOT-TAKING FLEXERIL 10 MG TABLET 1 TABLET ORALLY TID PRN NOT-TAKING VITAMIN D-3 1000 UNIT CAPSULE 1 CAPSULE ORALLY ONCE A DAY MEDICATION LIST REVIEWED AND RECONCILED WITH THE PATIENT PAST MEDICAL HISTORY NETHERTONS SYNDROME-SKIN PROBLEM ARTHRITIS HEART VALVE LEAKS-ABNORMAL EKG CARPAL TUNNEL SYNDROME LOW BACK PAIN LUMBAR VERTEBRAE FX NOTED ON XRAY 02/2018 HIROSHIMA ALLERGIES PENICILLIN (FOR ALLERGIES USE ONLY): UNKNOWN SEAFOOD: HIVES - ALLERGY LIVE VACCINE - FLU, MMR, SHINGLES: UNKNOWN K Y JELLY: SKIN IRRITATION AND BURNING - ALLERGY LANOLIN: HIVES - ALLERGY SOCIAL HISTORY GENERAL: TOBACCO USE ARE YOU A:FORMER SMOKER HOW LONG HAS IT BEEN SINCE YOU LAST SMOKED?5-10 YEARS LATEX QUESTIONNAIRE LATEX ALLERGY : HAVE YOU EVER DEVELOPED ANY TYPE OF REACTION AFTER HANDLING LATEX PRODUCTS SUCH RUBBER GLOVES, CONDOMS, DIAPHRAGMS, BALLOONS, SOCKS, OR UNDERWEAR?NO LATEX ALLERGY : HAVE YOU EVER DEVELOPED ANY TYPE OF REACTION DURING OR AFTER DENTAL APPOINTMENT, VAGINAL/RECTAL EXAMINATION, SURGICAL PROCEDURE, OR ANY OTHER EXPOSURE?NO LATEX RISK : HAVE YOU EVER HAD ANY DIFFICULTY BREATHING OR HIVES AFTER EATING OR HANDLING ANY FRUITS, OR VEGETABLES; SUCH KIWI, BANANAS, STONE FRUITS, OR CHESTNUTSNO LATEX RISK : DO YOU HAVE A PREVIOUS PERSONAL HISTORY OF MORE THAN NINE SURGERIES, SPINA BIFIDA, OR REPEATED CATHERIZATIONS? NO LATEX RISK : ARE YOU FREQUENTLY EXPOSED TO LATEX PRODUCTS IN YOUR OCCUPATION?NO DATE ASKED : 09/07/2020 ALCOHOL USE: YES. ALCOHOL SCREENING DID YOU HAVE A DRINK CONTAINING ALCOHOL IN THE PAST YEAR?NO POINTS0 INTERPRETATIONNEGATIVE RECREATIONAL DRUG USE DRUG USE?NO CAFFEINE CAFFEINE USE?YES 6 CUPS COFFEE/DAY LUTHERAN [id number] JEW LANGUAGE LANGUAGES SPOKEN:MALTESE EDUCATION LEVEL OF EDUCATION:HIGH SCHOOL LEARNING BARRIERS / SPECIAL NEEDS CHANGE FROM LAST VISIT?NO BARRIERS TO LEARNING?NO HEARING IMPAIRED?NO VISION IMPAIRED?YES :CORRECTIVE LENSES COGNITIVELY IMPAIRED?NO READINESS TO LEARN?YES LEARNING PREFERENCES?NO LEARNING CAPABILITIES PRESENT?YES EMOTIONAL BARRIERS?NO SPECIAL DEVICES?NO DINING ROOM BUSSER NEEDED?NO DOMESTIC VIOLENCE DO YOU FEEL SAFE IN YOUR ENVIRONMENT?YES OCCUPATION: UNEMPLOYED. DIET: REGULAR. EXERCISE: WALKS. TODAY'S VISITNOTES 10/27/2019 PATIENT DESCRIBES PAIN :ACHING, HAVE IT ALL THE TIME, SHARP, STABBING, THROBBING, SORE, SHOOTING, OTHER NUMB FROM 0-10, WHAT LEVEL IS YOUR PAIN TODAY?5 PRECIPITATING FACTORS LAYING DOWN, SITTING TOO LONG ALLEVIATING FACTORS MEDICATIONS, OCCASSIONALLY HEAT BUT NOT VERY OFTEN IMPACT ON FUNCTION SOMETIMES, WALKING CAN BE DIFFICULT. ALSO LIMITS HER ON WHAT SHE IS ABLE TO DO - PFS REFERRAL NEEDED?NO CLERGY REFERRAL NEEDED?NO PUBLIC HEALTH REFERRAL NEEDED?NO HAS THE PATIENT BEEN EDUCATED REGARDING HIS/HER PLAN OF CARE?YES HAS THE PATIENT BEEN EDUCATED REGARDING PAIN, THE RISK FOR PAIN, THE IMPORTANCE OF EFFECTIVE PAIN MANAGEMENT, AND THE PAIN ASSESSMENT PROCESS?YES ADVANCE DIRECTIVE ADVANCE DIRECTIVE DISCUSSED WITH PATIENT:YES 05/30/2020 PT DOES NOT HAVE ANY ADVANCED DIRECTIVES.SHE STATES ALREADY HAS THE PAPER WORK ON HCP AND IS GOING TO BRING IT INTO THE PAIN CENTER WHEN SHE IS HERE AGAIN TO HAVE US HELP HER COMPLETE THE FORM PAT REVIEWED WITH PATIENT 12/8. REVIEW OF SYSTEMS CONSTITUTIONAL: ANY RECENT FEVER NO . CHILLS NO . WEIGHT CHANGE OF UNKNOWN REASONS NO . GASTROENTEROLOGY: NEW UNEXPLAINABLE CHANGES IN BOWEL CONTROL NO . CONSTIPATION NO . GENITOURINARY: ANY NEW CHANGE IN BLADDER CONTROL? NO . NEUROLOGY: NEW ONSET DIZZINESS OR NEUROLOGICAL CHANGES NOT MENTIONED NO . NEW NUMBNESS OR PAIN PATTERNS NOT MENTIONED AND PERTINENT TO TODAY'S VISIT NO . CARDIOLOGY: NEW CHEST PRESSURE NO . PATIENT DENIES NO . RESPIRATORY: UNEXPLAINABLE COUGH NO . NEW SHORTNESS OF BREATH NO . VITAL SIGNS WT 190 LBS, HT 63 IN, BMI 33.65 INDEX, BP 127/67 MM HG, HR 68 /MIN, RR 18 /MIN, TEMP 97.2 F, OXYGEN SAT % 100%, SAFE IN ENV? (Y/N) YEST.MARCIA GUADALUPE. EXAMINATION GENERAL EXAMINATION: GENERAL AWAKE,ALERT ,PLEAASANT . PSYCH AFFECT NORMAL . LUNGS: LUNG PONCE ARE CLEAR TO AUSCULTATION BILATERALLY. GOOD MOVEMENT OF AIR . HEART: S1, S2 IN A REGULAR RATE AND RHYTHM. NO SIGNIFICANT MURMURS, RUBS OR GALLOPS NOTED . MUSCULOSKELETAL:MST 5/5 BILAT. LOWER EXTREMITIES. LUMBAR: PALPATION: + FOR PAIN OVER L/S SPINE. + FOR PAIN OVER L/S PARASPINALS. NEUROLOGIC EXAM: NORMAL SENSATION LIGHT TOUCH BILAT. LOWER EXTREMITIES. DIAGNOSTIC TESTS REVIEWEDCT L/S SPINE 2018. ASSESSMENTS OTHER CHRONIC PAIN - G89.29 (PRIMARY) LUMBOSACRAL RADICULOPATHY - M54.17 TREATMENT OTHER CHRONIC PAIN MEDICATION: VALIUM TAB 10MG ORALLY (DIAZEPAM) (ORDERED FOR 09/14/2020) MEDICATION: OXYCODONE HCL TAB 10MG ORALLY (ORDERED FOR 09/14/2020) NOTES: LUMBAR EPIDURAL STEROID INJECTION PATIENT STATED THAT SHE ALREADY KNOWS ABOUT PRE PROCEDURE TEACHING JULIO CESAR. PROCEDURE CODES FA211 ESTABILISHED PATIENT [facility] FAC[facility] CHARGE DISPOSITION & COMMUNICATION FOLLOW UP POST PROCEDURE (REASON: LUMBAR EPIDURAL STEROID INJECTION) ELECTRONICALLY SIGNED BY FILEMON WELLS ON 09/12/2020 AT 01:57 PM EDT DISCLAIMER : THIS IS A VISIT SUMMARY EXTRACTED FROM THE B[employer] CHART. IT IS NOT A COPY OF THE B[employer] PROGRESS NOTE. WIL
== END ==
LOC: M PAIN 11:00
PROVIDERS: ATTEND Nurse Practitioner Family
DX: M54.17 Radiculopathy, lumbosacral region (principal); G89.29 Other chronic pain; Z87.891 Personal history of nicotine dependence; Z88.0 Allergy status to penicillin; Z88.7 Allergy status to serum and vaccine; Z91.013 Allergy to seafood; Z91.09 Other allergy status, other than to drugs and biological substances; Z79.899 Other long term (current) drug therapy

== ENCOUNTER → 2020-09-29 | Outpatient (CLI) | payer BC | LOC: M LABSMTC 11:50 | PROVIDERS: ATTEND Anesthesiology | DX: Z11.52 Encounter for screening for COVID-19 (principal) ==

== ENCOUNTER → 2020-10-04 | Outpatient (CLI) | payer BC ==
[~2020-10-04] MED LIST changes: +ISOVUE-M 300 61% 15ML VIAL As Ordered ONE; +LIDOCAINE 1% SDV 30ML VIAL As Ordered ONE; +diazePAM 5MG TABLET As Ordered ONE; +methylPREDNISolone SUSP 40MG/ML 1ML VIAL (DEPO MEDROL) As Ordered ONE; +oxyCODONE 5MG TAB As Ordered ONE
--- NOTE | 2020-10-04 14:43 | REP ---
INDICATION: LUMBAR EPIDURAL STEROID INJECTION. COMPARISON: None. TECHNIQUE: Four views. 13.2 seconds of fluoroscopy time is reported. FINDINGS: A sequence of 4 last image hold fluoroscopically obtained spot radiograph(s) of the lumbar spine document(s) needle position(s) and contrast injection associated with injection procedure. IMPRESSION: Procedural imaging. <Electronically signed by Santiago Fierro > 10/04/20 [id number]
--- NOTE | 2020-10-06 03:14 | ECWPNPC ---
PATIENT NAME: NAVID KIRBY : 1965 GENDER: FEMALE VISIT DATE: 10/04/2020 DISCHARGE DATE: 10/04/20 1326 VISIT LOCKED DATE TIME: PHYSICIAN: MAKENZIE MAXWELL MD RESOURCE: MAKENZIE MAXWELL MD REASON FOR APPOINTMENT 1. LUMBAR EPIDURAL STEROID INJECTION HISTORY OF PRESENT ILLNESS GENERAL: -. PAIN SCREENING: PATIENT HAS A COMPLAINT OF ACUTE OR CHRONIC PAIN :YES LOCATION OF PAIN:LOW BACK, LEG(S) INTENSITY OF PAIN (SCALE OF 1 TO 10):9 WHAT DOES YOUR PAIN FEEL LIKE:THROBBING, OTHER TINGLING/NUMBING DURATION:CONTINOUS, CONSTANT, AWAKENS FROM SLEEP PAIN IS INCREASED BY:ACTIVITIES, PROLONGED STANDING LYING DOWN TOO LONG PAIN IS DECREASED BY:USE OF PAIN MEDICATIONS PLAN/GOALS/TREATMENT/INTERVENTION/FOLLOW UP:SEE PLAN NURSING NOTE: -. PAIN CENTER INTAKE QUESTIONS: DO YOU HAVE A HISTORY OF MRSA? :NO DO YOU TAKE A BLOOD THINNERS? :NO DO YOU HAVE ANY BLEEDING DISORDERS? :NO ANY NEW NUMBNESS OR WEAKNESS IN YOUR LEGS OR ARMS? :NO ANY PACEMAKER,DEFIBRILLATOR, OR DORSAL COLUMN STIMULATOR? :NO DO YOU HAVE ANY RASHES OR OPEN SORES? :YES HISTORY OF ECZEMA/PSORIASIS ARE YOU ALLERGIC TO IV DYE? :NO ARE YOU DIABETIC? :NO ANY NEW PROBLEMS WITH YOUR MEDICATIONS? :NO HAVE YOU RECEIVED A VACCINE IN THE PAST 30 DAYS? :YES IF SO WHAT VACCINE AND WHEN? COVID VACCINE #2 09/13/20 DO YOU PLAN TO RECEIVE A VACCINE IN THE NEXT 21 DAYS? :NO DO YOU TAKE ANY IMMUNOSUPPRESSIVE MEDICATIONS? :NO ANY HISTORY OF SEIZURES? :NO ANY HISTORY OF CARDIAC ISSUES OR EVENTS? :YES PATIENT STATES HISTORY OF "LEAKY VALVE" DO YOU HAVE ANY KIDNEY OR LIVER DISEASE? :NO DO YOU HAVE SLEEP APNEA? :YES DO YOU WEAR A CPAP?NO ANY RECENT HEAD INJURY? :NO DO YOU HAVE ANY NEW INFECTIONS? :NO IS THERE A CHANCE YOU COULD BE ? :N/A ARE YOU BREAST FEEDING? :N/A WHEN DID YOU LAST EAT? : 1830 10/03/20 WHEN DID YOU LAST DRINK? : 0910/04/20 WHAT DID YOU LAST DRINK? : WATER NAME OF PERSON DRIVING YOU HOME? : SPOUSE-MAXIMINO DO YOU HAVE ANY OTHER QUESTIONS OR CONCERNS? : NONE CURRENT MEDICATIONS TAKING HYDROXYZINE HCL 25 MG TABLET 2 TAB ORALLY AT BEDTIME TAKING HYDROCORTISONE VALERATE 0.2 % CREAM 1 APPLICATION TO AFFECTED AREA EXTERNALLY EVERY OTHER DAY TAKING REQUIP 2 MG TABLET 1 TABLET ORALLY TID TAKING ALBUTEROL 90 MCG/ACT AEROSOL SOLUTION DIRECTED INHALATION TAKING VITAMIN B12 500 MCG TABLET 1 TABLET ORALLY ONCE A DAY TAKING CHOLECALCIFEROL 1.25 MG (57058 UT) CAPSULE 1 CAPSULE ORALLY WEEKLY TAKING TIZANIDINE HCL 2 MG TABLET 1 TABLET NEEDED ORALLY FOR SPASMS AND PAIN BEFORE BEDTIME MAY REAPT IN 4HRS MDD2, NOTES: 10/04/20 0030 TAKING XEMATOP BASE - CREAM DIRECTED EXTERNALLY WITH CAMPHOR TAKING MULTIVITAMIN - TABLET 1 TABLET ORALLY ONCE A DAY TAKING AMITRIPTYLINE HCL 25 MG TABLET 1 TABLET AT BEDTIME ORALLY ONCE A DAY, NOTES: 1 WEEK AGO NOT-TAKING VITAMIN D 125 MCG (5000 UT) CAPSULE DIRECTED ORALLY NOT-TAKING AQUAPHILIC/CARBAMIDE 10 % OINTMENT EXTERNALLY NEEDED. NOT-TAKING CARBIDOPA-LEVODOPA 25-100 MG TABLET 1/2 TABLET ORALLY TID NOT-TAKING DULOXETINE HCL 30 MG CAPSULE DELAYED RELEASE PARTICLES 1 CAPSULE ORALLY FOR PAIN BID MDD2 NOT-TAKING HYDROCODONE-ACETAMINOPHEN 5-325 MG TABLET 1 TABLET NEEDED ORALLY DAILY FOR PAIN. MDD1 NOT-TAKING MAGNESIUM 400 MG CAPSULE DIRECTED ORALLY AT DINNER TIME NOT-TAKING LEVOTHYROXINE SODIUM 50 MCG TABLET 1 TABLET ON AN EMPTY STOMACH IN THE MORNING ORALLY ONCE A DAY NOT-TAKING MAY USE CBD OIL ORALLY NEEDED NOT-TAKING REQUIP 2 MG TABLET 1 TABLET 1 TO 3 HOURS BEFORE BEDTIME ORALLY ONCE A DAY NOT-TAKING CELEBREX 200 MG CAPSULE 1 TAB ORALLY DAILY NOT-TAKING PRILOSEC OTC 20 MG TABLET DELAYED RELEASE 1 CAP ORALLY DAILY NOT-TAKING FLEXERIL 10 MG TABLET 1 TABLET ORALLY TID PRN NOT-TAKING VITAMIN D-3 1000 UNIT CAPSULE 1 CAPSULE ORALLY ONCE A DAY MEDICATION LIST REVIEWED AND RECONCILED WITH THE PATIENT PAST MEDICAL HISTORY NETHERTONS SYNDROME-SKIN PROBLEM ARTHRITIS HEART VALVE LEAKS-ABNORMAL EKG CARPAL TUNNEL SYNDROME LOW BACK PAIN LUMBAR VERTEBRAE FX NOTED ON XRAY 02/2018 HIROSHIMA ALLERGIES PENICILLIN (FOR ALLERGIES USE ONLY): HIVES - ALLERGY SEAFOOD: HIVES - ALLERGY LIVE VACCINE - FLU, MMR, SHINGLES: D/T NETHERTONS SYNDROME K Y JELLY: SKIN IRRITATION AND BURNING - ALLERGY LANOLIN: HIVES - ALLERGY SOCIAL HISTORY GENERAL: TOBACCO USE ARE YOU A:FORMER SMOKER HOW LONG HAS IT BEEN SINCE YOU LAST SMOKED?5-10 YEARS LATEX QUESTIONNAIRE LATEX ALLERGY : HAVE YOU EVER DEVELOPED ANY TYPE OF REACTION AFTER HANDLING LATEX PRODUCTS SUCH RUBBER GLOVES, CONDOMS, DIAPHRAGMS, BALLOONS, SOCKS, OR UNDERWEAR?NO LATEX ALLERGY : HAVE YOU EVER DEVELOPED ANY TYPE OF REACTION DURING OR AFTER DENTAL APPOINTMENT, VAGINAL/RECTAL EXAMINATION, SURGICAL PROCEDURE, OR ANY OTHER EXPOSURE?NO DATE ASKED : 09/07/2020 LATEX RISK : HAVE YOU EVER HAD ANY DIFFICULTY BREATHING OR HIVES AFTER EATING OR HANDLING ANY FRUITS, OR VEGETABLES; SUCH KIWI, BANANAS, STONE FRUITS, OR CHESTNUTSNO LATEX RISK : DO YOU HAVE A PREVIOUS PERSONAL HISTORY OF MORE THAN NINE SURGERIES, SPINA BIFIDA, OR REPEATED CATHERIZATIONS? NO LATEX RISK : ARE YOU FREQUENTLY EXPOSED TO LATEX PRODUCTS IN YOUR OCCUPATION?NO ALCOHOL USE: YES. ALCOHOL SCREENING DID YOU HAVE A DRINK CONTAINING ALCOHOL IN THE PAST YEAR?NO POINTS0 INTERPRETATIONNEGATIVE RECREATIONAL DRUG USE DRUG USE?NO CAFFEINE CAFFEINE USE?YES 6 CUPS COFFEE/DAY LATTER-DAY [id number] HOLINESS LANGUAGE LANGUAGES SPOKEN:PERSIAN EDUCATION LEVEL OF EDUCATION:HIGH SCHOOL LEARNING BARRIERS / SPECIAL NEEDS CHANGE FROM LAST VISIT?NO BARRIERS TO LEARNING?NO HEARING IMPAIRED?NO VISION IMPAIRED?YES COGNITIVELY IMPAIRED?NO :CORRECTIVE LENSES READINESS TO LEARN?YES LEARNING PREFERENCES?NO LEARNING CAPABILITIES PRESENT?YES EMOTIONAL BARRIERS?NO SPECIAL DEVICES?NO PIPING SUPERVISOR NEEDED?NO DOMESTIC VIOLENCE DO YOU FEEL SAFE IN YOUR ENVIRONMENT?YES OCCUPATION: UNEMPLOYED. DIET: REGULAR. EXERCISE: WALKS. - PFS REFERRAL NEEDED?NO CLERGY REFERRAL NEEDED?NO PUBLIC HEALTH REFERRAL NEEDED?NO HAS THE PATIENT BEEN EDUCATED REGARDING HIS/HER PLAN OF CARE?YES HAS THE PATIENT BEEN EDUCATED REGARDING PAIN, THE RISK FOR PAIN, THE IMPORTANCE OF EFFECTIVE PAIN MANAGEMENT, AND THE PAIN ASSESSMENT PROCESS?YES ADVANCE DIRECTIVE ADVANCE DIRECTIVE DISCUSSED WITH PATIENT:YES 05/30/2020 PT DOES NOT HAVE ANY ADVANCED DIRECTIVES.SHE STATES ALREADY HAS THE PAPER WORK ON HCP AND IS GOING TO BRING IT INTO THE PAIN CENTER WHEN SHE IS HERE AGAIN TO HAVE US HELP HER COMPLETE THE FORM PAT REVIEWED WITH PATIENT 05/29. VITAL SIGNS WT 190.2 LBS, HT 63 IN, BMI 33.69 INDEX, BP 150/70 MM HG, HR 71 /MIN, RR 18 /MIN, TEMP 97.1 F, OXYGEN SAT % 100%, SAFE IN ENV? (Y/N) YES, NA INITIALS WI 11:51REVIEWED. Dewey COOK RN 10/04/20 1158. EXAMINATION GENERAL: A HISTORY AND PHYSICAL EXAM ON THE PATIENT WAS DONE ON 09/07/2020(DATE OF ORIGINAL ASSESSMENT) IN PREPARATION OF SURGERY/PROCEDURE. I HAVE NOW REASSESSED THIS PATIENT'S HEALTH STATUS AND PERFORMED AN UPDATED EXAM TODAY. ALL CHANGES IN THE PATIENT'S HISTORY, PHYSICAL EXAM, PRE-EXISTING CONDITONS, AND INDICATIONS/CONTRAINDICATIONS TO THE PLANNED PROCEDURE AND ANESTHESIA ARE DOCUMENTED AND EVALUATED BELOW. I ATTEST TO THE ADEQUACY AND APPROPRIATENESS OF MY ASSESSMENT, AND CONFIRM THE NECESSITY FOR THE PLANNED PROCEDURE. THE PATIENT IS ALERT, ORIENTED TIMES THREE AND COOPERATIVE. LUNGS ARE CLEAR TO AUSCULTATION. HEART SHOWS REGULAR RHYTHM, NO MURMURS AND NO GALLOPS. ASSESSMENTS POST LAMINECTOMY SYNDROME - M96.1 TREATMENT POST LAMINECTOMY SYNDROME COMPLETION OF PROCEDURAL VISIT WHEN MEETS CRITERIAPECR ANN 10/04/2020 1:18:51 PM > CRITERIA MET MEDICATION: VALIUM TAB 10MG ORALLY (DIAZEPAM)MAGALY COOK RN 10/04/2020 12:09:00 PM > VERIFIED. CARRI SAMUELSIL R 10/04/2020 12:11:15 PM > ADMINSTERED MEDICATION: OXYCODONE HCL TAB 10MG ORALLYMAGALY COOK RN 10/04/2020 12:09:19 PM > VERIFIED. CARRI SAMUELSIL R 10/04/2020 12:11:31 PM > ADMINISTERED OTHERS NOTES: 10/01/20 1640 PAT COMPLETED. Francesco SHEEHAN CENTRAL STERILIZATION TECHNICIAN. PROCEDURES PAIN NURSING RECORD PROCEDURE IN ROOM 1231, PHYSICIAN IN ROOM 1245, START 1249, FINISH 1255, PHYSICIAN OUT OF ROOM 1258, OUT OF ROOM 1304, ECG NORMAL SINUS, PATIENT SHIELDED YES, SAFETY STRAP YES, PREP BETADINE Dank SAMUELS RN, DRESSING TEGADERM DR. MAXWELL LOC: CARRI SAMUELSIL R 10/04/2020 12:49:57 PM > , 1. ALERT, ORIENTED RESP: ABRILCR R 10/04/2020 12:50:00 PM > , 1. REGULAR, NO DYSPNEA COLOR: CARRI SAMUELSIL R 10/04/2020 12:50:03 PM > , 1. PINK SKIN: ABRILCR R 10/04/2020 12:50:06 PM > , 1. WARM, DRY POSITION: ABRILCR R 10/04/2020 12:50:09 PM > , 1. PRONE VITALS: ABRILCR R 10/04/2020 12:39:11 PM > 148/71, 65, 18, 100% PETRAS,CR R 10/04/2020 12:46:02 PM > 133/71, 65, 18, 98% PETRAS,CR R 10/04/2020 12:55:11 PM > 129/71, 70, 18, 100% PETRAS,CR R 10/04/2020 12:58:29 PM > 125/67, 65, 16, 99% PETRAS,CR R 10/04/2020 1:15:31 PM > 147/66, 64, 18, 99% COMPLETION OF PROCEDURE APPOINTMENT: POST PAIN 3, DRESSING SITE DRY AND INTACT, IV N/A, GAIT OTHER ASSISTED PATIENT TO ROOM FOR COMFORT, TEACHING COMPLETED, PATIENT ACKNOWLEDGES UNDERSTANDING YES, PROCEDURE APPOINTMENT COMPLETED AT 1330 BY: Dank SAMUELS RN PRE PROCEDURE DIAGNOSIS LUMBAR POST LAMINECTOMY PAIN SYNDROME POST PROCEDURE DIAGNOSIS LUMBAR POST LAMINECTOMY PAIN SYNDROME PROCEDURE LUMBAR EPIDURAL STEROID INJECTION UNDER FLUOROSCOPIC GUIDANCE SURGEON DR. MAKENZIE MAXWELL DIAMOND POLISHER NONE ANESTHESIA LOCAL PRE PROCEDURE NOTE THE PATIENT HAS A HISTORY OF CHRONIC LOW BACK PAIN. I EVALUATED THE PATIENT AND REVIEWED THE CHART. I WENT OVER THE RISKS, ALTERNATIVES, AND BENEFITS ASSOCIATED WITH THIS PROCEDURE. THE PATIENT WOULD LIKE TO PROCEED AND GIVE CONSENT TO PERFORMED THE PROCEDURE. THE PATIENT DENIES UNEXPLAINABLE WEIGHT LOSS, FEVER, CHILLS, OR NEW CHANGES IN URINARY OR BOWEL CONTROL. THE PATIENT IS COVID-19 NEGATIVE DESCRIPTION OF PROCEDURE THE PATIENT WAS BROUGHT TO THE PROCEDURE ROOM AND PLACED IN THE PRONE POSITION. THE LUMBOSACRAL AREA WAS CLEANED WITH BETADINE SOLUTION AND DRAPED ASEPTICALLY. THE PROCEDURE WAS DONE UNDER STERILE CONDITIONS. A TIMEOUT WAS PERFORMED WHERE THE CONSENTED SITE WAS VERIFIED WITH EVERYONE IN THE ROOM. UNDER FLUOROSCOPIC GUIDANCE, THE TARGET POINT WAS SELECTED AT THE INTERLAMINAR LEVEL OF L5-S1. I CONFIRMED AGAIN THE SITE OF TARGET. LIDOCAINE WAS USED TO NUMB THE SKIN AND THE SUBCUTANEOUS TISSUE BELOW IT. EPIDURAL TUOHY NEEDLE, 17-GAUGE, WAS ADVANCED UNDER FLUOROSCOPIC GUIDANCE AND FOLLOWING PATIENT FEEDBACK UNTIL THE EPIDURAL SPACE WAS REACHED 7 CM DEEP INTO THE SKIN BY THE LOSS OF RESISTANCE TECHNIQUE. ISOVUE-M DYE 30%, 0.25 ML, WAS INJECTED SHOWING ADEQUATE SPREAD OF THE DYE. THEN, A SOLUTION OF 3 ML OF NORMAL SALINE WITH DEPO-MEDROL 40 MG WAS INJECTED SLOWLY FOLLOWING PATIENT FEEDBACK. THE MEDICATIONS WERE VERIFIED WITH THE NURSE. THERE WAS NO EVIDENCE OF BLOOD, PARESTHESIA OR CEREBROSPINAL FLUID DURING THE PROCEDURE. THE PATIENT WAS SENT TO THE RECOVERY ROOM. THE PATIENT WAS MOVING THE EXTREMITIES AND DOING WELL. THERE WERE NO COMPLICATIONS DURING THE PROCEDURE. ESTIMATED BLOOD LOSS WAS LESS THAN 5 ML. FLUOROSCOPY TIME WAS 13 SECONDS POST PROCEDURE NOTE I INJECTED MORE MIDLINE THIS TIME. HOPEFULLY THIS WILL PROVIDE LONG LASTING PAIN RELIEF. IF IT DOES NOT, IN THE FUTURE, I WILL INJECT MORE TO THE RIGHT. THE PATIENT WILL BE SEEN IN A FOLLOW UP IN THE NEXT FEW WEEKS. I AM LOOKING FOR LONG LASTING RELIEF FOR THE PATIENT WITH THIS INTERVENTION. INSTRUCTIONS WERE GIVEN, QUESTIONS WERE ANSWERED, AND THE PATIENT EXPRESSED UNDERSTANDING AND AGREES WITH THE PLAN. I, KATHRYN DOMINIQUE, DOCUMENTED THE ABOVE INFORMATION ACTING A SCRIBE FOR DR. MAXWELL. I HAVE REVIEWED THE ABOVE DOCUMENT, WRITTEN BY KATHRYN DOMINIQUE, CHINESE LANGUAGE PROFESSOR, AND I VERIFY THAT IT IS [facility] FLUORO GUIDE SPINE INJECTION (PAIN)[id number] PROCEDURE CODES 43286 LUMBAR/SACRAL W/ IMAGING DISPOSITION & COMMUNICATION FOLLOW UP FOLLOW UP WITH DIMETHYLANILINE SULFATOR OPERATOR (REASON: POST LUMBAR EPIDRUAL STEROID INJECTION) ELECTRONICALLY SIGNED BY MAKENZIE MAXWELL MD, MD ON 10/05/2020 AT 12:31 PM EDT DISCLAIMER : THIS IS A VISIT SUMMARY EXTRACTED FROM THE [employer] CHART. IT IS NOT A COPY OF THE [employer] PROGRESS NOTE. WIL
== END ==
LOC: M PAIN 11:40
PROVIDERS: ATTEND Anesthesiology
DX: M96.1 Postlaminectomy syndrome, not elsewhere classified (principal); G47.30 Sleep apnea, unspecified; Z87.891 Personal history of nicotine dependence; Z88.0 Allergy status to penicillin; Z88.7 Allergy status to serum and vaccine; Z88.8 Allergy status to other drugs, medicaments and biological substances; Z91.013 Allergy to seafood; Z79.899 Other long term (current) drug therapy
CPT/HCPCS: 62323; J1030; Q9967

== ENCOUNTER → 2020-10-23 | Outpatient (CLI) | payer BC ==
[~2020-10-23] MED LIST changes: -ISOVUE-M 300 61% 15ML VIAL As Ordered ONE; -LIDOCAINE 1% SDV 30ML VIAL As Ordered ONE; -diazePAM 5MG TABLET As Ordered ONE; -methylPREDNISolone SUSP 40MG/ML 1ML VIAL (DEPO MEDROL) As Ordered ONE; -oxyCODONE 5MG TAB As Ordered ONE
--- NOTE | 2020-10-25 03:55 | ECWPNPC ---
PATIENT NAME: NAVID KIRBY : 1965 GENDER: FEMALE VISIT DATE: 10/23/2020 DISCHARGE DATE: 10/23/20 1213 VISIT LOCKED DATE TIME: PHYSICIAN: STACY THOMASON RESOURCE: STACY THOMASON REASON FOR APPOINTMENT 1. POST LUMBAR EPIDURAL STEROID INJECTION HISTORY OF PRESENT ILLNESS GENERAL: HERE FOR POST PROCEDURE FOLLOW-UP. HAD LUMBAR EPIDURAL STEROID INJECTION 10/04/2020. REPORTS MARKED REDUCTION IN PAIN AT GREATER THAN 80% SINCE PROCEDURE. REPORTING IMPROVED ACTIVITY TOLERANCE. STATES THAT EPIDURAL DID NOT HELP LEG PAIN BUT HELPED WITH LOW BACK PAIN. TAKING AMITRIPTYLINE 25 MG AT NIGHTTIME AND FEELS THOUGH THIS IS HELPING A LITTLE BIT. DISCUSSED INCREASING THIS TO 1 1/2 TO 2 TABS AT NIGHT. -. FALL RISK SCREENING: SCREENING : NO FALLS REPORTED IN THE LAST YEAR. PAIN SCREENING: PATIENT HAS A COMPLAINT OF ACUTE OR CHRONIC PAIN :NO NURSING NOTE: -. PAIN CENTER INTAKE QUESTIONS: DO YOU HAVE A HISTORY OF MRSA? :NO DO YOU TAKE A BLOOD THINNERS? :NO DO YOU HAVE ANY BLEEDING DISORDERS? :NO ANY NEW NUMBNESS OR WEAKNESS IN YOUR LEGS OR ARMS? :NO ANY PACEMAKER,DEFIBRILLATOR, OR DORSAL COLUMN STIMULATOR? :NO DO YOU HAVE ANY RASHES OR OPEN SORES? :NO ARE YOU ALLERGIC TO IV DYE? :NO ARE YOU DIABETIC? :NO ANY NEW PROBLEMS WITH YOUR MEDICATIONS? :NO DO YOU PLAN TO RECEIVE A VACCINE IN THE NEXT 21 DAYS? :NO DO YOU NEED ANY PRESCRIPTION? :NO DO YOU TAKE ANY IMMUNOSUPPRESSIVE MEDICATIONS? :NO IS THERE A CHANCE YOU COULD BE ? :NO ARE YOU BREAST FEEDING? :NO CURRENT MEDICATIONS TAKING HYDROXYZINE HCL 25 MG TABLET 2 TAB ORALLY AT BEDTIME TAKING HYDROCORTISONE VALERATE 0.2 % CREAM 1 APPLICATION TO AFFECTED AREA EXTERNALLY EVERY OTHER DAY TAKING REQUIP 2 MG TABLET 1 TABLET ORALLY TID TAKING ALBUTEROL 90 MCG/ACT AEROSOL SOLUTION DIRECTED INHALATION TAKING VITAMIN B12 500 MCG TABLET 1 TABLET ORALLY ONCE A DAY TAKING CHOLECALCIFEROL 1.25 MG (12267 UT) CAPSULE 1 CAPSULE ORALLY WEEKLY TAKING TIZANIDINE HCL 2 MG TABLET 1 TABLET NEEDED ORALLY FOR SPASMS AND PAIN BEFORE BEDTIME MAY REAPT IN 4HRS MDD2, NOTES: 10/04/20 0030 TAKING XEMATOP BASE - CREAM DIRECTED EXTERNALLY WITH CAMPHOR TAKING MULTIVITAMIN - TABLET 1 TABLET ORALLY ONCE A DAY TAKING AMITRIPTYLINE HCL 25 MG TABLET 1 TABLET AT BEDTIME ORALLY ONCE A DAY, NOTES: 1 WEEK AGO TAKING OXCARBAZEPINE ER 150 MG TABLET EXTENDED RELEASE 24 HOUR ORALLY ONCE A DAY NOT-TAKING VITAMIN D 125 MCG (5000 UT) CAPSULE DIRECTED ORALLY NOT-TAKING AQUAPHILIC/CARBAMIDE 10 % OINTMENT EXTERNALLY NEEDED. NOT-TAKING CARBIDOPA-LEVODOPA 25-100 MG TABLET 1/2 TABLET ORALLY TID NOT-TAKING DULOXETINE HCL 30 MG CAPSULE DELAYED RELEASE PARTICLES 1 CAPSULE ORALLY FOR PAIN BID MDD2 NOT-TAKING HYDROCODONE-ACETAMINOPHEN 5-325 MG TABLET 1 TABLET NEEDED ORALLY DAILY FOR PAIN. MDD1 NOT-TAKING MAGNESIUM 400 MG CAPSULE DIRECTED ORALLY AT DINNER TIME NOT-TAKING LEVOTHYROXINE SODIUM 50 MCG TABLET 1 TABLET ON AN EMPTY STOMACH IN THE MORNING ORALLY ONCE A DAY NOT-TAKING MAY USE CBD OIL ORALLY NEEDED NOT-TAKING REQUIP 2 MG TABLET 1 TABLET 1 TO 3 HOURS BEFORE BEDTIME ORALLY ONCE A DAY NOT-TAKING CELEBREX 200 MG CAPSULE 1 TAB ORALLY DAILY NOT-TAKING PRILOSEC OTC 20 MG TABLET DELAYED RELEASE 1 CAP ORALLY DAILY NOT-TAKING FLEXERIL 10 MG TABLET 1 TABLET ORALLY TID PRN NOT-TAKING VITAMIN D-3 1000 UNIT CAPSULE 1 CAPSULE ORALLY ONCE A DAY MEDICATION LIST REVIEWED AND RECONCILED WITH THE PATIENT PAST MEDICAL HISTORY NETHERTONS SYNDROME-SKIN PROBLEM ARTHRITIS HEART VALVE LEAKS-ABNORMAL EKG CARPAL TUNNEL SYNDROME LOW BACK PAIN LUMBAR VERTEBRAE FX NOTED ON XRAY 02/2018 HIROSHIMA ALLERGIES PENICILLIN (FOR ALLERGIES USE ONLY): HIVES - ALLERGY SEAFOOD: HIVES - ALLERGY LIVE VACCINE - FLU, MMR, SHINGLES: D/T NETHERTONS SYNDROME K Y JELLY: SKIN IRRITATION AND BURNING - ALLERGY LANOLIN: HIVES - ALLERGY SURGICAL HISTORY R CARPAL TUNNEL RELEASE 2016 R CERVICAL DISKECTOMY 06/2016 C SECTION 1988 TUBALIGATION 1988 L4-L5 FUSION 08/2017 COLONOSCOPY 09/2020 FAMILY HISTORY FATHER: ALIVE 74 YRS, DIAGNOSED WITH DIABETES MOTHER: 63 YRS 3 BROTHER(S) , 1 SISTER(S) - HEALTHY. 1 SON(S) , 1 DAUGHTER(S) - HEALTHY. FAMILY HX - HEART FAILURE. SOCIAL HISTORY GENERAL: TOBACCO USE ARE YOU A:FORMER SMOKER HOW LONG HAS IT BEEN SINCE YOU LAST SMOKED?5-10 YEARS LATEX QUESTIONNAIRE LATEX ALLERGY : HAVE YOU EVER DEVELOPED ANY TYPE OF REACTION AFTER HANDLING LATEX PRODUCTS SUCH RUBBER GLOVES, CONDOMS, DIAPHRAGMS, BALLOONS, SOCKS, OR UNDERWEAR?NO LATEX ALLERGY : HAVE YOU EVER DEVELOPED ANY TYPE OF REACTION DURING OR AFTER DENTAL APPOINTMENT, VAGINAL/RECTAL EXAMINATION, SURGICAL PROCEDURE, OR ANY OTHER EXPOSURE?NO LATEX RISK : HAVE YOU EVER HAD ANY DIFFICULTY BREATHING OR HIVES AFTER EATING OR HANDLING ANY FRUITS, OR VEGETABLES; SUCH KIWI, BANANAS, STONE FRUITS, OR CHESTNUTSNO LATEX RISK : DO YOU HAVE A PREVIOUS PERSONAL HISTORY OF MORE THAN NINE SURGERIES, SPINA BIFIDA, OR REPEATED CATHERIZATIONS? NO LATEX RISK : ARE YOU FREQUENTLY EXPOSED TO LATEX PRODUCTS IN YOUR OCCUPATION?NO DATE ASKED : 10/23/2020 ALCOHOL USE: YES. ALCOHOL SCREENING DID YOU HAVE A DRINK CONTAINING ALCOHOL IN THE PAST YEAR?NO POINTS0 INTERPRETATIONNEGATIVE RECREATIONAL DRUG USE DRUG USE?NO CAFFEINE CAFFEINE USE?YES 6 CUPS COFFEE/DAY SABIANISM [id number] NONDENOMINATIONAL LANGUAGE LANGUAGES SPOKEN:MALAY EDUCATION LEVEL OF EDUCATION:HIGH SCHOOL LEARNING BARRIERS / SPECIAL NEEDS CHANGE FROM LAST VISIT?NO BARRIERS TO LEARNING?NO HEARING IMPAIRED?NO VISION IMPAIRED?YES :CORRECTIVE LENSES COGNITIVELY IMPAIRED?NO READINESS TO LEARN?YES LEARNING PREFERENCES?NO LEARNING CAPABILITIES PRESENT?YES EMOTIONAL BARRIERS?NO SPECIAL DEVICES?NO FOREIGN STUDENT ADVISER TEACHER NEEDED?NO DOMESTIC VIOLENCE DO YOU FEEL SAFE IN YOUR ENVIRONMENT?YES OCCUPATION: UNEMPLOYED. DIET: REGULAR. EXERCISE: WALKS. - PFS REFERRAL NEEDED?NO CLERGY REFERRAL NEEDED?NO PUBLIC HEALTH REFERRAL NEEDED?NO HAS THE PATIENT BEEN EDUCATED REGARDING HIS/HER PLAN OF CARE?YES HAS THE PATIENT BEEN EDUCATED REGARDING PAIN, THE RISK FOR PAIN, THE IMPORTANCE OF EFFECTIVE PAIN MANAGEMENT, AND THE PAIN ASSESSMENT PROCESS?YES ADVANCE DIRECTIVE ADVANCE DIRECTIVE DISCUSSED WITH PATIENT:YES 05/30/2020 PT DOES NOT HAVE ANY ADVANCED DIRECTIVES.SHE STATES ALREADY HAS THE PAPER WORK ON HCP AND IS GOING TO BRING IT INTO THE PAIN CENTER WHEN SHE IS HERE AGAIN TO HAVE US HELP HER COMPLETE THE FORM PAT REVIEWED WITH PATIENT 05/29. HOSPITALIZATION/MAJOR DIAGNOSTIC PROCEDURE CHILDBIRTH NECK AND BACK SURGERIES REVIEW OF SYSTEMS CONSTITUTIONAL: ANY RECENT FEVER NO . CHILLS NO . WEIGHT CHANGE OF UNKNOWN REASONS NO . GASTROENTEROLOGY: NEW UNEXPLAINABLE CHANGES IN BOWEL CONTROL NO . CONSTIPATION NO . GENITOURINARY: ANY NEW CHANGE IN BLADDER CONTROL? NO . NEUROLOGY: NEW ONSET DIZZINESS OR NEUROLOGICAL CHANGES NOT MENTIONED NO . NEW NUMBNESS OR PAIN PATTERNS NOT MENTIONED AND PERTINENT TO TODAY'S VISIT NO . CARDIOLOGY: NEW CHEST PRESSURE NO . PATIENT DENIES NO . RESPIRATORY: UNEXPLAINABLE COUGH NO . NEW SHORTNESS OF BREATH NO . VITAL SIGNS WT 188.8 LBS, HT 63 IN, BMI 33.44 INDEX, BP 146/69 MM HG, HR 74 /MIN, RR 18 /MIN, TEMP 97.6 F, OXYGEN SAT % 99%, SAFE IN ENV? (Y/N) YES, NA INITIALS WI 11:50, REVIEWED BY: ABEL RN. EXAMINATION GENERAL EXAMINATION: GENERALAWAKE,ALERT ,PLEASANT . PSYCHAFFECT NORMAL . LUNGS:LUNG PONCE ARE CLEAR TO AUSCULTATION BILATERALLY. GOOD MOVEMENT OF AIR . HEART:S1, S2 IN A REGULAR RATE AND RHYTHM. NO SIGNIFICANT MURMURS, RUBS OR GALLOPS NOTED . ASSESSMENTS OTHER CHRONIC PAIN - G89.29 (PRIMARY) LUMBOSACRAL RADICULOPATHY - M54.17 TREATMENT OTHER CHRONIC PAIN INCREASE AMITRIPTYLINE HCL TABLET, 25 MG, 1 1/2 TO 2, ORALLY, BEFORE BEDTIME, 30 DAYS, 60, REFILLS 2, NOTES: 1 WEEK AGO PAIN PROCEDURE LOGDATE OF PROCEDURE1PROCEDURE:LUMBAR EPIDURAL STEROID INJECTIONAMOUNT OF PRE SEDATEVALIUM 10MG, OXYCODONE 10MGRESULT:GREATER THAN 80% REDUCTION IN PAIN CONTINUES TODAY PROCEDURE CODES FA211 ESTABILISHED PATIENT [facility] FACILITY CHARGE DISPOSITION & COMMUNICATION FOLLOW UP 3 MONTHS (REASON: LOW BACK PAIN/RESPONDS WELL TO LUMBAR EPIDURAL STEROID INJECTION/CHECK ON INCREASE OF AMITRIPTYLINE) ELECTRONICALLY SIGNED BY FILEMON WELLS ON 10/24/2020 AT 02:31 PM EDT DISCLAIMER : THIS IS A VISIT SUMMARY EXTRACTED FROM THE [facility] CHART. IT IS NOT A COPY OF THE [facility] PROGRESS NOTE. WIL
== END ==
LOC: M PAIN 11:30
PROVIDERS: ATTEND Nurse Practitioner Family
DX: G89.29 Other chronic pain (principal); M54.17 Radiculopathy, lumbosacral region; Z87.891 Personal history of nicotine dependence; Z79.899 Other long term (current) drug therapy; Z88.0 Allergy status to penicillin; Z88.7 Allergy status to serum and vaccine; Z91.013 Allergy to seafood; Z91.048 Other nonmedicinal substance allergy status

== ENCOUNTER → 2021-01-24 | Outpatient (CLI) | payer BC ==
--- NOTE | 2021-01-25 04:29 | ECWPNPC ---
PATIENT NAME: NAVID KIRBY : 1965 GENDER: FEMALE VISIT DATE: 01/24/2021 DISCHARGE DATE: 01/24/21 1223 VISIT LOCKED DATE TIME: PHYSICIAN: STACY THOMASON RESOURCE: STACY THOMASON REASON FOR APPOINTMENT 1. LOW BACK PAIN/RESPONDS WELL TO LUMBAR EPIDURAL STEROID INJECTION/CHECK ON INCREASE OF AMITRIPTYLINE HISTORY OF PRESENT ILLNESS GENERAL: HERE FOR FOLLOW-UP OF CHRONIC LOW BACK PAIN. ALSO HAS RIGHT LEG RADICULAR SYMPTOMS OF NUMBNESS. HAS RESPONDED WELL TO LUMBAR EPIDURAL STEROID INJECTIONS IN THE PAST. REVIEWED MRI OF THE LS-SPINE AND DISCUSSED TREATMENT PLAN. - -. FALL RISK SCREENING: SCREENING : NO FALLS REPORTED IN THE LAST YEAR. PAIN SCREENING: PATIENT HAS A COMPLAINT OF ACUTE OR CHRONIC PAIN :YES LOCATION OF PAIN:LOW BACK INTENSITY OF PAIN (SCALE OF 1 TO 10):7 WHAT DOES YOUR PAIN FEEL LIKE:CONTINOUS, THROBBING DURATION:ONLY WITH SPECIFIC ACTIVITIES PAIN IS INCREASED BY:ACTIVITIES PAIN IS DECREASED BY:OTHERS NOTHING HELPS NURSING NOTE: -. PAIN CENTER INTAKE QUESTIONS: DO YOU HAVE A HISTORY OF MRSA? :NO DO YOU TAKE A BLOOD THINNERS? :NO DO YOU HAVE ANY BLEEDING DISORDERS? :NO ANY NEW NUMBNESS OR WEAKNESS IN YOUR LEGS OR ARMS? :NO ANY PACEMAKER,DEFIBRILLATOR, OR DORSAL COLUMN STIMULATOR? :NO DO YOU HAVE ANY RASHES OR OPEN SORES? :NO ARE YOU ALLERGIC TO IV DYE? :NO ARE YOU DIABETIC? :NO ANY NEW PROBLEMS WITH YOUR MEDICATIONS? :NO DO YOU PLAN TO RECEIVE A VACCINE IN THE NEXT 21 DAYS? :NO DO YOU NEED ANY PRESCRIPTION? :NO DO YOU TAKE ANY IMMUNOSUPPRESSIVE MEDICATIONS? :NO IS THERE A CHANCE YOU COULD BE ? :NO ARE YOU BREAST FEEDING? :NO CURRENT MEDICATIONS TAKING HYDROXYZINE HCL 25 MG TABLET 2 TAB ORALLY AT BEDTIME TAKING HYDROCORTISONE VALERATE 0.2 % CREAM 1 APPLICATION TO AFFECTED AREA EXTERNALLY EVERY OTHER DAY TAKING REQUIP 2 MG TABLET 1 TABLET ORALLY TID TAKING ALBUTEROL 90 MCG/ACT AEROSOL SOLUTION DIRECTED INHALATION TAKING VITAMIN B12 500 MCG TABLET 1 TABLET ORALLY ONCE A DAY TAKING CHOLECALCIFEROL 1.25 MG (07946 UT) CAPSULE 1 CAPSULE ORALLY WEEKLY TAKING TIZANIDINE HCL 2 MG TABLET 1 TABLET NEEDED ORALLY FOR SPASMS AND PAIN BEFORE BEDTIME MAY REAPT IN 4HRS MDD2 TAKING XEMATOP BASE - CREAM DIRECTED EXTERNALLY WITH CAMPHOR TAKING MULTIVITAMIN - TABLET 1 TABLET ORALLY ONCE A DAY TAKING OXCARBAZEPINE ER 150 MG TABLET EXTENDED RELEASE 24 HOUR ORALLY ONCE A DAY TAKING AMITRIPTYLINE HCL 25 MG TABLET 1 1/2 TO 2 ORALLY BEFORE BEDTIME NOT-TAKING VITAMIN D 125 MCG (5000 UT) CAPSULE DIRECTED ORALLY NOT-TAKING AQUAPHILIC/CARBAMIDE 10 % OINTMENT EXTERNALLY NEEDED. NOT-TAKING CARBIDOPA-LEVODOPA 25-100 MG TABLET 1/2 TABLET ORALLY TID NOT-TAKING DULOXETINE HCL 30 MG CAPSULE DELAYED RELEASE PARTICLES 1 CAPSULE ORALLY FOR PAIN BID MDD2 NOT-TAKING HYDROCODONE-ACETAMINOPHEN 5-325 MG TABLET 1 TABLET NEEDED ORALLY DAILY FOR PAIN. MDD1 NOT-TAKING MAGNESIUM 400 MG CAPSULE DIRECTED ORALLY AT DINNER TIME NOT-TAKING LEVOTHYROXINE SODIUM 50 MCG TABLET 1 TABLET ON AN EMPTY STOMACH IN THE MORNING ORALLY ONCE A DAY NOT-TAKING MAY USE CBD OIL ORALLY NEEDED NOT-TAKING REQUIP 2 MG TABLET 1 TABLET 1 TO 3 HOURS BEFORE BEDTIME ORALLY ONCE A DAY NOT-TAKING CELEBREX 200 MG CAPSULE 1 TAB ORALLY DAILY NOT-TAKING PRILOSEC OTC 20 MG TABLET DELAYED RELEASE 1 CAP ORALLY DAILY NOT-TAKING FLEXERIL 10 MG TABLET 1 TABLET ORALLY TID PRN NOT-TAKING VITAMIN D-3 1000 UNIT CAPSULE 1 CAPSULE ORALLY ONCE A DAY MEDICATION LIST REVIEWED AND RECONCILED WITH THE PATIENT SOCIAL HISTORY GENERAL: TOBACCO USE ARE YOU A:FORMER SMOKER HOW LONG HAS IT BEEN SINCE YOU LAST SMOKED?5-10 YEARS LATEX QUESTIONNAIRE LATEX ALLERGY : HAVE YOU EVER DEVELOPED ANY TYPE OF REACTION AFTER HANDLING LATEX PRODUCTS SUCH RUBBER GLOVES, CONDOMS, DIAPHRAGMS, BALLOONS, SOCKS, OR UNDERWEAR?NO LATEX ALLERGY : HAVE YOU EVER DEVELOPED ANY TYPE OF REACTION DURING OR AFTER DENTAL APPOINTMENT, VAGINAL/RECTAL EXAMINATION, SURGICAL PROCEDURE, OR ANY OTHER EXPOSURE?NO LATEX RISK : HAVE YOU EVER HAD ANY DIFFICULTY BREATHING OR HIVES AFTER EATING OR HANDLING ANY FRUITS, OR VEGETABLES; SUCH KIWI, BANANAS, STONE FRUITS, OR CHESTNUTSNO LATEX RISK : DO YOU HAVE A PREVIOUS PERSONAL HISTORY OF MORE THAN NINE SURGERIES, SPINA BIFIDA, OR REPEATED CATHERIZATIONS? NO LATEX RISK : ARE YOU FREQUENTLY EXPOSED TO LATEX PRODUCTS IN YOUR OCCUPATION?NO DATE ASKED : 01/24/2021 ALCOHOL USE: YES. ALCOHOL SCREENING DID YOU HAVE A DRINK CONTAINING ALCOHOL IN THE PAST YEAR?NO POINTS0 INTERPRETATIONNEGATIVE RECREATIONAL DRUG USE DRUG USE?NO CAFFEINE CAFFEINE USE?YES 6 CUPS COFFEE/DAY ANGLICAN [id number] RELIGION LANGUAGE LANGUAGES SPOKEN:DANISH EDUCATION LEVEL OF EDUCATION:HIGH SCHOOL LEARNING BARRIERS / SPECIAL NEEDS CHANGE FROM LAST VISIT?NO BARRIERS TO LEARNING?NO HEARING IMPAIRED?NO VISION IMPAIRED?YES :CORRECTIVE LENSES COGNITIVELY IMPAIRED?NO READINESS TO LEARN?YES LEARNING PREFERENCES?NO LEARNING CAPABILITIES PRESENT?YES EMOTIONAL BARRIERS?NO SPECIAL DEVICES?YES :CANE, WALKER PROFILE GRINDER NEEDED?NO DOMESTIC VIOLENCE DO YOU FEEL SAFE IN YOUR ENVIRONMENT?YES OCCUPATION: UNEMPLOYED. DIET: REGULAR. EXERCISE: WALKS. - PFS REFERRAL NEEDED?NO CLERGY REFERRAL NEEDED?NO PUBLIC HEALTH REFERRAL NEEDED?NO HAS THE PATIENT BEEN EDUCATED REGARDING HIS/HER PLAN OF CARE?YES HAS THE PATIENT BEEN EDUCATED REGARDING PAIN, THE RISK FOR PAIN, THE IMPORTANCE OF EFFECTIVE PAIN MANAGEMENT, AND THE PAIN ASSESSMENT PROCESS?YES ADVANCE DIRECTIVE ADVANCE DIRECTIVE DISCUSSED WITH PATIENT:YES 05/30/2020 PT DOES NOT HAVE ANY ADVANCED DIRECTIVES.SHE STATES ALREADY HAS THE PAPER WORK ON HCP AND IS GOING TO BRING IT INTO THE PAIN CENTER WHEN SHE IS HERE AGAIN TO HAVE US HELP HER COMPLETE THE FORM PAT REVIEWED WITH PATIENT 05/29. REVIEW OF SYSTEMS CONSTITUTIONAL: ANY RECENT FEVER NO . CHILLS NO . WEIGHT CHANGE OF UNKNOWN REASONS NO . GASTROENTEROLOGY: NEW UNEXPLAINABLE CHANGES IN BOWEL CONTROL NO . CONSTIPATION NO . GENITOURINARY: ANY NEW CHANGE IN BLADDER CONTROL? NO . NEUROLOGY: NEW ONSET DIZZINESS OR NEUROLOGICAL CHANGES NOT MENTIONED NO . NEW NUMBNESS OR PAIN PATTERNS NOT MENTIONED AND PERTINENT TO TODAY'S VISIT NO . CARDIOLOGY: NEW CHEST PRESSURE NO . PATIENT DENIES NO . RESPIRATORY: UNEXPLAINABLE COUGH NO . NEW SHORTNESS OF BREATH NO . VITAL SIGNS WT 158.0 LBS, WT-KG 71.67 KG, HT 63 IN, BMI 27.99 INDEX, BP 159/70 MM HG, HR 96 /MIN, RR 18 /MIN, TEMP 97.9 F, OXYGEN SAT % 100%, SAFE IN ENV? (Y/N) YEST, NA INITIALS AW 1158T.MARCIA GUADALUPE. EXAMINATION GENERAL EXAMINATION: GENERAL AWAKE,ALERT ,PLEAASANT . PSYCH AFFECT NORMAL . LUNGS: LUNG PONCE ARE CLEAR TO AUSCULTATION BILATERALLY. GOOD MOVEMENT OF AIR . HEART: S1, S2 IN A REGULAR RATE AND RHYTHM. NO SIGNIFICANT MURMURS, RUBS OR GALLOPS NOTED . MUSCULOSKELETAL:MST 5/5 BILAT. LOWER EXTREMITIES. LUMBAR: PALPATION: + FOR PAIN OVER L/S SPINE. + FOR PAIN OVER L/S PARASPINALS. NEUROLOGIC EXAM: NORMAL SENSATION LIGHT TOUCH BILAT. LOWER EXTREMITIES. ASSESSMENTS POST LAMINECTOMY SYNDROME - M96.1 (PRIMARY) TREATMENT POST LAMINECTOMY SYNDROME MEDICATION: PAIN VALIUM TAB 10MG ORALLY (DIAZEPAM) (ORDERED FOR 02/07/2021)[id number] MEDICATION: PAIN OXYCODONE HCL TAB 10MG ORALLY (ORDERED FOR 02/07/2021)[id number] NOTES: LUMBAR EPIDURAL STERIOD INJECTION REVIEWED PRE PROCEDURE INFORMATION, PATIENT VERBALIZED UNDERSTANDING JULIO CESAR GUADALUPE. VISIT CODES 67084 OFFICE VISIT, EST PT., LEVEL 3. PROCEDURE CODES FA211 ESTABILISHED PATIENT [facility] FACILITY CHARGE DISPOSITION & COMMUNICATION FOLLOW UP POST (REASON: LUMBAR EPIDURAL STERIOD INJECTION) ELECTRONICALLY SIGNED BY FILEMON WELLS ON 01/24/2021 AT 02:50 PM EDT DISCLAIMER : THIS IS A VISIT SUMMARY EXTRACTED FROM THE [employer] CHART. IT IS NOT A COPY OF THE [facility] PROGRESS NOTE. WIL
== END ==
LOC: M PAIN 11:30
PROVIDERS: ATTEND Nurse Practitioner Family
DX: M96.1 Postlaminectomy syndrome, not elsewhere classified (principal); Z79.899 Other long term (current) drug therapy; Z87.891 Personal history of nicotine dependence

== ENCOUNTER → 2021-02-28 | Outpatient (CLI) | payer BC | LOC: M LABSMTC 11:28 | PROVIDERS: ATTEND Anesthesiology | DX: Z01.812 Encounter for preprocedural laboratory examination (principal); Z20.822 Contact with and (suspected) exposure to COVID-19 ==

== ENCOUNTER → 2021-03-05 | Outpatient (CLI) | payer BC ==
[~2021-03-05] MED LIST changes: +ISOVUE-M 300 61% 15ML VIAL As Ordered ONE; +LIDOCAINE 1% SDV 30ML VIAL As Ordered ONE; +diazePAM 5MG TABLET As Ordered ONE; +methylPREDNISolone SUSP 40MG/ML 1ML VIAL (DEPO MEDROL) As Ordered ONE; +oxyCODONE 5MG TAB As Ordered ONE
--- NOTE | 2021-03-05 13:36 | REP ---
INDICATION: LUMBAR EPIDURAL STEROID INJECTIONS. COMPARISON: 10/04/2020. TECHNIQUE: Four views lower lumbar spine. FINDINGS: A needle is seen at the L5 level. A small amount of contrast is injected. IMPRESSION: 24 seconds of fluoroscopy time was utilized. <Electronically signed by Uriah Moran > 03/05/21 [id number]
== END ==
LOC: M PAIN 11:20
PROVIDERS: ATTEND Anesthesiology
DX: M96.1 Postlaminectomy syndrome, not elsewhere classified (principal); Z87.891 Personal history of nicotine dependence; Z79.899 Other long term (current) drug therapy; Z88.0 Allergy status to penicillin; Z88.7 Allergy status to serum and vaccine; Z88.8 Allergy status to other drugs, medicaments and biological substances; Z91.013 Allergy to seafood; Z91.048 Other nonmedicinal substance allergy status
CPT/HCPCS: 62323; J1030; Q9967

== ENCOUNTER → 2021-09-06 | Outpatient (CLI) | payer BC ==
[~2021-09-06] MED LIST changes: -ISOVUE-M 300 61% 15ML VIAL As Ordered ONE; -LIDOCAINE 1% SDV 30ML VIAL As Ordered ONE; -diazePAM 5MG TABLET As Ordered ONE; -methylPREDNISolone SUSP 40MG/ML 1ML VIAL (DEPO MEDROL) As Ordered ONE; -oxyCODONE 5MG TAB As Ordered ONE
== END ==
LOC: M PAIN 11:15
PROVIDERS: ATTEND Anesthesiology
DX: M96.1 Postlaminectomy syndrome, not elsewhere classified (principal); M54.50 Low back pain, unspecified; L98.9 Disorder of the skin and subcutaneous tissue, unspecified; Z88.0 Allergy status to penicillin; Z88.7 Allergy status to serum and vaccine; Z91.013 Allergy to seafood; Z91.048 Other nonmedicinal substance allergy status; Z79.899 Other long term (current) drug therapy; Z87.891 Personal history of nicotine dependence

== ENCOUNTER → 2021-10-18 | Outpatient (CLI) | payer BC | LOC: M PLARAD 09:53 | PROVIDERS: ATTEND Anesthesiology | DX: M51.86 Other intervertebral disc disorders, lumbar region (principal); M43.06 Spondylolysis, lumbar region ==

== ENCOUNTER → 2021-12-03 | Outpatient (CLI) | payer BC | LOC: M PAIN 11:30 | PROVIDERS: ATTEND Nurse Practitioner Family | DX: M96.1 Postlaminectomy syndrome, not elsewhere classified (principal); G89.29 Other chronic pain; Z87.891 Personal history of nicotine dependence; Z88.0 Allergy status to penicillin; Z88.7 Allergy status to serum and vaccine; Z88.8 Allergy status to other drugs, medicaments and biological substances; Z91.013 Allergy to seafood; Z79.899 Other long term (current) drug therapy ==

== ENCOUNTER → 2022-01-19 | Outpatient (CLI) | payer BC | LOC: M LABSMTC 10:37 | PROVIDERS: ATTEND Anesthesiology | DX: Z01.812 Encounter for preprocedural laboratory examination (principal); Z20.822 Contact with and (suspected) exposure to COVID-19 ==

== ENCOUNTER → 2022-01-19 | Outpatient (CLI) | payer BC | LOC: M LABSMTC 10:41 | PROVIDERS: ATTEND Anesthesiology | DX: Z01.812 Encounter for preprocedural laboratory examination (principal); Z20.822 Contact with and (suspected) exposure to COVID-19 ==

== ENCOUNTER → 2022-01-23 | Outpatient (CLI) | payer BC ==
[~2022-01-23] MED LIST changes: +ISOVUE-M 300 61% 15ML VIAL As Ordered ONE; +LIDOCAINE 1% SDV 30ML VIAL As Ordered ONE; +diazePAM 5MG TABLET As Ordered ONE; +methylPREDNISolone SUSP 40MG/ML 1ML VIAL (DEPO MEDROL) As Ordered ONE; +oxyCODONE 5MG TAB As Ordered ONE
== END ==
LOC: M PAIN 10:00
PROVIDERS: ATTEND Anesthesiology
DX: M51.17 Intervertebral disc disorders with radiculopathy, lumbosacral region (principal); G89.29 Other chronic pain; G47.30 Sleep apnea, unspecified; Z87.891 Personal history of nicotine dependence; Z88.0 Allergy status to penicillin; Z88.7 Allergy status to serum and vaccine; Z88.8 Allergy status to other drugs, medicaments and biological substances; Z91.013 Allergy to seafood; Z79.899 Other long term (current) drug therapy
CPT/HCPCS: 62323; J1030; Q9967

== ENCOUNTER → 2022-03-07 | Outpatient (CLI) | payer BC ==
[~2022-03-07] MED LIST changes: -ISOVUE-M 300 61% 15ML VIAL As Ordered ONE; -LIDOCAINE 1% SDV 30ML VIAL As Ordered ONE; -diazePAM 5MG TABLET As Ordered ONE; -methylPREDNISolone SUSP 40MG/ML 1ML VIAL (DEPO MEDROL) As Ordered ONE; -oxyCODONE 5MG TAB As Ordered ONE
== END ==
LOC: M PAIN 10:30
PROVIDERS: ATTEND Nurse Practitioner Family
DX: M51.16 Intervertebral disc disorders with radiculopathy, lumbar region (principal); G89.29 Other chronic pain; Z87.891 Personal history of nicotine dependence; Z88.0 Allergy status to penicillin; Z88.7 Allergy status to serum and vaccine; Z88.8 Allergy status to other drugs, medicaments and biological substances; Z91.013 Allergy to seafood; Z79.899 Other long term (current) drug therapy

== ENCOUNTER → 2022-07-11 | Outpatient (CLI) | payer BC | LOC: M PAIN 10:45 | PROVIDERS: ATTEND Nurse Practitioner Family | DX: M51.16 Intervertebral disc disorders with radiculopathy, lumbar region (principal); G89.29 Other chronic pain; Z87.891 Personal history of nicotine dependence; Z88.0 Allergy status to penicillin; Z88.7 Allergy status to serum and vaccine; Z88.8 Allergy status to other drugs, medicaments and biological substances; Z91.013 Allergy to seafood; Z79.899 Other long term (current) drug therapy ==

== ENCOUNTER → 2022-08-22 | Outpatient (CLI) | payer BC | LOC: M LABSMTC 11:47 | PROVIDERS: ATTEND Anesthesiology | DX: Z01.812 Encounter for preprocedural laboratory examination (principal); Z20.822 Contact with and (suspected) exposure to COVID-19 ==

== ENCOUNTER → 2022-08-25 | Outpatient (CLI) | payer BC ==
[~2022-08-25] MED LIST changes: +ISOVUE-M 300 61% 15ML VIAL As Ordered ONE; +LIDOCAINE 1% SDV 30ML VIAL As Ordered ONE; +diazePAM 5MG TABLET As Ordered ONE; +methylPREDNISolone SUSP 40MG/ML 1ML VIAL (DEPO MEDROL) As Ordered ONE; +oxyCODONE 5MG TAB As Ordered ONE
== END ==
LOC: M PAIN 11:00
PROVIDERS: ATTEND Anesthesiology
DX: M51.16 Intervertebral disc disorders with radiculopathy, lumbar region (principal); G89.29 Other chronic pain; G47.30 Sleep apnea, unspecified; Z87.891 Personal history of nicotine dependence; Z88.0 Allergy status to penicillin; Z88.7 Allergy status to serum and vaccine; Z88.8 Allergy status to other drugs, medicaments and biological substances; Z91.013 Allergy to seafood; Z79.899 Other long term (current) drug therapy
CPT/HCPCS: 62323; J1030; Q9967

== ENCOUNTER → 2022-09-26 | Outpatient (CLI) | payer BC ==
[~2022-09-26] MED LIST changes: -ISOVUE-M 300 61% 15ML VIAL As Ordered ONE; -LIDOCAINE 1% SDV 30ML VIAL As Ordered ONE; -diazePAM 5MG TABLET As Ordered ONE; -methylPREDNISolone SUSP 40MG/ML 1ML VIAL (DEPO MEDROL) As Ordered ONE; -oxyCODONE 5MG TAB As Ordered ONE
== END ==
LOC: M PAIN 09-25 11:00
PROVIDERS: ATTEND Nurse Practitioner Family
DX: M51.16 Intervertebral disc disorders with radiculopathy, lumbar region (principal); G89.29 Other chronic pain; G47.30 Sleep apnea, unspecified; Z87.891 Personal history of nicotine dependence; Z88.0 Allergy status to penicillin; Z88.7 Allergy status to serum and vaccine; Z88.8 Allergy status to other drugs, medicaments and biological substances; Z91.013 Allergy to seafood; Z79.899 Other long term (current) drug therapy

== ENCOUNTER → 2022-12-18 | Outpatient (CLI) | payer BC | LOC: M PAIN 13:45 | PROVIDERS: ATTEND Nurse Practitioner Family | DX: M51.16 Intervertebral disc disorders with radiculopathy, lumbar region (principal); M19.90 Unspecified osteoarthritis, unspecified site; Z87.891 Personal history of nicotine dependence; Z79.891 Long term (current) use of opiate analgesic; Z79.899 Other long term (current) drug therapy; Z88.0 Allergy status to penicillin; Z88.7 Allergy status to serum and vaccine; Z88.8 Allergy status to other drugs, medicaments and biological substances; Z91.013 Allergy to seafood; Z91.048 Other nonmedicinal substance allergy status ==

== ENCOUNTER → 2023-03-12 | Outpatient (CLI) | payer BC | LOC: M PAIN 11:45 | PROVIDERS: ATTEND Nurse Practitioner Family | DX: M51.16 Intervertebral disc disorders with radiculopathy, lumbar region (principal); G89.29 Other chronic pain; Z79.899 Other long term (current) drug therapy; Z87.891 Personal history of nicotine dependence; Z88.0 Allergy status to penicillin; Z88.7 Allergy status to serum and vaccine; Z88.8 Allergy status to other drugs, medicaments and biological substances; Z91.013 Allergy to seafood; Z91.048 Other nonmedicinal substance allergy status ==

== ENCOUNTER → 2023-05-04 | Outpatient (CLI) | payer BC ==
[~2023-05-04] MED LIST changes: +ISOVUE-M 300 61% 15ML VIAL As Ordered ONE; +LIDOCAINE 1% SDV 30ML VIAL As Ordered ONE; +diazePAM 5MG TABLET As Ordered ONE; +methylPREDNISolone SUSP 40MG/ML 1ML VIAL (DEPO MEDROL) As Ordered ONE; +oxyCODONE 5MG TAB As Ordered ONE
== END ==
LOC: M PAIN 10:15
PROVIDERS: ATTEND Anesthesiology
DX: M51.16 Intervertebral disc disorders with radiculopathy, lumbar region (principal); G89.29 Other chronic pain; Z87.891 Personal history of nicotine dependence; Z88.0 Allergy status to penicillin; Z88.7 Allergy status to serum and vaccine; Z88.8 Allergy status to other drugs, medicaments and biological substances; Z91.013 Allergy to seafood; Z79.899 Other long term (current) drug therapy
CPT/HCPCS: 62323; J1030; Q9967

== ENCOUNTER → 2023-07-02 | Outpatient (CLI) | payer BC ==
[~2023-07-02] MED LIST changes: -ISOVUE-M 300 61% 15ML VIAL As Ordered ONE; -LIDOCAINE 1% SDV 30ML VIAL As Ordered ONE; -diazePAM 5MG TABLET As Ordered ONE; -methylPREDNISolone SUSP 40MG/ML 1ML VIAL (DEPO MEDROL) As Ordered ONE; -oxyCODONE 5MG TAB As Ordered ONE
== END ==
LOC: M PAIN 11:30
PROVIDERS: ATTEND Nurse Practitioner Family
DX: M51.16 Intervertebral disc disorders with radiculopathy, lumbar region (principal); G89.29 Other chronic pain; Z87.891 Personal history of nicotine dependence; Z88.0 Allergy status to penicillin; Z88.7 Allergy status to serum and vaccine; Z88.8 Allergy status to other drugs, medicaments and biological substances; Z91.013 Allergy to seafood; Z79.899 Other long term (current) drug therapy

== ENCOUNTER → 2023-09-10 | Outpatient (CLI) | payer BC | LOC: M PAIN 11:15 | PROVIDERS: ATTEND Nurse Practitioner Family | DX: M51.16 Intervertebral disc disorders with radiculopathy, lumbar region (principal); G89.29 Other chronic pain; Z87.891 Personal history of nicotine dependence; Z79.899 Other long term (current) drug therapy; Z88.0 Allergy status to penicillin; Z88.7 Allergy status to serum and vaccine; Z91.030 Bee allergy status; Z91.048 Other nonmedicinal substance allergy status ==

== ENCOUNTER → 2023-11-12 | Outpatient (CLI) | payer BC ==
[~2023-11-12] MED LIST changes: +ISOVUE-M 300 61% 15ML VIAL As Ordered ONE; +LIDOCAINE 1% SDV 30ML VIAL As Ordered ONE; +diazePAM 5MG TABLET As Ordered ONE; +methylPREDNISolone SUSP 40MG/ML 1ML VIAL (DEPO MEDROL) As Ordered ONE; +oxyCODONE 5MG TAB As Ordered ONE
== END ==
LOC: M PAIN 11:00
PROVIDERS: ATTEND Anesthesiology
DX: M51.16 Intervertebral disc disorders with radiculopathy, lumbar region (principal); G89.29 Other chronic pain; M19.90 Unspecified osteoarthritis, unspecified site; Z87.891 Personal history of nicotine dependence; Z79.899 Other long term (current) drug therapy; Z88.0 Allergy status to penicillin; Z88.7 Allergy status to serum and vaccine; Z91.013 Allergy to seafood; Z91.048 Other nonmedicinal substance allergy status
CPT/HCPCS: 62323; J1010; Q9967

== ENCOUNTER → 2023-12-22 | Outpatient (CLI) | payer BC ==
[~2023-12-22] MED LIST changes: -ISOVUE-M 300 61% 15ML VIAL As Ordered ONE; -LIDOCAINE 1% SDV 30ML VIAL As Ordered ONE; -diazePAM 5MG TABLET As Ordered ONE; -methylPREDNISolone SUSP 40MG/ML 1ML VIAL (DEPO MEDROL) As Ordered ONE; -oxyCODONE 5MG TAB As Ordered ONE
== END ==
LOC: M PAIN 14:45
PROVIDERS: ATTEND Nurse Practitioner Family
DX: M51.16 Intervertebral disc disorders with radiculopathy, lumbar region (principal); G89.29 Other chronic pain; L30.9 Dermatitis, unspecified; Z87.891 Personal history of nicotine dependence; Z79.899 Other long term (current) drug therapy; Z79.890 Hormone replacement therapy; Z88.0 Allergy status to penicillin; Z88.7 Allergy status to serum and vaccine; Z88.8 Allergy status to other drugs, medicaments and biological substances; Z91.048 Other nonmedicinal substance allergy status

== ENCOUNTER → 2024-02-25 | Outpatient (CLI) | payer BC | LOC: M PAIN 11:45 | PROVIDERS: ATTEND Nurse Practitioner Family | DX: M51.16 Intervertebral disc disorders with radiculopathy, lumbar region (principal); M96.1 Postlaminectomy syndrome, not elsewhere classified; G89.29 Other chronic pain; Z87.891 Personal history of nicotine dependence; Z79.899 Other long term (current) drug therapy; Z88.0 Allergy status to penicillin; Z88.7 Allergy status to serum and vaccine; Z91.013 Allergy to seafood; Z91.048 Other nonmedicinal substance allergy status ==

== ENCOUNTER → 2024-04-20 | Outpatient (CLI) | payer BC | LOC: M PAIN 11:30 | PROVIDERS: ATTEND Anesthesiology | DX: M96.1 Postlaminectomy syndrome, not elsewhere classified (principal); G89.29 Other chronic pain; L30.9 Dermatitis, unspecified; E06.3 Autoimmune thyroiditis; Z87.891 Personal history of nicotine dependence; Z79.899 Other long term (current) drug therapy; Z88.0 Allergy status to penicillin; Z88.8 Allergy status to other drugs, medicaments and biological substances; Z88.7 Allergy status to serum and vaccine; Z91.013 Allergy to seafood; Z91.048 Other nonmedicinal substance allergy status ==

== ENCOUNTER → 2024-06-18 | Outpatient (CLI) | payer BC | LOC: M RAD 13:00 | PROVIDERS: ATTEND Anesthesiology | DX: M96.1 Postlaminectomy syndrome, not elsewhere classified (principal); M47.814 Spondylosis without myelopathy or radiculopathy, thoracic region; M51.369 Other intervertebral disc degeneration, lumbar region without mention of lumbar back pain or lower extremity pain ==

== ENCOUNTER → 2024-08-17 | Outpatient (CLI) | payer BC | LOC: M PAIN 13:00 | PROVIDERS: ATTEND Anesthesiology | DX: M96.1 Postlaminectomy syndrome, not elsewhere classified (principal); M51.16 Intervertebral disc disorders with radiculopathy, lumbar region; G89.29 Other chronic pain; Z79.899 Other long term (current) drug therapy; Z87.891 Personal history of nicotine dependence; Z88.0 Allergy status to penicillin; Z88.7 Allergy status to serum and vaccine; Z88.8 Allergy status to other drugs, medicaments and biological substances; Z91.013 Allergy to seafood ==